=== PATIENT | male | born 1970 | race Caucasian/White ===

== ENCOUNTER 2021-11-13 05:05 | Inpatient (IN) | payer BC, MEDICARE ==
[~2021-11-13] VITALS: Ht 167.6 cm; Wt 49.0 kg
[2021-11-13] MEDS ORDERED: ACETAMINOPHEN 650 MG/SUPP.RECT RC ONE ×2 (05:30)
[2021-11-13] MEDS ORDERED: LORAZEPAM INJ 2 MG/ML VIAL ONE ×2 (05:37→08:14)
[2021-11-13 05:41] LABS: BASOPHILS % (AUTO) 0.3 % (0.0-2.0); EOSINOPHILS % (AUTO) 0.1 % (0.0-6.0); HEMATOCRIT 44 % (39-51); HEMOGLOBIN 14.7 g/dL (13.5-17.5); LYMPHOCYTES % (AUTO) 13.2 % (20.0-44.0); MEAN CORPUSCULAR HGB CONC 33 g/dl (31.0-36.0); MEAN CORPUSCULAR VOLUME 92 fL (80-96); MONOCYTES % (AUTO) 6.7 % (2.0-12.0); NEUTROPHILS # (AUTO) 11.9 K/uL (1.8-8.9); NEUTROPHILS % (AUTO) 79.7 % (43.0-81.0); PLATELET COUNT (AUTO) 209 K/uL (150-450); RED BLOOD CELL COUNT(AUTO) 4.79 MIL/uL (4.5-6.0)
[2021-11-13] MEDS ORDERED: LORAZEPAM INJ 2 MG/ML VIAL IV ONE ×2 (06:00→08:00)
[2021-11-13] MEDS ORDERED: LEVETIRACETAM (500MG) 1,000 MG in IV NS 0.9% 100 ML IV SCH ×2 (06:30→08:30)
[2021-11-13 06:50] LABS: VALPROIC ACID 80 ug/mL (50-100)
[2021-11-13 06:54] LABS: ABG BASE EXCESS 3.7 mmol/L; ABG PCO2 38.4 mmHg (35.0-45.0); ABG PH 7.471 (7.350-7.450); ABG PO2 75.7 mmHg (75.0-100.0); COHb 0.3 % (0.5-1.5); MetHb 0.4 % (0.0-1.5); O2Hb 94.2 % (94.0-97.0); SITE, ABG Left Brachial; VENT MODE, BG 9 L Trach Mask
[2021-11-13] MEDS ORDERED: VALP250C3 GT (07:27)
[2021-11-13] MEDS ORDERED: ATOR40TA GT (07:27)
[2021-11-13] MEDS ORDERED: [UNRECOGNIZED DRUG - CODE] GT (07:27)
[2021-11-13] MEDS ORDERED: NUT.237L63 GT (07:27)
[2021-11-13] MEDS ORDERED: CARV3.12 GT (07:27)
[2021-11-13] MEDS ORDERED: ACET325T53 GT (07:27)
[2021-11-13] MEDS ORDERED: IPRA4AER IH (07:27)
[2021-11-13] MEDS ORDERED: LOPE2TAB25 GT (07:27)
[2021-11-13] MEDS ORDERED: MAGN100T3 GT (07:27)
[2021-11-13] MEDS ORDERED: LACT1CAP25 PO (07:27)
[2021-11-13] MEDS ORDERED: LACO200T2 GT (07:27)
[2021-11-13] MEDS ORDERED: BACL20TA GT (07:27)
[2021-11-13] MEDS ORDERED: CHLO473M3 MM (07:27)
[2021-11-13] MEDS ORDERED: ASCO500C17 GT (07:27)
[2021-11-13] MEDS ORDERED: LISI20TA30 GT (07:27)
[2021-11-13] MEDS ORDERED: OMEG1CAP55 GT (07:27)
[2021-11-13] MEDS ORDERED: AMIN887L GT (07:27)
[2021-11-13] MEDS ORDERED: IV NS 0.9% 1,000 ML BAG IV ONE ×2 (07:30)
[2021-11-13] MEDS ORDERED: CEFTAZIDIME 1 G in IV D5W 50 ML IV ONE (07:30)
[2021-11-13] MEDS ORDERED: ZOSYN IVPB 3.375 G in IV D5W 50ml IV ONE (08:00)
[2021-11-13 08:10] LABS: CALCIUM, SERUM 10.5 mg/dL (8.5-10.1); CARBON DIOXIDE 25 mmol/L (21-32); CHLORIDE 112 mmol/L (98-107); GLUCOSE 100 mg/dL (74-106); POTASSIUM 4.7 mmol/L (3.5-5.1); SODIUM SERUM 151 mmol/L (136-145); UREA NITROGEN, BLOOD 48 mg/dL (7-18)
[2021-11-13 08:16] LABS: ALANINE AMINOTRANSFERASE 40 U/L (12-78); ALBUMIN 3.1 g/dL (3.4-5.0); ALCOHOL, BLOOD < 3 mg/dL (0-0); ALKALINE PHOSPHATASE 62 U/L (46-116); ASPARTATE AMINOTRANSFERASE 28 U/L (15-37); BILIRUBIN,DIRECT 0.1 mg/dL (0.0-0.2); BILIRUBIN,TOTAL 0.4 mg/dL (0.2-1.0); TOTAL PROTEIN, SERUM 8.3 g/dL (6.4-8.2)
[2021-11-13 08:22] LABS: BILIRUBIN,URINE NEGATIVE (NEGATIVE); COLOR,URINE YELLOW (YELLOW); LEUKOCYTE ESTERASE ,URINE SMALL (NEGATIVE); NITRITE, URINE NEGATIVE (NEGATIVE); PH,URINE 5.5 (5.0-8.0); PROTEIN,URINE 100 mg/dl (NEGATIVE); UGLUCOSE NEGATIVE (NEGATIVE); UROBILINOGEN,URINE 0.2 EU/dL (0.2)
[2021-11-13 09:03] LABS: BACTERIA,URINE Few /HPF (None Seen); RBC,URINE 51-80 /HPF (0-2); SQUAMOUS EPITHELIAL CELL,UR Few /HPF (None Seen)
[2021-11-13] MEDS ORDERED: LORAZEPAM INJ 2 MG/ML VIAL IV PRN (10:30)
[2021-11-13] MEDS ORDERED: Medication Not On Formulary EA (Ipratropium/Albuterol Sulfate (Combivent Respimat 20-100 IH SCH (12:00)
[2021-11-13] MEDS ORDERED: METHYLCELLULOSE GT SCH (13:00)
[2021-11-13] MEDS ORDERED: BACLOFEN (10 MG) 10 MG TABLET ONE ×2 (13:46→17:10)
[2021-11-13] MEDS: BACLOFEN (10 MG) 10 MG TABLET GT SCH ×2 (14:00→17:40)
[2021-11-13] MEDS ORDERED: VANCOMYCIN 1.25 GM in IV D5W 250 ML IV ONE ×2 (14:00→19:00)
[2021-11-13] MEDS: PIPERACILLIN /TAZOBACTAM 3.375 G in IV D5W 50 ML IV SCH ×2 (16:04→22:05)
[2021-11-13] MEDS: IV NS 0.9% 1,000 ML IV PRN (16:20)
[2021-11-13] MEDS ORDERED: VALPROIC ACID 250 MG/5 ML UDC ONE (17:09)
[2021-11-13] MEDS ORDERED: LACOSAMIDE ORAL SOLN 50 MG/5 ML UDC ONE (17:09)
[2021-11-13] MEDS ORDERED: CARVEDILOL 3.125 MG TABLET ONE (17:10)
[2021-11-13] MEDS: VALPROIC ACID 250 MG/5 ML UDC GT SCH (17:40)
[2021-11-13] MEDS: LACOSAMIDE ORAL SOLN 50 MG/5 ML UDC GT SCH (17:40)
[2021-11-13] MEDS: CARVEDILOL 3.125 MG TABLET GT SCH (17:46)
[2021-11-13] MEDS: CHLORHEXIDINE GLUCONATE 15 ML UDC MM SCH (17:47)
[2021-11-13] MEDS: PROSTAT (PYXIS) 30 ML UDC GT SCH (17:50)
[2021-11-13 20:00] VITALS: BP 133/69
[2021-11-13] MEDS: KEPPRA 1000 MG in IV NS 100 ML IV SCH (20:52)
[2021-11-13] MEDS: LISINOPRIL (20MG) 20 MG TABLET GT SCH (21:05)
[2021-11-13] MEDS: ATORVASTATIN 40 MG TABLET GT SCH (21:05)
[2021-11-13] MEDS: JEVITY 1.2 CAL 1,000 ML BOTTLE GT PRN (22:17)
[2021-11-14] VITALS: BP 95/52
[2021-11-14] MEDS: VANCOMYCIN 1 GM in IV D5W 250 ML IV SCH ×2 (01:19→14:20)
[2021-11-14] MEDS: IV NS 0.9% 1,000 ML IV PRN ×2 (03:35→21:12)
[2021-11-14 04:00] VITALS: BP 97/50
[2021-11-14] MEDS ORDERED: PIPERACILLIN /TAZOBACTAM 3.375 G in IV D5W 50 ML IV SCH (04:00)
[2021-11-14 06:17] LABS: BASOPHILS % (AUTO) 0.2 % (0.0-2.0); EOSINOPHILS % (AUTO) 0.5 % (0.0-6.0); HEMATOCRIT 33 % (39-51); HEMOGLOBIN 11.2 g/dL (13.5-17.5); LYMPHOCYTES # (AUTO) 0.6 K/uL (0.8-4.8); LYMPHOCYTES % (AUTO) 8.9 % (20.0-44.0); MEAN CORPUSCULAR HGB CONC 34 g/dl (31.0-36.0); MEAN CORPUSCULAR VOLUME 93 fL (80-96); MONOCYTES # (AUTO) 0.5 K/uL (0.1-1.30); MONOCYTES % (AUTO) 6.6 % (2.0-12.0); NEUTROPHILS # (AUTO) 6.1 K/uL (1.8-8.9); NEUTROPHILS % (AUTO) 83.8 % (43.0-81.0); PLATELET COUNT (AUTO) 108 K/uL (150-450); RED BLOOD CELL COUNT(AUTO) 3.58 MIL/uL (4.5-6.0); WHITE BLOOD COUNT (AUTO) 7.3 K/uL (4.3-11.0)
[2021-11-14] MEDS ORDERED: VANCOMYCIN 1 GM in IV D5W 250 ML IV SCH (07:00)
[2021-11-14 07:03] LABS: BILIRUBIN,TOTAL 0.5 mg/dL (0.2-1.0); CREATININE 0.5 mg/dL (0.6-1.3); MAGNESIUM 1.8 mg/dL (1.8-2.4); PHOSPHORUS 2.1 mg/dL (2.5-4.9); TOTAL PROTEIN, SERUM 5.7 g/dL (6.4-8.2)
[2021-11-14 07:25] LABS: POTASSIUM 2.7 mmol/L (3.5-5.1)
[2021-11-14] MEDS: ALBUTEROL FS 2.5 MG/0.5 ML VIAL.NEB NEB SCH ×3 (07:35→19:30)
[2021-11-14] MEDS: IPRATROPIUM NEB FS 0.5 MG/2.5 ML AMPUL.NEB NEB SCH ×3 (07:35→19:30)
[2021-11-14 08:00] VITALS: BP 91/44
[2021-11-14] MEDS: VALPROIC ACID 250 MG/5 ML UDC GT SCH ×2 (08:11→16:29)
[2021-11-14] MEDS: CHLORHEXIDINE GLUCONATE 15 ML UDC MM SCH ×2 (08:11→16:29)
[2021-11-14] MEDS: ACIDOPHILUS/BULGARICUS 1 EACH TAB.CHEW PO SCH (08:11)
[2021-11-14] MEDS: BACLOFEN (10 MG) 10 MG TABLET GT SCH ×3 (08:12→16:29)
[2021-11-14] MEDS: ASCORBIC ACID 500 MG TABLET GT SCH (08:12)
[2021-11-14] MEDS: PANTOPRAZOLE 40 MG VIAL IV SCH (08:12)
[2021-11-14] MEDS: PROSTAT (PYXIS) 30 ML UDC GT SCH (08:13)
[2021-11-14] MEDS: CARVEDILOL 3.125 MG TABLET GT SCH ×2 (08:29→16:30)
[2021-11-14] MEDS: LACOSAMIDE ORAL SOLN 50 MG/5 ML UDC GT SCH ×2 (09:00→17:42)
[2021-11-14] MEDS ORDERED: MAGNESIUM AMINO ACID CHELATE GT SCH (09:00)
[2021-11-14] MEDS ORDERED: Medication Not On Formulary EA (Omega-3 Acid Ethyl Esters (Lovaza) 1 GM) GT SCH (09:00)
[2021-11-14] MEDS: KEPPRA 1000 MG in IV NS 100 ML IV SCH ×2 (09:19→20:21)
[2021-11-14] MEDS ORDERED: POTASSIUM CHLORIDE 10 MEQ/50 ML PREMIXED IVPB FOR PERIPHERAL LINE IV ONE (09:30)
[2021-11-14] MEDS: POTASSIUM CL. PREMIX PERIPHER. 50 ML IV SCH ×6 (09:48→16:52)
[2021-11-14] MEDS: ACETAMINOPHEN 650 MG/20.3 ML UDC GT PRN ×2 (09:58→20:23)
[2021-11-14] MEDS ORDERED: NEUTRA PHOS 1 POWD.PACKET PO ONE (10:00)
[2021-11-14 12:23] VITALS: BP 94/52
[2021-11-14] MEDS: PIPERACILLIN /TAZOBACTAM 3.375 G in IV D5W 50 ML IV SCH ×3 (12:32→23:12)
[2021-11-14] MEDS: PROSOURCE / PROSTAT (PYXIS) 30 ML UDC GT SCH ×2 (12:57→16:29)
[2021-11-14 16:55] VITALS: BP 95/50
[2021-11-14 20:00] VITALS: BP 90/69
[2021-11-14] MEDS: ATORVASTATIN 40 MG TABLET GT SCH (21:22)
[2021-11-14] MEDS: LISINOPRIL (20MG) 20 MG TABLET GT SCH (21:45)
[2021-11-15] VITALS: BP 91/44
[2021-11-15] MEDS: ALBUTEROL FS 2.5 MG/0.5 ML VIAL.NEB NEB SCH ×4 (01:07→19:30)
[2021-11-15] MEDS: IPRATROPIUM NEB FS 0.5 MG/2.5 ML AMPUL.NEB NEB SCH ×4 (01:07→19:30)
[2021-11-15] MEDS: JEVITY 1.2 CAL 1,000 ML BOTTLE GT PRN ×2 (02:11→21:44)
[2021-11-15] MEDS: VANCOMYCIN 1 GM in IV D5W 250 ML IV SCH ×2 (02:11→13:01)
[2021-11-15] MEDS: ACETAMINOPHEN 650 MG/20.3 ML UDC GT PRN (03:54)
[2021-11-15 04:00] VITALS: BP 122/47
[2021-11-15] MEDS: PIPERACILLIN /TAZOBACTAM 3.375 G in IV D5W 50 ML IV SCH ×3 (05:26→17:21)
[2021-11-15 06:06] LABS: BASOPHILS % (AUTO) 0.2 % (0.0-2.0); EOSINOPHILS % (AUTO) 1.6 % (0.0-6.0); HEMATOCRIT 30 % (39-51); HEMOGLOBIN 10.1 g/dL (13.5-17.5); LYMPHOCYTES # (AUTO) 0.8 K/uL (0.8-4.8); LYMPHOCYTES % (AUTO) 14.3 % (20.0-44.0); MEAN CORPUSCULAR HGB CONC 33 g/dl (31.0-36.0); MEAN CORPUSCULAR VOLUME 94 fL (80-96); MONOCYTES # (AUTO) 0.3 K/uL (0.1-1.30); NEUTROPHILS # (AUTO) 4.1 K/uL (1.8-8.9); NEUTROPHILS % (AUTO) 77.9 % (43.0-81.0); PLATELET COUNT (AUTO) 93 K/uL (150-450); RED BLOOD CELL COUNT(AUTO) 3.23 MIL/uL (4.5-6.0); WHITE BLOOD COUNT (AUTO) 5.3 K/uL (4.3-11.0)
[2021-11-15 06:36] LABS: CALCIUM, SERUM 8.4 mg/dL (8.5-10.1); CREATININE 0.5 mg/dL (0.6-1.3); MAGNESIUM 1.8 mg/dL (1.8-2.4); PHOSPHORUS 2.6 mg/dL (2.5-4.9); POTASSIUM 3.6 mmol/L (3.5-5.1)
[2021-11-15] MEDS: IV NS 0.9% 1,000 ML IV PRN ×2 (06:46→18:10)
[2021-11-15 08:00] VITALS: BP 129/43
[2021-11-15] MEDS: CHLORHEXIDINE GLUCONATE 15 ML UDC MM SCH ×2 (08:36→16:28)
[2021-11-15] MEDS: VALPROIC ACID 250 MG/5 ML UDC GT SCH ×2 (08:36→16:28)
[2021-11-15] MEDS: BACLOFEN (10 MG) 10 MG TABLET GT SCH ×3 (08:37→16:28)
[2021-11-15] MEDS: ASCORBIC ACID 500 MG TABLET GT SCH (08:37)
[2021-11-15] MEDS: ACIDOPHILUS/BULGARICUS 1 EACH TAB.CHEW PO SCH (08:37)
[2021-11-15] MEDS: PANTOPRAZOLE 40 MG VIAL IV SCH (08:37)
[2021-11-15] MEDS: CARVEDILOL 3.125 MG TABLET GT SCH ×2 (08:38→16:38)
[2021-11-15] MEDS: KEPPRA 1000 MG in IV NS 100 ML IV SCH (08:38)
[2021-11-15] MEDS: PROSOURCE / PROSTAT (PYXIS) 30 ML UDC GT SCH ×3 (08:39→16:28)
[2021-11-15] MEDS: LACOSAMIDE ORAL SOLN 50 MG/5 ML UDC GT SCH ×2 (10:05→16:38)
[2021-11-15 12:00] VITALS: BP 131/62
[2021-11-15 16:00] VITALS: BP 129/42
[2021-11-15] MEDS ORDERED: LACOSAMIDE 50 MG TABLET GT ONE (17:00)
[2021-11-15 20:00] VITALS: BP 95/48
[2021-11-15] MEDS: LEVETIRACETAM SOL (5 ML) 100 MG/ML UDC GT SCH (21:42)
[2021-11-15] MEDS: ATORVASTATIN 40 MG TABLET GT SCH (21:43)
[2021-11-15] MEDS: LISINOPRIL (20MG) 20 MG TABLET GT SCH (21:43)
[2021-11-16] VITALS: BP 100/53
[2021-11-16] MEDS: IPRATROPIUM NEB FS 0.5 MG/2.5 ML AMPUL.NEB NEB SCH ×2 (00:36→07:35)
[2021-11-16] MEDS: ALBUTEROL FS 2.5 MG/0.5 ML VIAL.NEB NEB SCH ×2 (00:36→07:35)
[2021-11-16] MEDS: PIPERACILLIN /TAZOBACTAM 3.375 G in IV D5W 50 ML IV SCH ×4 (00:44→17:12)
[2021-11-16] MEDS: VANCOMYCIN 1 GM in IV D5W 250 ML IV SCH ×2 (01:19→14:17)
[2021-11-16 04:00] VITALS: BP 99/55
[2021-11-16] MEDS: IV NS 0.9% 1,000 ML IV PRN (05:16)
[2021-11-16 06:47] LABS: BASOPHILS % (AUTO) 0.2 % (0.0-2.0); EOSINOPHILS % (AUTO) 4.1 % (0.0-6.0); HEMATOCRIT 30 % (39-51); LYMPHOCYTES # (AUTO) 0.6 K/uL (0.8-4.8); LYMPHOCYTES % (AUTO) 16.4 % (20.0-44.0); MEAN CORPUSCULAR HGB CONC 33 g/dl (31.0-36.0); MEAN CORPUSCULAR VOLUME 93 fL (80-96); MONOCYTES # (AUTO) 0.2 K/uL (0.1-1.30); MONOCYTES % (AUTO) 6.2 % (2.0-12.0); NEUTROPHILS # (AUTO) 2.9 K/uL (1.8-8.9); NEUTROPHILS % (AUTO) 73.1 % (43.0-81.0); PLATELET COUNT (AUTO) 95 K/uL (150-450); RED BLOOD CELL COUNT(AUTO) 3.23 MIL/uL (4.5-6.0); WHITE BLOOD COUNT (AUTO) 3.9 K/uL (4.3-11.0)
[2021-11-16 07:17] LABS: CALCIUM, SERUM 8.1 mg/dL (8.5-10.1); CREATININE 0.4 mg/dL (0.6-1.3); POTASSIUM 3.5 mmol/L (3.5-5.1)
[2021-11-16 08:00] VITALS: BP 125/47
[2021-11-16] MEDS: VALPROIC ACID 250 MG/5 ML UDC GT SCH ×2 (08:42→16:46)
[2021-11-16] MEDS: CHLORHEXIDINE GLUCONATE 15 ML UDC MM SCH ×2 (08:42→16:47)
[2021-11-16] MEDS: LEVETIRACETAM SOL (5 ML) 100 MG/ML UDC GT SCH ×2 (08:42→21:45)
[2021-11-16] MEDS: LACOSAMIDE ORAL SOLN 50 MG/5 ML UDC GT SCH ×2 (08:44→16:45)
[2021-11-16] MEDS: ACIDOPHILUS/BULGARICUS 1 EACH TAB.CHEW PO SCH (08:45)
[2021-11-16] MEDS: PANTOPRAZOLE 40 MG VIAL IV SCH (08:45)
[2021-11-16] MEDS: BACLOFEN (10 MG) 10 MG TABLET GT SCH ×3 (08:45→16:45)
[2021-11-16] MEDS: ASCORBIC ACID 500 MG TABLET GT SCH (08:47)
[2021-11-16] MEDS: CARVEDILOL 3.125 MG TABLET GT SCH ×2 (08:48→16:45)
[2021-11-16] MEDS: PROSOURCE / PROSTAT (PYXIS) 30 ML UDC GT SCH ×3 (08:48→16:46)
[2021-11-16] MEDS ORDERED: PANTOPRAZOLE 40 MG/PACK PACK NG SCH (09:00)
[2021-11-16] MEDS: PANTOPRAZOLE 40 MG/PACK PACK GT SCH (10:17)
[2021-11-16] MEDS: Z GUARD REMEDY 4 OZ OINT TP SCH ×3 (11:07→21:45)
[2021-11-16 12:00] VITALS: BP 121/51
[2021-11-16 16:00] VITALS: BP 110/44
[2021-11-16 20:00] VITALS: BP 97/54
[2021-11-16] MEDS: JEVITY 1.2 CAL 1,000 ML BOTTLE GT PRN (20:51)
[2021-11-16] MEDS: ATORVASTATIN 40 MG TABLET GT SCH (21:45)
[2021-11-16] MEDS: LISINOPRIL (20MG) 20 MG TABLET GT SCH (21:47)
[2021-11-17] VITALS: BP 107/45
[2021-11-17] MEDS: IV NS 0.9% 1,000 ML IV PRN ×2 (01:53→17:22)
[2021-11-17 04:00] VITALS: BP 108/37
[2021-11-17 07:12] LABS: CALCIUM, SERUM 8.1 mg/dL (8.5-10.1); CREATININE 0.4 mg/dL (0.6-1.3); POTASSIUM 3.7 mmol/L (3.5-5.1)
[2021-11-17 07:30] LABS: BASOPHILS % (AUTO) 0.3 % (0.0-2.0); EOSINOPHILS % (AUTO) 5.8 % (0.0-6.0); HEMATOCRIT 30 % (39-51); HEMOGLOBIN 9.9 g/dL (13.5-17.5); LYMPHOCYTES # (AUTO) 0.7 K/uL (0.8-4.8); LYMPHOCYTES % (AUTO) 19.9 % (20.0-44.0); MEAN CORPUSCULAR HGB CONC 33 g/dl (31.0-36.0); MEAN CORPUSCULAR VOLUME 90 fL (80-96); MONOCYTES # (AUTO) 0.3 K/uL (0.1-1.30); MONOCYTES % (AUTO) 7.6 % (2.0-12.0); NEUTROPHILS # (AUTO) 2.3 K/uL (1.8-8.9); NEUTROPHILS % (AUTO) 66.4 % (43.0-81.0); PLATELET COUNT (AUTO) 104 K/uL (150-450); RED BLOOD CELL COUNT(AUTO) 3.27 MIL/uL (4.5-6.0); WHITE BLOOD COUNT (AUTO) 3.4 K/uL (4.3-11.0)
[2021-11-17 08:00] VITALS: BP 116/60
[2021-11-17] MEDS: ASCORBIC ACID 500 MG TABLET GT SCH (08:48)
[2021-11-17] MEDS: ACIDOPHILUS/BULGARICUS 1 EACH TAB.CHEW PO SCH (08:48)
[2021-11-17] MEDS: VALPROIC ACID 250 MG/5 ML UDC GT SCH ×2 (08:49→16:23)
[2021-11-17] MEDS: BACLOFEN (10 MG) 10 MG TABLET GT SCH ×3 (08:49→17:22)
[2021-11-17] MEDS: LEVETIRACETAM SOL (5 ML) 100 MG/ML UDC GT SCH ×2 (08:49→21:41)
[2021-11-17] MEDS: CHLORHEXIDINE GLUCONATE 15 ML UDC MM SCH ×2 (08:49→17:35)
[2021-11-17] MEDS: PANTOPRAZOLE 40 MG/PACK PACK GT SCH (08:49)
[2021-11-17] MEDS: Z GUARD REMEDY 4 OZ OINT TP SCH ×3 (08:50→21:41)
[2021-11-17] MEDS: CARVEDILOL 3.125 MG TABLET GT SCH ×2 (08:51→16:22)
[2021-11-17] MEDS: PROSOURCE / PROSTAT (PYXIS) 30 ML UDC GT SCH ×3 (08:52→17:35)
[2021-11-17] MEDS: JEVITY 1.2 CAL 1,000 ML BOTTLE GT PRN (09:18)
[2021-11-17] MEDS: LACOSAMIDE ORAL SOLN 50 MG/5 ML UDC GT SCH ×2 (11:04→16:23)
[2021-11-17 12:00] VITALS: BP 100/60
[2021-11-17 16:00] VITALS: BP 118/63
[2021-11-17] MEDS: ENOXAPARIN SODIUM 40 MG/0.4 ML DISP.SYRIN SQ SCH (17:23)
[2021-11-17] MEDS: PIPERACILLIN /TAZOBACTAM 3.375 G in IV D5W 50 ML IV SCH ×2 (17:35→21:42)
[2021-11-17 20:00] VITALS: BP 122/49
[2021-11-17] MEDS: ATORVASTATIN 40 MG TABLET GT SCH (21:44)
[2021-11-17] MEDS: LISINOPRIL (20MG) 20 MG TABLET GT SCH (21:45)
[2021-11-18] VITALS: BP 109/43
[2021-11-18 04:00] VITALS: BP 128/45
[2021-11-18] MEDS: PIPERACILLIN /TAZOBACTAM 3.375 G in IV D5W 50 ML IV SCH ×3 (04:57→21:00)
[2021-11-18 07:04] LABS: BASOPHILS % (AUTO) 0.4 % (0.0-2.0); EOSINOPHILS % (AUTO) 4.4 % (0.0-6.0); HEMATOCRIT 30 % (39-51); HEMOGLOBIN 10.4 g/dL (13.5-17.5); LYMPHOCYTES # (AUTO) 0.7 K/uL (0.8-4.8); LYMPHOCYTES % (AUTO) 18.9 % (20.0-44.0); MEAN CORPUSCULAR HGB CONC 34 g/dl (31.0-36.0); MEAN CORPUSCULAR VOLUME 90 fL (80-96); MONOCYTES # (AUTO) 0.3 K/uL (0.1-1.30); MONOCYTES % (AUTO) 9.1 % (2.0-12.0); NEUTROPHILS # (AUTO) 2.5 K/uL (1.8-8.9); NEUTROPHILS % (AUTO) 67.2 % (43.0-81.0); PLATELET COUNT (AUTO) 103 K/uL (150-450); RED BLOOD CELL COUNT(AUTO) 3.38 MIL/uL (4.5-6.0); WHITE BLOOD COUNT (AUTO) 3.8 K/uL (4.3-11.0)
[2021-11-18 07:26] LABS: CALCIUM, SERUM 8.1 mg/dL (8.5-10.1); CREATININE 0.4 mg/dL (0.6-1.3); MAGNESIUM 1.7 mg/dL (1.8-2.4); PHOSPHORUS 2.4 mg/dL (2.5-4.9); POTASSIUM 3.4 mmol/L (3.5-5.1)
[2021-11-18 08:00] VITALS: BP 122/55
[2021-11-18] MEDS: VALPROIC ACID 250 MG/5 ML UDC GT SCH ×2 (08:45→16:28)
[2021-11-18] MEDS: ASCORBIC ACID 500 MG TABLET GT SCH (08:46)
[2021-11-18] MEDS: CHLORHEXIDINE GLUCONATE 15 ML UDC MM SCH ×2 (08:46→16:28)
[2021-11-18] MEDS: CARVEDILOL 3.125 MG TABLET GT SCH ×2 (08:46→16:28)
[2021-11-18] MEDS: LEVETIRACETAM SOL (5 ML) 100 MG/ML UDC GT SCH ×2 (08:46→21:01)
[2021-11-18] MEDS: PANTOPRAZOLE 40 MG/PACK PACK GT SCH (08:46)
[2021-11-18] MEDS: BACLOFEN (10 MG) 10 MG TABLET GT SCH ×3 (08:46→16:28)
[2021-11-18] MEDS: ACIDOPHILUS/BULGARICUS 1 EACH TAB.CHEW PO SCH (08:46)
[2021-11-18] MEDS: PROSOURCE / PROSTAT (PYXIS) 30 ML UDC GT SCH ×3 (08:46→16:29)
[2021-11-18] MEDS: Z GUARD REMEDY 4 OZ OINT TP SCH ×3 (08:47→21:08)
[2021-11-18] MEDS: ENOXAPARIN SODIUM 40 MG/0.4 ML DISP.SYRIN SQ SCH (08:54)
[2021-11-18] MEDS: LACOSAMIDE ORAL SOLN 50 MG/5 ML UDC GT SCH ×2 (08:58→18:00)
[2021-11-18] MEDS: Magnesium 1GM/D5W 100ML PREMIX 100 ML IV SCH ×2 (09:41→10:46)
[2021-11-18] MEDS: JEVITY 1.2 CAL 1,000 ML BOTTLE GT PRN (09:48)
[2021-11-18] MEDS ORDERED: POTASSIUM CHLORIDE 20 MEQ POWDER PACKET GT SCH (10:00)
[2021-11-18] MEDS ORDERED: NEUTRA PHOS 1 POWD.PACKET GT ONE (10:00)
[2021-11-18] MEDS ORDERED: ENOXAPARIN SODIUM 40 MG/0.4 ML DISP.SYRIN SQ SCH (10:30)
[2021-11-18] MEDS: IV NS 0.9% 1,000 ML IV PRN (10:55)
[2021-11-18 12:00] VITALS: BP 122/55
[2021-11-18 16:00] VITALS: BP 109/42
[2021-11-18 20:00] VITALS: BP 112/40
[2021-11-18] MEDS: Z GUARD REMEDY 4 OZ OINT TP PRN ×2 (21:00→21:01)
[2021-11-18] MEDS: ATORVASTATIN 40 MG TABLET GT SCH (21:34)
[2021-11-18] MEDS: LISINOPRIL (20MG) 20 MG TABLET GT SCH (21:35)
[2021-11-19] VITALS: BP 145/68
[2021-11-19] MEDS: IV NS 0.9% 1,000 ML IV PRN ×2 (02:01→16:30)
[2021-11-19] MEDS: JEVITY 1.2 CAL 1,000 ML BOTTLE GT PRN (02:38)
[2021-11-19 04:00] VITALS: BP 128/69
[2021-11-19] MEDS: PIPERACILLIN /TAZOBACTAM 3.375 G in IV D5W 50 ML IV SCH ×3 (05:15→20:46)
[2021-11-19 07:26] LABS: BASOPHILS % (AUTO) 0.4 % (0.0-2.0); EOSINOPHILS % (AUTO) 4.2 % (0.0-6.0); HEMATOCRIT 33 % (39-51); HEMOGLOBIN 11.2 g/dL (13.5-17.5); LYMPHOCYTES # (AUTO) 0.8 K/uL (0.8-4.8); LYMPHOCYTES % (AUTO) 19.6 % (20.0-44.0); MEAN CORPUSCULAR HGB CONC 34 g/dl (31.0-36.0); MEAN CORPUSCULAR VOLUME 90 fL (80-96); MONOCYTES # (AUTO) 0.4 K/uL (0.1-1.30); MONOCYTES % (AUTO) 9.5 % (2.0-12.0); NEUTROPHILS # (AUTO) 2.7 K/uL (1.8-8.9); NEUTROPHILS % (AUTO) 66.3 % (43.0-81.0); PLATELET COUNT (AUTO) 125 K/uL (150-450); RED BLOOD CELL COUNT(AUTO) 3.65 MIL/uL (4.5-6.0)
[2021-11-19 08:00] VITALS: BP 111/62
[2021-11-19] MEDS: ASCORBIC ACID 500 MG TABLET GT SCH (08:00)
[2021-11-19] MEDS: BACLOFEN (10 MG) 10 MG TABLET GT SCH ×3 (08:01→16:48)
[2021-11-19] MEDS: VALPROIC ACID 250 MG/5 ML UDC GT SCH ×2 (08:01→16:48)
[2021-11-19] MEDS: PANTOPRAZOLE 40 MG/PACK PACK GT SCH (08:01)
[2021-11-19] MEDS: LEVETIRACETAM SOL (5 ML) 100 MG/ML UDC GT SCH ×2 (08:01→20:45)
[2021-11-19] MEDS: CHLORHEXIDINE GLUCONATE 15 ML UDC MM SCH ×2 (08:01→16:48)
[2021-11-19] MEDS: ACIDOPHILUS/BULGARICUS 1 EACH TAB.CHEW PO SCH (08:02)
[2021-11-19] MEDS: LACOSAMIDE ORAL SOLN 50 MG/5 ML UDC GT SCH ×2 (08:02→16:49)
[2021-11-19 08:03] LABS: CALCIUM, SERUM 8.6 mg/dL (8.5-10.1); CREATININE 0.4 mg/dL (0.6-1.3); PHOSPHORUS 2.6 mg/dL (2.5-4.9); POTASSIUM 3.5 mmol/L (3.5-5.1)
[2021-11-19] MEDS: Z GUARD REMEDY 4 OZ OINT TP SCH ×3 (08:03→20:46)
[2021-11-19] MEDS: ENOXAPARIN SODIUM 40 MG/0.4 ML DISP.SYRIN SQ SCH (08:05)
[2021-11-19] MEDS: PROSOURCE / PROSTAT (PYXIS) 30 ML UDC GT SCH ×3 (08:32→16:48)
[2021-11-19] MEDS: CARVEDILOL 3.125 MG TABLET GT SCH ×2 (09:00→16:48)
[2021-11-19 12:00] VITALS: BP 121/73
[2021-11-19 16:00] VITALS: BP 121/74
[2021-11-19 20:00] VITALS: BP 121/70
[2021-11-19] MEDS: LISINOPRIL (20MG) 20 MG TABLET GT SCH (20:47)
[2021-11-19] MEDS: ATORVASTATIN 40 MG TABLET GT SCH (20:47)
[2021-11-20] VITALS: BP 109/66
[2021-11-20 04:00] VITALS: BP 100/54
[2021-11-20] MEDS: JEVITY 1.2 CAL 1,000 ML BOTTLE GT PRN (05:42)
[2021-11-20] MEDS: PIPERACILLIN /TAZOBACTAM 3.375 G in IV D5W 50 ML IV SCH ×2 (05:42→13:04)
[2021-11-20] MEDS: IV NS 0.9% 1,000 ML IV PRN (07:06)
[2021-11-20 07:33] LABS: BASOPHILS % (AUTO) 0.2 % (0.0-2.0); HEMOGLOBIN 10.1 g/dL (13.5-17.5); MONOCYTES # (AUTO) 0.7 K/uL (0.1-1.30); RED BLOOD CELL COUNT(AUTO) 3.35 MIL/uL (4.5-6.0)
[2021-11-20 07:37] LABS: EOSINOPHILS % (AUTO) 6.3 % (0.0-6.0); HEMATOCRIT 30 % (39-51); LYMPHOCYTES # (AUTO) 0.8 K/uL (0.8-4.8); LYMPHOCYTES % (AUTO) 23.1 % (20.0-44.0); MEAN CORPUSCULAR HGB CONC 34 g/dl (31.0-36.0); MEAN CORPUSCULAR VOLUME 90 fL (80-96); MONOCYTES % (AUTO) 19.3 % (2.0-12.0); NEUTROPHILS # (AUTO) 1.8 K/uL (1.8-8.9); NEUTROPHILS % (AUTO) 51.1 % (43.0-81.0); PLATELET COUNT (AUTO) 139 K/uL (150-450); WHITE BLOOD COUNT (AUTO) 3.4 K/uL (4.3-11.0)
[2021-11-20 08:00] VITALS: BP 155/82
[2021-11-20] MEDS: CARVEDILOL 3.125 MG TABLET GT SCH (09:00)
[2021-11-20 09:07] LABS: CALCIUM, SERUM 8.6 mg/dL (8.5-10.1); CREATININE 0.4 mg/dL (0.6-1.3); MAGNESIUM 1.8 mg/dL (1.8-2.4); PHOSPHORUS 2.6 mg/dL (2.5-4.9)
[2021-11-20] MEDS: VALPROIC ACID 250 MG/5 ML UDC GT SCH (09:16)
[2021-11-20] MEDS: LEVETIRACETAM SOL (5 ML) 100 MG/ML UDC GT SCH (09:16)
[2021-11-20] MEDS: PANTOPRAZOLE 40 MG/PACK PACK GT SCH (09:16)
[2021-11-20] MEDS: ACIDOPHILUS/BULGARICUS 1 EACH TAB.CHEW PO SCH (09:17)
[2021-11-20] MEDS: ASCORBIC ACID 500 MG TABLET GT SCH (09:17)
[2021-11-20] MEDS: CHLORHEXIDINE GLUCONATE 15 ML UDC MM SCH (09:17)
[2021-11-20] MEDS: Z GUARD REMEDY 4 OZ OINT TP SCH ×2 (09:17→09:18)
[2021-11-20] MEDS: BACLOFEN (10 MG) 10 MG TABLET GT SCH ×2 (09:17→13:04)
[2021-11-20] MEDS: PROSOURCE / PROSTAT (PYXIS) 30 ML UDC GT SCH ×2 (09:17→13:04)
[2021-11-20] MEDS: ENOXAPARIN SODIUM 40 MG/0.4 ML DISP.SYRIN SQ SCH (09:29)
[2021-11-20] MEDS: LACOSAMIDE ORAL SOLN 50 MG/5 ML UDC GT SCH (09:30)
[2021-11-20] MEDS ORDERED: LEVE100S GT (11:43)
[2021-11-20 12:00] VITALS: BP 126/73
[2021-11-20 14:08] LABS: EOSINOPHILS % (MANUAL) 10 % (0-4); LYMPHOCYTES % (MANUAL) 18 % (16-48); MONOCYTES % (MANUAL) 17 % (0-11.0); NEUTROPHILS % (MANUAL) 54 (42-76)
[2021-11-20] MEDS ORDERED: POTASSIUM CL. PREMIX PERIPHER. 50 ML IV SCH (16:00)
== END 2021-11-20 16:14 | DRG 871 ==
LOC: ER 05:26 → TRANSITION 13:10 → TELE1 18:53 → TELE-TD 20:29 → TELE1 11-15 22:02
PROVIDERS: ADMIT Nurse Practitioner Acute Care; ATTEND Student in an Organized Health Care Education/Training Program
PROC: 05H633Z Insertion of Infusion Device into Left Subclavian Vein, Percutaneous Approach (ICD-10-PCS; principal; 2021-11-19)
PROC: B547ZZA Ultrasonography of Left Subclavian Vein, Guidance (ICD-10-PCS; 2021-11-19)
DX: A41.9 Sepsis, unspecified organism (principal); G92.8 Other toxic encephalopathy; J96.20 Acute and chronic respiratory failure, unspecified whether with hypoxia or hypercapnia; U07.1 COVID-19; G82.50 Quadriplegia, unspecified; J12.82 Pneumonia due to coronavirus disease 2019; E44.0 Moderate protein-calorie malnutrition; E87.0 Hyperosmolality and hypernatremia; D68.59 Other primary thrombophilia; G93.1 Anoxic brain damage, not elsewhere classified; Z99.11 Dependence on respirator [ventilator] status; J98.11 Atelectasis; G40.901 Epilepsy, unspecified, not intractable, with status epilepticus; E88.09 Other disorders of plasma-protein metabolism, not elsewhere classified; Z93.1 Gastrostomy status; I48.91 Unspecified atrial fibrillation; D69.6 Thrombocytopenia, unspecified; E78.5 Hyperlipidemia, unspecified; E83.42 Hypomagnesemia; E87.6 Hypokalemia; I10 Essential (primary) hypertension; Z93.0 Tracheostomy status; Z74.01 Bed confinement status; L89.526 Pressure-induced deep tissue damage of left ankle; L89.896 Pressure-induced deep tissue damage of other site; L30.8 Other specified dermatitis; L90.5 Scar conditions and fibrosis of skin; R13.10 Dysphagia, unspecified
CPT/HCPCS: 31720; 36410; 36415; 36600; 70450-TC; 71045-TC; 80048-TC; 80053-TC; 80076-TC; 80164-TC; 80202-TC; 81001; 82962-TC; 83605-TC; 83735-TC; 84100-TC; 85025-TC; 85378-TC; 85730-TC; 86140-TC; 87040-TC; 87045-TC; 87081-TC; 87086-TC; 94640-TC; 94760-TC; 94762-TC; 94799-TC; 95819-TC; A4217; A4623; A6253; A6403; A7526; C9113; C9803; G0378; G0480; J0713; J1650; J1953; J2060; J2543; J3370; J3475; J3480; J7030; J7050; J7060; U0003

== ENCOUNTER 2021-12-18 19:33 | Inpatient (IN) | payer BC ==
[~2021-12-18] VITALS: Ht 182.9 cm; Wt 51.3 kg
[~2021-12-18 19:33] MED LIST: ACET325T53 GT; AMIN887L GT; ASCO500C17 GT; ATOR40TA GT; BACL20TA GT; CARV3.12 GT; CHLO473M3 MM; IPRA4AER IH; LACO200T2 GT; LACT1CAP25 PO; LEVE100S GT; LISI20TA30 GT; LOPE2TAB25 GT; MAGN100T3 GT; NUT.237L63 GT; OMEG1CAP55 GT; VALP250C3 GT; [UNRECOGNIZED DRUG - CODE] GT
--- NOTE | 2021-12-18 19:51 | NUR ---
TO ER BED 6. [id number] PER FACILITY, [facility], [place], HYPOTENSION 85/35, FEVER 101.4. SKIN IS WARM TO THE TOUCH. NOT IN RESPIRATORY DISTRESS, TRACHE PT. RT CALLED TO ASSESS PT. CONNECTED TO MONITOR. AWAITING MD ROSADO
[2021-12-18] MEDS ORDERED: IV NS 0.9% 1,000 ML BAG IV ONE ×2 (20:00→22:00)
--- NOTE | 2021-12-18 20:00 | NUR ---
RT AT BEDSIDE
--- NOTE | 2021-12-18 20:02 | NUR ---
LAB AT BEDSIDE
--- NOTE | 2021-12-18 20:02 | NUR ---
COVID ANTIGEN SWAB COLLECTED AND SENT TO LAB
--- NOTE | 2021-12-18 20:08 | NUR ---
XRAY AT BEDSIDE
[2021-12-18] MEDS ORDERED: PIPERACILLIN /TAZOBACTAM 3.375 G VIAL IV ONE (20:30)
[2021-12-18] MEDS ORDERED: PIPERACILLIN /TAZOBACTAM 3.375 G in IV D5W 50 ML IV ONE (20:30)
[2021-12-18] MEDS ORDERED: VANCOMYCIN 1 GM in IV D5W 250 ML IV ONE (20:30)
--- NOTE | 2021-12-18 21:15 | NUR ---
BLOOD AND URINE COLLECTED AND SENT TO LAB
[2021-12-18 21:36] LABS: BASOPHILS % (AUTO) 0.1 % (0.0-2.0); EOSINOPHILS % (AUTO) 0.1 % (0.0-6.0); HEMATOCRIT 26 % (39-51); HEMOGLOBIN 8.3 g/dL (13.5-17.5); LYMPHOCYTES # (AUTO) 0.1 K/uL (0.8-4.8); LYMPHOCYTES % (AUTO) 1.5 % (20.0-44.0); MEAN CORPUSCULAR HGB CONC 32 g/dl (31.0-36.0); MEAN CORPUSCULAR VOLUME 94 fL (80-96); MONOCYTES # (AUTO) 0.3 K/uL (0.1-1.30); MONOCYTES % (AUTO) 3.4 % (2.0-12.0); NEUTROPHILS % (AUTO) 94.9 % (43.0-81.0); PLATELET COUNT (AUTO) 169 K/uL (150-450); RED BLOOD CELL COUNT(AUTO) 2.74 MIL/uL (4.5-6.0); WHITE BLOOD COUNT (AUTO) 8.4 K/uL (4.3-11.0)
[2021-12-18 21:43] LABS: BILIRUBIN,URINE NEGATIVE (NEGATIVE); COLOR,URINE YELLOW (YELLOW); LEUKOCYTE ESTERASE ,URINE LARGE (NEGATIVE); NITRITE, URINE NEGATIVE (NEGATIVE); PROTEIN,URINE 30 mg/dl (NEGATIVE); UGLUCOSE NEGATIVE (NEGATIVE); UROBILINOGEN,URINE 0.2 EU/dL (0.2)
[2021-12-18 21:53] LABS: BACTERIA,URINE 4+ /HPF (None Seen); RBC,URINE 21-50 /HPF (0-2); SQUAMOUS EPITHELIAL CELL,UR 0-2 /HPF (None Seen); WBC,URINE TOO NUMEROUS TO COUN /HPF (0-3)
[2021-12-18 21:57] LABS: BAND % (MANUAL) 19 % (0.0-5.0); LYMPHOCYTES % (MANUAL) 4 % (16-48); MONOCYTES % (MANUAL) 3 % (0-11.0); NEUTROPHILS % (MANUAL) 74 (42-76)
[2021-12-18 22:00] LABS: CALCIUM, SERUM 7.6 mg/dL (8.5-10.1); CARBON DIOXIDE 23 mmol/L (21-32); CHLORIDE 108 mmol/L (98-107); CREATININE 1.8 mg/dL (0.6-1.3); GLUCOSE 128 mg/dL (74-106); POTASSIUM 3.7 mmol/L (3.5-5.1); SODIUM SERUM 140 mmol/L (136-145)
[2021-12-18 22:02] LABS: UREA NITROGEN, BLOOD 98 mg/dL (7-18)
--- NOTE | 2021-12-18 22:02 | NUR ---
BUN 98
[2021-12-18 22:16] LABS: ALANINE AMINOTRANSFERASE 24 U/L (12-78); ALKALINE PHOSPHATASE 46 U/L (46-116); ASPARTATE AMINOTRANSFERASE 12 U/L (15-37); BILIRUBIN,DIRECT 0.1 mg/dL (0.0-0.2); BILIRUBIN,TOTAL 0.1 mg/dL (0.2-1.0); TOTAL PROTEIN, SERUM 5.5 g/dL (6.4-8.2)
[2021-12-18 22:38] LABS: ALBUMIN 1.2 g/dL (3.4-5.0)
[2021-12-18] MEDS ORDERED: MAG HYDROX/AL HYDROX/SIMETH 30 ML UDC PO PRN (23:00)
[2021-12-18] MEDS ORDERED: MAGNESIUM HYDROXIDE 30 ML UDC PO PRN (23:00)
[2021-12-18] MEDS ORDERED: ZOLPIDEM TARTRATE 5 MG TABLET PO PRN (23:00)
[2021-12-18] MEDS ORDERED: Z GUARD REMEDY 4 OZ OINT TP PRN (23:00)
[2021-12-18] MEDS ORDERED: HYDROCODONE/APAP 5/325MG TABLET PO PRN (23:00)
[2021-12-18] MEDS ORDERED: ACETAMINOPHEN 325 MG TABLET PO PRN (23:00)
[2021-12-18] MEDS ORDERED: ONDANSETRON HCL/PF 4 MG/2 ML VIAL IVP PRN (23:00)
[2021-12-19] VITALS (38 sets, daily range): BP systolic 77–148; BP diastolic 36–78
--- NOTE | 2021-12-19 00:10 | NUR ---
RN NOTES RECEIVED ER ADMISSION REPORT FROM SRINIVAS TAMAYO. ALL PERTINENT ADMISSION INFO REGARDING PT NOTED. WILL WAIT FOR PT TO BE TRANSFERRED TO UNIT AND ADDRESS NEEDS ACCORDINGLY. LYE PEEL OPERATOR MADE AWARE.
--- NOTE | 2021-12-19 00:14 | NUR ---
REPORT GIVEN TO BOO ESPINO FOR JELANI
--- NOTE | 2021-12-19 01:05 | NUR ---
PATIENT TRANSFERRED UNDER ACLS
--- NOTE | 2021-12-19 01:05 | NUR ---
RN NOTES RECEIVED PT FROM ER VIA ALVERTORNEY ACCOMPANIED BY 2 ER STAFF AND TRANSFERRED TO BED VIA 2-3 PERSON ASSIST. PT IS A/OX0; NON VERBAL; PT ON T-PIECE WITH RESPIRATIONS EVEN AND UNLABORED. COMPREHENSIVE PHYSICAL ASSESSMENT AND PATIENT CARE DONE. CALL LIGHT WITHIN REACH, SAFETY MEASURES AND ISOLATION PRECAUTION IN PLACE, WILL CONTINUE MONITOR AND ASSESS THROUGHOUT THE SHIFT. WILL CARRY OUT MD ORDERS ACCORDINGLY. FURNITURE ASSEMBLER MADE AWARE.
[2021-12-19] MEDS: IV NS 0.9% 1,000 ML IV PRN ×3 (01:30→23:17)
[2021-12-19] MEDS ORDERED: PIPERACILLIN /TAZOBACTAM 3.375 G in IV D5W 50 ML IV ONE (02:30)
[2021-12-19] MEDS ORDERED: PIPERACILLIN /TAZOBACTAM 3.375 G VIAL IV ONE (02:46)
--- NOTE | 2021-12-19 04:00 | NUR ---
RN NOTES NO NOTED CHANGES IN PATIENT CONDITION AT THIS TIME; PATIENT VITALS STABLE, NO SIGNS OF ACUTE RESPIRATORY DISTRESS. AM PATIENT CARE RENDERED, REGULAR SUCTIONING DONE, TURNING AND REPOSITIONING DONE Q2H.WILL CONTINUE TO MONITOR AND REASSESS FOR ANY CHANGES THROUGHOUT THE SHIFT.
[2021-12-19 06:23] LABS: BASOPHILS % (AUTO) 0.2 % (0.0-2.0); HEMATOCRIT 24 % (39-51); HEMOGLOBIN 7.8 g/dL (13.5-17.5); LYMPHOCYTES # (AUTO) 0.1 K/uL (0.8-4.8); LYMPHOCYTES % (AUTO) 1.6 % (20.0-44.0); MEAN CORPUSCULAR HGB CONC 33 g/dl (31.0-36.0); MEAN CORPUSCULAR VOLUME 93 fL (80-96); MONOCYTES # (AUTO) 0.3 K/uL (0.1-1.30); MONOCYTES % (AUTO) 4.4 % (2.0-12.0); NEUTROPHILS # (AUTO) 6.4 K/uL (1.8-8.9); NEUTROPHILS % (AUTO) 93.8 % (43.0-81.0); PLATELET COUNT (AUTO) 157 K/uL (150-450); RED BLOOD CELL COUNT(AUTO) 2.56 MIL/uL (4.5-6.0); WHITE BLOOD COUNT (AUTO) 6.8 K/uL (4.3-11.0)
--- NOTE | 2021-12-19 06:49 | NUR ---
RN CLOSING NOTE: PATIENT REMAINS IN ROOM IN NO SIGNS OF RESPIRATORY DISTRESS, PATIENT STILL ON 6L OF 02 VIA T-PIECE; TOLERATING WELL SATURATING @ >95% SP02. SAFETY MEASURES IMPLEMENTED, BED IN LOWEST POSITION, LOCKED, SIDE RAILS UP, CALL LIGHT WITHIN REACH. ALL NEEDS AND ORDERS ADDRESSED DURING THE SHIFT. IV ACCESS MAINTAINED INTACT, SECURED AND FLUSHING WELL. ALL DUE MEDS GIVEN ORDERED & SCHEDULED ; PATIENT TOLERATED WELL. PATIENT KEPT CLEAN AND COMFORTABLE WITHIN THE SHIFT. PATIENT ENDORSED TO INCOMING SHIFT RN WITH STABLE VITAL SIGN AND FOR CONTINUITY OF CARE.
[2021-12-19 07:14] LABS: CREATININE 1.2 mg/dL (0.6-1.3); MAGNESIUM 2.4 mg/dL (1.8-2.4); POTASSIUM 3.4 mmol/L (3.5-5.1)
[2021-12-19] MEDS ORDERED: PANTOPRAZOLE 40 MG TABLET.DR PO SCH (07:30)
--- NOTE | 2021-12-19 07:58 | NUR ---
RN OPENING NOTE Patient in bed, asleep. On O2 at 6L via T-piece, breathing evenly and unlabored. No SOB or s/s of distress noted. IV access on ALICE midline infusing NS at 100 ml/hr, and Right foot #22, SL intact and patent. On tele monitoring showing SR, HR on the 90's. Richey catheter in place draining to a yellow colored urine. Safety precautions in place: bed in low, locked position; siderails up x 2; call light within reach. Will continue to monitor.
[2021-12-19] MEDS: PIPERACILLIN /TAZOBACTAM 3.375 G in IV D5W 100 ML IV SCH ×2 (08:15→17:01)
[2021-12-19] MEDS: HEPARIN SODIUM, PORCINE 5000 UNITS/1 ML VIAL SQ SCH ×2 (08:23→22:51)
[2021-12-19] MEDS ORDERED: POTASSIUM CHLORIDE 20 MEQ TAB.PRT.SR PO ONE (10:00)
[2021-12-19] MEDS: VANCOMYCIN 500 MG in IV D5W 100 ML IV SCH ×2 (10:07→22:47)
--- NOTE | 2021-12-19 12:18 | NUR ---
RN NOTE Patient's BP low at 77/53 with both machine and manual BP. Zohreh Mott NP notified and ordered to give 500 cc, NS bolus. Order carried out.
[2021-12-19] MEDS ORDERED: IV NS 0.9% 500 ML IV ONE (12:30)
[2021-12-19] MEDS ORDERED: ACETAMINOPHEN 325 MG TABLET MC PRN (13:30)
[2021-12-19] MEDS ORDERED: NOREPINEPHRINE 32 MG in IV NS 0.9% 218 ML IV PRN (13:30)
--- NOTE | 2021-12-19 13:30 | NUR ---
RN NOTE Patient's BOP remains low after NS bolus given, BP is 79/39. Zohreh Mott NP notified and ordered to transfer patient to ICU.
--- NOTE | 2021-12-19 13:34 | NUR ---
awaits icu bed per md need to starton pressor,nursing sup notified.
--- NOTE | 2021-12-19 13:48 | NUR ---
ARRIVED IN ICU AT THIS TIME, ACCOMPANIED BY IAN RN. PT IS TRACHED ON T-PIECE, 5L O2. PT TRANSFERRED TO ICU FOR LOW BLOOD PRESSURE, LEVOPHED ORDERED. PT SETTLED AND PUT ON MONITOR AND PATIENT ASSESSED.
--- NOTE | 2021-12-19 13:49 | NUR ---
RN NOTE Patient transferred to ICU per Zohreh Mott NP order. Bedside report given to SRINIVAS Brink for JELANI. Addendum: 12/19/21 at 1516 by NATHALIE YUAN RN ADD: Patient transferred to room 258.
[2021-12-19] MEDS: NOREPINEPHRINE 8 MG in IV NS 0.9% 242 ML IV PRN ×2 (14:13→23:13)
[2021-12-19] MEDS ORDERED: MAG HYDROX/AL HYDROX/SIMETH 30 ML UDC GT PRN (14:44)
[2021-12-19] MEDS ORDERED: ZOLPIDEM TARTRATE 5 MG TABLET GT PRN (14:44)
[2021-12-19] MEDS ORDERED: HYDROCODONE/APAP 5/325MG TABLET GT PRN (14:44)
[2021-12-19] MEDS ORDERED: ZOLPIDEM TARTRATE 5 MG TABLET NG PRN (14:44)
[2021-12-19] MEDS ORDERED: MAGNESIUM HYDROXIDE 30 ML UDC GT PRN (14:45)
[2021-12-19] MEDS ORDERED: ACETAMINOPHEN 650 MG/20.3 ML UDC GT PRN (14:46)
[2021-12-19] MEDS: HYDROCORTISONE SOD SUCCINATE 100 MG/2 ML VIAL IV SCH ×2 (14:46→22:46)
[2021-12-19] MEDS ORDERED: PHARMACY TO CHANGE PO MEDS TO GT/NG XX PRN (15:00)
[2021-12-19] MEDS ORDERED: ACETAMINOPHEN 650 MG/20.3 ML UDC PO PRN (15:00)
[2021-12-19] MEDS: CARVEDILOL 3.125 MG TABLET GT SCH (17:00)
--- NOTE | 2021-12-19 17:40 | NUR ---
RN NOTES FOLLOW-UP MADE REGARDING PATIENT'S MED. VIMPAT FROM PHARMACY, AWAITING FOR THE MED.; FOLLOW-UP MADE TO THE DIETARY DEPT. WELL REGARDING PROSTAT, AWAITING FOR THE SUPPLY.
[2021-12-19] MEDS: JEVITY 1.2 CAL 1,000 ML BOTTLE GT PRN (17:42)
[2021-12-19] MEDS: BACLOFEN (10 MG) 10 MG TABLET GT SCH (17:43)
[2021-12-19] MEDS: CHLORHEXIDINE GLUCONATE 15 ML UDC MM SCH (17:43)
[2021-12-19] MEDS: VALPROIC ACID 250 MG/5 ML UDC GT SCH (17:43)
[2021-12-19] MEDS ORDERED: Medication Not On Formulary EA (Ipratropium/Albuterol Sulfate (Combivent Respimat 20-100 IH SCH (18:00)
--- NOTE | 2021-12-19 18:25 | NUR ---
RN NOTES FOLLOW-UP MADE AGAIN REGARDING PATIENT'S MEDS. VIMPAT FROM PHARMACY, AWAITING FOR THE MED.; FOLLOW-UP MADE TO THE DIETARY DEPT. AGAIN WELL REGARDING PROSTAT, AWAITING FOR THE SUPPLY.
[2021-12-19] MEDS: PROSOURCE / PROSTAT (PYXIS) 30 ML UDC GT SCH (18:47)
[2021-12-19] MEDS: LACOSAMIDE ORAL SOLN 50 MG/5 ML UDC GT SCH (18:48)
--- NOTE | 2021-12-19 19:08 | NUR ---
RN NOTES NO SIGNIFICANT CHANGES THROUGHOUT THE SHIFT. NO SOB OR ANY S/S OF DISTRESS. ALL DUE MEDS GIVEN. NEEDS ATTENDED. KEPT CLEAN AND COMFORTABLE. SAFETY MEASURES IN PLACE. ENDORSED TO NIGHT RN FOR JELANI.
[2021-12-19] MEDS: ALBUTEROL FS 2.5 MG/0.5 ML VIAL.NEB NEB SCH (20:03)
[2021-12-19] MEDS: IPRATROPIUM NEB FS 0.5 MG/2.5 ML AMPUL.NEB NEB SCH (20:03)
[2021-12-19] MEDS: LEVETIRACETAM SOL (5 ML) 100 MG/ML UDC GT SCH (22:45)
[2021-12-19] MEDS: ATORVASTATIN 40 MG TABLET GT SCH (22:47)
[2021-12-20] VITALS (87 sets, daily range): BP systolic 85–160; BP diastolic 41–89
[2021-12-20] MEDS: PIPERACILLIN /TAZOBACTAM 3.375 G in IV D5W 100 ML IV SCH ×4 (00:26→23:00)
[2021-12-20] MEDS: ALBUTEROL FS 2.5 MG/0.5 ML VIAL.NEB NEB SCH ×4 (01:29→20:20)
[2021-12-20] MEDS: IPRATROPIUM NEB FS 0.5 MG/2.5 ML AMPUL.NEB NEB SCH ×4 (01:29→20:20)
[2021-12-20] MEDS: HYDROCORTISONE SOD SUCCINATE 100 MG/2 ML VIAL IV SCH ×3 (05:36→21:22)
--- NOTE | 2021-12-20 06:50 | NUR ---
RN notes In bed resting comfortably with eyes open. No eye contact noted. No physical manifestation of pain or discomfort. Obtunded. On levo drip to maintain BP>90, no adverse effect noted. Vital signs remain wnl. Kept clean and dry. Will endorse to next shift for continuity of care.
--- NOTE | 2021-12-20 07:30 | NUR ---
OPENING NOTES: RECEIVED REPORT FROM CATHERINE ESPINO. NO SIGNIFICANT CHANGES NOTED OVERNIGHT PER REPORT. LEVOPHED INFUSING PER MD ORDERS. ALL OTHER BP MEDICATIONS HELD WHILE LEVOPHED IS INFUSING PER REPORT. HOURLY ROUNDING AND PATIENT CHECK DONE BY STAFF.
[2021-12-20] MEDS: PROSOURCE / PROSTAT (PYXIS) 30 ML UDC GT SCH ×3 (08:58→17:37)
[2021-12-20] MEDS: ACIDOPHILUS/BULGARICUS 1 EACH TAB.CHEW GT SCH (08:58)
[2021-12-20] MEDS: BACLOFEN (10 MG) 10 MG TABLET GT SCH ×3 (08:58→17:37)
[2021-12-20] MEDS: LACOSAMIDE ORAL SOLN 50 MG/5 ML UDC GT SCH ×2 (08:58→17:37)
[2021-12-20] MEDS: PSYLLIUM SEED 1 PKT PACKET GT SCH (08:58)
[2021-12-20] MEDS: CHLORHEXIDINE GLUCONATE 15 ML UDC MM SCH ×2 (08:59→17:37)
[2021-12-20] MEDS: PANTOPRAZOLE 40 MG/PACK PACK GT SCH (08:59)
[2021-12-20] MEDS: LEVETIRACETAM SOL (5 ML) 100 MG/ML UDC GT SCH ×2 (08:59→21:22)
[2021-12-20] MEDS: ASCORBIC ACID 500 MG TABLET GT SCH (08:59)
[2021-12-20] MEDS ORDERED: Medication Not On Formulary EA (Omega-3 Acid Ethyl Esters (Lovaza) 1 GM) GT SCH (09:00)
[2021-12-20] MEDS ORDERED: MAGNESIUM AMINO ACID CHELATE GT SCH (09:00)
[2021-12-20] MEDS: VALPROIC ACID 250 MG/5 ML UDC GT SCH ×2 (09:00→17:37)
[2021-12-20] MEDS: CARVEDILOL 3.125 MG TABLET GT SCH ×2 (09:00→17:00)
[2021-12-20 09:41] LABS: BASOPHILS % (AUTO) 0.1 % (0.0-2.0); HEMATOCRIT 32 % (39-51); HEMOGLOBIN 10.3 g/dL (13.5-17.5); LYMPHOCYTES # (AUTO) 0.2 K/uL (0.8-4.8); LYMPHOCYTES % (AUTO) 5.4 % (20.0-44.0); MEAN CORPUSCULAR HGB CONC 32 g/dl (31.0-36.0); MEAN CORPUSCULAR VOLUME 94 fL (80-96); MONOCYTES # (AUTO) 0.2 K/uL (0.1-1.30); MONOCYTES % (AUTO) 3.5 % (2.0-12.0); PLATELET COUNT (AUTO) 161 K/uL (150-450); RED BLOOD CELL COUNT(AUTO) 3.38 MIL/uL (4.5-6.0); WHITE BLOOD COUNT (AUTO) 4.4 K/uL (4.3-11.0)
[2021-12-20 09:46] LABS: CALCIUM, SERUM 8.7 mg/dL (8.5-10.1); CREATININE 0.7 mg/dL (0.6-1.3); POTASSIUM 3.5 mmol/L (3.5-5.1)
[2021-12-20] MEDS: VANCOMYCIN 500 MG in IV D5W 100 ML IV SCH (10:45)
[2021-12-20] MEDS: HEPARIN SODIUM, PORCINE 5000 UNITS/1 ML VIAL SQ SCH ×2 (10:45→21:23)
[2021-12-20] MEDS: IV NS 0.9% 1,000 ML IV PRN (10:53)
[2021-12-20] MEDS: JEVITY 1.2 CAL 1,000 ML BOTTLE GT PRN (13:48)
[2021-12-20] MEDS ORDERED: NOREPINEPHRINE 8 MG in IV NS 0.9% 242 ML IV PRN (16:00)
--- NOTE | 2021-12-20 19:22 | NUR ---
END OF SHIFT NOTES: PATIENT HAS NO NOTED SIGNIFICANT CHANGES DURING THE SHIFT; ALL DUE MEDS GIVEN; COREG WAS HELD DURING THE SHIFT DUE TO PATIENT ON LEVOPHED. HOURLY AND PRN ROUNDING DONE. NEEDS ATTENDED.
[2021-12-20] MEDS: VANCOMYCIN HCL 0.75 GM in IV D5W 250 ML IV SCH (20:00)
[2021-12-20] MEDS: ATORVASTATIN 40 MG TABLET GT SCH (21:22)
[2021-12-21] VITALS (37 sets, daily range): BP systolic 98–146; BP diastolic 40–96
[2021-12-21] MEDS: IV NS 0.9% 1,000 ML IV PRN ×2 (00:59→13:52)
[2021-12-21] MEDS: IPRATROPIUM NEB FS 0.5 MG/2.5 ML AMPUL.NEB NEB SCH ×4 (01:01→20:15)
[2021-12-21] MEDS: ALBUTEROL FS 2.5 MG/0.5 ML VIAL.NEB NEB SCH ×4 (01:01→20:15)
[2021-12-21 04:05] LABS: BASOPHILS % (AUTO) 0.1 % (0.0-2.0); HEMATOCRIT 26 % (39-51); HEMOGLOBIN 8.4 g/dL (13.5-17.5); LYMPHOCYTES # (AUTO) 0.3 K/uL (0.8-4.8); MEAN CORPUSCULAR HGB CONC 32 g/dl (31.0-36.0); MEAN CORPUSCULAR VOLUME 94 fL (80-96); MONOCYTES # (AUTO) 0.2 K/uL (0.1-1.30); MONOCYTES % (AUTO) 5.3 % (2.0-12.0); NEUTROPHILS # (AUTO) 2.5 K/uL (1.8-8.9); NEUTROPHILS % (AUTO) 85.6 % (43.0-81.0); PLATELET COUNT (AUTO) 170 K/uL (150-450); WHITE BLOOD COUNT (AUTO) 2.9 K/uL (4.3-11.0)
[2021-12-21 04:07] LABS: CREATININE 0.6 mg/dL (0.6-1.3)
[2021-12-21 04:32] LABS: POTASSIUM 2.7 mmol/L (3.5-5.1)
[2021-12-21] MEDS: HYDROCORTISONE SOD SUCCINATE 100 MG/2 ML VIAL IV SCH ×3 (04:33→21:26)
[2021-12-21] MEDS: POTASSIUM CHLORIDE 20 MEQ POWDER PACKET GT SCH ×3 (05:12→16:13)
--- NOTE | 2021-12-21 06:27 | NUR ---
SHIP STEWARD PT NOTED AFIB ON MONITOR INFORMED MD W/ORDERS TO START HEPARIN DRIP.
[2021-12-21] MEDS ORDERED: HEPARIN INFUSION/D5W 500 ML IV PRN (06:30)
[2021-12-21] MEDS ORDERED: HEPARIN SODIUM, PORCINE 5000 UNITS/1 ML VIAL IV ONE (07:00)
--- NOTE | 2021-12-21 07:05 | NUR ---
RN NOTES RECEIVED PT ON BED, EYES ARE OPEN, DOES NOT FOLLOW COMMAND, TRACH DEPENDENT , T- PIECE AT 6L , O2 SAT WNL, ON TELE A.FIB , HR IN 110'S , TF AT 55 CC/HR RUNNING, NO RESIDUAL NOTED , IV SITES CLEAN ,DRY AND INTACT, NS AT 100CC/HR RUNNING , SR UP x3, CALL LIGHT WITHIN EASY REACH, BED LOCKED AND IN LOWEST POSITION, CONTINUE TO MONITOR
--- NOTE | 2021-12-21 07:44 | NUR ---
WOUND CARE CONSULT: PT PRESENTS WITH SACRAL AND BILATERAL BUTTOCK DEEP TISSUE INJURIES WHICH ARE IN EVOLUTION WELL LOWER EXTREMITY DRY WOUNDS, ALL PRESENT ON ADMISSION. DR HINOJOSA AND DR ROSENBERG TO BE CALLED THIS AM FOR SURGICAL AND DPM CONSULTS. RECOMMENDATIONS MADE FOR SKIN PROTECTION. DISCUSSED WITH NURSING STAFF. PT IS ON BRIGID ISOFLEX LOW AIRLOSS BED. MD IN AGREEMENT WITH PLAN OF CARE.
[2021-12-21] MEDS: CHLORHEXIDINE GLUCONATE 15 ML UDC MM SCH ×2 (08:19→16:14)
[2021-12-21] MEDS: VALPROIC ACID 250 MG/5 ML UDC GT SCH ×2 (08:19→16:13)
[2021-12-21] MEDS: CARVEDILOL 3.125 MG TABLET GT SCH ×3 (08:25→16:08)
[2021-12-21] MEDS: LACOSAMIDE ORAL SOLN 50 MG/5 ML UDC GT SCH ×2 (08:25→16:13)
[2021-12-21] MEDS: ACIDOPHILUS/BULGARICUS 1 EACH TAB.CHEW GT SCH (08:26)
[2021-12-21] MEDS: BACLOFEN (10 MG) 10 MG TABLET GT SCH ×3 (08:26→16:13)
[2021-12-21] MEDS: ASCORBIC ACID 500 MG TABLET GT SCH (08:26)
[2021-12-21] MEDS: PIPERACILLIN /TAZOBACTAM 3.375 G in IV D5W 100 ML IV SCH ×3 (08:27→23:52)
[2021-12-21] MEDS: LEVETIRACETAM SOL (5 ML) 100 MG/ML UDC GT SCH ×2 (08:27→21:26)
[2021-12-21] MEDS: PANTOPRAZOLE 40 MG/PACK PACK GT SCH (08:27)
[2021-12-21] MEDS: PROSOURCE / PROSTAT (PYXIS) 30 ML UDC GT SCH ×3 (08:28→16:14)
[2021-12-21] MEDS: ENOXAPARIN SODIUM 60 MG/0.6 ML DISP.SYRIN SQ SCH ×2 (08:29→21:27)
[2021-12-21] MEDS: PSYLLIUM SEED 1 PKT PACKET GT SCH (08:40)
[2021-12-21] MEDS: VANCOMYCIN HCL 0.75 GM in IV D5W 250 ML IV SCH ×2 (08:51→20:12)
--- NOTE | 2021-12-21 09:32 | NUR ---
RN NOTES PT ON MONITOR NSR, DR LAGUNA NOTIFIED , ORDER FOR AMIO DRIP D/LENNOX PER MD ORDER .
[2021-12-21] MEDS ORDERED: AMIODARONE 150 MG in IV D5W 100 ML IV ONE (10:00)
[2021-12-21] MEDS ORDERED: AMIODARONE 450 MG in IV D5W 250 ML IV PRN (10:30)
[2021-12-21 10:52] LABS: THYROID STIMULATING HORMONE 0.152 uIU/mL (0.358-3.74)
--- NOTE | 2021-12-21 12:00 | NUR ---
RN NOTES ORAL AND TRACH CARE DONE, CONTINUE TO MONITOR .
[2021-12-21] MEDS: AMIODARONE HCL 200 MG TABLET PEG SCH ×2 (13:00→16:08)
[2021-12-21] MEDS: JEVITY 1.2 CAL 1,000 ML BOTTLE GT PRN (14:02)
--- NOTE | 2021-12-21 17:40 | NUR ---
RN NOTES PT TRANSFERRED TO ROOM 309-2 VIA ACLS PROTOCOL WITH ALL HIS BELONGINGS , REPORT GIVEN TO KATELYNN ESPINO FOR CONTINUITY OF CARE .
--- NOTE | 2021-12-21 19:47 | NUR ---
SKIN CARE SPECIALIST OPENING NOTE RECEIVED PATIENT, OBTUNDED, EYE-OPENING. PATIENT T-PIECE IN 6LPM OF O2, NOT EXHIBITING S/S OF APPARENT DISTRESS. NOT EXHIBITING PAIN VIA FLACC, TELE MONITOR READING SB @54 BPM. IV SOZYN IS STILL RUNNING AT THIS TIME @ 25 ML/HR, ALONG WITH NS @ 100 ML/HR. LINDSAY DRAINING CLEAR YELLOW URINE, FLEXISEAL HAS NO OUTPUT YET. G-TUBE RUNNING JEVITY 1.2 @55CC/HR. SAFETY IN PLACE. WILL CONTINUE WITH PATIENT'S PLAN OF CARE.
[2021-12-21] MEDS: THERAHONEY GEL 1.5 OZ TUBE TP SCH (22:30)
--- NOTE | 2021-12-21 22:44 | NUR ---
SONY NOT ON BEDSIDE NOR CASSETTE.
[2021-12-22] VITALS (7 sets, daily range): BP systolic 110–141; BP diastolic 55–72
[2021-12-22] MEDS: IPRATROPIUM NEB FS 0.5 MG/2.5 ML AMPUL.NEB NEB SCH ×4 (01:24→20:04)
[2021-12-22] MEDS: ALBUTEROL FS 2.5 MG/0.5 ML VIAL.NEB NEB SCH ×4 (01:24→20:04)
[2021-12-22] MEDS: HYDROCORTISONE SOD SUCCINATE 100 MG/2 ML VIAL IV SCH ×3 (05:52→21:14)
[2021-12-22] MEDS: IV NS 0.9% 1,000 ML IV PRN (06:07)
--- NOTE | 2021-12-22 07:45 | NUR ---
OPERATIONS SUPERINTENDENT CLOSING NOTE report given to alan for cont. of care.
[2021-12-22] MEDS: PANTOPRAZOLE 40 MG/PACK PACK GT SCH (08:00)
[2021-12-22] MEDS: PIPERACILLIN /TAZOBACTAM 3.375 G in IV D5W 100 ML IV SCH (08:00)
--- NOTE | 2021-12-22 08:07 | NUR ---
RN NOTES AWAITING FOR VANCO TROUGH PRIOR TO VANCOMYCIN IV DOSE.
[2021-12-22] MEDS: VANCOMYCIN HCL 0.75 GM in IV D5W 250 ML IV SCH ×2 (08:20→19:57)
--- NOTE | 2021-12-22 08:20 | NUR ---
RN NOTES VANCO TROUGH IS 16; OK TO GIVE 0800 DOSE OF VANCO PER PHARMACY
[2021-12-22] MEDS: LACOSAMIDE ORAL SOLN 50 MG/5 ML UDC GT SCH ×2 (09:00→16:02)
[2021-12-22] MEDS: CHLORHEXIDINE GLUCONATE 15 ML UDC MM SCH ×2 (09:38→16:03)
[2021-12-22] MEDS: VALPROIC ACID 250 MG/5 ML UDC GT SCH ×2 (09:38→16:03)
[2021-12-22] MEDS: LEVETIRACETAM SOL (5 ML) 100 MG/ML UDC GT SCH ×2 (09:38→21:16)
[2021-12-22] MEDS: BACLOFEN (10 MG) 10 MG TABLET GT SCH ×3 (09:39→16:01)
[2021-12-22] MEDS: PSYLLIUM SEED 1 PKT PACKET GT SCH (09:39)
[2021-12-22] MEDS: ACIDOPHILUS/BULGARICUS 1 EACH TAB.CHEW GT SCH (09:39)
[2021-12-22] MEDS: ASCORBIC ACID 500 MG TABLET GT SCH (09:39)
[2021-12-22] MEDS: CARVEDILOL 3.125 MG TABLET GT SCH ×2 (09:41→16:03)
[2021-12-22] MEDS: THERAHONEY GEL 1.5 OZ TUBE TP SCH (09:45)
[2021-12-22] MEDS: ENOXAPARIN SODIUM 40 MG/0.4 ML DISP.SYRIN SQ SCH (09:46)
--- NOTE | 2021-12-22 09:47 | NUR ---
RN NOTES LACOSAMIDE MEDICATION WILL BE BROUGHT BY PHARMACY.
[2021-12-22] MEDS: PROSOURCE / PROSTAT (PYXIS) 30 ML UDC GT SCH ×3 (09:49→16:01)
[2021-12-22] MEDS: POTASSIUM CHLORIDE 20 MEQ TAB.PRT.SR PO SCH (11:03)
--- NOTE | 2021-12-22 11:05 | NUR ---
RN NOTES LACOSAMIDE STILL NOT AVAILABLE FROM PHARMACY.
--- NOTE | 2021-12-22 12:30 | NUR ---
RN NOTES FAMILY AT BEDSIDE TO VISIT PATIENT; MADE AWARE OF PLAN OF CARE.
[2021-12-22] MEDS ORDERED: CEFEPIME 2 GM in IV D5W 100 ML IV SCH (13:00)
[2021-12-22] MEDS: CEFEPIME 2 GM in IV D5W 100 ML IV SCH ×2 (13:22→21:16)
--- NOTE | 2021-12-22 17:54 | NUR ---
RN NOTES PM DOSE OF LACOSAMIDE GIVEN; REFILLED OMNICELL BY [email or web address].
[2021-12-22] MEDS: JEVITY 1.2 CAL 1,000 ML BOTTLE GT PRN (18:00)
--- NOTE | 2021-12-22 18:47 | NUR ---
RN NOTES PHLEB TECH AT BEDSIDE FOR BLOOD DRAW BUT UNABLE TO DRAW BLOOD; PATIENT IS HARD STICK. UNABLE TO DRAW BLOOD FROM MIDLINE.
--- NOTE | 2021-12-22 19:17 | NUR ---
RN NOTES BEDSIDE ENDORSEMENT GIVEN TO DIGITAL MARKETING PROJECT MANAGER RN FOR JELANI.
[2021-12-22 22:54] LABS: BASOPHILS % (AUTO) 0.2 % (0.0-2.0); HEMATOCRIT 27 % (39-51); HEMOGLOBIN 8.4 g/dL (13.5-17.5); LYMPHOCYTES # (AUTO) 0.4 K/uL (0.8-4.8); LYMPHOCYTES % (AUTO) 13.5 % (20.0-44.0); MEAN CORPUSCULAR HGB CONC 32 g/dl (31.0-36.0); MEAN CORPUSCULAR VOLUME 94 fL (80-96); MONOCYTES # (AUTO) 0.2 K/uL (0.1-1.30); MONOCYTES % (AUTO) 6.7 % (2.0-12.0); NEUTROPHILS # (AUTO) 2.5 K/uL (1.8-8.9); NEUTROPHILS % (AUTO) 79.6 % (43.0-81.0); PLATELET COUNT (AUTO) 198 K/uL (150-450); RED BLOOD CELL COUNT(AUTO) 2.83 MIL/uL (4.5-6.0); WHITE BLOOD COUNT (AUTO) 3.1 K/uL (4.3-11.0)
[2021-12-22 23:47] LABS: CALCIUM, SERUM 8.4 mg/dL (8.5-10.1); CREATININE 0.7 mg/dL (0.6-1.3)
[2021-12-23] MEDS: IPRATROPIUM NEB FS 0.5 MG/2.5 ML AMPUL.NEB NEB SCH ×4 (02:03→19:46)
[2021-12-23] MEDS: ALBUTEROL FS 2.5 MG/0.5 ML VIAL.NEB NEB SCH ×4 (02:03→19:46)
[2021-12-23] MEDS: CEFEPIME 2 GM in IV D5W 100 ML IV SCH ×3 (05:10→22:08)
[2021-12-23] MEDS: HYDROCORTISONE SOD SUCCINATE 100 MG/2 ML VIAL IV SCH ×3 (05:10→22:09)
--- NOTE | 2021-12-23 06:44 | NUR ---
Concerned about HR 32 - 36 at times during the night texted Keara No new orders Made her aware that the NA level 159 ordered to stop the IV NS and start Peg flushes
[2021-12-23 06:48] LABS: BASOPHILS % (AUTO) 0.1 % (0.0-2.0); EOSINOPHILS % (AUTO) 0.8 % (0.0-6.0); HEMATOCRIT 31 % (39-51); HEMOGLOBIN 9.8 g/dL (13.5-17.5); LYMPHOCYTES # (AUTO) 0.5 K/uL (0.8-4.8); LYMPHOCYTES % (AUTO) 14.6 % (20.0-44.0); MEAN CORPUSCULAR HGB CONC 32 g/dl (31.0-36.0); MEAN CORPUSCULAR VOLUME 95 fL (80-96); MONOCYTES # (AUTO) 0.3 K/uL (0.1-1.30); MONOCYTES % (AUTO) 8.1 % (2.0-12.0); NEUTROPHILS # (AUTO) 2.5 K/uL (1.8-8.9); NEUTROPHILS % (AUTO) 76.4 % (43.0-81.0); PLATELET COUNT (AUTO) 180 K/uL (150-450); WHITE BLOOD COUNT (AUTO) 3.3 K/uL (4.3-11.0)
--- NOTE | 2021-12-23 07:30 | NUR ---
RN NOTES CURRENTLY ON TELE MONITORING; HR IN THE MID 40'S-LOW 50'S, NO CARDIAC DISTRESS NOTED. NON-VERBAL, OPENS EYES. LINDSAY CATH IN PLACE, GT PATENT, FLEXI-SEAL INTACT. H20 FLUSH DONE VIA GT. WILL CONTINUE TO MONITOR.
[2021-12-23] MEDS: VANCOMYCIN HCL 0.75 GM in IV D5W 250 ML IV SCH ×2 (07:54→20:18)
[2021-12-23] MEDS: PANTOPRAZOLE 40 MG/PACK PACK GT SCH (07:54)
[2021-12-23 08:00] VITALS: BP 114/65
[2021-12-23 08:20] LABS: CALCIUM, SERUM 8.9 mg/dL (8.5-10.1); CREATININE 0.6 mg/dL (0.6-1.3); MAGNESIUM 1.5 mg/dL (1.8-2.4); PHOSPHORUS 2.5 mg/dL (2.5-4.9); POTASSIUM 3.1 mmol/L (3.5-5.1)
[2021-12-23] MEDS: VALPROIC ACID 250 MG/5 ML UDC GT SCH ×2 (08:32→16:30)
[2021-12-23] MEDS: LACOSAMIDE ORAL SOLN 50 MG/5 ML UDC GT SCH ×2 (08:32→16:30)
[2021-12-23] MEDS: PSYLLIUM SEED 1 PKT PACKET GT SCH (08:32)
[2021-12-23] MEDS: BACLOFEN (10 MG) 10 MG TABLET GT SCH ×3 (08:32→16:29)
[2021-12-23] MEDS: POTASSIUM CHLORIDE 20 MEQ TAB.PRT.SR PO SCH (08:33)
[2021-12-23] MEDS: ASCORBIC ACID 500 MG TABLET GT SCH (08:33)
[2021-12-23] MEDS: LEVETIRACETAM SOL (5 ML) 100 MG/ML UDC GT SCH ×2 (08:33→22:08)
[2021-12-23] MEDS: ACIDOPHILUS/BULGARICUS 1 EACH TAB.CHEW GT SCH (08:33)
[2021-12-23] MEDS: CARVEDILOL 3.125 MG TABLET GT SCH ×2 (08:37→16:27)
[2021-12-23] MEDS: CHLORHEXIDINE GLUCONATE 15 ML UDC MM SCH ×2 (08:39→16:29)
[2021-12-23] MEDS: ENOXAPARIN SODIUM 40 MG/0.4 ML DISP.SYRIN SQ SCH (08:40)
[2021-12-23] MEDS: THERAHONEY GEL 1.5 OZ TUBE TP SCH (08:41)
[2021-12-23] MEDS: PROSOURCE / PROSTAT (PYXIS) 30 ML UDC GT SCH ×3 (08:41→16:30)
[2021-12-23] MEDS: Magnesium 1GM/D5W 100ML PREMIX 100 ML IV SCH ×2 (10:08→11:22)
--- NOTE | 2021-12-23 10:35 | NUR ---
RN NOTES DR. WATKINS'S ASSEMBLER EQUIPMENT STUDENT IN UNIT TO SEE PATIENT. MADE AWARE OF SODIUM LEVEL; PREVIOUS ORDERS ALREADY NOTED.
[2021-12-23 11:26] LABS: BAND % (MANUAL) 1 % (0.0-5.0); LYMPHOCYTES % (MANUAL) 21 % (16-48); MONOCYTES % (MANUAL) 5 % (0-11.0); NEUTROPHILS % (MANUAL) 70 (42-76); REACTIVE LYMPHOCYTES 3 % (0-0)
[2021-12-23 12:00] VITALS: BP 90/50
[2021-12-23] MEDS: VITAL AF 1.2 1,000 ML BOTTLE GT SCH (12:36)
[2021-12-23 16:00] VITALS: BP 106/56
[2021-12-23 20:00] VITALS: BP 105/54
[2021-12-23 23:16] LABS: HEMOGLOBIN 7.6 g/dL (13.5-17.5)
[2021-12-24] VITALS: BP 103/53
[2021-12-24] MEDS: IV D5W 1,000 ML IV SCH ×2 (00:04→13:20)
[2021-12-24] MEDS: IPRATROPIUM NEB FS 0.5 MG/2.5 ML AMPUL.NEB NEB SCH ×4 (02:12→20:47)
[2021-12-24] MEDS: ALBUTEROL FS 2.5 MG/0.5 ML VIAL.NEB NEB SCH ×4 (02:12→20:47)
[2021-12-24 04:00] VITALS: BP 97/49
[2021-12-24] MEDS: HYDROCORTISONE SOD SUCCINATE 100 MG/2 ML VIAL IV SCH ×3 (05:44→20:53)
[2021-12-24] MEDS: CEFEPIME 2 GM in IV D5W 100 ML IV SCH ×3 (05:44→21:39)
--- NOTE | 2021-12-24 07:37 | NUR ---
DEMOGRAPHIC ANALYST CLOSING NOTES PATIENT AWAKE IN BED, NON-VERBAL. PT STABLE WITH T-PIECE ON 5 LPM OF OXYGEN, NO S/S OF DISTRESS OR SOB NOTED, BREATHING EVEN AND UNLABORED, PT SUCTIONED THROUGHOUT SHIFT. ALICE MIDLINE INTACT AND INFUSING D5W @ 75 ML/HR. PT ON EXTERNAL DEMURRAGE WORKER READING SINUS SOPHIE, HR: 48. NO SIGNIFICANT CHANGES THROUGHOUT SHIFT, PT TURNED AND REPOSITIONED Q2H, PATIENT KEPT CLEAN AND DRY. MEDICATIONS GIVEN ORDERED. LINDSAY CATH AND FLEXISEAL IN PLACE AND DRAINING WELL. SAFETY MEASURES IN PLACE: CALL LIGHT WITHIN REACH, SIDE RAILS UP X 3, BED LOCKED IN LOW POSITION, HOB ELEVATED, BED ALARM ON. ENDORSED OT DAY SHIFT NURSE FOR CONTINUITY OF CARE
--- NOTE | 2021-12-24 07:56 | NUR ---
RN OPENING NOTE PATIENT RECEIVED IN BED, NON VERBAL, ABLE TO RESPONDS PHYSICAL STIMULI. IN NO ACUTE DISTRESS NOTED. RESPIRATORY EVEN AND UNLABORED ON TRACH AND T PIECE AT 5Ls. SKIN IS WARM TO TOUCH, KEEP CLEAN/DRY, INTACT IV SITE. LINDSAY CONNECTING TO URINE BAG. KEPT ELEVATED HOB FOR ENSURE AIRWAY AND ASPIRATION PRECAUTION, ALSO LOWEST POSITION OF THE BED, S/R UP X 3 FOR SAFETY. ALL SAFETY PRECAUTION APPLIED. CALL LIGHT WITHIN REACH, WILL CONTINUE TO MONITOR.
[2021-12-24 08:00] VITALS: BP 96/49
[2021-12-24] MEDS: VANCOMYCIN HCL 0.75 GM in IV D5W 250 ML IV SCH ×2 (08:33→20:33)
[2021-12-24] MEDS: CHLORHEXIDINE GLUCONATE 15 ML UDC MM SCH ×2 (08:34→16:44)
[2021-12-24] MEDS: ACIDOPHILUS/BULGARICUS 1 EACH TAB.CHEW GT SCH (08:34)
[2021-12-24] MEDS: ASCORBIC ACID 500 MG TABLET GT SCH (08:34)
[2021-12-24] MEDS: PSYLLIUM SEED 1 PKT PACKET GT SCH (08:34)
[2021-12-24] MEDS: PANTOPRAZOLE 40 MG/PACK PACK GT SCH (08:34)
[2021-12-24] MEDS: BACLOFEN (10 MG) 10 MG TABLET GT SCH ×3 (08:34→16:45)
[2021-12-24] MEDS: LACOSAMIDE ORAL SOLN 50 MG/5 ML UDC GT SCH ×2 (08:34→16:44)
[2021-12-24] MEDS: LEVETIRACETAM SOL (5 ML) 100 MG/ML UDC GT SCH ×2 (08:35→20:53)
[2021-12-24] MEDS: PROSOURCE / PROSTAT (PYXIS) 30 ML UDC GT SCH ×3 (08:35→16:44)
[2021-12-24] MEDS: CARVEDILOL 3.125 MG TABLET GT SCH ×2 (08:40→16:44)
[2021-12-24] MEDS: VALPROIC ACID 250 MG/5 ML UDC GT SCH ×2 (08:40→16:44)
[2021-12-24] MEDS: THERAHONEY GEL 1.5 OZ TUBE TP SCH (08:43)
[2021-12-24] MEDS: POTASSIUM CHLORIDE 20 MEQ TAB.PRT.SR PO SCH (08:44)
[2021-12-24] MEDS ORDERED: POTASSIUM CHLORIDE 20 MEQ POWDER PACKET NG SCH ×2 (09:00→10:30)
[2021-12-24] MEDS: ENOXAPARIN SODIUM 40 MG/0.4 ML DISP.SYRIN SQ SCH (10:30)
--- NOTE | 2021-12-24 10:30 | NUR ---
PATIENT HGB LEVEL 7.6 IN THIS MORNING, CLARIFIED WITH MD AND GIVEN LOVENOX.
[2021-12-24] MEDS: Magnesium 1GM/D5W 100ML PREMIX 100 ML IV SCH ×2 (10:36→13:17)
[2021-12-24 12:00] VITALS: BP 101/53
[2021-12-24 13:41] LABS: BASOPHILS % (AUTO) 0.2 % (0.0-2.0); HEMATOCRIT 25 % (39-51); HEMOGLOBIN 8.2 g/dL (13.5-17.5); LYMPHOCYTES # (AUTO) 0.5 K/uL (0.8-4.8); LYMPHOCYTES % (AUTO) 9.6 % (20.0-44.0); MEAN CORPUSCULAR HGB CONC 33 g/dl (31.0-36.0); MEAN CORPUSCULAR VOLUME 91 fL (80-96); MONOCYTES # (AUTO) 0.3 K/uL (0.1-1.30); MONOCYTES % (AUTO) 4.5 % (2.0-12.0); NEUTROPHILS # (AUTO) 4.7 K/uL (1.8-8.9); NEUTROPHILS % (AUTO) 85.7 % (43.0-81.0); PLATELET COUNT (AUTO) 214 K/uL (150-450); RED BLOOD CELL COUNT(AUTO) 2.77 MIL/uL (4.5-6.0); WHITE BLOOD COUNT (AUTO) 5.5 K/uL (4.3-11.0)
[2021-12-24 16:00] VITALS: BP 105/57
[2021-12-24 18:00] LABS: CALCIUM, SERUM 7.9 mg/dL (8.5-10.1); CREATININE 0.5 mg/dL (0.6-1.3); MAGNESIUM 2.5 mg/dL (1.8-2.4); PHOSPHORUS 1.9 mg/dL (2.5-4.9)
--- NOTE | 2021-12-24 18:59 | NUR ---
RN CLOSING NOTE PATENT IN BED, IN NO ACUTE DISTRESS OBSERVED. RESPIRATORY EVEN AND UNLABORED ON TRACH WITH T PIECE AT 5Ls. SKIN IS WARM TO TOUCH KEEP CLEAN/DRY, INTACT IV SITE. LINDSAY CATH CONNECTING TO THE URINE BAG, ALSO PATIENT HAS RECTAL TUBE, AND SKIN CARE PROVIDED. KEPT ELEVATE HOB FOR ASPIRATION PRECAUTION AND ENSURE AIRWAY, ALSO LOWEST POSITION OF THE BED FOR SAFETY. CALL LIGHT WITHIN REACH, WILL ENDORSE TO AWNING ASSEMBLER.
[2021-12-24 20:00] VITALS: BP 103/56
[2021-12-24 20:15] LABS: HEMOGLOBIN 8.9 g/dL (13.5-17.5)
[2021-12-24 20:20] LABS: BAND % (MANUAL) 1 % (0.0-5.0); LYMPHOCYTES % (MANUAL) 10 % (16-48); MONOCYTES % (MANUAL) 8 % (0-11.0); NEUTROPHILS % (MANUAL) 80 (42-76); REACTIVE LYMPHOCYTES 1 % (0-0)
[2021-12-25] VITALS (7 sets, daily range): BP systolic 97–123; BP diastolic 52–97
[2021-12-25] MEDS: ALBUTEROL FS 2.5 MG/0.5 ML VIAL.NEB NEB SCH ×4 (02:04→19:49)
[2021-12-25] MEDS: IPRATROPIUM NEB FS 0.5 MG/2.5 ML AMPUL.NEB NEB SCH ×4 (02:04→19:49)
[2021-12-25] MEDS: IV D5W 1,000 ML IV SCH ×2 (02:29→15:13)
[2021-12-25] MEDS: CEFEPIME 2 GM in IV D5W 100 ML IV SCH ×3 (04:19→21:02)
[2021-12-25] MEDS: HYDROCORTISONE SOD SUCCINATE 100 MG/2 ML VIAL IV SCH ×3 (04:19→21:07)
--- NOTE | 2021-12-25 06:11 | NUR ---
Patient has been alert to loud sound and touch by opening eyes but non-verbal. Suctioned as needed thick, small, white secretions. On t-piece at 5L O2, sats staying 97% and above. SB SR overnight usually 50s and 60s but in high 40s as well. Richey cath draining well clear yellow urine. Flexiseal in place with loose brown stool. Wound care provided. GT feeding Vital AF 1.2 running at 45mL/hr continuous -no residual tolerating well, GT flushed with 250mL q6h as per order. ALICE midline intact and patent running D5W at 75mL/hr. Currently in bed calm, in no signs of distress.
--- NOTE | 2021-12-25 07:21 | NUR ---
RN OPENING NOTE- PATIENT IN BED, NON VERBAL- IN NO ACUTE DISTRESS. RESPIRATIONS EVEN AND NON-LABORED / ON TRACH AND T PIECE AT 5Ls. SKIN IS WARM TO TOUCH, KEEP CLEAN/DRY, INTACT IV SITE. LINDSAY CONNECTING TO URINE BAG. KEPT ELEVATED HOB FOR ENSURE AIRWAY AND ASPIRATION PRECAUTIONS, BED LOCKED , LOW, S/R UP X 3 FOR SAFETY. ALL SAFETY PRECAUTION APPLIED. CALL LIGHT WITHIN REACH, WILL CONTINUE TO MONITOR.
[2021-12-25 07:28] LABS: BASOPHILS % (AUTO) 0.1 % (0.0-2.0); EOSINOPHILS % (AUTO) 0.1 % (0.0-6.0); HEMATOCRIT 29 % (39-51); HEMOGLOBIN 9.8 g/dL (13.5-17.5); LYMPHOCYTES # (AUTO) 0.6 K/uL (0.8-4.8); LYMPHOCYTES % (AUTO) 7.6 % (20.0-44.0); MEAN CORPUSCULAR HGB CONC 34 g/dl (31.0-36.0); MEAN CORPUSCULAR VOLUME 90 fL (80-96); MONOCYTES # (AUTO) 0.3 K/uL (0.1-1.30); MONOCYTES % (AUTO) 3.3 % (2.0-12.0); NEUTROPHILS % (AUTO) 88.9 % (43.0-81.0); PLATELET COUNT (AUTO) 264 K/uL (150-450); RED BLOOD CELL COUNT(AUTO) 3.18 MIL/uL (4.5-6.0); WHITE BLOOD COUNT (AUTO) 7.8 K/uL (4.3-11.0)
[2021-12-25] MEDS: PANTOPRAZOLE 40 MG/PACK PACK GT SCH (07:47)
[2021-12-25] MEDS: VANCOMYCIN HCL 0.75 GM in IV D5W 250 ML IV SCH ×2 (07:48→20:15)
[2021-12-25 08:47] LABS: CALCIUM, SERUM 8.3 mg/dL (8.5-10.1); CREATININE 0.5 mg/dL (0.6-1.3); MAGNESIUM 2.1 mg/dL (1.8-2.4); PHOSPHORUS 2.1 mg/dL (2.5-4.9); POTASSIUM 2.9 mmol/L (3.5-5.1)
[2021-12-25] MEDS: ASCORBIC ACID 500 MG TABLET GT SCH (08:48)
[2021-12-25] MEDS: CHLORHEXIDINE GLUCONATE 15 ML UDC MM SCH ×2 (08:48→16:50)
[2021-12-25] MEDS: VALPROIC ACID 250 MG/5 ML UDC GT SCH ×2 (08:48→16:50)
[2021-12-25] MEDS: PSYLLIUM SEED 1 PKT PACKET GT SCH (08:48)
[2021-12-25] MEDS: BACLOFEN (10 MG) 10 MG TABLET GT SCH ×3 (08:49→16:51)
[2021-12-25] MEDS: ACIDOPHILUS/BULGARICUS 1 EACH TAB.CHEW GT SCH (08:49)
[2021-12-25] MEDS: POTASSIUM CHLORIDE 20 MEQ TAB.PRT.SR PO SCH ×2 (08:51→16:50)
[2021-12-25] MEDS: ENOXAPARIN SODIUM 40 MG/0.4 ML DISP.SYRIN SQ SCH (08:57)
[2021-12-25] MEDS: CARVEDILOL 3.125 MG TABLET GT SCH ×2 (08:58→16:51)
[2021-12-25] MEDS: THERAHONEY GEL 1.5 OZ TUBE TP SCH (08:58)
[2021-12-25] MEDS: PROSOURCE / PROSTAT (PYXIS) 30 ML UDC GT SCH ×3 (09:27→16:51)
[2021-12-25] MEDS: LACOSAMIDE ORAL SOLN 50 MG/5 ML UDC GT SCH ×2 (09:36→17:58)
[2021-12-25] MEDS: LEVETIRACETAM SOL (5 ML) 100 MG/ML UDC GT SCH ×2 (10:01→21:07)
[2021-12-25 11:34] LABS: BAND % (MANUAL) 6 % (0.0-5.0); LYMPHOCYTES % (MANUAL) 8 % (16-48); METAMYELOCYTES % 1 % (0-0); MONOCYTES % (MANUAL) 2 % (0-11.0); MYELOCYTES % 1 % (0-0); NEUTROPHILS % (MANUAL) 81 (42-76); PROMYELOCYTES % 1 % (0-0)
--- NOTE | 2021-12-25 13:00 | NUR ---
RN NOTE- FULL WOUND CARE COMPLETED TO BLE / FEET AND SACRUM PLUS BACK AND SHOULDERS. TOLERATED WELL.
[2021-12-25] MEDS ORDERED: NEUTRA PHOS 1 POWD.PACKET NG ONE (15:30)
--- NOTE | 2021-12-25 18:35 | NUR ---
RN CLOSING NOTE- PATIENT IN BED, NON VERBAL- IN NO ACUTE DISTRESS. RESPIRATIONS EVEN AND NON-LABORED / ON TRACH AND T PIECE AT 5Ls. SUCTIONED THROUGHOUT DAY. COARSE BREATH SOUNDS. SKIN IS WARM TO TOUCH, KEEP CLEAN/DRY, DRESSING CHANGES COMPLETED TO SACRUM, LEGS AND FEET. BACK DRESSING CHANGED WELL. INTACT IV SITE. LINDSAY CONNECTING TO URINE BAG. KEPT ELEVATED HOB FOR ENSURE AIRWAY AND ASPIRATION PRECAUTIONS, BED LOCKED , LOW, S/R UP X 3 FOR SAFETY. ALL SAFETY PRECAUTION APPLIED. CALL LIGHT WITHIN REACH, WILL CONTINUE TO MONITOR.
--- NOTE | 2021-12-25 19:30 | NUR ---
SKIMMER SCOOP OPERATOR NOTES RECEIVED ON BED,OBTUNDED,NON VERBAL,OPEN EYES,BREATHING NON LABORED,ON T-PIECE AT 5L O2,28% COOL AEROSOL, CRACKLES ON AUSCULTATION,LOTS OF MUCUS, SUCTIONED.ON IVF D5W AT 75ML/HR RATE,INFUSING ON RIGHT UPPER ARM MID LINE VIA IV PUMP.WITH LINDSAY CATH IN DRAINS YELLOWISH OUTPUT.WITH FLEXI SEAL,WITH OUTPUT ON TUBES NOTED.ON SPECIALTY MATTRESS.GT FEEDING OF MADDISON-AF 1`.2% IN PROGRESS AT 45ML/HR RATE,INFUSING VIA IV FEEDING PUMP. NO RESIDUAL VOLUME AT THE MOMENT,HOB ELEVATED FOR ASPIRATION PRECAUTION,WILL REPOSITION PER PROTOCOL.WILL CONTINUE TO MONITOR STATUS.
--- NOTE | 2021-12-25 19:38 | NUR ---
AEROPHYSICS ENGINEER NOTES STARTED ON LOVENOX 40MG ORDERED ,GIVEN SQ ON RIGHT LOWER ABDOMEN
--- NOTE | 2021-12-25 19:39 | NUR ---
TRUCK MANAGER NOTES POTASSIUM LEVEL WAS 2.8,GIVEN K-DUR 40MEQ PO ORDERED,TAKEN WELL.
--- NOTE | 2021-12-25 19:45 | NUR ---
PROTOTYPE FABRICATOR NOTES RECEIVED LAYING COMFORTABLY ON BED WATCHING TV PROGRAM,BREATHING NON LABORED,SALINE LOCK LEFT AC INTACT AND PATENT.C/O MILD CHEST PAIN,SR ON TELE MONITOR.O2 STARTED AT 2L/NC,CALL LIGHT IN REACH,NEEDS ANTICIPATED.
--- NOTE | 2021-12-25 20:00 | NUR ---
LAUNDRY ROUTE DRIVER NOTES VANCOMYCIN DOSE HUNG SCHEDULED.
[2021-12-26] VITALS (8 sets, daily range): BP systolic 98–136; BP diastolic 52–66
[2021-12-26] MEDS: VITAL AF 1.2 1,000 ML BOTTLE GT SCH (00:10)
[2021-12-26] MEDS: IPRATROPIUM NEB FS 0.5 MG/2.5 ML AMPUL.NEB NEB SCH ×4 (02:00→20:29)
[2021-12-26] MEDS: ALBUTEROL FS 2.5 MG/0.5 ML VIAL.NEB NEB SCH ×4 (02:00→20:29)
[2021-12-26] MEDS: HYDROCORTISONE SOD SUCCINATE 100 MG/2 ML VIAL IV SCH ×3 (04:46→20:58)
[2021-12-26] MEDS: CEFEPIME 2 GM in IV D5W 100 ML IV SCH ×3 (04:46→20:58)
[2021-12-26] MEDS: IV D5W 1,000 ML IV SCH (05:05)
[2021-12-26 06:08] LABS: BASOPHILS # (AUTO) 0.2 K/uL (0.0-0.2); BASOPHILS % (AUTO) 1.8 % (0.0-2.0); EOSINOPHILS % (AUTO) 0.1 % (0.0-6.0); HEMATOCRIT 25 % (39-51); HEMOGLOBIN 8.4 g/dL (13.5-17.5); LYMPHOCYTES # (AUTO) 0.6 K/uL (0.8-4.8); MEAN CORPUSCULAR HGB CONC 34 g/dl (31.0-36.0); MEAN CORPUSCULAR VOLUME 91 fL (80-96); MONOCYTES # (AUTO) 0.3 K/uL (0.1-1.30); MONOCYTES % (AUTO) 3.7 % (2.0-12.0); NEUTROPHILS # (AUTO) 7.8 K/uL (1.8-8.9); NEUTROPHILS % (AUTO) 87.4 % (43.0-81.0); PLATELET COUNT (AUTO) 263 K/uL (150-450); RED BLOOD CELL COUNT(AUTO) 2.74 MIL/uL (4.5-6.0)
--- NOTE | 2021-12-26 06:19 | NUR ---
PICKING CREW SUPERVISOR NOTES NO SIGNIFICANT CHANGE IN STATUS,NO SOB,GT FEEDING TOLERATED WELL,IVF IN PROGRESS,SITE REMAINS PATENT.MORNING CARE RENDERED,DRESSING CHANGE TO SACRAL AREA DONE,REPOSITIONED PER PROTOCOL.LINDSAY CATH DRAINS WELL WITH CLEAR YELLOW URINE,EMPTIED [address] DRAINS BROWNISH WATERY STOOL..WILL ENDORSE TO DAY NURSE FOR JELANI.
--- NOTE | 2021-12-26 07:21 | NUR ---
RN OPENING NOTES Patient seen comfortably lying in bed, no SOB, no apparent distress noted, breathing even and unlabored, no grimacing. Call light left within reach, safety precautions in place, brakes locked, side rails up X 2, will monitor closely for any changes.
--- NOTE | 2021-12-26 07:49 | NUR ---
RT PT RECVD AWAKE ON 28% CA 5 LPM, TRACH IS PATENT AND SECURED. SUCTION DONE PRN, NEB TX GIVEN, PT KAREEM WELL. NO SOB OR RESPIRATORY DISTRESS NOTED AT THIS TIME. SPARE TRACH AND AMBU BAG AT BEDSIDE.
[2021-12-26] MEDS: BACLOFEN (10 MG) 10 MG TABLET GT SCH ×3 (08:53→16:21)
[2021-12-26] MEDS: LEVETIRACETAM SOL (5 ML) 100 MG/ML UDC GT SCH ×2 (08:53→20:58)
[2021-12-26] MEDS: ACIDOPHILUS/BULGARICUS 1 EACH TAB.CHEW GT SCH (08:53)
[2021-12-26] MEDS: ASCORBIC ACID 500 MG TABLET GT SCH (08:53)
[2021-12-26] MEDS: PSYLLIUM SEED 1 PKT PACKET GT SCH (08:53)
[2021-12-26] MEDS: VANCOMYCIN HCL 0.75 GM in IV D5W 250 ML IV SCH ×2 (08:53→19:50)
[2021-12-26] MEDS: VALPROIC ACID 250 MG/5 ML UDC GT SCH ×2 (08:53→16:21)
[2021-12-26] MEDS: PANTOPRAZOLE 40 MG/PACK PACK GT SCH (08:54)
[2021-12-26] MEDS: PROSOURCE / PROSTAT (PYXIS) 30 ML UDC GT SCH ×3 (08:54→16:28)
[2021-12-26] MEDS: POTASSIUM CHLORIDE 20 MEQ TAB.PRT.SR PO SCH (08:54)
[2021-12-26] MEDS: CHLORHEXIDINE GLUCONATE 15 ML UDC MM SCH ×2 (08:54→16:21)
[2021-12-26] MEDS: CARVEDILOL 3.125 MG TABLET GT SCH ×2 (08:55→16:21)
[2021-12-26] MEDS: ENOXAPARIN SODIUM 40 MG/0.4 ML DISP.SYRIN SQ SCH (08:55)
[2021-12-26] MEDS: LACOSAMIDE ORAL SOLN 50 MG/5 ML UDC GT SCH ×2 (08:59→16:21)
[2021-12-26] MEDS: THERAHONEY GEL 1.5 OZ TUBE TP SCH (09:33)
[2021-12-26 12:03] LABS: CALCIUM, SERUM 7.9 mg/dL (8.5-10.1); CREATININE 0.5 mg/dL (0.6-1.3); MAGNESIUM 1.6 mg/dL (1.8-2.4)
[2021-12-26 12:49] LABS: POTASSIUM 2.3 mmol/L (3.5-5.1)
--- NOTE | 2021-12-26 13:11 | NUR ---
Received a call from lab, spoke to Vita, regarding patient's Potassium level, hospitalist made aware with new orders to give Potassium 10meq X 6 doses IV, orders read back, noted and carried out. No apparent distress noted with patient at this time, appears comfortable, no loose stool noted, no palpitations, no grimacing, will monitor closely for any changes.
[2021-12-26] MEDS: POTASSIUM CL. PREMIX PERIPHER. 50 ML IV SCH ×6 (13:18→22:35)
[2021-12-26] MEDS ORDERED: MAGNESIUM OXIDE 400 MG TABLET GT ONE (15:30)
[2021-12-26] MEDS ORDERED: NEUTRA PHOS 1 POWD.PACKET NG ONE (16:00)
[2021-12-26] MEDS: POTASSIUM CHLORIDE 20 MEQ POWDER PACKET GT SCH (16:21)
--- NOTE | 2021-12-26 18:23 | NUR ---
RN CLOSING NOTES Patient lying in bed, no apparent distress noted, no shortness of breath, breathing even and unlabored, remained afebrile, no grimacing. Gtube remained in place, patent and intact, placement verified with introduction of air and aspiration of gastric residual. All due medications given via gtube per MD order, tolerating well. Patient currently has an order for gtube feeding Vital AF at 45 ml/hr, tolerating well, no nausea, no vomiting at this time. Patient has a midline IV line on right upper arm, with IV fluids (D5W@75ml/hr), infusing well, no s/s of infiltration, no redness, no swelling, no bleeding noted at this time. All needs anticipated, kept clean and dry, seizure precautions in place, patient turned and repositioned frequently, aspiration precautions rendered, safety precautions in place, frequent visual checks rendered, brakes locked, padded side rails up X 2, call light left within reach, will endorse to next shift for continuity of care.
[2021-12-26] MEDS ORDERED: IV D5W 1,000 ML IV PRN (18:40)
--- NOTE | 2021-12-26 19:15 | NUR ---
MIXER BLENDER NOTES RECEIVED ON BED,OBTUNDED,NON VERBAL,OPEN EYES,CONTRACTED ON BOTH UPPER AND LOWER EXTREMITIES.ON T-PIECE AT 5L,28% COOL AEROSOL TOLERATED WELL,NO SOB NOTED,FREQUENT SUCTIONING FOR MUCUS,GT FEEDING IN PROGRESS AT 45ML/HR RATE,NO RESIDUAL VOLUME NOTED.HOB ELEVATED FOR ASPIRATION PRECAUTION.IV POTASSIUM INFUSING IVPB VIA IV PUMP TO RIGHT UPPER ARM MIDLINE.LINDSAY CATH IN PLACE DRAINING CLEAR YELLOW OUTPUT.ON FLEXI SEAL,PLACEMENT INTACT.ON ISOFLEX BED FOR SKIN MANAGEMENT.WILL REPOSITION PER PROTOCOL.FULL CODE.
[2021-12-26] MEDS ORDERED: POTASSIUM CL. PREMIX PERIPHER. 50 ML ONE (22:33)
[2021-12-27] VITALS: BP 116/66
[2021-12-27] MEDS: ALBUTEROL FS 2.5 MG/0.5 ML VIAL.NEB NEB SCH ×4 (01:01→19:15)
[2021-12-27] MEDS: IPRATROPIUM NEB FS 0.5 MG/2.5 ML AMPUL.NEB NEB SCH ×4 (01:01→19:15)
[2021-12-27 04:00] VITALS: BP 113/62
[2021-12-27] MEDS: HYDROCORTISONE SOD SUCCINATE 100 MG/2 ML VIAL IV SCH ×3 (04:39→21:56)
[2021-12-27] MEDS: CEFEPIME 2 GM in IV D5W 100 ML IV SCH ×3 (04:46→21:55)
[2021-12-27] MEDS: VITAL AF 1.2 1,000 ML BOTTLE GT SCH (04:46)
--- NOTE | 2021-12-27 06:35 | NUR ---
BANKRUPTCY PROCESSOR NOTES LYING COMFORTABLY ON BED,NO SOB,T-PIECE SETTINGS TOLERATED WELL,AFEBRILE,DRESSING CHANGE TO SACRAL AREA DONE.LINDSAY EMPTIED 1500ML CLEAR URINE OUTPUT, 500ML OF WATERY STOOL VIA FLEXI SEAL.IN NO ACUTE DISTRESS.
[2021-12-27] MEDS: PANTOPRAZOLE 40 MG/PACK PACK GT SCH (07:40)
[2021-12-27] MEDS: VANCOMYCIN HCL 0.75 GM in IV D5W 250 ML IV SCH ×2 (07:43→20:28)
[2021-12-27 08:00] VITALS: BP 127/66
[2021-12-27 08:01] LABS: BASOPHILS % (AUTO) 0.1 % (0.0-2.0); EOSINOPHILS % (AUTO) 0.1 % (0.0-6.0); HEMATOCRIT 26 % (39-51); HEMOGLOBIN 8.5 g/dL (13.5-17.5); LYMPHOCYTES # (AUTO) 0.5 K/uL (0.8-4.8); LYMPHOCYTES % (AUTO) 7.1 % (20.0-44.0); MEAN CORPUSCULAR HGB CONC 33 g/dl (31.0-36.0); MEAN CORPUSCULAR VOLUME 92 fL (80-96); MONOCYTES # (AUTO) 0.4 K/uL (0.1-1.30); MONOCYTES % (AUTO) 5.4 % (2.0-12.0); NEUTROPHILS # (AUTO) 6.8 K/uL (1.8-8.9); NEUTROPHILS % (AUTO) 87.3 % (43.0-81.0); PLATELET COUNT (AUTO) 262 K/uL (150-450); RED BLOOD CELL COUNT(AUTO) 2.79 MIL/uL (4.5-6.0); WHITE BLOOD COUNT (AUTO) 7.7 K/uL (4.3-11.0)
[2021-12-27 08:03] LABS: CALCIUM, SERUM 7.8 mg/dL (8.5-10.1); CREATININE 0.5 mg/dL (0.6-1.3); MAGNESIUM 1.5 mg/dL (1.8-2.4); PHOSPHORUS 2.1 mg/dL (2.5-4.9)
[2021-12-27 08:27] LABS: POTASSIUM 2.6 mmol/L (3.5-5.1)
[2021-12-27] MEDS: THERAHONEY GEL 1.5 OZ TUBE TP SCH (08:49)
[2021-12-27] MEDS: CARVEDILOL 3.125 MG TABLET GT SCH ×2 (08:50→16:53)
[2021-12-27] MEDS: LACOSAMIDE ORAL SOLN 50 MG/5 ML UDC GT SCH ×2 (08:51→16:52)
[2021-12-27] MEDS: ENOXAPARIN SODIUM 40 MG/0.4 ML DISP.SYRIN SQ SCH (08:51)
[2021-12-27] MEDS: LEVETIRACETAM SOL (5 ML) 100 MG/ML UDC GT SCH ×2 (08:51→21:56)
[2021-12-27] MEDS: VALPROIC ACID 250 MG/5 ML UDC GT SCH ×2 (08:52→16:52)
[2021-12-27] MEDS: ASCORBIC ACID 500 MG TABLET GT SCH (08:52)
[2021-12-27] MEDS: BACLOFEN (10 MG) 10 MG TABLET GT SCH ×3 (08:52→16:52)
[2021-12-27] MEDS: PSYLLIUM SEED 1 PKT PACKET GT SCH (08:52)
[2021-12-27] MEDS: CHLORHEXIDINE GLUCONATE 15 ML UDC MM SCH ×2 (08:52→16:52)
[2021-12-27] MEDS: POTASSIUM CHLORIDE 20 MEQ POWDER PACKET GT SCH ×2 (08:52→16:53)
[2021-12-27] MEDS: ACIDOPHILUS/BULGARICUS 1 EACH TAB.CHEW GT SCH (08:52)
[2021-12-27] MEDS: PROSOURCE / PROSTAT (PYXIS) 30 ML UDC GT SCH ×3 (08:53→16:52)
--- NOTE | 2021-12-27 09:00 | NUR ---
RN NOTES DR. ODOM AWARE OF POTASSIUM LEVEL; ORDERS NOTED FROM DR. LAGUNA FOR POTASSIUM REPLACEMENT.
[2021-12-27] MEDS: POTASSIUM CHLORIDE 20 MEQ POWDER PACKET NG SCH ×6 (09:40→14:23)
--- NOTE | 2021-12-27 10:22 | NUR ---
RN NOTES FLEXI-SEAL CHANGED TODAY, TOLERATED PROCEDURE BY PATIENT.
[2021-12-27] MEDS ORDERED: MAGNESIUM OXIDE 400 MG TABLET GT ONE (11:30)
[2021-12-27 12:00] VITALS: BP 122/61
--- NOTE | 2021-12-27 13:02 | NUR ---
RN NOTES GT FLUSHED ORDERED; PATIENT REPOSITIONED IN BED FOR COMFORT AND OFF-LOADING. TRACH SUCTIONED FOR SECRETIONS, ABLE TO ASPIRATION SMALL AMOUNT OF MUCUS, THICK IN CONSISTENCY.
[2021-12-27 16:00] VITALS: BP 119/67
[2021-12-27] MEDS ORDERED: NEUTRA PHOS 1 POWD.PACKET NG ONE (17:00)
[2021-12-27 20:00] VITALS: BP 109/63
[2021-12-28] VITALS: BP 127/62
[2021-12-28] MEDS: IPRATROPIUM NEB FS 0.5 MG/2.5 ML AMPUL.NEB NEB SCH ×3 (00:43→14:16)
[2021-12-28] MEDS: ALBUTEROL FS 2.5 MG/0.5 ML VIAL.NEB NEB SCH ×3 (00:43→14:16)
[2021-12-28 04:00] VITALS: BP 121/67
[2021-12-28] MEDS: VITAL AF 1.2 1,000 ML BOTTLE GT SCH (05:16)
[2021-12-28] MEDS: HYDROCORTISONE SOD SUCCINATE 100 MG/2 ML VIAL IV SCH (05:35)
[2021-12-28] MEDS: CEFEPIME 2 GM in IV D5W 100 ML IV SCH ×2 (05:35→12:58)
--- NOTE | 2021-12-28 07:07 | NUR ---
CODER CLOSING NOTE PATIENT IN BED WITH EYES OPEN, PT NON-VERBAL. PT HAS T-PIECE ON 5 LPM OF OXYGEN COOL AEROSOL, NO S/S OF DISTRESS OR SOB NOTED, BREATHING EVEN AND UNLABORED. PATIENT ON EXTERNAL BARREL MAKER READING SINUS SOPHIE, HR: 56. FLEXISEAL IN PLACE, LINDSAY CATH IN PLACE AND DRAINING YELLOW URINE. PATIENT ON GT TUBE FEEDING, VITAL AF @ 45 ML/HR, FREE FLUSHES OF 250 ML OF WATER Q6H PERFORMED. IV ACCESS ON ALICE MIDLINE INTACT AND INFUSING D5W @ 75 ML/HR. MEDICATIONS GIVEN ORDERED, PT NEEDS MET THROUGHOUT SHIFT, NO SIGNIFICANT CHANGES THROUGHOUT SHIFT. SAFETY MEASURES IN PLACE: CALL LIGHT WITHIN REACH, SIDE RAILS UP X 3, BED LOCKED IN LOWEST POSITION, HOB ELEVATED, BED ALARM ON. WILL ENDORSE TO DAY SHIFT NURSE FOR CONTINUITY OF CARE
--- NOTE | 2021-12-28 07:27 | NUR ---
SPECIAL DUTY NURSE OPENING NOTE Patient in bed; obtunded, opens eyes. On O2 at 5LPM via T-piece with 28% aerosol. IV access on ALICE midline infusing D5W at 75 ml/hr. G-tube in place running Vital at 45 ml/hr. Flexiseal in place, intact. Richey catheter in place, draining to a yellow colored urine. Safety precautions in place: bed in low, locked position; siderails up x 2; call light within reach. Will continue to monitor.
[2021-12-28 07:57] LABS: CALCIUM, SERUM 8.5 mg/dL (8.5-10.1); CREATININE 0.5 mg/dL (0.6-1.3); MAGNESIUM 1.7 mg/dL (1.8-2.4); POTASSIUM 2.9 mmol/L (3.5-5.1)
[2021-12-28 08:00] VITALS: BP 110/69
[2021-12-28] MEDS ORDERED: NEUTRA PHOS 1 POWD.PACKET GT SCH (09:00)
[2021-12-28 09:40] LABS: BASOPHILS % (AUTO) 0.1 % (0.0-2.0); HEMATOCRIT 28 % (39-51); HEMOGLOBIN 9.4 g/dL (13.5-17.5); LYMPHOCYTES # (AUTO) 0.6 K/uL (0.8-4.8); LYMPHOCYTES % (AUTO) 5.5 % (20.0-44.0); MEAN CORPUSCULAR HGB CONC 34 g/dl (31.0-36.0); MEAN CORPUSCULAR VOLUME 92 fL (80-96); MONOCYTES # (AUTO) 0.4 K/uL (0.1-1.30); MONOCYTES % (AUTO) 4.2 % (2.0-12.0); NEUTROPHILS # (AUTO) 9.7 K/uL (1.8-8.9); NEUTROPHILS % (AUTO) 90.2 % (43.0-81.0); PLATELET COUNT (AUTO) 260 K/uL (150-450); RED BLOOD CELL COUNT(AUTO) 3.06 MIL/uL (4.5-6.0); WHITE BLOOD COUNT (AUTO) 10.7 K/uL (4.3-11.0)
[2021-12-28] MEDS: VANCOMYCIN HCL 0.75 GM in IV D5W 250 ML IV SCH (09:40)
[2021-12-28] MEDS: VALPROIC ACID 250 MG/5 ML UDC GT SCH (09:56)
[2021-12-28] MEDS: BACLOFEN (10 MG) 10 MG TABLET GT SCH ×2 (09:56→12:57)
[2021-12-28] MEDS: LEVETIRACETAM SOL (5 ML) 100 MG/ML UDC GT SCH (09:56)
[2021-12-28] MEDS: CHLORHEXIDINE GLUCONATE 15 ML UDC MM SCH (09:56)
[2021-12-28] MEDS: PSYLLIUM SEED 1 PKT PACKET GT SCH (09:56)
[2021-12-28] MEDS: ASCORBIC ACID 500 MG TABLET GT SCH (09:56)
[2021-12-28] MEDS: PANTOPRAZOLE 40 MG/PACK PACK GT SCH (09:56)
[2021-12-28] MEDS: ACIDOPHILUS/BULGARICUS 1 EACH TAB.CHEW GT SCH (09:56)
[2021-12-28] MEDS: POTASSIUM CHLORIDE 20 MEQ POWDER PACKET GT SCH ×7 (09:58→13:55)
[2021-12-28] MEDS: CARVEDILOL 3.125 MG TABLET GT SCH (09:59)
[2021-12-28] MEDS: PROSOURCE / PROSTAT (PYXIS) 30 ML UDC GT SCH ×2 (10:00→12:57)
[2021-12-28] MEDS: Magnesium 1GM/D5W 100ML PREMIX 100 ML IV SCH ×2 (10:04→11:39)
[2021-12-28] MEDS: ENOXAPARIN SODIUM 40 MG/0.4 ML DISP.SYRIN SQ SCH (10:12)
[2021-12-28] MEDS ORDERED: CEFE2FRO IV (10:14)
[2021-12-28] MEDS ORDERED: VANC750F2 IV (10:14)
[2021-12-28] MEDS ORDERED: METH4TAB3 PO (10:19)
[2021-12-28] MEDS: THERAHONEY GEL 1.5 OZ TUBE TP SCH (10:23)
[2021-12-28] MEDS: LACOSAMIDE ORAL SOLN 50 MG/5 ML UDC GT SCH (10:35)
[2021-12-28] MEDS ORDERED: POTASSIUM PHOSPHATE MM 15 MMOL in IV NS 0.9% 250 ML IV SCH (11:00)
[2021-12-28] MEDS ORDERED: Magnesium 1GM/D5W 100ML PREMIX 100 ML IV SCH (11:00)
[2021-12-28 12:00] VITALS: BP 118/57
[2021-12-28 16:00] VITALS: BP 122/62
--- NOTE | 2021-12-28 18:30 | NUR ---
DISCHARGE NOTE Received order for discharge. Patient is A/O x 0, obtunded. On O2 at 5 LPM via T-piece with cool aerosol. No SOB or s/s of distress noted. Patient has no belongings. IV access on ALICE midline not removed, patient to continue IV antibiotics at the SNF. Flexiseal and barajas catheter in place. Tele box removed. Report given to Miranda from [facility] at 1600. Exitcare folder given to EMT. G-tube intact, detached from feeding. Patient left in stable condition with 2 pipe smoking machine offbearer and 1 RT present.
== END 2021-12-28 18:40 | DRG 871 ==
LOC: ER 19:39 → TELE1 12-19 00:51 → ICU 12-19 13:43 → TELE 12-21 18:03
PROVIDERS: ADMIT Student in an Organized Health Care Education/Training Program; ATTEND Internal Medicine
PROC: 05H933Z Insertion of Infusion Device into Right Brachial Vein, Percutaneous Approach (ICD-10-PCS; principal; 2021-12-18)
PROC: 05HA33Z Insertion of Infusion Device into Left Brachial Vein, Percutaneous Approach (ICD-10-PCS; 2021-12-20)
DX: A41.50 Gram-negative sepsis, unspecified (principal); E43 Unspecified severe protein-calorie malnutrition; N17.0 Acute kidney failure with tubular necrosis; R65.21 Severe sepsis with septic shock; J18.9 Pneumonia, unspecified organism; R53.2 Functional quadriplegia; G93.1 Anoxic brain damage, not elsewhere classified; N39.0 Urinary tract infection, site not specified; D68.59 Other primary thrombophilia; J96.10 Chronic respiratory failure, unspecified whether with hypoxia or hypercapnia; E87.0 Hyperosmolality and hypernatremia; K91.2 Postsurgical malabsorption, not elsewhere classified; I47.1 Supraventricular tachycardia; R64 Cachexia; Z20.822 Contact with and (suspected) exposure to COVID-19; E78.5 Hyperlipidemia, unspecified; G40.909 Epilepsy, unspecified, not intractable, without status epilepticus; Z79.51 Long term (current) use of inhaled steroids; Z79.899 Other long term (current) drug therapy; E87.6 Hypokalemia; I10 Essential (primary) hypertension; I48.91 Unspecified atrial fibrillation; R62.7 Adult failure to thrive; Y84.9 Medical procedure, unspecified as the cause of abnormal reaction of the patient, or of later complication, without mention of misadventure at the time of the procedure; Y92.9 Unspecified place or not applicable; R13.10 Dysphagia, unspecified; Z93.1 Gastrostomy status; Z74.01 Bed confinement status; Y95 Nosocomial condition; B95.2 Enterococcus as the cause of diseases classified elsewhere; B96.4 Proteus (mirabilis) (morganii) as the cause of diseases classified elsewhere; D64.9 Anemia, unspecified; E83.42 Hypomagnesemia; E86.0 Dehydration; E88.09 Other disorders of plasma-protein metabolism, not elsewhere classified; L89.626 Pressure-induced deep tissue damage of left heel; Z86.16 Personal history of COVID-19; Z87.01 Personal history of pneumonia (recurrent); L89.612 Pressure ulcer of right heel, stage 2; L89.890 Pressure ulcer of other site, unstageable; M62.562 Muscle wasting and atrophy, not elsewhere classified, left lower leg; M62.561 Muscle wasting and atrophy, not elsewhere classified, right lower leg; L89.150 Pressure ulcer of sacral region, unstageable; L89.310 Pressure ulcer of right buttock, unstageable; L98.9 Disorder of the skin and subcutaneous tissue, unspecified; M62.462 Contracture of muscle, left lower leg; M62.461 Contracture of muscle, right lower leg
CPT/HCPCS: 31720; 36415; 71045-TC; 80048-TC; 80076-TC; 80202-TC; 81001; 83605-TC; 83735-TC; 84100-TC; 84439-TC; 84443-TC; 84484-TC; 85025-TC; 85027-TC; 85730-TC; 87040-TC; 87081-TC; 87086-TC; 87186-TC; 93307-TC; 94640-TC; 94760-TC; 94799-TC; 99082-TC; A4623; A6253; A6403; A7526; C9803; G0378; J0282; J0692; J1644; J1650; J1720; J1953; J2543; J3370; J3475; J3480; J7030; J7040; J7050; J7060; J7070

== ENCOUNTER 2022-01-22 20:39 | Inpatient (IN) | payer BC ==
[~2022-01-22] VITALS: Ht 170.2 cm; Wt 42.6 kg
[~2022-01-22 20:39] MED LIST changes: +CEFE2FRO IV; +METH4TAB3 PO; +VANC750F2 IV
--- NOTE | 2022-01-22 21:27 | NUR ---
covid swab collected sent to lab
--- NOTE | 2022-01-22 21:27 | NUR ---
blood work collected
[2022-01-22] MEDS ORDERED: IV NS 0.9% 1,000 ML BAG IV ONE (22:30)
[2022-01-22] MEDS ORDERED: VANCOMYCIN 1 GM in IV D5W 250 ML IV ONE (23:00)
[2022-01-22] MEDS ORDERED: PIPERACILLIN /TAZOBACTAM 3.375 G in IV D5W 50 ML IV ONE (23:00)
[2022-01-22 23:03] LABS: BASOPHILS % (AUTO) 0.3 % (0.0-2.0); EOSINOPHILS % (AUTO) 0.2 % (0.0-6.0); HEMATOCRIT 27 % (39-51); HEMOGLOBIN 8.2 g/dL (13.5-17.5); LYMPHOCYTES # (AUTO) 1.3 K/uL (0.8-4.8); LYMPHOCYTES % (AUTO) 8.8 % (20.0-44.0); MEAN CORPUSCULAR HGB CONC 31 g/dl (31.0-36.0); MEAN CORPUSCULAR VOLUME 94 fL (80-96); MONOCYTES % (AUTO) 6.6 % (2.0-12.0); NEUTROPHILS # (AUTO) 12.7 K/uL (1.8-8.9); NEUTROPHILS % (AUTO) 84.1 % (43.0-81.0); PLATELET COUNT (AUTO) 567 K/uL (150-450); RED BLOOD CELL COUNT(AUTO) 2.82 MIL/uL (4.5-6.0); WHITE BLOOD COUNT (AUTO) 15.1 K/uL (4.3-11.0)
[2022-01-22 23:04] LABS: BILIRUBIN,URINE NEGATIVE (NEGATIVE); COLOR,URINE YELLOW (YELLOW); LEUKOCYTE ESTERASE ,URINE LARGE (NEGATIVE); NITRITE, URINE NEGATIVE (NEGATIVE); PROTEIN,URINE 30 mg/dl (NEGATIVE); UGLUCOSE NEGATIVE (NEGATIVE); UROBILINOGEN,URINE 0.2 EU/dL (0.2)
[2022-01-22 23:15] LABS: ALANINE AMINOTRANSFERASE 149 U/L (12-78); ALKALINE PHOSPHATASE 132 U/L (46-116); ASPARTATE AMINOTRANSFERASE 55 U/L (15-37); BILIRUBIN,DIRECT 0.1 mg/dL (0.0-0.2); BILIRUBIN,TOTAL 0.2 mg/dL (0.2-1.0); CALCIUM, SERUM 9.1 mg/dL (8.5-10.1); CARBON DIOXIDE 31 mmol/L (21-32); CREATININE 0.6 mg/dL (0.6-1.3); GLUCOSE 56 mg/dL (74-106); TOTAL PROTEIN, SERUM 7.2 g/dL (6.4-8.2); UREA NITROGEN, BLOOD 36 mg/dL (7-18)
[2022-01-22 23:19] LABS: ALBUMIN 1.4 g/dL (3.4-5.0)
[2022-01-22] MEDS ORDERED: DEXTROSE 50%-WATER 50 ML DISP.SYRIN ONE (23:26)
[2022-01-22] MEDS ORDERED: PIPERACILLIN /TAZOBACTAM 3.375 G VIAL IV ONE (23:26)
[2022-01-22 23:28] LABS: CHLORIDE 103 mmol/L (98-107); POTASSIUM 5.2 mmol/L (3.5-5.1); SODIUM SERUM 136 mmol/L (136-145)
[2022-01-22] MEDS ORDERED: DEXTROSE 50%-WATER 50 ML DISP.SYRIN IVP ONE (23:30)
[2022-01-22 23:51] LABS: PH,URINE >9.0 (5.0-8.0)
[2022-01-22] MEDS ORDERED: VANCOMYCIN 1 GM VIAL ONE (23:55)
--- NOTE | 2022-01-22 23:55 | NUR ---
ACCU K BS 174
[2022-01-23] VITALS (11 sets, daily range): BP systolic 96–144; BP diastolic 41–68
[2022-01-23] MEDS ORDERED: IPRATROPIUM/ALBUTEROL INHALER IH SCH
[2022-01-23] MEDS ORDERED: ONDANSETRON HCL/PF 4 MG/2 ML VIAL IVP PRN
[2022-01-23] MEDS ORDERED: VITAL AF 1.2 1,000 ML BOTTLE GT PRN
[2022-01-23] MEDS ORDERED: ALBUTEROL FS 2.5 MG/0.5 ML VIAL.NEB NEB PRN
[2022-01-23] MEDS ORDERED: hydrALAZINE HCL IV 20 MG VIAL IV PRN
[2022-01-23] MEDS ORDERED: Z GUARD REMEDY 4 OZ OINT TP PRN
[2022-01-23] MEDS ORDERED: MORPHINE SULFATE INJ 2 MG/ML DISP.SYRIN IV PRN
[2022-01-23] MEDS ORDERED: MIDODRINE HCL (5MG) 5 MG TABLET PO PRN (00:30)
--- NOTE | 2022-01-23 00:33 | NUR ---
REPORT GIVEN TO SRINIVAS MUNIZ
--- NOTE | 2022-01-23 01:29 | NUR ---
FOLLOWED UP WITH STAT RED REGARDING IMAGING RESULTS.
--- NOTE | 2022-01-23 01:30 | NUR ---
FOLLOWED UP WITH STAT RED REGARDING IMAGING RESULTS.
--- NOTE | 2022-01-23 01:32 | NUR ---
PATIENT TRANFERRED UNDER ACLS
[2022-01-23] MEDS ORDERED: LOPERAMIDE HCL UDC 2 MG/15 ML LIQUID GT PRN (02:00)
[2022-01-23] MEDS ORDERED: CEFEPIME 1 GM VIAL ONE (02:43)
[2022-01-23] MEDS ORDERED: ALBUMIN 25% 100 ML IV ONE (02:44)
[2022-01-23] MEDS: ALBUMIN 25% 25 GM in PREMIX 1 EA IV SCH ×2 (02:52→13:26)
[2022-01-23] MEDS: IV D5/0.45 NACL 1,000 ML IV PRN (04:37)
[2022-01-23] MEDS ORDERED: CEFEPIME 2 GM in IV D5W 100 ML IV SCH (05:00)
--- NOTE | 2022-01-23 05:29 | NUR ---
ADMITTED PATIENT FROM [facility] [place] DUE TO FEVER AND TACHYCARDIA. TELE READING FROM ST TO AFIB, OBTUNDED, TRACH, T-PIECE, 5LPM VIA IN, STEVEN #4, SPO2 100%, THICK SPUTUM, SUCTIONED PRN, PEG TUBE, ON VITAL 1.5 X20 HRS. FEEDING NOT AVAILABLE, ON D5 1/2 NS AT 70 ML/HR, EMACIATED, WEIGHS 102 LBS, MULTIPLE PRESSURE ULCER, SACRAL WOUND, SCROTUM MASD, BUTTOCKS MASD, LEFT HIP, BILATERAL HEELS UNSTAGEABLE, LEFT LOWER LEG, LEFT FOOT HEALED WOUND. WOUND CONSULT, DIETARY CONSULT TO FIND EQUIVALENT OF VITAL 1.5. PEG TUBE, LUER LOCK, CLAMPED AT THIS TIME. CEFEPIME, VANCOMYCIN, ZOSYN.
[2022-01-23 06:54] LABS: BACTERIA,URINE Many /HPF (None Seen); CALCIUM OXALATE CRYSTALS,UR Many /HPF (None Seen); WBC,URINE TOO NUMEROUS TO COUN /HPF (0-3)
--- NOTE | 2022-01-23 07:25 | NUR ---
RN OPENING NOTES RECEIVED PATIENT ON BED, OBTUNDED. NO SIGNS OF ACUTE DISTRESS NOTED. WITH T-PIECE @5LPM O2 VIA NC, SPO2 100%. NOTED PEG TUBE, CLAMPED, POSITIVE PLACEMENT. NO RESIDUAL. NOTED WITH IV ACCESS ON LEFT FORE ARM #24G, INTACT AND PATENT, INFUSING D5 1/2 NS @70 ML/HR. SAFETY MEASURE IN PLACE. BED IN LOWEST AND LOCKED POSITION, SR UP, CALL LIGHT PLACED WITHIN EASY REACH. WILL CONTINUE TO MONITOR PATIENT.
[2022-01-23 07:36] LABS: BASOPHILS % (AUTO) 0.2 % (0.0-2.0); EOSINOPHILS % (AUTO) 0.8 % (0.0-6.0); LYMPHOCYTES # (AUTO) 0.6 K/uL (0.8-4.8); LYMPHOCYTES % (AUTO) 7.1 % (20.0-44.0); MEAN CORPUSCULAR HGB CONC 32 g/dl (31.0-36.0); MEAN CORPUSCULAR VOLUME 95 fL (80-96); MONOCYTES # (AUTO) 0.8 K/uL (0.1-1.30); MONOCYTES % (AUTO) 9.4 % (2.0-12.0); NEUTROPHILS # (AUTO) 7.2 K/uL (1.8-8.9); NEUTROPHILS % (AUTO) 82.5 % (43.0-81.0); PLATELET COUNT (AUTO) 351 K/uL (150-450); RED BLOOD CELL COUNT(AUTO) 2.03 MIL/uL (4.5-6.0); WHITE BLOOD COUNT (AUTO) 8.7 K/uL (4.3-11.0)
[2022-01-23 07:48] LABS: HEMOGLOBIN 6.2 g/dL (13.5-17.5)
[2022-01-23 07:49] LABS: HEMATOCRIT 19 % (39-51)
[2022-01-23 07:53] LABS: BILIRUBIN,TOTAL 0.3 mg/dL (0.2-1.0); CALCIUM, SERUM 8.7 mg/dL (8.5-10.1); CREATININE 0.5 mg/dL (0.6-1.3); MAGNESIUM 2.1 mg/dL (1.8-2.4); PHOSPHORUS 2.9 mg/dL (2.5-4.9); POTASSIUM 3.8 mmol/L (3.5-5.1)
[2022-01-23 07:57] LABS: ALBUMIN 1.4 g/dL (3.4-5.0)
[2022-01-23] MEDS: ALBUTEROL FS 2.5 MG/0.5 ML VIAL.NEB NEB SCH ×4 (08:10→19:30)
[2022-01-23] MEDS: IPRATROPIUM NEB FS 0.5 MG/2.5 ML AMPUL.NEB IH SCH ×4 (08:10→19:30)
[2022-01-23] MEDS: VANCOMYCIN HCL 0.75 GM in IV D5W 250 ML IV SCH ×2 (08:12→20:56)
[2022-01-23] MEDS ORDERED: Medication Not On Formulary EA (Omega-3 Acid Ethyl Esters (Lovaza) 1 GM) GT SCH (09:00)
[2022-01-23] MEDS ORDERED: [UNRECOGNIZED DRUG - OTHER] GT SCH (09:00)
[2022-01-23] MEDS ORDERED: METHYLCELLULOSE GT SCH (09:00)
[2022-01-23] MEDS ORDERED: AMINO ACIDS GT SCH (09:00)
[2022-01-23] MEDS ORDERED: VANCOMYCIN HCL 1.25 GM in IV D5W 260 ML IV SCH (09:00)
[2022-01-23] MEDS: POLYETHYLENE GLYCOL 3350 17 GM POWD.PACK PO SCH (09:00)
[2022-01-23] MEDS: DOCUSATE SODIUM LIQ 100 MG/10 ML UDC PO SCH ×2 (09:00→17:19)
[2022-01-23] MEDS ORDERED: HEPARIN SODIUM, PORCINE 5000 UNITS/1 ML VIAL SQ SCH (09:00)
[2022-01-23] MEDS ORDERED: PROTEIN HYDROLYS GT SCH (09:00)
[2022-01-23] MEDS ORDERED: MAGNESIUM AMINO ACID CHELATE GT SCH (09:00)
[2022-01-23] MEDS: LACOSAMIDE ORAL SOLN 50 MG/5 ML UDC GT SCH ×2 (09:20→21:58)
[2022-01-23] MEDS: VALPROIC ACID 250 MG/5 ML UDC GT SCH ×2 (09:21→21:53)
[2022-01-23] MEDS: CARVEDILOL 3.125 MG TABLET GT SCH ×2 (09:21→17:00)
[2022-01-23] MEDS: CHLORHEXIDINE GLUCONATE 15 ML UDC MM SCH ×2 (09:21→17:19)
[2022-01-23] MEDS: LEVETIRACETAM SOL (5 ML) 100 MG/ML UDC GT SCH ×2 (09:21→21:53)
[2022-01-23] MEDS: BACLOFEN (10 MG) 10 MG TABLET GT SCH ×3 (09:21→17:19)
[2022-01-23] MEDS: LACTOBACILLUS RHAMNOSUS GG 1 EACH CAP.SPRINK GT SCH (09:21)
[2022-01-23] MEDS: MAGNESIUM OXIDE 400 MG TABLET GT SCH (09:21)
[2022-01-23] MEDS: PROSTAT (PYXIS) 30 ML UDC GT SCH ×3 (09:22→17:19)
[2022-01-23] MEDS: ASCORBIC ACID 500 MG TABLET GT SCH (09:22)
[2022-01-23] MEDS: CEFEPIME 2 GM in IV D5W 100 ML IV SCH ×2 (12:13→22:13)
--- NOTE | 2022-01-23 16:55 | NUR ---
RN NOTES BLOOD TRANSFUSION OF 1 UNIT PRBC STARTED @8227. WILL MONITOR FOR A/R.
[2022-01-23 17:34] LABS: OCCULT BLOOD STOOL NEGATIVE (NEGATIVE)
--- NOTE | 2022-01-23 18:48 | NUR ---
RN CLOSING NOTES PATIENT RESTING ON BED, OBTUNDED.OPENS EYES. NO SIGNS OF ACUTE DISTRESS NOTED. WITH T-PIECE @5LPM COOL MIST AEROSOL, SPO2 198%. PEG TUBE, CLAMPED, POSITIVE PLACEMENT. NO RESIDUAL. IV ACCESS ON RIGHT UPPER ARM #20G, INTACT AND PATENT, PRBC CURRENTLY INFUSING. NO ADVERSE REACTION NOTED. WOUND CARE RENDERED. SAFETY MEASURE IN PLACE. BED IN LOWEST AND LOCKED POSITION, SR UP, CALL LIGHT PLACED WITHIN EASY REACH. WILL ENDORSE TO NEXT SHIFT.
--- NOTE | 2022-01-23 19:04 | NUR ---
RN NOTES BLOOD TRANSFUSION DONE @1900, NO A/R NOTED.
--- NOTE | 2022-01-23 20:00 | NUR ---
RN OPENING NOTES RECEIVED PATIENT ON BED, OBTUNDED. NO SIGNS OF ACUTE DISTRESS NOTED. WITH T-PIECE @5LPM O2 VIA NC, SPO2 98%. NOTED PEG TUBE, CLAMPED, POSITIVE PLACEMENT. NO RESIDUAL. NOTED WITH IV ACCESS ON ALICE ML INTACT AND PATENT, INFUSING D5 1/2 NS @70 ML/HR. SAFETY MEASURE IN PLACE. BED IN LOWEST AND LOCKED POSITION, SR UP, CALL LIGHT PLACED WITHIN EASY REACH. WILL CONTINUE TO MONITOR PATIENT.
--- NOTE | 2022-01-23 20:29 | NUR ---
RT NOTE TX NOT GIVEN DUE TO PENDING COVID PCR RESULTS. NO SOB NOTED. RN NOTIFIED.
[2022-01-23] MEDS: ATORVASTATIN 40 MG TABLET GT SCH (21:53)
[2022-01-23] MEDS: LISINOPRIL (20MG) 20 MG TABLET GT SCH (21:54)
[2022-01-24] VITALS: BP 110/41
[2022-01-24] MEDS: ALBUTEROL FS 2.5 MG/0.5 ML VIAL.NEB NEB SCH ×4 (00:31→20:07)
[2022-01-24] MEDS: IPRATROPIUM NEB FS 0.5 MG/2.5 ML AMPUL.NEB IH SCH ×4 (00:31→20:07)
[2022-01-24 04:00] VITALS: BP 127/54
[2022-01-24] MEDS: CEFEPIME 2 GM in IV D5W 100 ML IV SCH ×3 (05:15→21:23)
[2022-01-24] MEDS: IV D5/0.45 NACL 1,000 ML IV PRN ×2 (05:21→17:41)
--- NOTE | 2022-01-24 06:15 | NUR ---
RT NOTE PT SWITCHED TO COOL AEROSOL @ 35% 8 LPM POST PCR NEGATIVE RESULTS. SUCTION DONE, MODERATE THICK WHITE YELLOW SECRETIONS NOTED. NO SOB NOTED. RN CONCEPCIÓN NOTIFIED.
[2022-01-24 07:15] LABS: BASOPHILS % (AUTO) 0.2 % (0.0-2.0); EOSINOPHILS % (AUTO) 1.5 % (0.0-6.0); HEMATOCRIT 23 % (39-51); HEMOGLOBIN 7.2 g/dL (13.5-17.5); LYMPHOCYTES # (AUTO) 0.8 K/uL (0.8-4.8); LYMPHOCYTES % (AUTO) 8.1 % (20.0-44.0); MEAN CORPUSCULAR HGB CONC 31 g/dl (31.0-36.0); MEAN CORPUSCULAR VOLUME 94 fL (80-96); MONOCYTES # (AUTO) 0.9 K/uL (0.1-1.30); MONOCYTES % (AUTO) 8.8 % (2.0-12.0); NEUTROPHILS # (AUTO) 8.5 K/uL (1.8-8.9); NEUTROPHILS % (AUTO) 81.4 % (43.0-81.0); PLATELET COUNT (AUTO) 331 K/uL (150-450); RED BLOOD CELL COUNT(AUTO) 2.43 MIL/uL (4.5-6.0); WHITE BLOOD COUNT (AUTO) 10.4 K/uL (4.3-11.0)
[2022-01-24 07:38] LABS: CALCIUM, SERUM 8.8 mg/dL (8.5-10.1); CREATININE 0.4 mg/dL (0.6-1.3); MAGNESIUM 1.9 mg/dL (1.8-2.4); PHOSPHORUS 2.9 mg/dL (2.5-4.9); POTASSIUM 3.1 mmol/L (3.5-5.1)
[2022-01-24 08:00] VITALS: BP 100/49
[2022-01-24] MEDS: DOCUSATE SODIUM LIQ 100 MG/10 ML UDC PO SCH ×2 (09:51→17:24)
[2022-01-24] MEDS: VANCOMYCIN HCL 0.75 GM in IV D5W 250 ML IV SCH (09:51)
[2022-01-24] MEDS: POLYETHYLENE GLYCOL 3350 17 GM POWD.PACK PO SCH (09:51)
[2022-01-24] MEDS: LACTOBACILLUS RHAMNOSUS GG 1 EACH CAP.SPRINK GT SCH (09:52)
[2022-01-24] MEDS: MAGNESIUM OXIDE 400 MG TABLET GT SCH (09:52)
[2022-01-24] MEDS: CHLORHEXIDINE GLUCONATE 15 ML UDC MM SCH ×2 (09:52→17:24)
[2022-01-24] MEDS: LEVETIRACETAM SOL (5 ML) 100 MG/ML UDC GT SCH ×2 (09:52→21:21)
[2022-01-24] MEDS: BACLOFEN (10 MG) 10 MG TABLET GT SCH ×3 (09:52→17:24)
[2022-01-24] MEDS: ASCORBIC ACID 500 MG TABLET GT SCH (09:52)
[2022-01-24] MEDS: VALPROIC ACID 250 MG/5 ML UDC GT SCH ×2 (09:52→21:22)
[2022-01-24] MEDS: LACOSAMIDE ORAL SOLN 50 MG/5 ML UDC GT SCH ×2 (09:53→21:43)
[2022-01-24] MEDS: CARVEDILOL 3.125 MG TABLET GT SCH ×2 (09:53→17:00)
[2022-01-24] MEDS: PROSTAT (PYXIS) 30 ML UDC GT SCH ×3 (09:54→17:24)
[2022-01-24 12:00] VITALS: BP 97/42
[2022-01-24] MEDS: POTASSIUM CHLORIDE 20 MEQ POWDER PACKET GT SCH ×2 (12:00→14:25)
[2022-01-24] MEDS ORDERED: POTASSIUM CHLORIDE 20 MEQ POWDER PACKET GT ONE (14:00)
[2022-01-24] MEDS: VITAL AF 1.2 1,000 ML BOTTLE GT PRN (15:05)
[2022-01-24 16:00] VITALS: BP 108/47
[2022-01-24 16:32] LABS: BASOPHILS % (AUTO) 0.2 % (0.0-2.0); EOSINOPHILS % (AUTO) 1.4 % (0.0-6.0); HEMATOCRIT 21 % (39-51); LYMPHOCYTES # (AUTO) 0.8 K/uL (0.8-4.8); LYMPHOCYTES % (AUTO) 8.9 % (20.0-44.0); MEAN CORPUSCULAR HGB CONC 32 g/dl (31.0-36.0); MEAN CORPUSCULAR VOLUME 93 fL (80-96); MONOCYTES # (AUTO) 0.6 K/uL (0.1-1.30); MONOCYTES % (AUTO) 6.6 % (2.0-12.0); NEUTROPHILS # (AUTO) 7.7 K/uL (1.8-8.9); NEUTROPHILS % (AUTO) 82.9 % (43.0-81.0); PLATELET COUNT (AUTO) 284 K/uL (150-450); RED BLOOD CELL COUNT(AUTO) 2.31 MIL/uL (4.5-6.0); WHITE BLOOD COUNT (AUTO) 9.3 K/uL (4.3-11.0)
[2022-01-24] MEDS: VANCOMYCIN 1 GM in IV D5W 250ml IV SCH (18:30)
[2022-01-24 20:00] VITALS: BP 113/46
[2022-01-24] MEDS: LISINOPRIL (20MG) 20 MG TABLET GT SCH (21:30)
[2022-01-24] MEDS: ATORVASTATIN 40 MG TABLET GT SCH (21:31)
[2022-01-24] MEDS ORDERED: LACOSAMIDE ORAL SOLN 50 MG/5 ML UDC ONE (21:40)
[2022-01-25] VITALS (9 sets, daily range): BP systolic 101–146; BP diastolic 44–65
[2022-01-25] MEDS: IPRATROPIUM NEB FS 0.5 MG/2.5 ML AMPUL.NEB IH SCH ×4 (01:35→19:57)
[2022-01-25] MEDS: ALBUTEROL FS 2.5 MG/0.5 ML VIAL.NEB NEB SCH ×4 (01:35→19:57)
[2022-01-25] MEDS: VANCOMYCIN 1 GM in IV D5W 250ml IV SCH (05:20)
--- NOTE | 2022-01-25 07:37 | NUR ---
COUNTER CUTTER OPENING NOTES: RECEIVED PATIENT IN BED AWAKE NON VERBAL BUT OPENING HIS EYE AND TRACKING, NO SIGNS OF ACUTE DISTRESS NOTED. WITH T-PIECE @8LPM O2 VIA NC FIO2 IS 35%, SPO2 100%. NOTED PEG TUBE IN PLACE. NO RESIDUAL. NOTED WITH IV ACCESS ALICE MIDLINE, INTACT AND PATENT, INFUSING D5 1/2 NS @70 ML/HR. SAFETY MEASURE IN PLACE. BED IN LOWEST AND LOCKED POSITION, SR UP, CALL LIGHT PLACED WITHIN EASY REACH. WILL CONTINUE TO MONITOR PATIENT.
[2022-01-25 07:55] LABS: CALCIUM, SERUM 8.9 mg/dL (8.5-10.1); CREATININE 0.5 mg/dL (0.6-1.3); MAGNESIUM 1.8 mg/dL (1.8-2.4); PHOSPHORUS 2.4 mg/dL (2.5-4.9); POTASSIUM 3.7 mmol/L (3.5-5.1)
[2022-01-25] MEDS: POLYETHYLENE GLYCOL 3350 17 GM POWD.PACK PO SCH ×2 (09:00→09:12)
[2022-01-25] MEDS: CARVEDILOL 3.125 MG TABLET GT SCH ×2 (09:00→16:40)
[2022-01-25] MEDS: DOCUSATE SODIUM LIQ 100 MG/10 ML UDC PO SCH ×3 (09:00→16:41)
[2022-01-25] MEDS: CEFEPIME 2 GM in IV D5W 100 ML IV SCH ×2 (09:11→21:36)
[2022-01-25] MEDS: CHLORHEXIDINE GLUCONATE 15 ML UDC MM SCH ×2 (09:11→16:40)
[2022-01-25] MEDS: MAGNESIUM OXIDE 400 MG TABLET GT SCH (09:12)
[2022-01-25] MEDS: LEVETIRACETAM SOL (5 ML) 100 MG/ML UDC GT SCH ×2 (09:12→21:35)
[2022-01-25] MEDS: ASCORBIC ACID 500 MG TABLET GT SCH (09:13)
[2022-01-25] MEDS: BACLOFEN (10 MG) 10 MG TABLET GT SCH ×3 (09:13→16:40)
[2022-01-25] MEDS: LACTOBACILLUS RHAMNOSUS GG 1 EACH CAP.SPRINK GT SCH (09:13)
[2022-01-25] MEDS: PROSTAT (PYXIS) 30 ML UDC GT SCH ×3 (09:31→16:40)
[2022-01-25] MEDS: VALPROIC ACID 250 MG/5 ML UDC GT SCH ×2 (09:43→21:35)
[2022-01-25] MEDS: LACOSAMIDE ORAL SOLN 50 MG/5 ML UDC GT SCH ×2 (09:49→22:15)
[2022-01-25] MEDS ORDERED: NEUTRA PHOS 1 POWD.PACKET GT ONE (10:00)
--- NOTE | 2022-01-25 11:26 | NUR ---
WOUND CARE CONSULT: PT PRESENTS VERY THIN AND BONY WITH MULTIPLE WOUNDS AND SKIN ISSUES INCLUDING LEFT HIP INTACT DEEP TISSUE INJURY/SCAR, SACRAL STAGE 4 PRESSURE ULCER, BILATERAL LOWER BACK SKIN TEARS AND LOWER EXTREMITY WOUNDS, ALL PRESENT ON ADMISSION. THERE IS SOME SEROUS DRAINAGE ON PILLOW BUT HAIR MATTING NOTED TO POSTERIOR SCALP. RECOMMENDATIONS MADE FOR SKIN PROTECTION. DISCUSSED WITH NURSING STAFF. SURGICAL AND DPM CONSULTS CALLED TO DR HINOJOSA AND DR ROSENBERG. PT IS ON BRIGID ISOFLEX LOW AIRLOSS BED. IN AGREEMENT WITH PLAN OF CARE. Addendum: 01/25/22 at 1128 by RADHA BRANDON WNDNU Amended: Links added.
[2022-01-25] MEDS: IV D5/0.45 NACL 1,000 ML IV PRN (14:09)
[2022-01-25 14:45] LABS: BASOPHILS % (AUTO) 0.2 % (0.0-2.0); EOSINOPHILS % (AUTO) 1.1 % (0.0-6.0); HEMATOCRIT 21 % (39-51); LYMPHOCYTES # (AUTO) 0.7 K/uL (0.8-4.8); MEAN CORPUSCULAR HGB CONC 32 g/dl (31.0-36.0); MEAN CORPUSCULAR VOLUME 92 fL (80-96); MONOCYTES # (AUTO) 0.6 K/uL (0.1-1.30); NEUTROPHILS # (AUTO) 5.2 K/uL (1.8-8.9); NEUTROPHILS % (AUTO) 78.7 % (43.0-81.0); PLATELET COUNT (AUTO) 362 K/uL (150-450); RED BLOOD CELL COUNT(AUTO) 2.28 MIL/uL (4.5-6.0); WHITE BLOOD COUNT (AUTO) 6.7 K/uL (4.3-11.0)
[2022-01-25 14:50] LABS: HEMOGLOBIN 6.7 g/dL (13.5-17.5)
[2022-01-25 16:27] LABS: BAND % (MANUAL) 3 % (0.0-5.0); LYMPHOCYTES % (MANUAL) 12 % (16-48); MONOCYTES % (MANUAL) 6 % (0-11.0); NEUTROPHILS % (MANUAL) 79 (42-76)
[2022-01-25] MEDS: ACETAMINOPHEN 325 MG TABLET PO PRN (18:01)
[2022-01-25] MEDS: VITAL AF 1.2 1,000 ML BOTTLE GT PRN (19:17)
--- NOTE | 2022-01-25 19:21 | NUR ---
EXECUTIVE COMMUNITY PLANNING CLOSING NOTES: PATIENT RESTING ON BED, OBTUNDED.OPENS EYES. NO SIGNS OF ACUTE DISTRESS NOTED. WITH T-PIECE @8LPM COOL MIST AEROSOL, SPO2 98%. PEG TUBE, IN PLACEMENT. NO RESIDUAL. IV ACCESS ON RIGHT UPPER ARM #20G, INTACT AND PATENT. WOUND CARE RENDERED. STARTED BLOOD TRANSFUSION OF 1 UNIT RBCS AT 1800 WELL TOLERATED NO REACTION NOTED NO FEVER .SAFETY MEASURE IN PLACE. BED IN LOWEST AND LOCKED POSITION, SR UP, CALL LIGHT PLACED WITHIN EASY REACH. WILL ENDORSE TO NEXT SHIFT.
--- NOTE | 2022-01-25 20:00 | NUR ---
RT NOTE FIO2 INCREASED TO 40% DUE TO LOW SPO2. PT TOLERATING WELL. WILL CONTINUE TO MONITOR. RN NOTIFIED.
--- NOTE | 2022-01-25 20:30 | NUR ---
WIRELESS SALES MANAGER NOTE PT IN BED WITH OPEN EYES, NON VERBAL. T PIECE IN PLACE PT IS GETTING 10 L 02 FIO2 40% PER RT. SUCTIONED HIM NEEDED THICK WHITISH SECRETIONS NOTED. KEPT HOB ELEVATED. GTF INTACT AND PATENT INFUSING @ 45 ML/HR VITAL AF, 0 ML RESIDUAL NOTED. ALSO INFUSING 1 UNIT OF PRBC AT 120 ML/HR NO S/S OF INFILTRATION OR A/R NOTED. VSS. SIDE RAILS UP X 3 AND CALL LIGHT WITHIN REACH. REPOSITION HIM Q2H FOR SKIN AND COMFORT. KEPT LOWER EXTREMITIES ELEVATED. BILATERAL HEEL DRESSING CHANGED TOO. DRESSING ON THE SACRUM CHANGED, INCONTINENCE CARE GIVEN. ALL NEEDS ATTENDED. CONTINUE TO MONITOR HIM.
[2022-01-25] MEDS: ATORVASTATIN 40 MG TABLET GT SCH (21:35)
[2022-01-25] MEDS: LISINOPRIL (20MG) 20 MG TABLET GT SCH (21:35)
[2022-01-25] MEDS ORDERED: LACOSAMIDE ORAL SOLN 50 MG/5 ML UDC ONE (21:48)
[2022-01-25] MEDS ORDERED: LACOSAMIDE 50 MG TABLET ONE (22:14)
[2022-01-25] MEDS ORDERED: SILVER NITRATE APPLICATOR 1 EA BOX TP SCH (22:30)
[2022-01-25] MEDS ORDERED: LIDOCAINE 1%-EPI 1:100,000 20 ML VIAL TP ONE (22:30)
[2022-01-26] VITALS: BP 116/51
[2022-01-26] MEDS: IPRATROPIUM NEB FS 0.5 MG/2.5 ML AMPUL.NEB IH SCH ×4 (01:56→20:03)
[2022-01-26] MEDS: ALBUTEROL FS 2.5 MG/0.5 ML VIAL.NEB NEB SCH ×4 (01:56→20:03)
[2022-01-26] MEDS ORDERED: DAKINS QUARTER STRENGTH (0.125%) 480 ML BOTTLE ONE (03:20)
[2022-01-26] MEDS: DAKINS QUARTER STRENGTH (0.125%) 480 ML BOTTLE TOP SCH ×2 (03:24→09:41)
[2022-01-26 04:00] VITALS: BP 108/49
--- NOTE | 2022-01-26 07:09 | NUR ---
LADLE LINER NOTE NO CHANGE IN CONDITION. PT IN BED WITH EYES CLOSED. NO DISTRESS OR DISCOMFORT NOTED. NO S/S OF PAIN NOTED. KEPT HIM DRY AND CLEAN. ALL NEEDS ATTENDED. REPOSITION HIM Q2H. ENDORSE TO DAY SHIFT NURSE FOR CONTINUE TO CARE.
[2022-01-26 07:37] LABS: BASOPHILS % (AUTO) 0.2 % (0.0-2.0); CALCIUM, SERUM 8.8 mg/dL (8.5-10.1); CREATININE 0.4 mg/dL (0.6-1.3); EOSINOPHILS % (AUTO) 1.6 % (0.0-6.0); HEMATOCRIT 26 % (39-51); HEMOGLOBIN 8.3 g/dL (13.5-17.5); LYMPHOCYTES # (AUTO) 0.7 K/uL (0.8-4.8); LYMPHOCYTES % (AUTO) 11.1 % (20.0-44.0); MAGNESIUM 1.9 mg/dL (1.8-2.4); MEAN CORPUSCULAR HGB CONC 33 g/dl (31.0-36.0); MEAN CORPUSCULAR VOLUME 91 fL (80-96); MONOCYTES # (AUTO) 0.5 K/uL (0.1-1.30); MONOCYTES % (AUTO) 7.7 % (2.0-12.0); NEUTROPHILS % (AUTO) 79.4 % (43.0-81.0); PHOSPHORUS 2.2 mg/dL (2.5-4.9); PLATELET COUNT (AUTO) 371 K/uL (150-450); RED BLOOD CELL COUNT(AUTO) 2.84 MIL/uL (4.5-6.0); WHITE BLOOD COUNT (AUTO) 6.2 K/uL (4.3-11.0)
--- NOTE | 2022-01-26 07:44 | NUR ---
RN OPENING NOTES Patient seen comfortably lying in bed, no shortness of breath, no apparent distress noted, breathing even and unlabored, no grimacing. Call light left within reach, safety precautions in place, brakes locked, side rails up X 2, will monitor closely for any changes.
[2022-01-26 08:00] VITALS: BP 113/50
--- NOTE | 2022-01-26 08:15 | NUR ---
WOUND CARE CONSULT: RECEIVED SECOND CONSULT FOR SACRAL PRESSURE ULCER. PT FOLLOWED BY SURGICAL TEAM FOR STAGE 4 SACRAL ULCER, WELL OTHER WOUNDS, PRESENT ON ADMISSION. SKIN PROTECTION DISCUSSED WITH NURSING STAFF. MD IN AGREEMENT WITH PLAN OF CARE.
[2022-01-26] MEDS: CHLORHEXIDINE GLUCONATE 15 ML UDC MM SCH ×2 (09:40→16:11)
[2022-01-26] MEDS: DOCUSATE SODIUM LIQ 100 MG/10 ML UDC PO SCH ×2 (09:40→16:11)
[2022-01-26] MEDS: LACOSAMIDE ORAL SOLN 50 MG/5 ML UDC GT SCH ×2 (09:40→22:12)
[2022-01-26] MEDS: LEVETIRACETAM SOL (5 ML) 100 MG/ML UDC GT SCH ×2 (09:40→22:08)
[2022-01-26] MEDS: BACLOFEN (10 MG) 10 MG TABLET GT SCH ×3 (09:41→16:11)
[2022-01-26] MEDS: VALPROIC ACID 250 MG/5 ML UDC GT SCH ×2 (09:41→22:12)
[2022-01-26] MEDS: ASCORBIC ACID 500 MG TABLET GT SCH (09:41)
[2022-01-26] MEDS: POLYETHYLENE GLYCOL 3350 17 GM POWD.PACK PO SCH (09:41)
[2022-01-26] MEDS: CEFEPIME 2 GM in IV D5W 100 ML IV SCH ×2 (09:41→22:07)
[2022-01-26] MEDS: LACTOBACILLUS RHAMNOSUS GG 1 EACH CAP.SPRINK GT SCH (09:41)
[2022-01-26] MEDS: CARVEDILOL 3.125 MG TABLET GT SCH ×2 (09:42→17:00)
[2022-01-26] MEDS: MAGNESIUM OXIDE 400 MG TABLET GT SCH (09:42)
[2022-01-26] MEDS: PROSTAT (PYXIS) 30 ML UDC GT SCH ×3 (10:50→17:51)
[2022-01-26] MEDS ORDERED: NEUTRA PHOS 1 POWD.PACKET GT ONE (11:30)
[2022-01-26] MEDS: POTASSIUM CHLORIDE 20 MEQ POWDER PACKET GT SCH ×2 (11:45→12:40)
[2022-01-26] MEDS: IV D5/0.45 NACL 1,000 ML IV PRN (11:46)
[2022-01-26 12:00] VITALS: BP 111/55
--- NOTE | 2022-01-26 13:45 | NUR ---
RT SPUTUM SAMPLE OBTAINED. PLACED IN FRIDGE FOR LAB JANITOR. RN AWARE
[2022-01-26 16:00] VITALS: BP 103/59
[2022-01-26] MEDS: VITAL AF 1.2 1,000 ML BOTTLE GT PRN (18:10)
--- NOTE | 2022-01-26 18:28 | NUR ---
RN CLOSING NOTES Patient lying in bed, respirations even and unlabored, no shortness of breath, remained afebrile during shift, no apparent distress noted, no grimacing noted at this time. All due medications via gtube per MD order, tolerated well. Gtube remained in place, patent and intact, placement verified via auscultation and aspiration of gastric contents. No nausea, no vomiting during shift, no diarrhea, abdominal bowel sounds present in all quadrants, no grimacing when abdomen palpated. Richey catheter draining clear yellowish urine free from any sediments, no hematuria, and no unusual odor noted in urine, no grimacing when bladder palpated, bladder non distended during shift. Wound care rendered as per MD order. Patient has an ongoing IV fluid for hydration (D5 NS at 70ml/hr) infusing well on his right upper arm midline, midline patent, intact and flushing well, no s/s of infiltration at this time, no redness, no swelling noted. All needs attended, kept clean and dry, seizure precaution rendered at all times, safety precautions in place, brakes locked, padded side rails up X 2, call light left within reach, will endorse to next shift for continuity of care.
[2022-01-26 20:00] VITALS: BP 123/57
--- NOTE | 2022-01-26 20:00 | NUR ---
computational chemist Opening Note Pt received laying in bed, obtunded, eyes open, non-verbal. Trach patent, clean, dry; tolerating settings well, 8L, FiO2 35% at this time. No s/s resp distress, no SOB. Attached to monitor, SR, HR 82. GT vital AF 45 ml/hr, 0 ml residual, kept HOB elevated 30 degrees; dressing intact, clean, dry. Richey intact and patent; urine yellow and clear. Repositioned for skin management and comfort. Pt kept dry and clean. Bed in lowest position, side rails x3, call light within reach. ALICE midline intact, patent, and flushed. Will continue to monitor
--- NOTE | 2022-01-26 20:00 | NUR ---
SRINIVAS lupis= Addendum: 01/26/22 at 2014 by PRINCESS FRANSISCA ESPINO error
[2022-01-26] MEDS: LISINOPRIL (20MG) 20 MG TABLET GT SCH (22:08)
[2022-01-26] MEDS: ATORVASTATIN 40 MG TABLET GT SCH (22:08)
[2022-01-27] VITALS: BP 128/68
[2022-01-27] MEDS: IPRATROPIUM NEB FS 0.5 MG/2.5 ML AMPUL.NEB IH SCH ×4 (01:18→20:01)
[2022-01-27] MEDS: ALBUTEROL FS 2.5 MG/0.5 ML VIAL.NEB NEB SCH ×4 (01:18→20:01)
[2022-01-27 04:00] VITALS: BP 107/49
[2022-01-27] MEDS: ACETAMINOPHEN 325 MG TABLET PO PRN ×2 (04:12→13:13)
--- NOTE | 2022-01-27 04:13 | NUR ---
senior microstrategy developer Note Pt noted with low-grade fever, temp 100.3. Cooling measures applied. Tylenol 650 mg given at 0414. Will re-check temperature within an hour.
--- NOTE | 2022-01-27 06:31 | NUR ---
retail interior designer Closing Note. Pt in bed, obtunded, eyes open, non-verbal. Attached to monitor, SR. T-piece, 35% FiO2, 8L; pt tolerating settings well; no s/s of resp distress or discomfort, non-labored breathing with minimal secretions. GT dressing C/D/I; pt tolerating feeding well; no residual noted. Wounds cleansed and new dressing applied; dressings are C/D/I. Richey intact and patent; urine is yellow and clear. Febrile with temp 100.3; administered Tylenol 650 mg at 0400. Bed in lowest position, side rails up x3, call light within reach. Will endorse to dayshift nurse to continue care.
[2022-01-27 07:06] LABS: BILIRUBIN,TOTAL 0.3 mg/dL (0.2-1.0); CALCIUM, SERUM 8.5 mg/dL (8.5-10.1); CREATININE 0.5 mg/dL (0.6-1.3); MAGNESIUM 1.8 mg/dL (1.8-2.4); PHOSPHORUS 2.2 mg/dL (2.5-4.9); POTASSIUM 3.2 mmol/L (3.5-5.1); TOTAL PROTEIN, SERUM 6.1 g/dL (6.4-8.2)
--- NOTE | 2022-01-27 07:24 | NUR ---
RN OPENING NOTE PATIENT RECEIVED IN BED, OBTUNDED, EYES OPEN. PATIENT WITH TPIECE ON 8L O2 WITH NO SIGNS OF ACUTE LABORED BREATHING AT THIS TIME. LINDSAY CATHETER IN PLACE. GTUBE IN PLACE RUNNING VITAL AT 45CC/HR. RIGHT UA MIDLINE IN PLACE RUNNING NS AT 70CC/HR. BED LOCKED AND IN LOWEST POSITION, CALL LIGHT WITHIN REACH, 3 SIDE RAILS UP. WILL CONTINUE TO MONITOR.
[2022-01-27 07:29] LABS: BASOPHILS % (AUTO) 0.2 % (0.0-2.0); EOSINOPHILS % (AUTO) 0.6 % (0.0-6.0); HEMATOCRIT 25 % (39-51); HEMOGLOBIN 8.3 g/dL (13.5-17.5); LYMPHOCYTES # (AUTO) 0.4 K/uL (0.8-4.8); LYMPHOCYTES % (AUTO) 7.3 % (20.0-44.0); MEAN CORPUSCULAR HGB CONC 33 g/dl (31.0-36.0); MEAN CORPUSCULAR VOLUME 90 fL (80-96); MONOCYTES # (AUTO) 0.5 K/uL (0.1-1.30); MONOCYTES % (AUTO) 9.9 % (2.0-12.0); NEUTROPHILS # (AUTO) 4.5 K/uL (1.8-8.9); PLATELET COUNT (AUTO) 338 K/uL (150-450); RED BLOOD CELL COUNT(AUTO) 2.82 MIL/uL (4.5-6.0); WHITE BLOOD COUNT (AUTO) 5.5 K/uL (4.3-11.0)
[2022-01-27 07:42] LABS: ALBUMIN 1.3 g/dL (3.4-5.0)
--- NOTE | 2022-01-27 07:46 | NUR ---
RN NOTE CRITICAL LAB VALUE OF ALBUMIN 1.[address] BECERRIL. NO NEW ORDER
[2022-01-27 08:00] VITALS: BP 105/40
[2022-01-27] MEDS: CARVEDILOL 3.125 MG TABLET GT SCH ×2 (09:00→16:39)
[2022-01-27] MEDS: DAKINS QUARTER STRENGTH (0.125%) 480 ML BOTTLE TOP SCH (09:26)
[2022-01-27] MEDS: LACTOBACILLUS RHAMNOSUS GG 1 EACH CAP.SPRINK GT SCH (09:26)
[2022-01-27] MEDS: BACLOFEN (10 MG) 10 MG TABLET GT SCH ×3 (09:26→16:38)
[2022-01-27] MEDS: ASCORBIC ACID 500 MG TABLET GT SCH (09:27)
[2022-01-27] MEDS: VALPROIC ACID 250 MG/5 ML UDC GT SCH ×2 (09:27→20:46)
[2022-01-27] MEDS: MAGNESIUM OXIDE 400 MG TABLET GT SCH (09:27)
[2022-01-27] MEDS: CHLORHEXIDINE GLUCONATE 15 ML UDC MM SCH ×2 (09:28→16:38)
[2022-01-27] MEDS: POLYETHYLENE GLYCOL 3350 17 GM POWD.PACK PO SCH (09:28)
[2022-01-27] MEDS: LEVETIRACETAM SOL (5 ML) 100 MG/ML UDC GT SCH ×2 (09:28→20:46)
[2022-01-27] MEDS: DOCUSATE SODIUM LIQ 100 MG/10 ML UDC PO SCH ×2 (09:28→16:38)
[2022-01-27] MEDS: CEFEPIME 2 GM in IV D5W 100 ML IV SCH ×2 (09:29→20:47)
[2022-01-27] MEDS: LACOSAMIDE ORAL SOLN 50 MG/5 ML UDC GT SCH ×2 (09:30→20:46)
[2022-01-27] MEDS: PROSTAT (PYXIS) 30 ML UDC GT SCH ×3 (09:31→16:39)
[2022-01-27] MEDS: IV D5/0.45 NACL 1,000 ML IV PRN (09:40)
[2022-01-27] MEDS: POTASSIUM CHLORIDE 20 MEQ POWDER PACKET NG SCH ×2 (11:08→12:14)
[2022-01-27 12:00] VITALS: BP 115/48
[2022-01-27] MEDS ORDERED: NEUTRA PHOS 1 POWD.PACKET NG ONE (12:00)
--- NOTE | 2022-01-27 13:20 | NUR ---
RN NOTE TEMPERATURE OF 100.3 REPORTED. TYLENOL GIVEN THROUGH GTUBE. BED BATH GIVEN TO COOL DOWN PATIENT.
[2022-01-27] MEDS: VITAL AF 1.2 1,000 ML BOTTLE GT PRN (15:27)
[2022-01-27 16:00] VITALS: BP 121/59
--- NOTE | 2022-01-27 18:52 | NUR ---
RN CLOSING NOTE PATIENT REMAINS IN BED, OBTUNDED, EYES OPEN. PATIENT WITH TPIECE ON 6L O2 35% FIO2 WITH NO SIGNS OF ACUTE LABORED BREATHING AT THIS TIME. LINDSAY CATHETER IN PLACE. GTUBE IN PLACE RUNNING VITAL AT 45CC/HR. RIGHT UA MIDLINE IN PLACE RUNNING D51/2NS AT 70CC/HR. ALL NEEDS ATTENDED DURING SHIFT. BED LOCKED AND IN LOWEST POSITION, CALL LIGHT WITHIN REACH, 3 SIDE RAILS UP. WILL ENDORSE TO RESIDENT CARE MANAGER NURSE.
--- NOTE | 2022-01-27 19:10 | NUR ---
RN NOTE RECEIVED PATIENT IN BED RESTING OBTUNDED,CONTRACTED, NON VERBAL,ON T-PIECE 8L 35% O2:97%,IV SITE IS ON RIGHT UPPER ARM MIDLINE ON D51/2NS 70CC/HR.ON G-TUBE FEEDING VITAL AF 45CC/HR CHECKED PLACEMENT IN PLACE NO RESIDUAL NOTED,LINDSAY CATHETER IN PLACE URINE DRAINING YELLOW AND CLEAR BY GRAVITY,SAFETY MEASURE IMPLEMENT BED IN LOW POSITON AND LOCKED,HEAD OF THE BED ELEVATED CONTINUE TO MONITOR.
--- NOTE | 2022-01-27 19:10 | NUR ---
RN NOTE RECEIVED PATIENT IN BED RESTING ALERT ORIENTED X4 VERBALLY RESPONSIVE ON 2L OXYGEN VIA NASAL CANNULA,O2:98%,IV SITE IS ON LEFT HAND INTACT PATENT,SAFETY MEASURE IMPLEMENT BED IN LOW POSITION AND LOCKED,CALL LIGHT WITHIN REACH CONTINUE TO MONITOR. Addendum: 01/28/22 at 0349 by FLACA ZENDEJAS RN PLS DISREGARD THIS DOCUMENTATION. WRONG CHARTING WRONG PATIENT THANK YOU
[2022-01-27 20:00] VITALS: BP 104/58
[2022-01-27] MEDS: ATORVASTATIN 40 MG TABLET GT SCH (21:18)
[2022-01-27] MEDS: LISINOPRIL (20MG) 20 MG TABLET GT SCH (21:59)
[2022-01-28] VITALS: BP 119/41
[2022-01-28] MEDS: ALBUTEROL FS 2.5 MG/0.5 ML VIAL.NEB NEB SCH ×4 (01:13→19:35)
[2022-01-28] MEDS: IPRATROPIUM NEB FS 0.5 MG/2.5 ML AMPUL.NEB IH SCH ×4 (01:13→19:35)
[2022-01-28] MEDS: IV D5/0.45 NACL 1,000 ML IV PRN ×2 (01:59→22:51)
[2022-01-28 04:00] VITALS: BP 102/43
[2022-01-28 05:57] LABS: BILIRUBIN,TOTAL 0.2 mg/dL (0.2-1.0); CALCIUM, SERUM 8.6 mg/dL (8.5-10.1); CREATININE 0.4 mg/dL (0.6-1.3); MAGNESIUM 1.8 mg/dL (1.8-2.4); PHOSPHORUS 2.4 mg/dL (2.5-4.9); POTASSIUM 3.9 mmol/L (3.5-5.1); TOTAL PROTEIN, SERUM 5.9 g/dL (6.4-8.2)
[2022-01-28 06:10] LABS: ALBUMIN 1.3 g/dL (3.4-5.0)
--- NOTE | 2022-01-28 06:29 | NUR ---
RN NOTE RECEIVED CRITICAL LABS RESULTS ALBUMIN 1.3 AND PROCALCITONIN 6.01 NOTIFIED ACCOUNT SERVICES MANAGER DIONE JARAMILLO CONTINUE TO MONITOR.
[2022-01-28 06:41] LABS: BASOPHILS % (AUTO) 0.3 % (0.0-2.0); EOSINOPHILS % (AUTO) 0.5 % (0.0-6.0); HEMATOCRIT 25 % (39-51); LYMPHOCYTES # (AUTO) 0.6 K/uL (0.8-4.8); LYMPHOCYTES % (AUTO) 9.9 % (20.0-44.0); MEAN CORPUSCULAR HGB CONC 32 g/dl (31.0-36.0); MEAN CORPUSCULAR VOLUME 91 fL (80-96); MONOCYTES # (AUTO) 0.8 K/uL (0.1-1.30); MONOCYTES % (AUTO) 13.8 % (2.0-12.0); NEUTROPHILS # (AUTO) 4.5 K/uL (1.8-8.9); NEUTROPHILS % (AUTO) 75.5 % (43.0-81.0); PLATELET COUNT (AUTO) 301 K/uL (150-450); RED BLOOD CELL COUNT(AUTO) 2.73 MIL/uL (4.5-6.0)
--- NOTE | 2022-01-28 07:21 | NUR ---
RN NOTE PATIENT REMAINS ON OBTUNDED CONTRACTED NON VERBAL ON T-PIECE 8L 35%,NO SOB NOTED ALL DUE MEDS GIVEN MD ORDERED REPOSITIONED EVERY 2 HOURS TREATMENT FOR SACRAL WOUND DONE ENDORSE NEXT COMING SHIFT FOR CONTINUATION OF CARE
--- NOTE | 2022-01-28 07:30 | NUR ---
RN OPENING NOTE PATIENT RESTING IN BED, OBTUNDED, EYES OPEN. PATIENT WITH TPIECE ON 8L O2 28% FIO2 WITH NO SIGNS OF ACUTE LABORED BREATHING AT THIS TIME. LINDSAY CATHETER IN PLACE. GTUBE IN PLACE RUNNING VITAL AT 45CC/HR. RIGHT UA MIDLINE IN PLACE RUNNING D51/2NS AT 70CC/HR. ALL SAFETY MEASURES NOTED AND ACCOUNTED FOR. BED LOCKED AND IN LOWEST POSITION, CALL LIGHT WITHIN REACH, 3 SIDE RAILS UP. WILL CONTINUE TO MONITOR.
[2022-01-28 08:00] VITALS: BP 102/38
--- NOTE | 2022-01-28 08:31 | NUR ---
FIO2 DECREASED FROM 35% TO 28% ORDER FOR OXY GEN TITRATION. SPO2 94 - 95% Addendum: 01/28/22 at 0833 by JALIL ESPINOZA RT Amended: Links added.
[2022-01-28] MEDS: LACTOBACILLUS RHAMNOSUS GG 1 EACH CAP.SPRINK GT SCH (08:50)
[2022-01-28] MEDS: POLYETHYLENE GLYCOL 3350 17 GM POWD.PACK PO SCH (08:50)
[2022-01-28] MEDS: ASCORBIC ACID 500 MG TABLET GT SCH (08:50)
[2022-01-28] MEDS: BACLOFEN (10 MG) 10 MG TABLET GT SCH ×3 (08:51→16:36)
[2022-01-28] MEDS: CHLORHEXIDINE GLUCONATE 15 ML UDC MM SCH ×2 (08:51→16:36)
[2022-01-28] MEDS: LEVETIRACETAM SOL (5 ML) 100 MG/ML UDC GT SCH ×2 (08:51→20:42)
[2022-01-28] MEDS: DOCUSATE SODIUM LIQ 100 MG/10 ML UDC PO SCH ×2 (08:51→16:36)
[2022-01-28] MEDS: MAGNESIUM OXIDE 400 MG TABLET GT SCH (08:51)
[2022-01-28] MEDS: VALPROIC ACID 250 MG/5 ML UDC GT SCH ×2 (08:52→20:42)
[2022-01-28] MEDS: LACOSAMIDE ORAL SOLN 50 MG/5 ML UDC GT SCH ×2 (08:52→20:41)
[2022-01-28] MEDS: DAKINS QUARTER STRENGTH (0.125%) 480 ML BOTTLE TOP SCH (08:56)
[2022-01-28] MEDS: PROSTAT (PYXIS) 30 ML UDC GT SCH ×3 (08:56→16:36)
[2022-01-28] MEDS: CARVEDILOL 3.125 MG TABLET GT SCH ×2 (08:56→16:37)
[2022-01-28] MEDS: CEFEPIME 2 GM in IV D5W 100 ML IV SCH ×2 (08:57→20:42)
[2022-01-28] MEDS ORDERED: NEUTRA PHOS 1 POWD.PACKET GT ONE (10:00)
[2022-01-28 12:00] VITALS: BP 116/48
[2022-01-28 16:00] VITALS: BP 118/55
--- NOTE | 2022-01-28 18:28 | NUR ---
RN CLOSING NOTE PT REMAINED STABLE THRU SHIFT. PATIENT RESTING IN BED, OBTUNDED, EYES OPEN. PATIENT WITH TPIECE ON 8L O2 28% FIO2 WITH NO SIGNS OF ACUTE LABORED BREATHING AT THIS TIME. LINDSAY CATHETER IN PLACE. GTUBE IN PLACE RUNNING VITAL AT 45CC/HR. RIGHT UA MIDLINE IN PLACE RUNNING D51/2NS AT 70CC/HR. ALL NEEDS MET AND MEDS ADM ORDERED BY MD. ALL SAFETY MEASURES NOTED AND ACCOUNTED FOR. BED LOCKED AND IN LOWEST POSITION, CALL LIGHT WITHIN REACH, 3 SIDE RAILS UP. WILL ENDORSE TO DIE KEEPER RN.
--- NOTE | 2022-01-28 19:10 | NUR ---
RN NOTES PATIENT RESTING IN BED, OBTUNDED, EYES OPEN. PATIENT WITH TPIECE ON 8L O2 28% FIO2 WITH NO SIGNS OF ACUTE LABORED BREATHING AT THIS TIME. LINDSAY CATHETER IN PLACE. GTUBE IN PLACE RUNNING VITAL AT 45CC/HR. RIGHT UA MIDLINE IN PLACE PATENT FLUSHES WELL RUNNING D51/2NS AT 70CC/HR. ALL SAFETY MEASURES NOTED AND ACCOUNTED FOR. BED LOCKED AND IN LOWEST POSITION, CALL LIGHT WITHIN REACH, 3 SIDE RAILS UP. WILL CONTINUE TO MONITOR. SEIZURE PRECAUTION IN PLACE
[2022-01-28 20:00] VITALS: BP 107/47
[2022-01-28] MEDS: ATORVASTATIN 40 MG TABLET GT SCH (21:12)
[2022-01-28] MEDS: LISINOPRIL (20MG) 20 MG TABLET GT SCH (22:00)
[2022-01-29] VITALS: BP 108/52
[2022-01-29] MEDS: ALBUTEROL FS 2.5 MG/0.5 ML VIAL.NEB NEB SCH ×4 (01:17→19:41)
[2022-01-29] MEDS: IPRATROPIUM NEB FS 0.5 MG/2.5 ML AMPUL.NEB IH SCH ×4 (01:17→19:41)
[2022-01-29] MEDS: VITAL AF 1.2 1,000 ML BOTTLE GT PRN (01:53)
[2022-01-29 04:00] VITALS: BP 120/55
--- NOTE | 2022-01-29 06:43 | NUR ---
RN NOTES PT REMAINED STABLE THRU SHIFT. PATIENT RESTING IN BED, OBTUNDED, EYES OPEN. PATIENT WITH TPIECE ON 8L O2 28% FIO2 WITH NO SIGNS OF ACUTE LABORED BREATHING AT THIS TIME. LINDSAY CATHETER IN PLACE. GTUBE IN PLACE RUNNING VITAL AT 45CC/HR. RIGHT UA MIDLINE IN PLACE RUNNING D51/2NS AT 70CC/HR. ALL NEEDS MET AND MEDS ADM ORDERED BY MD. ALL SAFETY MEASURES NOTED AND ACCOUNTED FOR. BED LOCKED AND IN LOWEST POSITION, CALL LIGHT WITHIN REACH, 3 SIDE RAILS UP. WILL ENDORSE TO MORNING SHIFT RN FOR JELANI
[2022-01-29 07:30] LABS: BASOPHILS % (AUTO) 0.3 % (0.0-2.0); EOSINOPHILS % (AUTO) 0.8 % (0.0-6.0); HEMATOCRIT 26 % (39-51); HEMOGLOBIN 8.3 g/dL (13.5-17.5); LYMPHOCYTES # (AUTO) 0.7 K/uL (0.8-4.8); LYMPHOCYTES % (AUTO) 10.9 % (20.0-44.0); MEAN CORPUSCULAR HGB CONC 32 g/dl (31.0-36.0); MEAN CORPUSCULAR VOLUME 91 fL (80-96); MONOCYTES # (AUTO) 0.9 K/uL (0.1-1.30); MONOCYTES % (AUTO) 13.3 % (2.0-12.0); NEUTROPHILS % (AUTO) 74.7 % (43.0-81.0); PLATELET COUNT (AUTO) 304 K/uL (150-450); RED BLOOD CELL COUNT(AUTO) 2.88 MIL/uL (4.5-6.0); WHITE BLOOD COUNT (AUTO) 6.6 K/uL (4.3-11.0)
--- NOTE | 2022-01-29 07:30 | NUR ---
OPENING NOTE: REPORT RECEIVED FROM OLIMPIA ESPINO. PT IS NON VERBAL, TRACH T-TUBE. PEG TUBE FEEDINGS INFUSING PER MD ORDERS. PER REPORT WOUND CARE DONE EARLY THIS AM WITH BATH. LINDSAY CATHETER DRAINING WITHOUT DIFFICULTY. PT CHECKED ON HOURLY AND PRN BY NURSING STAFF.
[2022-01-29 07:41] LABS: BILIRUBIN,TOTAL 0.2 mg/dL (0.2-1.0); CALCIUM, SERUM 8.5 mg/dL (8.5-10.1); CREATININE 0.4 mg/dL (0.6-1.3); MAGNESIUM 1.8 mg/dL (1.8-2.4); PHOSPHORUS 2.6 mg/dL (2.5-4.9); POTASSIUM 3.8 mmol/L (3.5-5.1); TOTAL PROTEIN, SERUM 6.2 g/dL (6.4-8.2)
[2022-01-29 07:50] LABS: ALBUMIN 1.3 g/dL (3.4-5.0)
[2022-01-29 08:00] VITALS: BP 123/67
[2022-01-29] MEDS: CHLORHEXIDINE GLUCONATE 15 ML UDC MM SCH ×2 (10:25→17:52)
[2022-01-29] MEDS: LEVETIRACETAM SOL (5 ML) 100 MG/ML UDC GT SCH ×2 (10:25→21:21)
[2022-01-29] MEDS: CEFEPIME 2 GM in IV D5W 100 ML IV SCH ×3 (10:26→21:20)
[2022-01-29] MEDS: LACTOBACILLUS RHAMNOSUS GG 1 EACH CAP.SPRINK GT SCH (10:26)
[2022-01-29] MEDS: POLYETHYLENE GLYCOL 3350 17 GM POWD.PACK PO SCH (10:26)
[2022-01-29] MEDS: DOCUSATE SODIUM LIQ 100 MG/10 ML UDC PO SCH ×2 (10:26→17:52)
[2022-01-29] MEDS: VALPROIC ACID 250 MG/5 ML UDC GT SCH ×2 (10:26→21:21)
[2022-01-29] MEDS: ASCORBIC ACID 500 MG TABLET GT SCH (10:27)
[2022-01-29] MEDS: BACLOFEN (10 MG) 10 MG TABLET GT SCH ×3 (10:27→17:52)
[2022-01-29] MEDS: CARVEDILOL 3.125 MG TABLET GT SCH ×2 (10:27→17:52)
[2022-01-29] MEDS: MAGNESIUM OXIDE 400 MG TABLET GT SCH (10:27)
[2022-01-29] MEDS: PROSTAT (PYXIS) 30 ML UDC GT SCH ×3 (10:28→17:53)
[2022-01-29] MEDS: DAKINS QUARTER STRENGTH (0.125%) 480 ML BOTTLE TOP SCH (10:29)
[2022-01-29] MEDS: LACOSAMIDE ORAL SOLN 50 MG/5 ML UDC GT SCH ×3 (10:34→21:20)
[2022-01-29 12:00] VITALS: BP_SYST 131; BP_SYST 146; BP_DIAS 48; BP_DIAS 57
[2022-01-29 16:00] VITALS: BP 146/57
[2022-01-29] MEDS: IV D5/0.45 NACL 1,000 ML IV PRN (17:51)
--- NOTE | 2022-01-29 18:43 | NUR ---
END OF SHIFT NOTE: PT HAD A FAIRLY UNEVENTFUL SHIFT. TUBE FEEDING INFUSED PER MD ORDERS. ALL MEDICATIONS GIVEN PER MD ORDERS. PT CHECKED ON HOURLY AND PRN BY NURSING STAFF.
--- NOTE | 2022-01-29 19:30 | NUR ---
RN OPENING NOTE RECEIVED IN BED, OBTUNDED, EYES OPEN. PATIENT WITH TPIECE ON 8L O2 WITH NO SIGNS OF ACUTE LABORED BREATHING NOTED AT THIS TIME. RIGHT UA MIDLINE IN PLACE RUNNING NS AT 70CC/HR, PATENT AND INTACT, FLUSHES WELL. GTUBE IN PLACE RUNNING VITAL AT 45CC/HR, TOLERATING WELL. ON LINDSAY CATHETER DRAINING WELL WITH YELLOW COLORED URINE NOTED. BED LOCKED AND IN LOWEST POSITION, CALL LIGHT WITHIN REACH, 3 SIDE RAILS UP. WILL CONTINUE TO MONITOR.
[2022-01-29 20:00] VITALS: BP 134/56
[2022-01-29] MEDS: LISINOPRIL (20MG) 20 MG TABLET GT SCH (21:35)
[2022-01-29] MEDS: ATORVASTATIN 40 MG TABLET GT SCH (21:35)
[2022-01-30] VITALS: BP 97/54
[2022-01-30] MEDS: IPRATROPIUM NEB FS 0.5 MG/2.5 ML AMPUL.NEB IH SCH ×4 (01:20→19:22)
[2022-01-30] MEDS: ALBUTEROL FS 2.5 MG/0.5 ML VIAL.NEB NEB SCH ×4 (01:20→19:22)
[2022-01-30 04:00] VITALS: BP 147/65
[2022-01-30 07:19] LABS: BASOPHILS % (AUTO) 0.4 % (0.0-2.0); EOSINOPHILS % (AUTO) 0.8 % (0.0-6.0); HEMATOCRIT 24 % (39-51); HEMOGLOBIN 7.8 g/dL (13.5-17.5); LYMPHOCYTES # (AUTO) 0.8 K/uL (0.8-4.8); MEAN CORPUSCULAR HGB CONC 32 g/dl (31.0-36.0); MEAN CORPUSCULAR VOLUME 90 fL (80-96); MONOCYTES # (AUTO) 0.7 K/uL (0.1-1.30); MONOCYTES % (AUTO) 13.4 % (2.0-12.0); NEUTROPHILS # (AUTO) 3.9 K/uL (1.8-8.9); NEUTROPHILS % (AUTO) 70.4 % (43.0-81.0); PLATELET COUNT (AUTO) 290 K/uL (150-450); RED BLOOD CELL COUNT(AUTO) 2.66 MIL/uL (4.5-6.0); WHITE BLOOD COUNT (AUTO) 5.6 K/uL (4.3-11.0)
--- NOTE | 2022-01-30 07:30 | NUR ---
RN OPENING NOTE PATIENT RESTING IN BED, OBTUNDED, EYES OPEN. PATIENT WITH TPIECE ON WITH NO SIGNS OF ACUTE LABORED BREATHING AT THIS TIME. LINDSAY CATHETER IN PLACE. GTUBE IN PLACE RUNNING VITAL AT 45CC/HR. RIGHT UA MIDLINE IN PLACE RUNNING D51/2NS AT 70CC/HR. ALL SAFETY MEASURES NOTED AND ACCOUNTED FOR. BED LOCKED AND IN LOWEST POSITION, CALL LIGHT WITHIN REACH, 3 SIDE RAILS UP. WILL CONTINUE TO MONITOR.
[2022-01-30 07:36] LABS: BILIRUBIN,TOTAL 0.2 mg/dL (0.2-1.0); CALCIUM, SERUM 8.4 mg/dL (8.5-10.1); CREATININE 0.4 mg/dL (0.6-1.3); MAGNESIUM 1.8 mg/dL (1.8-2.4); PHOSPHORUS 2.5 mg/dL (2.5-4.9); POTASSIUM 3.2 mmol/L (3.5-5.1); TOTAL PROTEIN, SERUM 6.2 g/dL (6.4-8.2)
--- NOTE | 2022-01-30 07:37 | NUR ---
RN CLOSING NOTE PT IN BED, OBTUNDED, EYES OPEN. PATIENT WITH TPIECE ON 8L O2 WITH NO SIGNS OF ACUTE LABORED BREATHING. PT SATING AT 94%. RIGHT UA MIDLINE IN PLACE RUNNING NS AT 70CC/HR, PATENT AND INTACT, FLUSHES WELL. GTUBE IN PLACE RUNNING VITAL AF AT 45CC/HR, TOLERATING WELL. ON LINDSAY CATHETER DRAINING WELL WITH YELLOW COLORED URINE NOTED. ALL DUE MEDS GIVEN. ALL NEEDS ATTENDED TO. KEPT CLEAN AND DRY. SAFETY MEASURES IMPLEMENTED. BED LOCKED AND IN LOWEST POSITION, CALL LIGHT WITHIN REACH, 3 SIDE RAILS UP. WILL ENDORSE TO AM SHIFT FOR JELANI.
[2022-01-30 07:59] LABS: ALBUMIN 1.2 g/dL (3.4-5.0)
[2022-01-30 08:00] VITALS: BP_SYST 107; BP_SYST 143; BP_DIAS 55; BP_DIAS 77
[2022-01-30] MEDS: CHLORHEXIDINE GLUCONATE 15 ML UDC MM SCH ×2 (08:34→17:09)
[2022-01-30] MEDS: LEVETIRACETAM SOL (5 ML) 100 MG/ML UDC GT SCH ×2 (08:34→20:57)
[2022-01-30] MEDS: VALPROIC ACID 250 MG/5 ML UDC GT SCH ×2 (08:34→20:57)
[2022-01-30] MEDS: MAGNESIUM OXIDE 400 MG TABLET GT SCH (08:35)
[2022-01-30] MEDS: CARVEDILOL 3.125 MG TABLET GT SCH ×2 (08:35→17:10)
[2022-01-30] MEDS: BACLOFEN (10 MG) 10 MG TABLET GT SCH ×3 (08:35→17:09)
[2022-01-30] MEDS: DOCUSATE SODIUM LIQ 100 MG/10 ML UDC GT SCH ×2 (08:35→17:09)
[2022-01-30] MEDS: ASCORBIC ACID 500 MG TABLET GT SCH (08:35)
[2022-01-30] MEDS: LACTOBACILLUS RHAMNOSUS GG 1 EACH CAP.SPRINK GT SCH (08:36)
[2022-01-30] MEDS: POLYETHYLENE GLYCOL 3350 17 GM POWD.PACK GT SCH (08:38)
[2022-01-30] MEDS: PROSTAT (PYXIS) 30 ML UDC GT SCH ×3 (08:40→17:12)
[2022-01-30] MEDS: DAKINS QUARTER STRENGTH (0.125%) 480 ML BOTTLE TOP SCH (08:51)
[2022-01-30] MEDS ORDERED: POTASSIUM CHLORIDE 20 MEQ POWDER PACKET GT ONE (09:00)
[2022-01-30] MEDS ORDERED: CEFEPIME 2 GM in IV D5W 100 ML IV SCH (09:06)
[2022-01-30] MEDS: VITAL AF 1.2 1,000 ML BOTTLE GT PRN (09:12)
[2022-01-30 12:00] VITALS: BP 107/78
[2022-01-30] MEDS: IV D5/0.45 NACL 1,000 ML IV PRN (13:14)
[2022-01-30 16:00] VITALS: BP 113/78
[2022-01-30 20:00] VITALS: BP 130/72
[2022-01-30] MEDS: LACOSAMIDE ORAL SOLN 50 MG/5 ML UDC GT SCH (20:57)
[2022-01-30] MEDS: ATORVASTATIN 40 MG TABLET GT SCH (21:08)
[2022-01-30] MEDS: LISINOPRIL (20MG) 20 MG TABLET GT SCH (21:09)
[2022-01-31] VITALS (7 sets, daily range): BP systolic 95–148; BP diastolic 42–72
[2022-01-31] MEDS: ALBUTEROL FS 2.5 MG/0.5 ML VIAL.NEB NEB SCH ×4 (02:01→19:57)
[2022-01-31] MEDS: IPRATROPIUM NEB FS 0.5 MG/2.5 ML AMPUL.NEB IH SCH ×4 (02:01→19:57)
[2022-01-31] MEDS: IV D5/0.45 NACL 1,000 ML IV PRN ×2 (05:08→18:49)
--- NOTE | 2022-01-31 06:49 | NUR ---
RN NOTES PT REMAINED STABLE THRU SHIFT. PATIENT RESTING IN BED, OBTUNDED, EYES OPEN. PATIENT WITH TPIECE ON 5L O2 28% FIO2 WITH NO SIGNS OF ACUTE LABORED BREATHING AT THIS TIME. LINDSAY CATHETER IN PLACE. GTUBE IN PLACE RUNNING VITAL AT 45CC/HR. RIGHT UA MIDLINE IN PLACE RUNNING D51/2NS AT 70CC/HR. ALL NEEDS MET AND MEDS ADM ORDERED BY MD. ALL SAFETY MEASURES NOTED AND ACCOUNTED FOR. BED LOCKED AND IN LOWEST POSITION, CALL LIGHT WITHIN REACH, 3 SIDE RAILS UP. WILL ENDORSE TO MORNING SHIFT RN FOR JELANI
[2022-01-31 06:50] LABS: BASOPHILS % (AUTO) 0.2 % (0.0-2.0); EOSINOPHILS % (AUTO) 0.7 % (0.0-6.0); HEMATOCRIT 24 % (39-51); LYMPHOCYTES # (AUTO) 0.8 K/uL (0.8-4.8); MEAN CORPUSCULAR HGB CONC 33 g/dl (31.0-36.0); MEAN CORPUSCULAR VOLUME 90 fL (80-96); MONOCYTES # (AUTO) 0.6 K/uL (0.1-1.30); MONOCYTES % (AUTO) 9.7 % (2.0-12.0); NEUTROPHILS # (AUTO) 4.6 K/uL (1.8-8.9); NEUTROPHILS % (AUTO) 76.4 % (43.0-81.0); PLATELET COUNT (AUTO) 331 K/uL (150-450); RED BLOOD CELL COUNT(AUTO) 2.65 MIL/uL (4.5-6.0)
[2022-01-31 07:04] LABS: BILIRUBIN,TOTAL 0.2 mg/dL (0.2-1.0); CALCIUM, SERUM 8.5 mg/dL (8.5-10.1); CREATININE 0.4 mg/dL (0.6-1.3); MAGNESIUM 1.8 mg/dL (1.8-2.4); PHOSPHORUS 2.2 mg/dL (2.5-4.9); POTASSIUM 3.6 mmol/L (3.5-5.1); TOTAL PROTEIN, SERUM 6.3 g/dL (6.4-8.2)
[2022-01-31 07:12] LABS: ALBUMIN 1.2 g/dL (3.4-5.0)
--- NOTE | 2022-01-31 07:40 | NUR ---
RN OPENING NOTE PATIENT IS IN BED, OBTUNDED AND NON VERBAL, ON SEMI TREVINO'S POSITION. WITH T-PIECE ON 5L O2, WITH NO SIGNS OF RESPIRATORY DISTRESS AND WITH O2 SATURATION OF 96%. SINUS RHYTHM ON SHADOW GRAPH WEIGHT OPERATOR. WITH RIGHT UPPER ARM MIDLINE, INTACT AND INFUSING WITH D5 1/2 NS AT 70 CC/HR, NO SIGNS OF INFILTRATION. WITH G-TUBE INFUSING WITH VITAL AF AT 45 CC/HR. BED IS LOCKED IN THE LOWEST POSITION, 3 GUARD RAILS RAISED, CALL GUTIERREZ WITHIN REACH, AND ALL HOSPITAL SAFETY PRECAUTIONS IN PLACE. WILL CONTINUE TO MONITOR THROUGHOUT SHIFT.
[2022-01-31] MEDS ORDERED: NEUTRA PHOS 1 POWD.PACKET PO ONE (09:30)
[2022-01-31] MEDS ORDERED: NEUTRA PHOS 1 POWD.PACKET GT ONE (09:30)
[2022-01-31] MEDS: POLYETHYLENE GLYCOL 3350 17 GM POWD.PACK GT SCH (09:32)
[2022-01-31] MEDS: MAGNESIUM OXIDE 400 MG TABLET GT SCH (09:32)
[2022-01-31] MEDS: CHLORHEXIDINE GLUCONATE 15 ML UDC MM SCH ×2 (09:33→17:08)
[2022-01-31] MEDS: LEVETIRACETAM SOL (5 ML) 100 MG/ML UDC GT SCH ×2 (09:33→21:18)
[2022-01-31] MEDS: ASCORBIC ACID 500 MG TABLET GT SCH (09:34)
[2022-01-31] MEDS: CARVEDILOL 3.125 MG TABLET GT SCH ×2 (09:34→17:00)
[2022-01-31] MEDS: DOCUSATE SODIUM LIQ 100 MG/10 ML UDC GT SCH ×2 (09:34→17:09)
[2022-01-31] MEDS: LACTOBACILLUS RHAMNOSUS GG 1 EACH CAP.SPRINK GT SCH (09:34)
[2022-01-31] MEDS: BACLOFEN (10 MG) 10 MG TABLET GT SCH ×3 (09:34→17:09)
[2022-01-31] MEDS: VALPROIC ACID 250 MG/5 ML UDC GT SCH ×2 (09:39→21:17)
[2022-01-31] MEDS: PROSTAT (PYXIS) 30 ML UDC GT SCH ×3 (09:43→17:11)
[2022-01-31] MEDS: LACOSAMIDE ORAL SOLN 50 MG/5 ML UDC GT SCH ×2 (10:02→21:18)
[2022-01-31] MEDS: DAKINS QUARTER STRENGTH (0.125%) 480 ML BOTTLE TOP SCH (10:02)
[2022-01-31] MEDS: VITAL AF 1.2 1,000 ML BOTTLE GT PRN (14:57)
--- NOTE | 2022-01-31 18:26 | NUR ---
RN CLOSING NOTE PATIENT IS RESTING COMFORTABLY AND IS NOT IN ACUTE DISTRESS. T-PIECE IS IN PLACE. G-TUBE IS IN PLACE WITH POSITIVE PLACEMENT. LINDSAY CATHETER IS IN PLACE DRAINING URINE BY GRAVITY. PATIENT WAS MONITORED THROUGHOUT SHIFT. INTERVENTIONS WERE COMPLETED NEEDED. ALL OF THE PATIENT'S NEEDS HAVE BEEN MET. ASSISTANCE WAS PROVIDED NEEDED. ALL DUE MEDICATIONS WERE GIVEN. WILL ENDORSE TO AIRCRAFT STRUCTURAL REPAIR MECHANIC RN.
[2022-01-31] MEDS: ATORVASTATIN 40 MG TABLET GT SCH (21:18)
[2022-01-31] MEDS: LISINOPRIL (20MG) 20 MG TABLET GT SCH (21:18)
[2022-02-01] VITALS: BP 117/82
[2022-02-01] MEDS: ALBUTEROL FS 2.5 MG/0.5 ML VIAL.NEB NEB SCH ×3 (01:38→13:24)
[2022-02-01] MEDS: IPRATROPIUM NEB FS 0.5 MG/2.5 ML AMPUL.NEB IH SCH ×3 (01:38→13:24)
[2022-02-01 04:00] VITALS: BP 122/87
--- NOTE | 2022-02-01 07:25 | NUR ---
RN OPENING NOTE PATIENT IS IN BED, OBTUNDED AND NON VERBAL, ON SEMI TREVINO'S POSITION. WITH T-PIECE ON 5L O2, WITH NO SIGNS OF RESPIRATORY DISTRESS AND WITH O2 SATURATION OF 96%. SINUS RHYTHM ON TELECOMMUNICATIONS LINE MECHANIC. WITH RIGHT UPPER ARM MIDLINE, INTACT AND INFUSING WITH D5 1/2 NS AT 70 CC/HR, NO SIGNS OF INFILTRATION. WITH G-TUBE INFUSING WITH VITAL AF AT 45 CC/HR. LINDSAY CATHETER IS IN PLACE DRAINING YELLOW URINE BY GRAVITY. BED IS LOCKED IN THE LOWEST POSITION, 3 GUARD RAILS RAISED, CALL GUTIERREZ WITHIN REACH, AND ALL HOSPITAL SAFETY PRECAUTIONS IN PLACE. WILL CONTINUE TO MONITOR THROUGHOUT SHIFT.
[2022-02-01 07:43] LABS: CALCIUM, SERUM 8.5 mg/dL (8.5-10.1); CREATININE 0.4 mg/dL (0.6-1.3); PHOSPHORUS 2.9 mg/dL (2.5-4.9); POTASSIUM 3.5 mmol/L (3.5-5.1)
[2022-02-01 08:02] VITALS: BP 112/45
[2022-02-01] MEDS: CHLORHEXIDINE GLUCONATE 15 ML UDC MM SCH (08:25)
[2022-02-01] MEDS: PROSTAT (PYXIS) 30 ML UDC GT SCH ×2 (08:26→13:07)
[2022-02-01] MEDS: POLYETHYLENE GLYCOL 3350 17 GM POWD.PACK GT SCH (08:26)
[2022-02-01] MEDS: LEVETIRACETAM SOL (5 ML) 100 MG/ML UDC GT SCH (08:27)
[2022-02-01] MEDS: MAGNESIUM OXIDE 400 MG TABLET GT SCH (08:28)
[2022-02-01] MEDS: ASCORBIC ACID 500 MG TABLET GT SCH (08:28)
[2022-02-01] MEDS: LACTOBACILLUS RHAMNOSUS GG 1 EACH CAP.SPRINK GT SCH (08:28)
[2022-02-01] MEDS: BACLOFEN (10 MG) 10 MG TABLET GT SCH ×2 (08:28→13:07)
[2022-02-01] MEDS: DOCUSATE SODIUM LIQ 100 MG/10 ML UDC GT SCH (08:28)
[2022-02-01] MEDS: VALPROIC ACID 250 MG/5 ML UDC GT SCH (08:30)
[2022-02-01] MEDS: LACOSAMIDE ORAL SOLN 50 MG/5 ML UDC GT SCH (08:34)
[2022-02-01] MEDS: CARVEDILOL 3.125 MG TABLET GT SCH (08:36)
[2022-02-01] MEDS: DAKINS QUARTER STRENGTH (0.125%) 480 ML BOTTLE TOP SCH (09:13)
[2022-02-01 12:00] VITALS: BP 128/63
--- NOTE | 2022-02-01 15:14 | NUR ---
body checked, pt with BM change diaper, barajas patent with yellow clear urine, picture done of wound, wound care done, called remsen mirta and gave report to Shannan ESPINO, awaiting for ambulance
[2022-02-01] MEDS: ACETAMINOPHEN 325 MG TABLET PO PRN (15:21)
[2022-02-01 15:52] VITALS: BP 95/55
--- NOTE | 2022-02-01 16:00 | NUR ---
professor of journalism notes: patient v/s 122/60,hr 76, temp98.6. O2 sat 96% , not in any pain or discomfort, mid line removed, [facility] with 2 EMT and RT to [facility] in stable condition
== END 2022-02-01 16:11 | DRG 853 ==
LOC: ER 20:44 → TELE1 01-23 01:13
PROVIDERS: ADMIT Internal Medicine
PROC: 05H933Z Insertion of Infusion Device into Right Brachial Vein, Percutaneous Approach (ICD-10-PCS; principal; 2022-01-23)
PROC: 30233N1 Transfusion of Nonautologous Red Blood Cells into Peripheral Vein, Percutaneous Approach (ICD-10-PCS; 2022-01-23)
PROC: 0QB10ZZ Excision of Sacrum, Open Approach (ICD-10-PCS; 2022-01-27)
DX: A41.9 Sepsis, unspecified organism (principal); L89.154 Pressure ulcer of sacral region, stage 4; E43 Unspecified severe protein-calorie malnutrition; R53.2 Functional quadriplegia; J95.851 Ventilator associated pneumonia; D68.59 Other primary thrombophilia; E87.1 Hypo-osmolality and hyponatremia; G93.1 Anoxic brain damage, not elsewhere classified; N39.0 Urinary tract infection, site not specified; J96.10 Chronic respiratory failure, unspecified whether with hypoxia or hypercapnia; K91.2 Postsurgical malabsorption, not elsewhere classified; Z16.24 Resistance to multiple antibiotics; R65.20 Severe sepsis without septic shock; Z93.0 Tracheostomy status; Z93.1 Gastrostomy status; Z20.822 Contact with and (suspected) exposure to COVID-19; R13.10 Dysphagia, unspecified; G40.909 Epilepsy, unspecified, not intractable, without status epilepticus; Y83.9 Surgical procedure, unspecified as the cause of abnormal reaction of the patient, or of later complication, without mention of misadventure at the time of the procedure; Y92.9 Unspecified place or not applicable; Z79.51 Long term (current) use of inhaled steroids; E16.2 Hypoglycemia, unspecified; Y95 Nosocomial condition; E78.5 Hyperlipidemia, unspecified; I10 Essential (primary) hypertension; I48.91 Unspecified atrial fibrillation; Z87.440 Personal history of urinary (tract) infections; Z74.01 Bed confinement status; R74.01 Elevation of levels of liver transaminase levels; E88.09 Other disorders of plasma-protein metabolism, not elsewhere classified; D64.9 Anemia, unspecified; B96.4 Proteus (mirabilis) (morganii) as the cause of diseases classified elsewhere; Z79.899 Other long term (current) drug therapy; L89.626 Pressure-induced deep tissue damage of left heel; L89.616 Pressure-induced deep tissue damage of right heel; Z86.69 Personal history of other diseases of the nervous system and sense organs; L98.9 Disorder of the skin and subcutaneous tissue, unspecified; M62.422 Contracture of muscle, left upper arm; M62.421 Contracture of muscle, right upper arm; M62.562 Muscle wasting and atrophy, not elsewhere classified, left lower leg; M62.561 Muscle wasting and atrophy, not elsewhere classified, right lower leg; Y84.8 Other medical procedures as the cause of abnormal reaction of the patient, or of later complication, without mention of misadventure at the time of the procedure; Y92.129 Unspecified place in nursing home as the place of occurrence of the external cause
CPT/HCPCS: 31720; 36410; 36415; 71045-TC; 80048-TC; 80053-TC; 80076-TC; 80202-TC; 81001; 82272-TC; 82962-TC; 83605-TC; 83735-TC; 84100-TC; 84484-TC; 85025-TC; 85730-TC; 86850-TC; 87040-TC; 87070-TC; 87081-TC; 87086-TC; 87186-TC; 94640-TC; 94761-TC; 94762-TC; 94799-TC; A4216; A4623; A6253; A6403; A7526; C9803; G0378; J0692; J1644; J1953; J2543; J3370; J3490; J7030; J7042; J7050; J7060; P9016; P9047; U0003

== ENCOUNTER 2022-03-12 13:10 | Inpatient (IN) | payer BC ==
[~2022-03-12] VITALS: Ht 167.6 cm; Wt 45.4 kg
--- NOTE | 2022-03-12 13:25 | NUR ---
BIBRA78 FROM SNF FOR LOW BP, BP 111/65 UPO ARRIVAL. PLACED ON BED, AWAKE RESPOND TO PAINFUL STIMULI, ATTACHED TO VENTILATOR FIO2-40%, VT-500, RATE-20 SATURATING AT 100%. WITH HISTORY OF ADULT FAILURE TO THRIVE, CONTACTED MUSCLES, CHRONIC RESP. FAILURE, UTI, FUNCTIONAL QUADREPHLEGIA
[2022-03-12] MEDS ORDERED: IV NS 0.9% 1,000 ML BAG IV ONE (13:30)
--- NOTE | 2022-03-12 13:35 | NUR ---
BLOOD DRAWN, SWAB FOR COVID19, URINE SAMPLE SENT TO LAB
[2022-03-12 13:43] LABS: BASOPHILS % (AUTO) 0.1 % (0.0-2.0); EOSINOPHILS % (AUTO) 3.7 % (0.0-6.0); HEMATOCRIT 24 % (39-51); HEMOGLOBIN 7.2 g/dL (13.5-17.5); LYMPHOCYTES # (AUTO) 0.9 K/uL (0.8-4.8); LYMPHOCYTES % (AUTO) 9.8 % (20.0-44.0); MEAN CORPUSCULAR HGB CONC 30 g/dl (31.0-36.0); MEAN CORPUSCULAR VOLUME 91 fL (80-96); MONOCYTES # (AUTO) 0.2 K/uL (0.1-1.30); MONOCYTES % (AUTO) 1.9 % (2.0-12.0); NEUTROPHILS # (AUTO) 7.5 K/uL (1.8-8.9); NEUTROPHILS % (AUTO) 84.5 % (43.0-81.0); PLATELET COUNT (AUTO) 217 K/uL (150-450); RED BLOOD CELL COUNT(AUTO) 2.62 MIL/uL (4.5-6.0); WHITE BLOOD COUNT (AUTO) 8.9 K/uL (4.3-11.0)
--- NOTE | 2022-03-12 13:45 | NUR ---
X-RAY TECH AT BED SIDE
--- NOTE | 2022-03-12 13:51 | NUR ---
CALLED FOR MIDLINE.
--- NOTE | 2022-03-12 13:51 | NUR ---
MOVE SHEET SUBMITTED.
[2022-03-12 14:02] LABS: ALANINE AMINOTRANSFERASE 24 U/L (12-78); ALKALINE PHOSPHATASE 57 U/L (46-116); ASPARTATE AMINOTRANSFERASE 22 U/L (15-37); BILIRUBIN,DIRECT 0.1 mg/dL (0.0-0.2); BILIRUBIN,TOTAL 0.1 mg/dL (0.2-1.0); CALCIUM, SERUM 8.4 mg/dL (8.5-10.1); CARBON DIOXIDE 32 mmol/L (21-32); CHLORIDE 115 mmol/L (98-107); CREATININE 0.7 mg/dL (0.6-1.3); GLUCOSE 97 mg/dL (74-106); SODIUM SERUM 152 mmol/L (136-145); TOTAL PROTEIN, SERUM 7.2 g/dL (6.4-8.2); UREA NITROGEN, BLOOD 47 mg/dL (7-18)
[2022-03-12 14:09] LABS: ALBUMIN 1.2 g/dL (3.4-5.0)
[2022-03-12 14:39] LABS: COLOR,URINE YELLOW (YELLOW)
[2022-03-12 14:40] LABS: BILIRUBIN,URINE NEGATIVE (NEGATIVE); PROTEIN,URINE 2+ mg/dl (NEGATIVE); UGLUCOSE NEGATIVE (NEGATIVE)
[2022-03-12 14:41] LABS: LEUKOCYTE ESTERASE ,URINE LARGE (NEGATIVE); NITRITE, URINE NEGATIVE (NEGATIVE); UROBILINOGEN,URINE 0.2 EU/dL (0.2)
[2022-03-12] MEDS ORDERED: ACETAMINOPHEN 650 MG/SUPP.RECT RC PRN (15:00)
[2022-03-12] MEDS ORDERED: MAG HYDROX/AL HYDROX/SIMETH 30 ML UDC PO PRN (15:00)
[2022-03-12] MEDS ORDERED: FLAGYL/NS RTU 500 MG/100 ML PIGGYBACK IV ONE (15:00)
[2022-03-12] MEDS ORDERED: IV NS 0.9% 1,000 ML IV PRN (15:00)
[2022-03-12] MEDS ORDERED: JEVITY 1.2 CAL 1,000 ML BOTTLE GT PRN (15:00)
[2022-03-12] MEDS ORDERED: LOPERAMIDE HCL (2 MG CAP) 2 MG CAPSULE GT PRN (15:00)
[2022-03-12] MEDS: IV 1/2NS 1000 ML 1,000 ML IV PRN (15:00)
[2022-03-12] MEDS ORDERED: CEFTRIAXONE 1 G in IV D5W 50 ML IV ONE (15:00)
[2022-03-12] MEDS ORDERED: ONDANSETRON HCL/PF 4 MG/2 ML VIAL IVP PRN (15:00)
[2022-03-12] MEDS ORDERED: POTASSIUM CHLORIDE 20 MEQ POWDER PACKET GT ONE (15:30)
[2022-03-12 15:39] LABS: BACTERIA,URINE 3+ /HPF (None Seen); RBC,URINE 51-80 /HPF (0-2); WBC,URINE 81-100 /HPF (0-3)
[2022-03-12 15:40] LABS: MUCUS,URINE Moderate /LPF (None Seen); SQUAMOUS EPITHELIAL CELL,UR 0-2 /HPF (None Seen); TRIPLE PHOSPHATE CRYSTAL,UR Few /HPF (None Seen); URINE AMORPHOUS PHOSPHATES Few /HPF (None Seen)
--- NOTE | 2022-03-12 15:49 | NUR ---
RECEIVED A CALL FROM ISABEL ESTEBAN PHONE # [phone] EXT [phone] FAX#[phone] REF#[id number]
[2022-03-12] MEDS ORDERED: METRONIDAZOLE 500MG/ NS 100ML 500 MG in PREMIX 1 EA IV ONE (16:00)
[2022-03-12] MEDS ORDERED: VANCOMYCIN HCL 0.75 GM in IV D5W 250 ML IV ONE (16:00)
--- NOTE | 2022-03-12 16:05 | NUR ---
RT Patient placed on settings provided by transport team. Pt tolerating current settings. Back up trach + ambu bag at bedside. Will continue to monitor
--- NOTE | 2022-03-12 16:09 | NUR ---
FOLLOWED UP MIDLINE NURSE WITH NURSE SIMMS
--- NOTE | 2022-03-12 16:13 | NUR ---
GOT BED 329
[2022-03-12] MEDS: VANCOMYCIN HCL 0.75 GM in IV D5W 250 ML IV SCH (16:15)
--- NOTE | 2022-03-12 16:24 | NUR ---
REPORT GIVEN TO GURPREET ESPINO FOR JELANI
[2022-03-12] MEDS: CARVEDILOL 3.125 MG TABLET GT SCH (17:00)
[2022-03-12] MEDS: PROSTAT (PYXIS) 30 ML UDC GT SCH (17:00)
[2022-03-12] MEDS ORDERED: Z GUARD REMEDY 4 OZ OINT TP PRN (17:00)
[2022-03-12] MEDS ORDERED: METHYLCELLULOSE GT SCH (17:00)
[2022-03-12] MEDS: LACOSAMIDE ORAL SOLN 50 MG/5 ML UDC GT SCH (17:00)
--- NOTE | 2022-03-12 17:30 | NUR ---
ms vicky [id number] a new admision from [facility],came in w/ cc of low b/p, 51 year old male, vent dependent, g tube intact, barajas cath to gravity bag, w/ yellowish urine output, will monitor patient.
[2022-03-12] MEDS ORDERED: Medication Not On Formulary EA (Ipratropium/Albuterol Sulfate (Combivent Respimat 20-100 IH SCH (18:00)
[2022-03-12] MEDS: CHLORHEXIDINE GLUCONATE 15 ML UDC MM SCH (18:20)
[2022-03-12] MEDS: HYDROCORTISONE SOD SUCCINATE 100 MG/2 ML VIAL IV SCH ×2 (18:20→21:03)
[2022-03-12] MEDS: VALPROIC ACID 250 MG/5 ML UDC GT SCH (18:21)
[2022-03-12] MEDS: BACLOFEN (10 MG) 10 MG TABLET GT SCH (18:23)
--- NOTE | 2022-03-12 18:30 | NUR ---
ms rn due meds given,picture taking of wound done,all needs attended,no distress noted.
--- NOTE | 2022-03-12 19:20 | NUR ---
RN NOTE RECEIVED PT AWAKE, EYES OPEN, NONVERBAL. ON MECH VENT AND KAREEM SETTINGS WELL. NO RESPIRATORY DISTRESS NOTED. IV SITE: ALICE #20G INTACT/PATENT, RUNNING 1/2NS @90ML/HR. GT IN PLACE/PATENT, NO RESIDUAL. PT WILL BE STARTED ON GTF JEVITY 1.2CAL. NOT YET ON FLOOR. WILL GET FROM [facility]ICE. PT WITH F/C DRAINING YELLOW, CLOUDY URINE. TELE MONITOR READING SR, HR 68. PT IN NO ACUTE DISTRESS. KEPT HOB ELEVATED. SAFETY MEASURES IN PLACE. WILL CONT TO MONITOR.
[2022-03-12] MEDS: IPRATROPIUM HALF ST 0.25 MG/1.25 ML VIAL.NEB NEB SCH (19:30)
[2022-03-12 20:00] VITALS: BP 112/43
[2022-03-12] MEDS: ALBUTEROL FS 2.5 MG/0.5 ML VIAL.NEB NEB SCH (20:15)
[2022-03-12] MEDS ORDERED: CEFEPIME 1 GM in IV D5W 50 ML IV SCH (21:00)
[2022-03-12] MEDS: LEVETIRACETAM SOL (5 ML) 100 MG/ML UDC GT SCH (21:03)
[2022-03-12] MEDS: ATORVASTATIN 40 MG TABLET GT SCH (21:03)
[2022-03-12] MEDS: CEFEPIME 2 GM in IV D5W 100 ML IV SCH (21:05)
[2022-03-12 21:34] VITALS: BP 112/43
[2022-03-12] MEDS ORDERED: ZOLPIDEM TARTRATE 5 MG TABLET PO PRN (22:00)
[2022-03-12] MEDS ORDERED: MAGNESIUM HYDROXIDE 30 ML UDC PO PRN (22:00)
--- NOTE | 2022-03-12 23:00 | NUR ---
RN NOTE CHANGED/INSERTED NEW F/C FR#16 AND KAREEM WELL
[2022-03-13] VITALS (13 sets, daily range): BP systolic 99–137; BP diastolic 50–72
[2022-03-13] MEDS: VANCOMYCIN HCL 0.75 GM in IV D5W 250 ML IV SCH ×3 (00:28→17:05)
[2022-03-13] MEDS: IPRATROPIUM HALF ST 0.25 MG/1.25 ML VIAL.NEB NEB SCH ×2 (01:14→07:35)
[2022-03-13] MEDS: ALBUTEROL FS 2.5 MG/0.5 ML VIAL.NEB NEB SCH ×4 (01:15→20:11)
[2022-03-13] MEDS: HYDROCORTISONE SOD SUCCINATE 100 MG/2 ML VIAL IV SCH ×3 (04:29→21:13)
[2022-03-13] MEDS: CEFEPIME 2 GM in IV D5W 100 ML IV SCH ×3 (04:30→21:16)
[2022-03-13] MEDS: IV 1/2NS 1000 ML 1,000 ML IV PRN (05:59)
[2022-03-13 06:39] LABS: EOSINOPHILS % (AUTO) 0.1 % (0.0-6.0); LYMPHOCYTES # (AUTO) 0.5 K/uL (0.8-4.8); LYMPHOCYTES % (AUTO) 5.1 % (20.0-44.0); MEAN CORPUSCULAR HGB CONC 31 g/dl (31.0-36.0); MEAN CORPUSCULAR VOLUME 88 fL (80-96); MONOCYTES # (AUTO) 0.2 K/uL (0.1-1.30); MONOCYTES % (AUTO) 2.3 % (2.0-12.0); NEUTROPHILS # (AUTO) 9.4 K/uL (1.8-8.9); NEUTROPHILS % (AUTO) 92.5 % (43.0-81.0); PLATELET COUNT (AUTO) 199 K/uL (150-450); RED BLOOD CELL COUNT(AUTO) 2.15 MIL/uL (4.5-6.0); WHITE BLOOD COUNT (AUTO) 10.2 K/uL (4.3-11.0)
--- NOTE | 2022-03-13 06:45 | NUR ---
RN NOTE PT IN BED, EYES CLOSED, AROUSABLE TO TACTILE STIMULI. OBTUNDED. NONVERBAL. KAREEM VENT SETTINGS WELL. GT INTACT/PATENT/NO RESIDUALS. GTF JEVITY 1.2 @50ML/HR AND KAREEM WELL. F/C DRAINING CLOUDY YELLOW URINE. TELE MONITOR READING SB, HR 58. KEPT PT CLEAN/DRY/REPOSITIONED Q2HR. NO ACUTE DISTRESS NOTED. SAFETY MEASURES MAINTAINED.
[2022-03-13 06:52] LABS: HEMATOCRIT 19 % (39-51); HEMOGLOBIN 5.9 g/dL (13.5-17.5)
[2022-03-13 06:59] LABS: CALCIUM, SERUM 8.1 mg/dL (8.5-10.1); CREATININE 0.7 mg/dL (0.6-1.3); MAGNESIUM 1.9 mg/dL (1.8-2.4); PHOSPHORUS 2.2 mg/dL (2.5-4.9)
[2022-03-13 07:07] LABS: POTASSIUM 2.6 mmol/L (3.5-5.1)
--- NOTE | 2022-03-13 07:08 | NUR ---
RN NOTE RECEIVED A CALL FROM FROM LAB POTASSIUM 2.6. MD LIST NOT AVAILABLE YET, WILL INFORM MD ONCE MD LIST IS AVAILABLE.
--- NOTE | 2022-03-13 07:12 | NUR ---
RN NOTE @0652 RECEIVED CALL FROM LAB FOR CRIT LAB RESULT: HGB 5.9. ENDORSED TO AM SHIFT NURSE.
--- NOTE | 2022-03-13 07:19 | NUR ---
RN NOTE RECEIVED CRIT LAB RESULT: HGB 5.9. AND REPORTED TO NOC SHIFT ON-CALL MD DR. LEMUS
[2022-03-13 07:25] LABS: LYMPHOCYTES % (MANUAL) 4 % (16-48); MONOCYTES % (MANUAL) 1 % (0-11.0); NEUTROPHILS % (MANUAL) 95 (42-76)
--- NOTE | 2022-03-13 07:30 | NUR ---
RN OPENING NOTES RECEIVED PT ASLEEP IN BED, AROUSABLE TO TACTILE STIMULI. NONVERBAL. WITH TRACH PORTEX #6 TO MECH VENT WITH THE FOLLOWING SETTINGS: AC 20, TV 500, FIO2 40%, PEEP 0, TOLERATING SETTINGS WELL. NO RESPIRATORY DISTRESS NOTED. IV SITE: LEFT UPPER ARM MIDLINE AND ALICE #20G, SALINE LOCKED, ALSO WITH RIGHT INDEX FINGER #20G WITH 1/2NS @90ML/HR RUNNING. WITH GT IN PLACE/PATENT, NO RESIDUAL. WITH GTF JEVITY 1.2 @ 50ML/HR RUNNING. WITH F/C DRAINING YELLOW, CLOUDY URINE. TELE MONITOR READING SR, HR 66. PT IN NO ACUTE DISTRESS. KEPT HOB ELEVATED. SAFETY MEASURES IN PLACE. WILL CONT TO MONITOR.
[2022-03-13] MEDS: LEVETIRACETAM SOL (5 ML) 100 MG/ML UDC GT SCH ×2 (08:45→21:12)
[2022-03-13] MEDS: MAGNESIUM OXIDE 400 MG TABLET GT SCH (08:45)
[2022-03-13] MEDS: CHLORHEXIDINE GLUCONATE 15 ML UDC MM SCH ×2 (08:45→17:05)
[2022-03-13] MEDS: CARVEDILOL 3.125 MG TABLET GT SCH ×2 (08:45→17:05)
[2022-03-13] MEDS: VALPROIC ACID 250 MG/5 ML UDC GT SCH ×2 (08:45→17:05)
[2022-03-13] MEDS: ASCORBIC ACID 500 MG TABLET GT SCH (08:46)
[2022-03-13] MEDS: BACLOFEN (10 MG) 10 MG TABLET GT SCH ×3 (08:46→17:05)
[2022-03-13] MEDS: LACTOBACILLUS RHAMNOSUS GG 1 EACH CAP.SPRINK GT SCH (08:46)
[2022-03-13] MEDS: PROSTAT (PYXIS) 30 ML UDC GT SCH ×3 (08:49→17:06)
--- NOTE | 2022-03-13 08:59 | NUR ---
ATROVENT IS NOT AVAILABLE AT THIS MOMENT INSIDE [facility].
[2022-03-13] MEDS ORDERED: Medication Not On Formulary EA (Omega-3 Acid Ethyl Esters (Lovaza) 1 GM) GT SCH (09:00)
--- NOTE | 2022-03-13 09:35 | NUR ---
RN NOTES RECEIVED ORDERS FROM RENETTA PARHAM TO GIVE 2 UNITS PRBC AND IV KCL 60 MEQ, ORDER CARRIED OUT.
--- NOTE | 2022-03-13 09:47 | NUR ---
RN NOTES CALLED PATIENT'S BROTHER CONNIE, CONSENT OBTAINED FOR BLOOD TRANSFUSION. CONSET VERIFIED WITH ANOTHER RN NASREEN.
[2022-03-13] MEDS ORDERED: POTASSIUM CHLORIDE 10 MEQ/50 ML PREMIXED IVPB FOR PERIPHERAL LINE IV SCH (10:00)
[2022-03-13] MEDS: POTASSIUM CL. PREMIX PERIPHER. 50 ML IV SCH ×6 (10:17→16:11)
[2022-03-13] MEDS: LACOSAMIDE ORAL SOLN 50 MG/5 ML UDC GT SCH ×2 (10:17→18:18)
[2022-03-13] MEDS ORDERED: NEUTRA PHOS 1 POWD.PACKET GT ONE (12:00)
[2022-03-13] MEDS: IPRATROPIUM NEB FS 0.5 MG/2.5 ML AMPUL.NEB NEB SCH ×2 (13:20→20:11)
[2022-03-13 14:32] LABS: ABG BASE EXCESS 1.4 mmol/L; ABG PCO2 33.7 mmHg (35.0-45.0); ABG PH 7.486 (7.350-7.450); ABG PO2 127.2 mmHg (75.0-100.0); COHb 0.3 % (0.5-1.5); MetHb 0.2 % (0.0-1.5); O2Hb 98.4 % (94.0-97.0); SITE, ABG Right Radial
[2022-03-13 15:33] LABS: OCCULT BLOOD STOOL NEGATIVE (NEGATIVE)
--- NOTE | 2022-03-13 16:38 | NUR ---
RN NOTE BLOOD TRANSFUSION STARTED AT 1635. WILL MONITOR FOR ADVERSE REACTION.
--- NOTE | 2022-03-13 19:00 | NUR ---
RN NOTE 1 UNIT OF PRBC TRANSFUSED. NO ADVERSE REACTION NOTED. I1 MORE UNIT OF PRBC WILL BE TRANSFUSED. WILL ENDORSE TO NEXT SHIFT FOR CONTINUITY OF CARE. REMAINS ON TRACH TO VENT, SETTINGS TOLERATING WELL. GTF OF VITAL AF @45 ML/HR RUNNING, TOLERATING WELL. ASPIRATION AND SAFETY PRECAUTIONS OBSERVED. HOB ELEVATED, BED IN LOWEST AND LOCKED POSITION, SIDE RAILS UP, CALL LIGHT PLACED WITHIN EASY REACH.
--- NOTE | 2022-03-13 19:15 | NUR ---
LAP MACHINE OPERATOR NOTES RECEIVED ON BED,OBTUNDED,ON TRACH TO VENT,SETTINGS TOLERATED WELL,WITH GT FEEDING OF VITAL AF AT 45 ML/HR RATE,NO RESIDUAL NOTED.LINDSAY CATH IN PLACE DRAINING YELLOWISH OUTPUT.WITH RIGHT UPPER ARM MIDLINE FOR MEDS,LEFT UPPER ARM MIDLINE,NO FLUSHABLE.RIGHT INDEX FINGER SALINE LOCK INTACT AND PATENT.CALL LIGHT IN REACH,NEEDS ANTICIPATED.
--- NOTE | 2022-03-13 20:22 | NUR ---
PRODUCT SUPPORT SALES REPRESENTATIVE NOTES STARTED ON SECOND UNIT PRBC 350ML,INFUSING AT 100ML/HR RATE ON RIGHT UPPER ARM MIDLINE VIA IV PUMP.VITAL SIGNS STABLE.
[2022-03-13] MEDS: ATORVASTATIN 40 MG TABLET GT SCH (21:13)
[2022-03-13] MEDS: PANTOPRAZOLE 40 MG VIAL IV SCH (21:13)
[2022-03-14] MEDS: VANCOMYCIN HCL 0.75 GM in IV D5W 250 ML IV SCH ×3 (00:10→16:24)
[2022-03-14] MEDS: ALBUTEROL FS 2.5 MG/0.5 ML VIAL.NEB NEB SCH ×4 (02:11→20:22)
[2022-03-14] MEDS: IPRATROPIUM NEB FS 0.5 MG/2.5 ML AMPUL.NEB NEB SCH ×4 (02:11→20:22)
[2022-03-14] MEDS: CEFEPIME 2 GM in IV D5W 100 ML IV SCH ×3 (04:45→21:04)
[2022-03-14] MEDS: HYDROCORTISONE SOD SUCCINATE 100 MG/2 ML VIAL IV SCH ×3 (04:47→21:05)
--- NOTE | 2022-03-14 04:51 | NUR ---
RT NOTE PT RECEIVED ON VENT ON ORDERED SETTINGS. PT TRACH'D ON PORTEX 6 CUFFED TRACH. PT IS BRADYCARDIC. NO RESP DISTRESS NOTED T/O SHIFT. Addendum: 03/14/22 at 0620 by NADINE QUIROGA RT Amended: Links added.
[2022-03-14] MEDS: IV 1/2NS 1000 ML 1,000 ML IV PRN (06:01)
--- NOTE | 2022-03-14 06:46 | NUR ---
DIETARY TECH NOTES NO SIGNIFICANT CHANGE IN STATUS.GT FEEDING TOLERATED WELL,NO N/V/D/ NOTED.DRESSING CHANGE DONE ON SACRAL AREA.,REPOSITION TO COMFORT.IN NO ACUTE DISTRESS.
[2022-03-14 07:21] LABS: HEMATOCRIT 25 % (39-51); HEMOGLOBIN 8.1 g/dL (13.5-17.5); LYMPHOCYTES # (AUTO) 0.4 K/uL (0.8-4.8); LYMPHOCYTES % (AUTO) 4.7 % (20.0-44.0); MEAN CORPUSCULAR HGB CONC 32 g/dl (31.0-36.0); MEAN CORPUSCULAR VOLUME 84 fL (80-96); MONOCYTES # (AUTO) 0.2 K/uL (0.1-1.30); MONOCYTES % (AUTO) 2.5 % (2.0-12.0); NEUTROPHILS # (AUTO) 8.8 K/uL (1.8-8.9); NEUTROPHILS % (AUTO) 92.8 % (43.0-81.0); PLATELET COUNT (AUTO) 269 K/uL (150-450); RED BLOOD CELL COUNT(AUTO) 2.99 MIL/uL (4.5-6.0); WHITE BLOOD COUNT (AUTO) 9.5 K/uL (4.3-11.0)
--- NOTE | 2022-03-14 07:30 | NUR ---
ACTION INSTALLER OPENING NOTES RECEIVED PATIENT AWAKE IN BED WITH OPEN EYES. NONVERBAL. [facility] WITH THE FOLLOWING SETTINGS: AC 20, TV 500, FIO2 40%, PEEP 0, TOLERATING SETTINGS WELL. NO RESPIRATORY DISTRESS NOTED. IV SITE: LEFT UPPER ARM MIDLINE AND ALICE #20G, SALINE LOCKED, ALSO WITH RIGHT INDEX FINGER #20G WITH 1/2NS @90ML/HR RUNNING. WITH GT IN PLACE/PATENT, NO RESIDUAL. WITH GTF @ 50ML/HR RUNNING. WITH F/C DRAINING YELLOW, URINE. TELE MONITOR READING SR. PT IN NO ACUTE DISTRESS. KEPT HOB ELEVATED. SAFETY MEASURES IN PLACE. WILL CONTINUE TO MONITOR.
[2022-03-14 07:38] LABS: CALCIUM, SERUM 8.5 mg/dL (8.5-10.1); CREATININE 0.6 mg/dL (0.6-1.3); PHOSPHORUS 2.2 mg/dL (2.5-4.9)
[2022-03-14 07:52] LABS: POTASSIUM 2.8 mmol/L (3.5-5.1)
--- NOTE | 2022-03-14 07:55 | NUR ---
RN NOTES LAB CALLED AND REPORTED LAB CRITICAL RESULT OF POTASSIUM 2.8 . THE RESULT REPORTED TO KRISTAN PARHAM.
[2022-03-14 08:00] VITALS: BP 105/67
--- NOTE | 2022-03-14 09:15 | NUR ---
RN NOTES PAULINA FROM [facility] CALLED AND REPORTED PATIENT HAS POSITIVE MRSA IN BLOOD. REPORTED TO DIONE MEDEL
[2022-03-14] MEDS: CHLORHEXIDINE GLUCONATE 15 ML UDC MM SCH ×2 (09:32→17:21)
[2022-03-14] MEDS: LEVETIRACETAM SOL (5 ML) 100 MG/ML UDC GT SCH ×2 (09:32→21:05)
[2022-03-14] MEDS: PANTOPRAZOLE 40 MG VIAL IV SCH ×2 (09:32→21:05)
[2022-03-14] MEDS: ASCORBIC ACID 500 MG TABLET GT SCH (09:33)
[2022-03-14] MEDS: MAGNESIUM OXIDE 400 MG TABLET GT SCH (09:33)
[2022-03-14] MEDS: LACTOBACILLUS RHAMNOSUS GG 1 EACH CAP.SPRINK GT SCH (09:33)
[2022-03-14] MEDS: BACLOFEN (10 MG) 10 MG TABLET GT SCH ×3 (09:33→17:20)
[2022-03-14] MEDS: VALPROIC ACID 250 MG/5 ML UDC GT SCH ×2 (09:33→17:21)
[2022-03-14] MEDS: CARVEDILOL 3.125 MG TABLET GT SCH ×2 (09:34→17:22)
[2022-03-14] MEDS: LACOSAMIDE ORAL SOLN 50 MG/5 ML UDC GT SCH ×2 (09:40→17:20)
[2022-03-14] MEDS: PROSTAT (PYXIS) 30 ML UDC GT SCH ×3 (09:40→17:36)
[2022-03-14] MEDS: POTASSIUM CHLORIDE 10 MEQ/50 ML PREMIXED IVPB FOR PERIPHERAL LINE IV SCH ×4 (10:16→15:06)
[2022-03-14] MEDS: POTASSIUM PHOSPHATE MM 7.5 MMOL in IV NS 0.9% 100 ML IV SCH ×2 (13:27→18:21)
[2022-03-14 16:00] VITALS: BP 117/50
--- NOTE | 2022-03-14 19:00 | NUR ---
SYSTEMS DESIGNER CLOSING NOTES PATIENT AWAKE IN BED WITH OPEN EYES. NONVERBAL. WITH [facility]EX [facility] WITH THE FOLLOWING SETTINGS: AC 20, TV 400, FIO2 40%, PEEP 5, TOLERATING SETTINGS WELL. NO RESPIRATORY DISTRESS NOTED. IV SITE: LEFT UPPER ARM MIDLINE AND ALICE #20G, SALINE LOCKED, ALSO WITH RIGHT INDEX FINGER #20G WITH KCL 10 MEQ@90ML/HR RUNNING. WITH GT IN PLACE/PATENT, NO RESIDUAL. WITH GTF OF VITAL AF @ 45ML/HR RUNNING. WITH F/C DRAINING YELLOW, URINE. TELE MONITOR READING SR. PT IN NO ACUTE DISTRESS. KEPT HOB ELEVATED. ALL DUE MEDS GIVEN ORDERED. ALL SAFETY MEASURES IN PLACE. WILL ENDORSE FOR JELANI..
--- NOTE | 2022-03-14 19:51 | NUR ---
GYM TEACHER OPENING NOTES RECEIVED PATIENT AWAKE IN BED WITH OPEN EYES. NONVERBAL. [facility]EX [facility] WITH THE FOLLOWING SETTINGS: AC 20, TV 400, FIO2 40%, PEEP 5, TOLERATING SETTINGS WELL. NO RESPIRATORY DISTRESS NOTED. ON EXTERNAL NEURODIAGNOSTIC TECHNOLOGIST READING SR. IV ACCESS FELICIA MIDLINE AND ALICE #20G, SALINE LOCKED, ALSO WITH RIGHT INDEX FINGER #20G WITH KCL 10 MEQ@90ML/HR RUNNING. GTUBE IN PLACE RUNNING VITAL AF @ 45ML/HR, TOLERATING WELL. LINDSAY CATH DRAINING YELLOW URINE. SAFETY PRECAUTIONS IN PLACE. BED IN LOWEST LOCKED POSITION, HOB ELEVATED, SIDE RAILS UP X3, AND CALL LIGHT AND TABLE WITHIN REACH. ALL NEEDS MET AT THIS TIME.
[2022-03-14] MEDS ORDERED: VITAL AF 1.2 1,000 ML BOTTLE GT SCH (20:00)
[2022-03-14 20:10] VITALS: BP 117/62
[2022-03-14] MEDS: ATORVASTATIN 40 MG TABLET GT SCH (21:05)
[2022-03-14 23:49] VITALS: BP 122/69
[2022-03-15] MEDS: VANCOMYCIN HCL 0.75 GM in IV D5W 250 ML IV SCH ×3 (00:04→16:00)
[2022-03-15] MEDS: IPRATROPIUM NEB FS 0.5 MG/2.5 ML AMPUL.NEB NEB SCH ×4 (02:03→19:53)
[2022-03-15] MEDS: ALBUTEROL FS 2.5 MG/0.5 ML VIAL.NEB NEB SCH ×4 (02:03→19:53)
[2022-03-15] MEDS: HYDROCORTISONE SOD SUCCINATE 100 MG/2 ML VIAL IV SCH ×3 (04:44→20:26)
[2022-03-15] MEDS: CEFEPIME 2 GM in IV D5W 100 ML IV SCH ×3 (04:44→20:18)
[2022-03-15 05:13] VITALS: BP 124/44
--- NOTE | 2022-03-15 06:38 | NUR ---
OIL REFINER CLOSING NOTES PATIENT AWAKE IN BED WITH OPEN EYES. NONVERBAL. WITH TRACH PORTEX #6 TO [facility] VENT WITH THE FOLLOWING SETTINGS: AC 20, TV 400, FIO2 40%, PEEP 5, TOLERATING SETTINGS WELL. NO RESPIRATORY DISTRESS NOTED. ON EXTERNAL QA AUTOMATION ENGINEER READING SB 48 BPM. IV ACCESS FELICIA MIDLINE AND ALICE #20G, SALINE LOCKED, ALSO WITH RIGHT INDEX FINGER #20G WITH KCL 20 MEQ @ 90ML/HR RUNNING. GTUBE IN PLACE RUNNING VITAL AF @ 45ML/HR, TOLERATING WELL. LINDSAY CATH DRAINING YELLOW URINE, DRAINED 1000 ML THIS SHIFT. ALL DUE MEDS GIVEN ORDERED. KEPT WOUND DRESSINGS C/D/I, PENDING WOUND CARE CONSULT. SAFETY PRECAUTIONS IN PLACE AT ALL TIMES. BED IN LOWEST LOCKED POSITION, HOB ELEVATED, SIDE RAILS UP X3, AND CALL LIGHT AND TABLE WITHIN REACH. ALL NEEDS MET AT THIS TIME AND WILL ENDORSE TO ONCOMING NURSE FOR JELANI.
--- NOTE | 2022-03-15 07:30 | NUR ---
RN OPENING NOTES RECEIVED PT ASLEEP IN BED, AROUSABLE TO TACTILE STIMULI. NONVERBAL. WITH TRACH PORTEX #[facility] TO [facility] VENT WITH THE FOLLOWING SETTINGS: AC 20, TV 400, FIO2 40%, PEEP 5, TOLERATING SETTINGS WELL. NO RESPIRATORY DISTRESS NOTED. IV SITE: RIGHT UPPER ARM MIDLINE #18G, INTACT AND PATENT WITH 1/2 NS + 20MEQ KCL RUNNING @ 90ML/HR. ALSO NOTED WITH LEFT UPPER ARM MIDLINE #18G, RIGHT INDEX FINGER #20G, INTACT, SALINE LOCKED. WITH GTUBE IN PLACE/PATENT, NO RESIDUAL. WITH GTF VITAL AF @ 45ML/HR RUNNING. WITH F/C INTACT DRAINING YELLOW COLORED URINE. TELE MONITOR READING SB, HR @55. ASPIRATION AND SAFETY MEASURES IN PLACE. HOB ELEVATED AT ALL TIMES, BED IN LOWEST AND LOCKED POSITION, SIDE RAILS UP, CALL LIGHT PLACED WITHIN EASY REACH. WILL CONTINUE TO MONITOR PATIENT.
[2022-03-15] MEDS: CHLORHEXIDINE GLUCONATE 15 ML UDC MM SCH ×2 (08:41→16:10)
[2022-03-15] MEDS: LACTOBACILLUS RHAMNOSUS GG 1 EACH CAP.SPRINK GT SCH (08:41)
[2022-03-15] MEDS: BACLOFEN (10 MG) 10 MG TABLET GT SCH ×3 (08:41→16:10)
[2022-03-15] MEDS: MAGNESIUM OXIDE 400 MG TABLET GT SCH (08:41)
[2022-03-15] MEDS: LACOSAMIDE ORAL SOLN 50 MG/5 ML UDC GT SCH ×2 (08:41→16:10)
[2022-03-15] MEDS: VALPROIC ACID 250 MG/5 ML UDC GT SCH ×2 (08:41→16:10)
[2022-03-15] MEDS: LEVETIRACETAM SOL (5 ML) 100 MG/ML UDC GT SCH ×2 (08:41→20:26)
[2022-03-15] MEDS: CARVEDILOL 3.125 MG TABLET GT SCH ×2 (08:42→16:10)
[2022-03-15] MEDS: PANTOPRAZOLE 40 MG VIAL IV SCH ×2 (08:42→20:26)
[2022-03-15] MEDS: ASCORBIC ACID 500 MG TABLET GT SCH (08:42)
[2022-03-15] MEDS: PROSTAT (PYXIS) 30 ML UDC GT SCH ×3 (08:43→16:10)
[2022-03-15 09:07] LABS: BASOPHILS % (AUTO) 0.1 % (0.0-2.0); HEMATOCRIT 27 % (39-51); HEMOGLOBIN 8.3 g/dL (13.5-17.5); LYMPHOCYTES # (AUTO) 0.3 K/uL (0.8-4.8); LYMPHOCYTES % (AUTO) 4.4 % (20.0-44.0); MEAN CORPUSCULAR HGB CONC 31 g/dl (31.0-36.0); MEAN CORPUSCULAR VOLUME 88 fL (80-96); MONOCYTES # (AUTO) 0.2 K/uL (0.1-1.30); MONOCYTES % (AUTO) 2.3 % (2.0-12.0); NEUTROPHILS # (AUTO) 6.9 K/uL (1.8-8.9); NEUTROPHILS % (AUTO) 93.2 % (43.0-81.0); PLATELET COUNT (AUTO) 174 K/uL (150-450); RED BLOOD CELL COUNT(AUTO) 3.08 MIL/uL (4.5-6.0); WHITE BLOOD COUNT (AUTO) 7.5 K/uL (4.3-11.0)
[2022-03-15 09:20] LABS: CALCIUM, SERUM 8.3 mg/dL (8.5-10.1); CREATININE 0.5 mg/dL (0.6-1.3)
[2022-03-15 09:55] LABS: POTASSIUM 2.7 mmol/L (3.5-5.1)
--- NOTE | 2022-03-15 10:13 | NUR ---
RN NOTES RECEIVED A CRITICAL RESULTS FROM LAB, POTASSIUM 2.7, DIONE JARAMILLO DNP, MADE AWARE WITH NEW ORDER, CARRIED OUT.
[2022-03-15] MEDS: POTASSIUM CHLORIDE 10 MEQ/50 ML PREMIXED IVPB FOR PERIPHERAL LINE IV SCH ×6 (10:22→15:54)
--- NOTE | 2022-03-15 11:43 | NUR ---
WOUND CARE CONSULT: PT PRESENTS WITH MULTIPLE PRESSURE ULCERS, PRESENT ON ADMISSION INCLUDING LATERAL AND MEDIAL KNEE INTACT DEEP TISSUE INJURIES, UPPER BACK DEEP TISSUE INJURIES, SACRAL STAGE 4 ULCER, FOOT WOUNDS, LEFT HIP/BUTTOCK UNSTAGEABLE PRESSURE ULCER WITH NECROTIC TISSUE, RT BUTTOCK STAGE 3 ULCER, RT SHOULDER DRY NECROTIC WOUND, ALL PRESENT ON ADMISSION. DR HINOJOSA AND DR ROSENBERG NOTIFIED OF SURGICAL AND DPM CONSULTS. PT IS ON BRIGID ISOFLEX LOW AIRLOSS BED. ALL SKIN PROTECTION RECOMMENDATIONS DISCUSSED WITH NURSING STAFF. PT IS INCONTINENT OF LOOSE STOOL. IN AGREEMENT WITH PLAN OF CARE. Addendum: 03/15/22 at 1146 by RADHA BRANDON WNDNU Amended: Links added.
--- NOTE | 2022-03-15 14:30 | NUR ---
RN NOTES SPOKE WITH PATIENT'S BROTHER CONNIE, OBTAINED CONSENT FOR SERIAL DEBRIDEMENT OF SACRUM, LEFT HIP, RIGHT SCAPULA, AND RIGHT BUTTOCKS. TELEPHONE CONSENT GIVEN BY BROTHER CONNIE.
[2022-03-15] MEDS: HYDROGEL DRESSING 90 GM TUBE TP SCH (15:30)
[2022-03-15] MEDS: DAKINS QUARTER STRENGTH (0.125%) 480 ML BOTTLE TOP SCH (15:30)
--- NOTE | 2022-03-15 16:00 | NUR ---
RN NOTES VANCO THROUGH RESULT 26. CALLED TO PHARMACY. VANCO DOSE NOT GIVEN, PHARMACIST WILL ADJUST DOSE.
[2022-03-15] MEDS: IV 1/2NS 1000 ML 1,000 ML IV PRN (18:15)
--- NOTE | 2022-03-15 19:00 | NUR ---
RN CLOSING NOTES PATIENT ASLEEP IN BED, AROUSABLE TO TACTILE STIMULI. NONVERBAL. REMAINS WITH TRACH PORTEX #6 TO [facility] VENT WITH THE FOLLOWING SETTINGS: AC 20, TV 400, FIO2 40%, PEEP 5, TOLERATING SETTINGS WELL. NO RESPIRATORY DISTRESS NOTED. IV SITE: RIGHT UPPER ARM MIDLINE #18G, INTACT AND PATENT WITH 1/2 NS RUNNING @ 50ML/HR. ALSO NOTED WITH LEFT UPPER ARM MIDLINE #18G, RIGHT INDEX FINGER #20G, INTACT, SALINE LOCKED. WITH G-TUBE IN PLACE/PATENT, NO RESIDUAL. WITH GTF VITAL AF @ 45ML/HR RUNNING. ALL DUE MEDS GIVEN. WITH F/C INTACT DRAINING YELLOW COLORED URINE. ON TELE MONITOR READING SB, HR @72. ASPIRATION AND SAFETY MEASURES IN PLACE. HOB ELEVATED AT ALL TIMES, BED IN LOWEST AND LOCKED POSITION, SIDE RAILS UP, CALL LIGHT PLACED WITHIN EASY REACH. WILL ENDORSE TO NEXT SHIFT FOR CONTINUITY OF CARE.
--- NOTE | 2022-03-15 19:10 | NUR ---
RN opening notes Received Pt from morning nurse. Pt is resting in bed comfortably. Pt is non verbal and obtunded. On mec. vent with O2 sat is 100%. No SOB. No S/S of distress noted. ALICE midline is clean, intact and infusing well 1/2 NS@ 50 ml/hr. IV site at R index finger is intact, SL. FELICIA midline is intact. Gtube feeding is running vital AF @ 45ml/hr. barajas cath is intact and draining yellow urine. Tele monitor showed SR hr at 74. Safety precautions is maintained. Bed at low position, brakes locked, side rails upX3, hob elevated, bed alarm is on and call light is within reach. Will continue to monitor.
[2022-03-15 20:00] VITALS: BP 103/69
[2022-03-15] MEDS: VITAL AF 1.2 1,000 ML BOTTLE GT SCH (20:02)
--- NOTE | 2022-03-15 20:46 | NUR ---
RN notes Spoke with Pharmacy Nelson regarding Pt vanco trough today 26 and vanco abx scheduled tonight. Pharmacist informed to give at 2300. Order carry out.
[2022-03-15] MEDS ORDERED: VANCOMYCIN HCL 0.75 GM in IV D5W 250 ML IV SCH (21:00)
[2022-03-15] MEDS: ATORVASTATIN 40 MG TABLET GT SCH (21:49)
[2022-03-15] MEDS: VANCOMYCIN 0.75 GM in IV D5W 250 ML IV SCH (22:34)
--- NOTE | 2022-03-15 22:34 | NUR ---
RN notes Unable to scan vanco abx. Manually entered.
[2022-03-16] VITALS: BP 115/56
[2022-03-16] MEDS: IPRATROPIUM NEB FS 0.5 MG/2.5 ML AMPUL.NEB NEB SCH ×4 (01:44→20:22)
[2022-03-16] MEDS: ALBUTEROL FS 2.5 MG/0.5 ML VIAL.NEB NEB SCH ×4 (01:44→20:22)
--- NOTE | 2022-03-16 01:53 | NUR ---
LINE HAUL OWNER OPERATOR NOTES RECEIVED REPORT FROM SRINIVAS MAY; WILL CONT PLAN OF CARE
[2022-03-16 04:00] VITALS: BP 135/59
[2022-03-16] MEDS: CEFEPIME 2 GM in IV D5W 100 ML IV SCH ×3 (04:04→21:22)
[2022-03-16] MEDS: HYDROCORTISONE SOD SUCCINATE 100 MG/2 ML VIAL IV SCH ×3 (04:10→21:22)
--- NOTE | 2022-03-16 06:06 | NUR ---
PT RECEIVED ON VENT ON ORDERED AC MODE SETTINGS. PT TRACHED W/ PORTEX #6 CUFFED. NO RESP DISTRESS NOTED T/O SHIFT.
[2022-03-16 06:46] LABS: BASOPHILS % (AUTO) 0.1 % (0.0-2.0); HEMATOCRIT 30 % (39-51); HEMOGLOBIN 9.1 g/dL (13.5-17.5); LYMPHOCYTES # (AUTO) 0.5 K/uL (0.8-4.8); LYMPHOCYTES % (AUTO) 5.7 % (20.0-44.0); MEAN CORPUSCULAR HGB CONC 31 g/dl (31.0-36.0); MEAN CORPUSCULAR VOLUME 88 fL (80-96); MONOCYTES # (AUTO) 0.4 K/uL (0.1-1.30); MONOCYTES % (AUTO) 4.3 % (2.0-12.0); NEUTROPHILS # (AUTO) 7.4 K/uL (1.8-8.9); NEUTROPHILS % (AUTO) 89.9 % (43.0-81.0); PLATELET COUNT (AUTO) 282 K/uL (150-450); RED BLOOD CELL COUNT(AUTO) 3.35 MIL/uL (4.5-6.0); WHITE BLOOD COUNT (AUTO) 8.2 K/uL (4.3-11.0)
--- NOTE | 2022-03-16 07:01 | NUR ---
LIGHT INDUSTRIAL SUPERVISOR CLOSING NOTES PATIENT RESTING IN BED COMFORTABLY; OBTUNDED; MECHANICAL VENT PATIENT, NO CHANGES IN VENT SETTINGS AT THIS TIME; TELE MONITOR READS SINUS SOPHIE - SINUS RHYTHM , G TUBE NOTED; STOPPED D/T POSSIBLE PROCEDURE; ALICE MIDLINE, FELICIA MIDLINE INTACT AND PATENT; LINDSAY PRESENT WITH YELLOW OUTPUT NOTED; WOUND TREATMENT DONE; ALL NEEDS RENDERED; SAFETY PRECAUTIONS IMPLEMENTED; WILL ENDORSE JELANI TO ONCOMING SHIFT
[2022-03-16 07:17] LABS: CALCIUM, SERUM 8.7 mg/dL (8.5-10.1); CREATININE 0.6 mg/dL (0.6-1.3); POTASSIUM 3.3 mmol/L (3.5-5.1)
--- NOTE | 2022-03-16 07:55 | NUR ---
RN OPENING NOTE PATIENT AWAKE IN BED RESTING, OBTUNDED. NO S/S OF PAIN NOTED AT THIS TIME. ON VENT, AT PRESCRIBED SETTINGS, TOLERATING SETTING WELL, NO DISTRESS NOTED. IV ACCESS ALICE MIDLINE, INTACT, PATENT AND FLUSHING WELL. PATIENT WITH EXTERNAL MOP HANDLE ASSEMBLER WITH CURRENT READING OF SB AND HR OF 45, NO CARDIAC DISTRESS NOTED. PATIENT HAVE A LINDSAY CATHETER, IN PLACE AND DRAINING WELL. FALL AND SAFETY MEASURES IN PLACE, BED ALARM ON BED IN LOW AND LOCK POSITION, CALL LIGHT AND TABLE WITHIN EASY REACH, SIDE RAILS UP X2. WILL CONTINUE TO MONITOR.
[2022-03-16] MEDS ORDERED: POTASSIUM CHLORIDE 20 MEQ TAB.PRT.SR PO SCH (09:00)
[2022-03-16] MEDS ORDERED: POTASSIUM CHLORIDE 20 MEQ POWDER PACKET GT SCH (10:00)
[2022-03-16] MEDS: LEVETIRACETAM SOL (5 ML) 100 MG/ML UDC GT SCH ×2 (10:05→21:00)
[2022-03-16] MEDS: PROSTAT (PYXIS) 30 ML UDC GT SCH ×3 (10:05→17:39)
[2022-03-16] MEDS: CHLORHEXIDINE GLUCONATE 15 ML UDC MM SCH ×2 (10:06→17:35)
[2022-03-16] MEDS: VALPROIC ACID 250 MG/5 ML UDC GT SCH ×2 (10:06→17:35)
[2022-03-16] MEDS: LACOSAMIDE ORAL SOLN 50 MG/5 ML UDC GT SCH ×2 (10:08→17:35)
[2022-03-16] MEDS: DAKINS QUARTER STRENGTH (0.125%) 480 ML BOTTLE TOP SCH (10:10)
[2022-03-16] MEDS: HYDROGEL DRESSING 90 GM TUBE TP SCH (10:10)
[2022-03-16] MEDS: CARVEDILOL 3.125 MG TABLET GT SCH ×2 (10:15→17:00)
[2022-03-16] MEDS: LACTOBACILLUS RHAMNOSUS GG 1 EACH CAP.SPRINK GT SCH (10:16)
[2022-03-16] MEDS: BACLOFEN (10 MG) 10 MG TABLET GT SCH ×3 (10:17→17:36)
[2022-03-16] MEDS: MAGNESIUM OXIDE 400 MG TABLET GT SCH (10:18)
[2022-03-16] MEDS: ASCORBIC ACID 500 MG TABLET GT SCH (10:19)
[2022-03-16] MEDS: PANTOPRAZOLE 40 MG VIAL IV SCH ×2 (10:20→21:22)
[2022-03-16] MEDS: VANCOMYCIN 0.75 GM in IV D5W 250 ML IV SCH (11:48)
[2022-03-16] MEDS: IV 1/2NS 1000 ML 1,000 ML IV PRN (17:46)
--- NOTE | 2022-03-16 19:55 | NUR ---
RN CLOSING NOTE PATIENT AWAKE IN BED RESTING, OBTUNDED. NO S/S OF PAIN NOTED AT THIS TIME. ON VENT, AT PRESCRIBED SETTINGS, TOLERATING SETTING WELL, NO DISTRESS NOTED. IV ACCESS ALICE MIDLINE, INTACT, PATENT AND FLUSHING WELL. PATIENT WITH EXTERNAL TROPHY ASSEMBLER WITH CURRENT READING OF SB AND HR OF 50, NO CARDIAC DISTRESS NOTED. PATIENT HAVE A LINDSAY CATHETER, IN PLACE AND DRAINING WELL. FALL AND SAFETY MEASURES IN PLACE, BED ALARM ON BED IN LOW AND LOCK POSITION, CALL LIGHT AND TABLE WITHIN EASY REACH, SIDE RAILS UP X2. WILL ENDORSE TO BANDER AND CELLOPHANER HELPER MACHINE.
[2022-03-16] MEDS: ATORVASTATIN 40 MG TABLET GT SCH (22:40)
[2022-03-16 22:43] VITALS: BP 115/49
[2022-03-17] MEDS: VANCOMYCIN 0.75 GM in IV D5W 250 ML IV SCH ×3 (01:03→22:35)
[2022-03-17] MEDS: ALBUTEROL FS 2.5 MG/0.5 ML VIAL.NEB NEB SCH ×4 (02:23→21:04)
[2022-03-17] MEDS: IPRATROPIUM NEB FS 0.5 MG/2.5 ML AMPUL.NEB NEB SCH ×4 (02:23→21:04)
[2022-03-17] MEDS: CEFEPIME 2 GM in IV D5W 100 ML IV SCH ×3 (05:43→22:29)
[2022-03-17] MEDS: HYDROCORTISONE SOD SUCCINATE 100 MG/2 ML VIAL IV SCH ×3 (05:43→22:28)
[2022-03-17] MEDS ORDERED: LIDOCAINE 1%-EPI 1:100,000 50 ML VIAL IJ ONE (06:00)
[2022-03-17] MEDS: SILVER NITRATE APPLICATOR 1 EA BOX TP SCH ×2 (06:40→10:13)
[2022-03-17 07:02] LABS: EOSINOPHILS % (AUTO) 0.4 % (0.0-6.0); HEMATOCRIT 29 % (39-51); HEMOGLOBIN 9.6 g/dL (13.5-17.5); LYMPHOCYTES # (AUTO) 0.9 K/uL (0.8-4.8); LYMPHOCYTES % (AUTO) 9.3 % (20.0-44.0); MEAN CORPUSCULAR HGB CONC 33 g/dl (31.0-36.0); MEAN CORPUSCULAR VOLUME 85 fL (80-96); MONOCYTES # (AUTO) 0.5 K/uL (0.1-1.30); MONOCYTES % (AUTO) 5.5 % (2.0-12.0); NEUTROPHILS # (AUTO) 7.8 K/uL (1.8-8.9); NEUTROPHILS % (AUTO) 84.8 % (43.0-81.0); PLATELET COUNT (AUTO) 326 K/uL (150-450); RED BLOOD CELL COUNT(AUTO) 3.44 MIL/uL (4.5-6.0); WHITE BLOOD COUNT (AUTO) 9.2 K/uL (4.3-11.0)
--- NOTE | 2022-03-17 07:05 | NUR ---
GROCERY CLERK MARKING CLOSING NOTE PT REMAINS IN BED, OBTUNDED, NON-VERBAL, OPENS EYES. ATTACHED TO VENT; TV 400, FIO2 40%, PEEP 5; TOLERATING VENT SETTINGS WELL; NO S/S OF RESP DISTRESS, NO SOB, NON-LABORED AND EQUAL BREATHING. PER REPORT FROM REGISTRY NURSE, PT'S HR DROPS DOWN TO LOW 30S. DURING MY START OF SHIFT, HR MAINTAINED IN MID TO HIGH 50S. LINDSAY INTACT AND PATENT DRAINING CLEAR AND YELLOW URINE. ALICE MIDLINE INTACT AND PATENT WITH 1/2 NS RUNNING AT 50 ML/HR. INFUSED ALL SCHEDULED ANTIBIOTICS DURING SHIFT. BED IN LOWEST POSITION, CALL LIGHT WITHIN REACH, SIDE RAILS UP X3. WILL ENDORSE TO DAYSHIFT NURSE TO CONTINUE CARE.
[2022-03-17 07:06] LABS: CALCIUM, SERUM 8.7 mg/dL (8.5-10.1); CREATININE 0.4 mg/dL (0.6-1.3)
--- NOTE | 2022-03-17 07:16 | NUR ---
RN OPENING NOTE PATIENT IN BED RESTING, WITH SPONTANEOUS EYE OPENING, OBTUNDED. PATIENT IS SEVERELY CONTRACTED. NO S/S OF PAIN NOTED AT THIS TIME. ON VENT, AT PRESCRIBED SETTINGS, TOLERATING SETTING WELL, NO DISTRESS NOTED. IV ACCESS LAICE AND LEFT UPPER ARM IV ACCESS MIDLINE, INTACT, PATENT AND FLUSHING WELL. PATIENT WITH EXTERNAL MULTIPLE DRUM SANDER HELPER WITH CURRENT READING OF SB AND HR OF 52, NO CARDIAC DISTRESS NOTED. PATIENT HAVE A LINDSAY CATHETER, IN PLACE AND DRAINING WELL. WITH G-TUBE WITH FEEDING ONGOING, TOLERATED WELL. FALL AND SAFETY MEASURES IN PLACE, BED ALARM ON BED IN LOW AND LOCK POSITION, CALL LIGHT AND TABLE WITHIN EASY REACH, SIDE RAILS UP X2. WILL CONTINUE TO MONITOR.
--- NOTE | 2022-03-17 07:24 | NUR ---
RN Note Received critical from lab; K+ 2.0. Endorsed critical lab to dayshift nurse.
[2022-03-17] MEDS: VALPROIC ACID 250 MG/5 ML UDC GT SCH ×2 (08:46→17:07)
[2022-03-17] MEDS: ASCORBIC ACID 500 MG TABLET GT SCH (08:46)
[2022-03-17] MEDS: LEVETIRACETAM SOL (5 ML) 100 MG/ML UDC GT SCH ×2 (08:46→22:28)
[2022-03-17] MEDS: CHLORHEXIDINE GLUCONATE 15 ML UDC MM SCH ×2 (08:46→17:07)
[2022-03-17] MEDS: MAGNESIUM OXIDE 400 MG TABLET GT SCH (08:46)
[2022-03-17] MEDS: CARVEDILOL 3.125 MG TABLET GT SCH ×2 (08:47→17:08)
[2022-03-17] MEDS: BACLOFEN (10 MG) 10 MG TABLET GT SCH ×3 (08:47→17:08)
[2022-03-17] MEDS: PANTOPRAZOLE 40 MG VIAL IV SCH (08:48)
[2022-03-17] MEDS: LACTOBACILLUS RHAMNOSUS GG 1 EACH CAP.SPRINK GT SCH (08:56)
[2022-03-17] MEDS: POTASSIUM CL. PREMIX PERIPHER. 50 ML IV SCH ×9 (08:56→23:54)
[2022-03-17] MEDS: PROSTAT (PYXIS) 30 ML UDC GT SCH ×3 (09:10→17:09)
[2022-03-17] MEDS: LACOSAMIDE ORAL SOLN 50 MG/5 ML UDC GT SCH ×2 (09:59→17:06)
[2022-03-17] MEDS: THERAHONEY GEL 1.5 OZ TUBE TP SCH (10:13)
[2022-03-17] MEDS: DAKINS QUARTER STRENGTH (0.125%) 480 ML BOTTLE TOP SCH (10:14)
[2022-03-17] MEDS: HYDROGEL DRESSING 90 GM TUBE TP SCH (10:14)
[2022-03-17] MEDS: PANTOPRAZOLE 40 MG/PACK PACK PEG SCH (17:07)
[2022-03-17] MEDS: VITAL AF 1.2 1,000 ML BOTTLE GT SCH (19:01)
--- NOTE | 2022-03-17 22:00 | NUR ---
RN NOTES [id number]-NOTIFIED DOC.CANDIDA.Renny FOR POTASSIUM LEVEL 3.0.WITH A NEW ORDERED LAB.STAT POTASSIUM LEVEL.
[2022-03-17] MEDS: ATORVASTATIN 40 MG TABLET GT SCH (22:32)
--- NOTE | 2022-03-17 23:20 | NUR ---
RN NOTES [id number].NOTIFIED DOC.CANDIDA.Renny.RESULT POTASSIUM LEVEL 2.8 WITH A NEW ORDERED IV 80MEQ.
[2022-03-18] MEDS: POTASSIUM CL. PREMIX PERIPHER. 50 ML IV SCH ×7 (02:00→07:10)
[2022-03-18] MEDS: CEFEPIME 2 GM in IV D5W 100 ML IV SCH ×3 (05:46→22:00)
[2022-03-18] MEDS: HYDROCORTISONE SOD SUCCINATE 100 MG/2 ML VIAL IV SCH ×3 (05:49→21:45)
[2022-03-18] MEDS: IPRATROPIUM NEB FS 0.5 MG/2.5 ML AMPUL.NEB NEB SCH ×4 (05:50→20:25)
[2022-03-18] MEDS: ALBUTEROL FS 2.5 MG/0.5 ML VIAL.NEB NEB SCH ×4 (05:51→20:25)
[2022-03-18] MEDS: IV 1/2NS 1000 ML 1,000 ML IV PRN (06:02)
--- NOTE | 2022-03-18 06:51 | NUR ---
RN CLOSING NOTE PATIENT IN BED SLEEPING BUT EASY TO AROUSED.NO SIGN OF SOB/DISTRESS NOTED ON VENT, AT PRESCRIBED SETTINGS KAREEM WELL.GTUBE FEEDING RUNNING @ 45CC/HR KAREEM WELL NO RESIDUAL NOTED.HOB ELEVATED AT ALL TIMES. IV ACCESS ALICE MIDLINE, INTACT, PATENT AND FLUSHING WELL.PT ON KCL RUNNING @50CC/HR FINISH 6BAGS,2 LEFT.V/S WITHIN NORMAL LIMITS. PATIENT HAVE A LINDSAY CATHETER, IN PLACE AND DRAINING WELL. FALL AND SAFETY MEASURE IN PLACE LOW BED AND LOCK POSITION, SIDE RAILS UP X2. WILL ENDORSE TO DERRICK BOAT OPERATOR.
--- NOTE | 2022-03-18 07:30 | NUR ---
RN OPENING NOTE RECEIVED PATIENT ON BED SLEEPING BUT EASY TO AROUSE. ON MECHANICAL VENT VENT TOLERATING CURRENT SETTINGS WELL. ON G-TUBE FEEDING VITAL AF 1.2 @ 45CC/HR TOLERATING WELL AND NO RESIDUAL NOTED. WITH IV ACCESS AT ALICE MIDLINE, INTACT, PATENT AND FLUSHING WELL. PT ON KCL RUNNING @50CC/HR. WITH LINDSAY CATHETER IN PLACE AND DRAINING CLEAR YELLOW URINE. FALL AND SAFETY MEASURE IN PLACED. BED ON LOWEST LOCKED POSITION, SIDE RAILS UP X2. WILL CONTINUE TO MONITOR.
[2022-03-18 08:00] VITALS: BP 120/57
[2022-03-18] MEDS: LACOSAMIDE ORAL SOLN 50 MG/5 ML UDC GT SCH ×2 (09:00→16:36)
[2022-03-18] MEDS: BACLOFEN (10 MG) 10 MG TABLET GT SCH ×3 (09:36→16:37)
[2022-03-18] MEDS: VALPROIC ACID 250 MG/5 ML UDC GT SCH ×2 (09:36→16:37)
[2022-03-18] MEDS: ASCORBIC ACID 500 MG TABLET GT SCH (09:36)
[2022-03-18] MEDS: MAGNESIUM OXIDE 400 MG TABLET GT SCH (09:36)
[2022-03-18] MEDS: PANTOPRAZOLE 40 MG/PACK PACK PEG SCH ×2 (09:36→16:37)
[2022-03-18] MEDS: LEVETIRACETAM SOL (5 ML) 100 MG/ML UDC GT SCH ×2 (09:36→21:45)
[2022-03-18] MEDS: CHLORHEXIDINE GLUCONATE 15 ML UDC MM SCH ×2 (09:36→16:37)
[2022-03-18] MEDS: LACTOBACILLUS RHAMNOSUS GG 1 EACH CAP.SPRINK GT SCH (09:36)
[2022-03-18] MEDS: CARVEDILOL 3.125 MG TABLET GT SCH ×2 (09:37→16:37)
[2022-03-18] MEDS: DAKINS QUARTER STRENGTH (0.125%) 480 ML BOTTLE TOP SCH (09:38)
[2022-03-18] MEDS: SILVER NITRATE APPLICATOR 1 EA BOX TP SCH (09:39)
[2022-03-18] MEDS: HYDROGEL DRESSING 90 GM TUBE TP SCH (09:40)
[2022-03-18] MEDS: THERAHONEY GEL 1.5 OZ TUBE TP SCH (09:40)
[2022-03-18] MEDS: PROSTAT (PYXIS) 30 ML UDC GT SCH ×3 (09:42→16:42)
[2022-03-18] MEDS: VANCOMYCIN 0.75 GM in IV D5W 250 ML IV SCH ×2 (10:49→23:55)
[2022-03-18] MEDS ORDERED: DOSING PER PHARMACY-TOBRA INHALATION 1 EA XX PRN (13:00)
[2022-03-18] MEDS: ACETAMINOPHEN 325 MG TABLET PO PRN ×2 (14:27→21:45)
[2022-03-18 15:56] LABS: CALCIUM, SERUM 8.6 mg/dL (8.5-10.1); CREATININE 0.5 mg/dL (0.6-1.3); POTASSIUM 3.4 mmol/L (3.5-5.1)
--- NOTE | 2022-03-18 19:30 | NUR ---
RN CLOSING NOTE PATIENT ON BED RESTING AND EASY TO AROUSE. ON MECHANICAL VENT VENT TOLERATING CURRENT SETTINGS WELL. ON G-TUBE FEEDING VITAL AF 1.2 @ 45CC/HR TOLERATING WELL AND NO RESIDUAL NOTED. WITH IV ACCESS AT ALICE MIDLINE, INTACT, PATENT AND FLUSHING WELL. WITH LINDSAY CATHETER IN PLACE AND DRAINING CLEAR YELLOW URINE. DUE MEDS GIVEN. WOUND CARE TREATMENT DONE. FALL AND SAFETY MEASURE IN PLACED. BED ON LOWEST LOCKED POSITION, SIDE RAILS UP X2. WILL ENDORSE TO NEXT SHIFT FOR JELANI. Addendum: 03/18/22 at [id number] by ANGÉLICA FLORENCE RN vt 400
--- NOTE | 2022-03-18 19:30 | NUR ---
RN OPENING NOTE PATIENT IN BED, EYES OPEN. PATIENT ON TRACH, MECHANICAL VENT PATIENT. TOLERATING VENT SETTINGS : RATE 20, TV 450, FIO2 40, AND PEEP 5. PATIENT'S TELE MONITOR READS SR 76 BPM. LINDSAY CATHETER IN PLACE DRAINING VIA GRAVITY. PATIENT HAS A GT WITH ONGOING VITAL AF 1.2 45 ML/HR, NO RESIDUAL, TOLERATING WELL. ALICE MIDLINE AND FELICIA MIDLINE PATENT AND INTACT. SAFETY MEASURES IN PLACE: BED LOCKED AND IN LOWEST POSITION, CALL LIGHT WITHIN REACH, SIDE RAILS UP. HOB ELEVATED. WILL MONITOR PATIENT CLOSELY.
[2022-03-18 20:00] VITALS: BP 109/55
[2022-03-18] MEDS: TOBRAMYCIN 80 MG/2 ML VIAL INH SCH (20:25)
[2022-03-18] MEDS: ATORVASTATIN 40 MG TABLET GT SCH (21:45)
[2022-03-19] VITALS: BP 107/56
[2022-03-19] MEDS: IPRATROPIUM NEB FS 0.5 MG/2.5 ML AMPUL.NEB NEB SCH ×4 (02:18→20:41)
[2022-03-19] MEDS: ALBUTEROL FS 2.5 MG/0.5 ML VIAL.NEB NEB SCH ×4 (02:18→20:41)
[2022-03-19 04:00] VITALS: BP 104/44
[2022-03-19] MEDS: VITAL AF 1.2 1,000 ML BOTTLE GT SCH (04:02)
[2022-03-19] MEDS: HYDROCORTISONE SOD SUCCINATE 100 MG/2 ML VIAL IV SCH ×3 (04:02→21:03)
[2022-03-19] MEDS: CEFEPIME 2 GM in IV D5W 100 ML IV SCH ×3 (04:02→20:28)
[2022-03-19] MEDS: IV 1/2NS 1000 ML 1,000 ML IV PRN (04:02)
--- NOTE | 2022-03-19 06:43 | NUR ---
RN CLOSING NOTE PATIENT IN BED, EYES OPEN. PATIENT ON TRACH, MECHANICAL VENT PATIENT. TOLERATING VENT SETTINGS : RATE 20, TV 400, FIO2 40, AND PEEP 5. PATIENT NOTED TO HAVE AIR LEAKING FROM STOMA, REINFORCED WITH GAUZE, RT AWARE. PATIENT'S TELE MONITOR READS SR 64 BPM. LINDSAY CATHETER IN PLACE DRAINING VIA GRAVITY. PATIENT HAS A GT WITH ONGOING VITAL AF 1.2 45 ML/HR, NO RESIDUAL, TOLERATING WELL. ALICE MIDLINE AND FELICIA MIDLINE PATENT AND INTACT. WOUND CARE RENDERED. SAFETY MEASURES IN PLACE: BED LOCKED AND IN LOWEST POSITION, CALL LIGHT WITHIN REACH, SIDE RAILS UP. HOB ELEVATED. ALL NEEDS MET AND ATTENDED. ALL ORDERS CARRIED OUT.
[2022-03-19 07:17] LABS: CALCIUM, SERUM 8.4 mg/dL (8.5-10.1); CREATININE 0.5 mg/dL (0.6-1.3); POTASSIUM 3.3 mmol/L (3.5-5.1)
--- NOTE | 2022-03-19 07:30 | NUR ---
RN OPENING NOTE RECEIVED PATIENT ON BED SLEEPING BUT EASY TO AROUSE. ON MECHANICAL VENT TOLERATING CURRENT SETTINGS WELL. ON G-TUBE FEEDING VITAL AF 1.2 @ 45CC/HR TOLERATING WELL AND NO RESIDUAL NOTED. ON TELE MONITOR CURRENTLY READING SINUS RHYTHM AT 70BPM. WITH IV ACCESS AT ALICE MIDLINE, INTACT, PATENT AND FLUSHING WELL AND AT LEFT UPPER ARM MIDLINE WITH IVF 1/2NS AT 50ML/HR INFUSING WELL. WITH LINDSAY CATHETER IN PLACE AND DRAINING CLEAR YELLOW URINE. FALL AND SAFETY MEASURE IN PLACED. BED ON LOWEST LOCKED POSITION, SIDE RAILS UP X2. WILL CONTINUE TO MONITOR.
[2022-03-19] MEDS: TOBRAMYCIN 80 MG/2 ML VIAL INH SCH ×2 (07:46→20:53)
[2022-03-19 08:37] VITALS: BP 107/52
[2022-03-19] MEDS: CARVEDILOL 3.125 MG TABLET GT SCH ×2 (09:00→16:55)
[2022-03-19] MEDS: VALPROIC ACID 250 MG/5 ML UDC GT SCH ×2 (09:16→16:55)
[2022-03-19] MEDS: LACTOBACILLUS RHAMNOSUS GG 1 EACH CAP.SPRINK GT SCH (09:16)
[2022-03-19] MEDS: CHLORHEXIDINE GLUCONATE 15 ML UDC MM SCH ×2 (09:16→16:55)
[2022-03-19] MEDS: LEVETIRACETAM SOL (5 ML) 100 MG/ML UDC GT SCH ×2 (09:16→20:28)
[2022-03-19] MEDS: LACOSAMIDE ORAL SOLN 50 MG/5 ML UDC GT SCH ×2 (09:16→16:55)
[2022-03-19] MEDS: PROSTAT (PYXIS) 30 ML UDC GT SCH ×3 (09:16→16:56)
[2022-03-19] MEDS: ASCORBIC ACID 500 MG TABLET GT SCH (09:17)
[2022-03-19] MEDS: PANTOPRAZOLE 40 MG/PACK PACK PEG SCH ×2 (09:17→16:55)
[2022-03-19] MEDS: BACLOFEN (10 MG) 10 MG TABLET GT SCH ×3 (09:17→16:55)
[2022-03-19] MEDS: MAGNESIUM OXIDE 400 MG TABLET GT SCH (09:17)
[2022-03-19] MEDS: HYDROGEL DRESSING 90 GM TUBE TP SCH (09:18)
[2022-03-19] MEDS: DAKINS QUARTER STRENGTH (0.125%) 480 ML BOTTLE TOP SCH (09:18)
[2022-03-19] MEDS: SILVER NITRATE APPLICATOR 1 EA BOX TP SCH (09:18)
[2022-03-19] MEDS: THERAHONEY GEL 1.5 OZ TUBE TP SCH (09:18)
[2022-03-19] MEDS: VANCOMYCIN 0.75 GM in IV D5W 250 ML IV SCH ×2 (10:57→22:32)
[2022-03-19] MEDS ORDERED: POTASSIUM CHLORIDE 20 MEQ POWDER PACKET GT SCH (11:00)
[2022-03-19 11:28] VITALS: BP 108/58
--- NOTE | 2022-03-19 19:10 | NUR ---
RN NOTES: RECEIVED LYING ON BED ON SEMI FOWLERS POSITION, ON MECHANICAL VENTILATOR,TRACH INTACT REINFORCED WITH DRESSING BY RT, EYES CLOSED EVEN WHEN RN CALL HIS NAME, PER ENDORSEMENT HE OPEN HIS EYES WHEN AWAKE, NON VERBAL, ON TELE MONITOR SR-78, LINDSAY CATH INSITE DRAINING INTO YELLOWISH COLORED URINE AT 60 CC LEVEL, ON TUBE FEEDING OF VITAL AF 1.2 AT 45 ML/HR, ALICE ML-PATENT, FELICIA-ML WITH IVF OF 1/2 NS AT 50 ML/HR VIA INFUSION PUMP, MULTIPLE PRESSURE SORES, FOR TURNING AND REPOSITIONING Q 2 HOURLY, FOR LAB AND CXR IN THE MORNING, CONTINUE ON ATB/IV.
--- NOTE | 2022-03-19 19:30 | NUR ---
RN CLOSING NOTES PATIENT ON BED, EASY TO AROUSE. ON MECHANICAL VENT TOLERATING CURRENT SETTINGS WELL. ON G-TUBE FEEDING VITAL AF 1.2 @ 45CC/HR TOLERATING WELL AND NO RESIDUAL NOTED. ON TELE MONITOR CURRENTLY READING SINUS RHYTHM AT 76BPM. WITH IV ACCESS AT ALICE MIDLINE, INTACT, PATENT AND FLUSHING WELL AND AT LEFT UPPER ARM MIDLINE WITH IVF 1/2NS AT 50ML/HR INFUSING WELL. WITH LINDSAY CATHETER IN PLACE AND DRAINING CLEAR YELLOW URINE. DUE MEDS GIVEN. FALL AND SAFETY MEASURE IN PLACED. BED ON LOWEST LOCKED POSITION, SIDE RAILS UP X2. WILL ENDORSE TO NEXT SHIFT FOR JELANI.
[2022-03-19 20:00] VITALS: BP 120/57
--- NOTE | 2022-03-19 20:02 | NUR ---
RN NOTES: PER RN OUTGOING, SHE IS NO LONGER IN IV FLUIDS, ONLY IN SALINE LOCK,IVF WAS D/C BY OUTGOING RN/MORNING SHIFT. Addendum: 03/19/22 at 2004 by JONY PORTER RN CORRECTION: WRONG ENTRY OF CHARTING THIS IS NOT FOR THIS PATIENT, PLEASE DISREGARD CHARTING ABOVE.
[2022-03-19] MEDS: ATORVASTATIN 40 MG TABLET GT SCH (21:04)
[2022-03-19 23:27] VITALS: BP 120/57
--- NOTE | 2022-03-19 23:47 | NUR ---
RN NOTES: -AWAKE, EYES OPEN, SEEN BY RT, REPOSITIONED, OFF LOADING OF BLE.
[2022-03-20] VITALS: BP 114/53
[2022-03-20] MEDS: ALBUTEROL FS 2.5 MG/0.5 ML VIAL.NEB NEB SCH ×4 (01:48→20:48)
[2022-03-20] MEDS: IPRATROPIUM NEB FS 0.5 MG/2.5 ML AMPUL.NEB NEB SCH ×4 (01:48→20:48)
[2022-03-20] MEDS: ACETAMINOPHEN 325 MG TABLET PO PRN ×2 (02:33→17:10)
--- NOTE | 2022-03-20 02:33 | NUR ---
RN NOTES: REPOSITIONED, NOTICED WITHDRAWING EXTREMITIES WHEN TOUCH, GIVEN PRN PAIN MEDICATION 1 HOUR PRIOR TO WOUND DRESSING.NON PHARMACOLOGIC INTERVENTION RENDERED.
[2022-03-20 04:00] VITALS: BP 117/65
[2022-03-20 04:01] VITALS: BP 117/65
[2022-03-20] MEDS: IV 1/2NS 1000 ML 1,000 ML IV PRN (04:27)
--- NOTE | 2022-03-20 04:28 | NUR ---
RN NOTES: -PASS LARGE AMOUNT OF WATERY STOOL, NO FOUL SMELL, CLEAN AND CHANGE, DRESSING DONE ON THE SACRAL AREA, RIGHT SCAPULA,DTI ON BILATERAL KNEES, PRESSURE ON THE BUTTOCKS AND CREAM APPLIED ON THE MASD IN THE PERINEUM AREA. -REPOSITIONED, OFF LOADING DONE. -IVF CONSUMED, CHANGE TO NEW BOTTLE OF 1/2 NS AT 50 ML/HR.
[2022-03-20] MEDS: CEFEPIME 2 GM in IV D5W 100 ML IV SCH ×2 (04:35→13:31)
[2022-03-20] MEDS: HYDROCORTISONE SOD SUCCINATE 100 MG/2 ML VIAL IV SCH ×3 (04:35→21:31)
--- NOTE | 2022-03-20 05:13 | NUR ---
RT NOTE Pt rec'd trached on [facility] vent on AC mode on noted settings as charted. No resp distress or sob noted. Trach is patent and secured. Pt sx'd for thick mod amt of pale yellow secretions. Alarms are set and audible. Ambu bag at bedside. Will continue to monitor closely. Addendum: 03/20/22 at 0513 by LORETO CURRY RT Amended: Links added.
--- NOTE | 2022-03-20 06:08 | NUR ---
RN NOTES: DURING REPOSITIONING, HE HAD ANOTHER BOWEL MOVEMENT, MODERATE AMOUNT MIX WITH SOME SEMI SOLID PARTICLES, NO FOUL SMELL,CLEAN AND CHANGE.
--- NOTE | 2022-03-20 06:56 | NUR ---
RN NOTES: TURNING DONE, REMAINS AFEBRILE, IVF CONTINUE, DUE ANTIBIOTIC GIVEN, FOR LABS AND CXR THIS MORNING, F/U WITH RD ON 03/23/22, FEEDING CONTINUE AT 45 ML/HR, NEEDS ATTENDED, NO SIGN OF RESPIRATORY DISTRESS, NON LABORED BREATHING, NEBULIZATION GIVEN BY RT, URINE OUTPUT-1,000 ML, NO SEIZURE. ENDORSED FOR CONTINUITY OF CARE.
[2022-03-20 07:08] LABS: CALCIUM, SERUM 8.6 mg/dL (8.5-10.1); CREATININE 0.5 mg/dL (0.6-1.3)
[2022-03-20 07:13] LABS: POTASSIUM 2.6 mmol/L (3.5-5.1)
--- NOTE | 2022-03-20 07:30 | NUR ---
MANAGER RESPIRATORY CARE OPENING NOTES RECEIVED PATIENT LYING COMFORTABLY IN ON BED. PATIENT IS EASY TO AROUSE, AND CURRENTLY, ON MECHANICAL VENT TOLERATING SETTINGS WELL. PATIENT VENT HAS A LEAK, AND CALLED RT FOR FURTHER EVALUATION. PATIENT ON G-TUBE FEEDING VITAL AF 1.2 @ 45CC/HR, TOLERATING WELL AND NO RESIDUAL NOTED. IV ACCESS IN ALICE MIDLINE AND LEFT UPPER ARM MIDLINE WITH IVF 1/2NS AT 50ML/HR INFUSING WELL, AND BOTH INTACT, PATENT AND FLUSHING WELL. ON TELE MONITOR CURRENTLY READING SINUS RHYTHM AT 76BPM. WITH LINDSAY CATHETER IN PLACE AND DRAINING CLEAR YELLOW URINE. FALL AND SAFETY MEASURE IN PLACED: BED ON LOWEST LOCKED POSITION, SIDE RAILS UP X2. WILL CONTINUE TO MONITOR FOR JELANI.
--- NOTE | 2022-03-20 07:41 | NUR ---
RN NOTES: -WHILE GIVING ENDORSEMENT TO MORNING SHIFT, RECEIVED A PHONE CALL FROM LAB, SPOKE WITH RAMONA NOTIFYING PATIENT HAVE A CRITICAL LAB POTASSIUM-2.6, JAMAL/RN/JACQUIE NOTIFIED TO CALL THE DOCTOR. -ENDORSED FOR CONTINUITY OF CARE.
[2022-03-20] MEDS: TOBRAMYCIN 80 MG/2 ML VIAL INH SCH ×2 (07:46→20:48)
--- NOTE | 2022-03-20 07:56 | NUR ---
PATIENT WITH TRACH PORTEX 6 ON THE VENT SAT 100%. LOT OF VOLUME LOSS NOTED DUE ENLARGED STOMA. RN AWARED. PATIENT REMAIN STABLE WITHOUT DISTRESS. Addendum: 03/20/22 at 0758 by NEEL LEVINE RT Amended: Links added.
[2022-03-20 08:00] VITALS: BP 125/68
[2022-03-20] MEDS: POTASSIUM CL. PREMIX PERIPHER. 50 ML IV SCH ×9 (09:15→16:21)
[2022-03-20] MEDS: LEVETIRACETAM SOL (5 ML) 100 MG/ML UDC GT SCH ×2 (09:39→21:31)
[2022-03-20] MEDS: PANTOPRAZOLE 40 MG/PACK PACK PEG SCH ×2 (09:39→16:32)
[2022-03-20] MEDS: BACLOFEN (10 MG) 10 MG TABLET GT SCH ×3 (09:39→16:32)
[2022-03-20] MEDS: CHLORHEXIDINE GLUCONATE 15 ML UDC MM SCH ×2 (09:39→16:31)
[2022-03-20] MEDS: ASCORBIC ACID 500 MG TABLET GT SCH (09:40)
[2022-03-20] MEDS: MAGNESIUM OXIDE 400 MG TABLET GT SCH (09:40)
[2022-03-20] MEDS: CARVEDILOL 3.125 MG TABLET GT SCH ×2 (09:40→16:35)
[2022-03-20] MEDS: LACTOBACILLUS RHAMNOSUS GG 1 EACH CAP.SPRINK GT SCH (09:40)
[2022-03-20] MEDS: VALPROIC ACID 250 MG/5 ML UDC GT SCH ×2 (09:40→16:32)
[2022-03-20] MEDS: PROSTAT (PYXIS) 30 ML UDC GT SCH ×3 (09:43→17:10)
[2022-03-20] MEDS: DAKINS QUARTER STRENGTH (0.125%) 480 ML BOTTLE TOP SCH (10:03)
[2022-03-20] MEDS: SILVER NITRATE APPLICATOR 1 EA BOX TP SCH (10:04)
[2022-03-20] MEDS: HYDROGEL DRESSING 90 GM TUBE TP SCH (10:04)
[2022-03-20] MEDS: THERAHONEY GEL 1.5 OZ TUBE TP SCH (10:04)
--- NOTE | 2022-03-20 10:37 | NUR ---
PER RAHEEM VARGAS TRACH SIZE CHANGE TO 6XLT STEVEN AND TIDAL VOLUME TO 500. PATIENT TRACH CHANGED TO [address] MACIEL BUT LATER REQUESTED 6XLT STEVEN DUE TO LEAKS. TIDAL VOLUME 500 Addendum: 03/20/22 at 1040 by NEEL LEVINE RT Amended: Links added.
[2022-03-20] MEDS: LACOSAMIDE ORAL SOLN 50 MG/5 ML UDC GT SCH ×2 (10:38→17:13)
[2022-03-20] MEDS: VITAL AF 1.2 1,000 ML BOTTLE GT SCH (10:57)
[2022-03-20] MEDS: VANCOMYCIN 0.75 GM in IV D5W 250 ML IV SCH ×2 (11:05→22:30)
[2022-03-20 11:33] LABS: ABG BASE EXCESS 3.1 mmol/L; ABG OXYGEN SATURATION 98.9 % (92.0-98.5); ABG PCO2 36.9 mmHg (35.0-45.0); ABG PH 7.478 (7.350-7.450); ABG PO2 156.3 mmHg (75.0-100.0); AaDO2 86.5 mmHg; COHb 0.5 % (0.5-1.5); MetHb 0.2 % (0.0-1.5); O2Hb 98.2 % (94.0-97.0); SITE, ABG Right Radial
--- NOTE | 2022-03-20 12:35 | NUR ---
TO TITRATE 02 FOR 93% OR GREATER PER DR. MACIEL ONLINE ORDER. PATIENT IS CURRENTLY PLACED ON 30% WITH SAT 99%. Addendum: 03/20/22 at 1238 by NEEL LEVINE RT Amended: Links added.
--- NOTE | 2022-03-20 18:28 | NUR ---
PET RESORT CONCIERGE CLOSING NOTES PATIENT LYING COMFORTABLY IN ON BED. PATIENT IS EASY TO AROUSE, AND CURRENTLY, ON MECHANICAL VENT TOLERATING SETTINGS WELL. PATIENT VENT LEAK WAS RESOLVED, TV: 500 & PORTEX #7. PATIENT ON G-TUBE FEEDING VITAL AF 1.2 @ 45CC/HR, TOLERATING WELL AND NO RESIDUAL NOTED. IV ACCESS IN ALICE MIDLINE AND LEFT UPPER ARM MIDLINE WITH IVF 1/2NS AT 50ML/HR INFUSING WELL, AND BOTH INTACT, PATENT AND FLUSHING WELL. ON TELE MONITOR CURRENTLY READING SINUS RHYTHM AT 69 BPM. WITH LINDSAY CATHETER IN PLACE AND DRAINING CLEAR YELLOW URINE. WOUND CARE DONE PRESCRIBED. FALL AND SAFETY MEASURE IN PLACED: BED ON LOWEST LOCKED POSITION, SIDE RAILS UP X2. WILL ENDORSE TO INCOMING SHIFT FOR JELANI.
--- NOTE | 2022-03-20 20:00 | NUR ---
RECEIVED PATIENT IN BED, AWAKE, NON-VERBAL, CALM, TRACH DEPENDENT, NO RESPIRATORY DISTRESS, SPO2 98%, BUE, BLE CONTRACTED, PEG TUBE FEEDING INFUSING WELL, LINDSAY CATHETER. KEPT HOB ELEVATED, HEELS OFFLOADED, WILL CONTINUE TO MONITOR.
[2022-03-20 20:38] VITALS: BP 112/50
[2022-03-20] MEDS: ATORVASTATIN 40 MG TABLET GT SCH (21:31)
[2022-03-21 01:00] VITALS: BP 106/52
[2022-03-21] MEDS: IPRATROPIUM NEB FS 0.5 MG/2.5 ML AMPUL.NEB NEB SCH ×3 (01:02→13:30)
[2022-03-21] MEDS: ALBUTEROL FS 2.5 MG/0.5 ML VIAL.NEB NEB SCH ×3 (01:02→13:30)
[2022-03-21 04:00] VITALS: BP 127/71
[2022-03-21] MEDS: HYDROCORTISONE SOD SUCCINATE 100 MG/2 ML VIAL IV SCH (05:16)
--- NOTE | 2022-03-21 06:54 | NUR ---
STABLE ON VENTILATOR, NO SOB, NOT IN APPARENT PAIN, PEG TUBE TOLERATING WELL, NO VOMITING, WOUND CARE PERFORMED, LIQUID STOOL X1, REPOSITIONED FOR COMFORT, HEELS OFFLOADED, POTASSIUM REPLACED 03/20/22, MONITOR ELECTROLYTES, HOLD BP MEDS IF SBP < 110, SEIZURE PRECAUTION.
--- NOTE | 2022-03-21 07:20 | NUR ---
INDUSTRIAL GAS FITTER OPENING NOTES RECEIVED PATIENT LYING COMFORTABLY IN ON BED. PATIENT IS EASY TO AROUSE, AND CURRENTLY, ON MECHANICAL VENT TOLERATING SETTINGS WELL. PATIENT ON G-TUBE FEEDING VITAL AF 1.2 @ 45CC/HR, TOLERATING WELL AND NO RESIDUAL NOTED. IV ACCESS IN ALICE MIDLINE, LEFT UPPER ARM MIDLINE WITH IVF 1/2 NS AT 50ML/HR INFUSING WELL, R INDEX #20 ALL INTACT, PATENT AND FLUSHING WELL. ON TELE MONITOR CURRENTLY READING SINUS RHYTHM AT 58BPM. WITH LINDSAY CATHETER IN PLACE AND DRAINING CLEAR YELLOW URINE. FALL AND SAFETY MEASURE IN PLACED: BED ON LOWEST LOCKED POSITION, SIDE RAILS UP X2. WILL CONTINUE TO MONITOR FOR JELANI.
[2022-03-21 07:28] LABS: CALCIUM, SERUM 8.8 mg/dL (8.5-10.1); CREATININE 0.3 mg/dL (0.6-1.3); POTASSIUM 3.6 mmol/L (3.5-5.1)
[2022-03-21] MEDS: TOBRAMYCIN 80 MG/2 ML VIAL INH SCH (07:45)
--- NOTE | 2022-03-21 08:35 | NUR ---
RT Patient received on current vent settings: AC 20 500 30% +5. Trach tube Shiley 6XLT. Breathing tx and suction tolerated well. Trach patent and secured. Vent plugged into red outlet with alarms on and audible. Ambu bag and back up trach at bedside. No SOB or respiratory distress noted.
[2022-03-21 08:43] VITALS: BP 112/49
[2022-03-21 09:00] VITALS: BP 112/49
[2022-03-21] MEDS: CARVEDILOL 3.125 MG TABLET GT SCH (09:00)
[2022-03-21] MEDS: LEVETIRACETAM SOL (5 ML) 100 MG/ML UDC GT SCH (09:18)
[2022-03-21] MEDS: CHLORHEXIDINE GLUCONATE 15 ML UDC MM SCH (09:18)
[2022-03-21] MEDS: PANTOPRAZOLE 40 MG/PACK PACK PEG SCH (09:19)
[2022-03-21] MEDS: ASCORBIC ACID 500 MG TABLET GT SCH (09:19)
[2022-03-21] MEDS: BACLOFEN (10 MG) 10 MG TABLET GT SCH (09:19)
[2022-03-21] MEDS: LACTOBACILLUS RHAMNOSUS GG 1 EACH CAP.SPRINK GT SCH (09:19)
[2022-03-21] MEDS: VALPROIC ACID 250 MG/5 ML UDC GT SCH (09:19)
[2022-03-21] MEDS: MAGNESIUM OXIDE 400 MG TABLET GT SCH (09:19)
[2022-03-21] MEDS: DAKINS QUARTER STRENGTH (0.125%) 480 ML BOTTLE TOP SCH (09:21)
[2022-03-21] MEDS: HYDROGEL DRESSING 90 GM TUBE TP SCH (09:22)
[2022-03-21] MEDS: THERAHONEY GEL 1.5 OZ TUBE TP SCH (09:23)
[2022-03-21] MEDS: SILVER NITRATE APPLICATOR 1 EA BOX TP SCH (09:23)
[2022-03-21] MEDS: PROSTAT (PYXIS) 30 ML UDC GT SCH (09:33)
--- NOTE | 2022-03-21 09:34 | NUR ---
RN NOTES COREG HOLD DUE TO LOW BLOOD PRESSURE 112/49. NO S/S OF HYPOTENSION, WILL CONTINUE TO MONITOR.
[2022-03-21] MEDS: LACOSAMIDE ORAL SOLN 50 MG/5 ML UDC GT SCH (09:36)
[2022-03-21] MEDS: VANCOMYCIN 0.75 GM in IV D5W 250 ML IV SCH (12:11)
--- NOTE | 2022-03-21 13:35 | NUR ---
RN DISCHARGED NOTES PT DIS[facility] TO [facility] IN STABLE CONDITION. PT IS NON-VERBAL AND OPEN EYES TO TACTILE/PAIN STIMULI. PT WITH TRACH SHILEY XLT #6 CONNECTED TO MECHANICAL VENT AT PRESCRIBED SETTINGS, TOLERATING SETTINGS WELL, SP02 100%. V/S TAKEN, RECORDED AND STABLE. PHOTOS OF SKIN ISSUES TAKEN AND FILED ON HIS CHART. PT HAS NO BELONGINGS. IV ACCESS ON RIGHT INDEX FINGER REMOVED WITH NO ACTIVE BLEEDING NOTED. PT HAS TWO MIDLINE LOCATED ON ALICE AND BEAULIEU AND KEPT THEM IN PLACE BECAUSE PT WILL CONTINUE TO RECEIVED IV ABX AT THE [facility] PER MD DISCHARGE ORDER. LINDSAY CATH AND G-TUBE IN PLACE AND BOTH PATENT. CALLED AND REPORT/DISCHARGE INSTRUCTIONS GIVEN TO BRANDEN TONEY [facility]. PT'S BROTHER CONNIE OLVERA SAME INFORMED THAT PT WILL BE DISCHARGED TODAY. PT LEFT UNIT VIA GURNEY AT 1320 ACCOMPANIED BY 2 EMT'S AND RT FROM [facility]. MD AND CHARGE NURSE AWRE OF DISCHARGE.
== END 2022-03-21 13:30 | DRG 853 ==
LOC: ER 13:21 → TRANSITION 15:06 → TELE 16:33
PROVIDERS: ADMIT Nurse Practitioner Acute Care; ATTEND Internal Medicine
PROC: 5A1955Z Respiratory Ventilation, Greater than 96 Consecutive Hours (ICD-10-PCS; principal; 2022-03-12)
PROC: 0QB10ZZ Excision of Sacrum, Open Approach (ICD-10-PCS; 2022-03-12)
PROC: 0KBP0ZZ Excision of Left Hip Muscle, Open Approach (ICD-10-PCS; 2022-03-12)
PROC: 0KB50ZZ Excision of Right Shoulder Muscle, Open Approach (ICD-10-PCS; 2022-03-12)
PROC: 05HA33Z Insertion of Infusion Device into Left Brachial Vein, Percutaneous Approach (ICD-10-PCS; 2022-03-12)
PROC: 30233N1 Transfusion of Nonautologous Red Blood Cells into Peripheral Vein, Percutaneous Approach (ICD-10-PCS; 2022-03-13)
PROC: 02HV33Z Insertion of Infusion Device into Superior Vena Cava, Percutaneous Approach (ICD-10-PCS; 2022-03-13)
PROC: B548ZZA Ultrasonography of Superior Vena Cava, Guidance (ICD-10-PCS; 2022-03-13)
DX: A41.02 Sepsis due to Methicillin resistant Staphylococcus aureus (principal); L89.154 Pressure ulcer of sacral region, stage 4; L89.524 Pressure ulcer of left ankle, stage 4; E43 Unspecified severe protein-calorie malnutrition; N17.0 Acute kidney failure with tubular necrosis; J15.9 Unspecified bacterial pneumonia; R65.21 Severe sepsis with septic shock; R53.2 Functional quadriplegia; D68.59 Other primary thrombophilia; E87.0 Hyperosmolality and hypernatremia; G93.1 Anoxic brain damage, not elsewhere classified; I48.20 Chronic atrial fibrillation, unspecified; N39.0 Urinary tract infection, site not specified; J96.11 Chronic respiratory failure with hypoxia; Z99.11 Dependence on respirator [ventilator] status; N17.9 Acute kidney failure, unspecified; R64 Cachexia; G93.49 Other encephalopathy; Z93.1 Gastrostomy status; E86.0 Dehydration; Z93.0 Tracheostomy status; R13.10 Dysphagia, unspecified; Z20.822 Contact with and (suspected) exposure to COVID-19; L89.220 Pressure ulcer of left hip, unstageable; L89.110 Pressure ulcer of right upper back, unstageable; Z74.01 Bed confinement status; Z79.51 Long term (current) use of inhaled steroids; Z79.899 Other long term (current) drug therapy; B96.89 Other specified bacterial agents as the cause of diseases classified elsewhere; Y95 Nosocomial condition; L89.626 Pressure-induced deep tissue damage of left heel; L89.616 Pressure-induced deep tissue damage of right heel; L89.896 Pressure-induced deep tissue damage of other site; M24.562 Contracture, left knee; M24.561 Contracture, right knee; M62.562 Muscle wasting and atrophy, not elsewhere classified, left lower leg; M62.561 Muscle wasting and atrophy, not elsewhere classified, right lower leg; E78.5 Hyperlipidemia, unspecified; E86.1 Hypovolemia; E87.6 Hypokalemia; E83.51 Hypocalcemia; I10 Essential (primary) hypertension; E88.09 Other disorders of plasma-protein metabolism, not elsewhere classified; G40.909 Epilepsy, unspecified, not intractable, without status epilepticus; Z87.440 Personal history of urinary (tract) infections; D64.9 Anemia, unspecified; E86.9 Volume depletion, unspecified
CPT/HCPCS: 31720; 36410; 36415; 36600; 71045-TC; 76770-TC; 80048-TC; 80076-TC; 80202-TC; 81001; 82272-TC; 82803-TC; 82962-TC; 83605-TC; 83735-TC; 83880; 84100-TC; 84132-TC; 84484-TC; 85025-TC; 86850-TC; 87040-TC; 87070-TC; 87081-TC; 87086-TC; 87186-TC; 93307-TC; 94002-TC; 94003-TC; 94640-TC; 94760-TC; 94762-TC; 94799-TC; A4216; A4623; A6248; A6253; A6403; C9113; C9803; G0378; J0692; J0696; J1720; J1953; J3260; J3370; J3480; J3490; J7030; J7050; J7060; P9016

== ENCOUNTER 2022-05-12 16:45 | Inpatient (IN) | payer BC ==
[~2022-05-12] VITALS: Ht 172.7 cm; Wt 46.7 kg
--- NOTE | 2022-05-12 17:00 | NUR ---
RECIVED PT 52 YRS MALE TRANSFER FROM [facility] WITH TRACHOSTOMY FOR EVALIUATION OF LOW HGB 6.5 TRACH LICO # 6 VENT SITTING AC 20 FIO2 40% TV 500 PEEP 5
--- NOTE | 2022-05-12 17:15 | NUR ---
SEEN BY DR. MILLER
--- NOTE | 2022-05-12 17:20 | NUR ---
PT HAD MULTIPLE DECUBTTES ON SECRALE AREA AND BOTH BUTTOCH
[2022-05-12] MEDS ORDERED: IV NS 0.9% 1,000 ML BAG IV ONE (17:30)
--- NOTE | 2022-05-12 17:30 | NUR ---
BLOOD DROW AND SENT TO LAB BLOOD CULTURE X2 SENT AND LACTEC SENT
--- NOTE | 2022-05-12 18:00 | NUR ---
ROVERTO LUCAS SENT TO LAB
[2022-05-12 18:26] LABS: BASOPHILS % (AUTO) 0.4 % (0.0-2.0); EOSINOPHILS % (AUTO) 12.9 % (0.0-6.0); HEMATOCRIT 22 % (39-51); LYMPHOCYTES # (AUTO) 1.4 K/uL (0.8-4.8); LYMPHOCYTES % (AUTO) 17.5 % (20.0-44.0); MEAN CORPUSCULAR HGB CONC 29 g/dl (31.0-36.0); MEAN CORPUSCULAR VOLUME 92 fL (80-96); MONOCYTES # (AUTO) 0.4 K/uL (0.1-1.30); MONOCYTES % (AUTO) 5.5 % (2.0-12.0); NEUTROPHILS # (AUTO) 5.2 K/uL (1.8-8.9); NEUTROPHILS % (AUTO) 63.7 % (43.0-81.0); PLATELET COUNT (AUTO) 277 K/uL (150-450); RED BLOOD CELL COUNT(AUTO) 2.38 MIL/uL (4.5-6.0); WHITE BLOOD COUNT (AUTO) 8.2 K/uL (4.3-11.0)
--- NOTE | 2022-05-12 18:27 | NUR ---
PATIENT WERE BROUGHT IN ON VENT WITH AC 20, 500, 40%, +5. SHILEY 6XLT TRACH IN PLACE, PATIENT WERE PLACED ON THE VENT WITH SAME SETTINGS W/O DISTRESS. PATIENT IS TOLERATING SETTINGS WELL. Addendum: 05/12/22 at 1829 by NEEL LEVINE RT Amended: Links added.
[2022-05-12 18:34] LABS: CALCIUM, SERUM 8.9 mg/dL (8.5-10.1); CARBON DIOXIDE 35 mmol/L (21-32); CHLORIDE 113 mmol/L (98-107); CREATININE 0.6 mg/dL (0.6-1.3); GLUCOSE 79 mg/dL (74-106); POTASSIUM 4.6 mmol/L (3.5-5.1); SODIUM SERUM 146 mmol/L (136-145); UREA NITROGEN, BLOOD 29 mg/dL (7-18)
[2022-05-12 18:51] LABS: ALANINE AMINOTRANSFERASE 61 U/L (12-78); ALKALINE PHOSPHATASE 44 U/L (46-116); ASPARTATE AMINOTRANSFERASE 45 U/L (15-37); BILIRUBIN,TOTAL 0.1 mg/dL (0.2-1.0); TOTAL PROTEIN, SERUM 7.9 g/dL (6.4-8.2)
[2022-05-12 18:56] LABS: ALBUMIN 1.2 g/dL (3.4-5.0)
[2022-05-12 18:59] LABS: HEMOGLOBIN 6.3 g/dL (13.5-17.5)
--- NOTE | 2022-05-12 19:00 | NUR ---
UA AND UC SENT TO LAB
[2022-05-12 19:19] LABS: BILIRUBIN,URINE NEGATIVE (NEGATIVE); COLOR,URINE YELLOW (YELLOW); LEUKOCYTE ESTERASE ,URINE LARGE (NEGATIVE); NITRITE, URINE POSITIVE (NEGATIVE); PH,URINE 7.5 (5.0-8.0); PROTEIN,URINE TRACE mg/dl (NEGATIVE); UGLUCOSE NEGATIVE (NEGATIVE); UROBILINOGEN,URINE 0.2 EU/dL (0.2)
--- NOTE | 2022-05-12 19:25 | NUR ---
HAND OFF TO JELANI ESPINO
--- NOTE | 2022-05-12 19:34 | NUR ---
PT'S BROTHER CONNIE [phone] GAVE VERBAL CONSENT FOR BLOOD TRANSFUSION; VERBALIZED UNDERSTANDING.
--- NOTE | 2022-05-12 19:35 | NUR ---
RAPID FLUI SENT TO LAB
--- NOTE | 2022-05-12 19:35 | NUR ---
PT TOLERATING VENT SETTINGS WELL AT 95% FIO2 49 VT 500 RATE 20 PEEP 5 PMAX 60 F/C DRAINGING URINE; PATENT AND INTACT. GTUBE INTACT. Addendum: 05/12/22 at 2220 by JITENDRA PT TOLERATING VENT SETTINGS WELL AT 95% FIO2 40 VT 500 RATE 20 PEEP 5 PMAX 60 F/C DRAINGING URINE; PATENT AND INTACT. GTUBE INTACT.
--- NOTE | 2022-05-12 20:59 | NUR ---
[employer]NAGER PACKAGE PAGED
--- NOTE | 2022-05-12 21:01 | NUR ---
DR. ANGELA VARGAS ON TELEPHONE CALL WITH DR. GONZALEZ REGARDING ADMISSION
--- NOTE | 2022-05-12 21:23 | NUR ---
115-BED 2
[2022-05-12 21:29] LABS: BACTERIA,URINE 3+ /HPF (None Seen); RBC,URINE 51-80 /HPF (0-2); WBC,URINE 81-100 /HPF (0-3)
[2022-05-12 21:30] LABS: CALCIUM OXALATE CRYSTALS,UR Few /HPF (None Seen); SQUAMOUS EPITHELIAL CELL,UR 0-2 /HPF (None Seen)
--- NOTE | 2022-05-12 21:30 | NUR ---
RBC TRANSFUSION INITIATED RBC BLOOD TRANSFUSION X1 UNIT; COSIGNED WITH 2 RNS. VSS. WILL MONITOR FOR ADVERSE REACTIONS. BP 111/49 HR 82 TEMP 98.3 F RESP EVEN AND NONLABORED ON VENT SETTINGS FIO2 40%. SATTING 98%.
[2022-05-12 21:51] LABS: EOSINOPHILS % (MANUAL) 11 % (0-4); LYMPHOCYTES % (MANUAL) 15 % (16-48); MONOCYTES % (MANUAL) 2 % (0-11.0); NEUTROPHILS % (MANUAL) 72 (42-76)
--- NOTE | 2022-05-12 22:20 | NUR ---
REPORT GIVEN TO CHANCE SOSA RN FOR JELANI
[2022-05-12 22:45] VITALS: BP 105/52
--- NOTE | 2022-05-12 22:48 | NUR ---
PT TRANSFERRED TO [facility] 115-2 VIA ACLS PROTOCOL WITH RT. BEATRIZ. ENDORSED TO [facility] RN TO FINISHED BLOOD TRANSFUSION RBC
[2022-05-12] MEDS ORDERED: Z GUARD REMEDY 4 OZ OINT TP PRN (23:00)
[2022-05-12] MEDS ORDERED: ACETAMINOPHEN 325 MG TABLET PO PRN (23:00)
[2022-05-12] MEDS ORDERED: ONDANSETRON HCL/PF 4 MG/2 ML VIAL IVP PRN (23:00)
[2022-05-12] MEDS ORDERED: ZOLPIDEM TARTRATE 5 MG TABLET PO PRN (23:00)
[2022-05-12] MEDS ORDERED: MAGNESIUM HYDROXIDE 30 ML UDC PO PRN (23:00)
[2022-05-12] MEDS ORDERED: MAG HYDROX/AL HYDROX/SIMETH 30 ML UDC PO PRN (23:00)
[2022-05-12 23:30] VITALS: BP 96/55
--- NOTE | 2022-05-12 23:30 | NUR ---
RN NOTE 2240 ADMITTED PT FROM ER WITH DIAGNOSIS OF ANEMIA. PT RECEIVING 1 UNIT PRBC, STARTED AT ER. NO SIGNS OF REACTIONS NOTED. PT WITH TRACH CONNECTED TO VENT, SETTINGS AC20 TV500 FI02 40% PEEP5, SATING 100%. OBTUNDED, CONTRACTURES ON EXTREMITIES. HOOKED TO TELE MONITOR SHOWS SR. PT WITH MULTIPLE PRESSURE INJURIES, INITIAL TREATMENT DONE. OFFLOADED BONY PROMINENCES. NOTED PT WITH T 100.9. COOLING MEASURES RENDERED. LINDSAY CATH IN PLACE, DRAINING YELLOW URINE WITH SOME SEDIMENTS. ALL SAFETY MEASURES IN PLACE WILL CONTINUE TO MONITOR. 2330 TEMP 99.6
[2022-05-13 00:15] VITALS: BP 126/72
--- NOTE | 2022-05-13 00:15 | NUR ---
RN NOTE BLOOD TRANSFUSION DONE. TOLERATED. NO SIGNS OF REACTIONS NOTED. BP 126/72 RR 20 T 99.7 HR 79 O2SAT 100%.
[2022-05-13] MEDS: IV 1/2NS 1000 ML 1,000 ML IV PRN ×2 (01:03→14:48)
[2022-05-13] MEDS ORDERED: CEFTRIAXONE 1 G VIAL ONE (02:38)
[2022-05-13] MEDS: CEFTRIAXONE 1 G in IV D5W 50 ML IV SCH (02:43)
[2022-05-13 04:00] VITALS: BP 104/86
--- NOTE | 2022-05-13 04:03 | NUR ---
RT NOTE PT RECEIVED TRACHED ON MECHANICAL VENTILATION. CUFF INFLATED. SHILEY 6 X[address]FF[address] IN PL[address]. PT TRANSFERRED TO [facility] VIA AMBU BAG. VENT CURRENT SETTINGS ARE AC 20, 500, 40%, +5. TRACH SECURED AND PATENT AT ALL TIMES. CONT. PULSE OX CONNECTED. PT MONITORED T/O SHIFT.
[2022-05-13 06:18] LABS: CALCIUM, SERUM 8.7 mg/dL (8.5-10.1); CREATININE 0.6 mg/dL (0.6-1.3); MAGNESIUM 2.3 mg/dL (1.8-2.4); PHOSPHORUS 2.9 mg/dL (2.5-4.9); POTASSIUM 3.8 mmol/L (3.5-5.1)
[2022-05-13 06:45] LABS: BASOPHILS # (AUTO) 0.1 K/uL (0.0-0.2); BASOPHILS % (AUTO) 0.6 % (0.0-2.0); EOSINOPHILS % (AUTO) 11.3 % (0.0-6.0); HEMATOCRIT 24 % (39-51); HEMOGLOBIN 7.3 g/dL (13.5-17.5); LYMPHOCYTES # (AUTO) 1.2 K/uL (0.8-4.8); LYMPHOCYTES % (AUTO) 13.7 % (20.0-44.0); MEAN CORPUSCULAR HGB CONC 31 g/dl (31.0-36.0); MEAN CORPUSCULAR VOLUME 88 fL (80-96); MONOCYTES # (AUTO) 0.5 K/uL (0.1-1.30); MONOCYTES % (AUTO) 6.5 % (2.0-12.0); NEUTROPHILS # (AUTO) 5.7 K/uL (1.8-8.9); NEUTROPHILS % (AUTO) 67.9 % (43.0-81.0); PLATELET COUNT (AUTO) 282 K/uL (150-450); RED BLOOD CELL COUNT(AUTO) 2.67 MIL/uL (4.5-6.0); WHITE BLOOD COUNT (AUTO) 8.4 K/uL (4.3-11.0)
--- NOTE | 2022-05-13 06:52 | NUR ---
RN NOTE PT TOLERATES VENT SETTINGS, NO DISTRESS NOTED, O2 SAT AT 100%. SUCTIONED NEEDED. PT REMAIN NPO. SR ON TELE MONITOR. GT PATENT AND INTACT. ON IV FLUIDS 1/2NS AT 75ML/HR, INFUSING WELL. NO SIGNS OF INFILTRATION NOTED. STOOL COLLECTED SENT TO LABS. REDRESSED WOUND DRESSINGS, TURNED AND REPOSITIONED. WILL ENDORSE TO NEXT SHIFT NURSE FOR JELANI.
--- NOTE | 2022-05-13 07:30 | NUR ---
SPINNING FRAME FIXER OPENING NOTE: RECEIVED PT. IN BED, OBTUNDED, OPENS EYES, NON-VERBAL. PT. ON TRACH, MECHANICALLY VENTILATED, TRACH SIZE IS SHILEY#9; AC - 20; TV - 500; FIO2 - 40%; PEEP - 5; 02 SAT - 100%. BREATHING EVEN AND UNLABORED. NO S/S OF ACUTE DISTRESS. PT. ON TELE MONITOR THAT READS NSR WITH HR OF 86 BPM. PT. ON LINDSAY AND DRAINING CLEAR YELLOW URINE. PT. HAS RFA #20G WITH 1/2 NS RUNNING AT 75 ML/HR. HE ALSO HAS A R FOOT #24G, PATENT AND FLUSHING WELL, SALINE LOCKED. BOTH IV SITE DRESSINGS C/D/I AND NO S/S OF INFILTRATION. PT. IS CONTRACTED IN BOTH ARMS, HANDS AND LEGS. HE HAS MULTIPLE WOUNDS AND WOUND CONSULT ORDER IS REQUESTED. SAFETY MEASURES IN PLACE: BED IN LOCKED AND LOWEST POSITION, HOB ELEVATED, SIDE RAILS UP X3, BED ALARM ON. WILL CONTINUE TO MONITOR PT. FOR ANY CHANGES.
[2022-05-13 08:00] VITALS: BP 110/70
[2022-05-13] MEDS ORDERED: NUTR1PAC14 GT (08:32)
[2022-05-13] MEDS ORDERED: CRAN3875 GT (08:33)
[2022-05-13] MEDS: PANTOPRAZOLE 40 MG VIAL IV SCH (10:02)
--- NOTE | 2022-05-13 10:16 | NUR ---
WOUND CARE CONSULT: PT HAS MULTIPLE PRESSURE ULCERS PRESENT ON ADMISSION INCLUDING RT AND LEFT BUTTOCK, SACRUM, LEFT HIP, LEFT LATERAL KNEE, RT KNEE,LEFT ANKLE AND DISCOLORATION TO HEELS AND SCARRING TO BACK, ALL PRESENT ON ADMISSION. DR HINOJOSA AND DR ROSENBERG NOTIFIED OF SURGICAL AND DPM CONSULT REQUESTS. RECOMMENDATIONS MADE FOR SKIN PROTECTION. DISCUSSED WITH NURSING STAFF. FIRST STEP LOW AIRLOSS MATTRESS IS ON ORDER. MD IN AGREEMENT WITH PLAN OF CARE.
[2022-05-13 12:00] VITALS: BP 106/62
[2022-05-13 16:00] VITALS: BP 115/70
[2022-05-13] MEDS: DAKINS QUARTER STRENGTH (0.125%) 480 ML BOTTLE TOP SCH ×2 (18:20→18:21)
[2022-05-13] MEDS: HYDROGEL DRESSING 90 GM TUBE TP SCH (18:22)
--- NOTE | 2022-05-13 19:03 | NUR ---
DIAMOND DIE POLISHER CLOSING NOTE: PT. REMAINS IN BED, OBTUNDED, OPENS EYES, NON-VERBAL. PT. ON TRACH, MECHANICALLY VENTILATED, TRACH SIZE IS SHILEY#9; AC - 20; TV - 500; FIO2 - 40%; PEEP - 5; 02 SAT - 100%. NO S/S OF RESPIRATORY DISTRESS. PT. ON TELE MONITOR THAT READS NSR WITH HR OF 90 BPM. PT. ON LINDSAY AND DRAINING CLEAR YELLOW URINE WITH OUTPUT OF 550 ML THIS SHIFT. PT. HAS RFA #20G WITH 1/2 NS RUNNING AT 75 ML/HR. HE ALSO HAS A R FOOT #24G, PATENT AND FLUSHING WELL, SALINE LOCKED. BOTH IV SITE DRESSINGS C/D/I AND NO S/S OF INFILTRATION. WOUND TREATMENT DONE ORDERED. TURNED AND REPOSITIONED Q2H. MED RECON NOT DONE YET, DR. ODOM IS AWARE. SAFETY MEASURES REMAINS IN PLACE: BED IN LOCKED AND LOWEST POSITION, HOB ELEVATED, SIDE RAILS UP X3, BED ALARM ON. WILL ENDORSE CONTINUITY OF CARE TO CABLE MECHANIC RN.
--- NOTE | 2022-05-13 19:44 | NUR ---
CHEMICAL OPERATIONS AND TRAINING OPENING NOTE RECEIVED PT AWAKE IN BED, OBTUNDED, OPENS EYES, NON-VERBAL. PT WITH TRACH SARTHAKLEY#9, WITH [facility] VENT CURRENT SETTINGS: AC 20, TV 500, FIO2 40%, PEEP 5. NO S/S OF RESPIRATORY DISTRESS. ON EXTERNAL TUBE FILLER READING SR 90 BPM. WITH LINDSAY DRAINING CLEAR YELLOW URINE. IV ACCESS RFA #20G RUNNING 1/2 NS @ 75 ML/HR. SAFETY PRECAUTIONS IN PLACE. BED IN LOWEST LOCKED POSITION, HOB ELEVATED, SIDE RAILS UP X3, AND CALL LIGHT AND TABLE WITHIN REACH. ALL NEEDS MET AT THIS TIME.
[2022-05-13 20:00] VITALS: BP 105/68
[2022-05-13] MEDS ORDERED: LEVETIRACETAM (500MG) 500 MG/5 ML VIAL IV ONE (21:17)
[2022-05-13] MEDS: LEVETIRACETAM (500MG) 1,000 MG in IV NS 0.9% 100 ML IV SCH (21:24)
[2022-05-14] VITALS: BP 100/56
[2022-05-14 01:10] LABS: OCCULT BLOOD STOOL NEGATIVE (NEGATIVE)
[2022-05-14] MEDS: CEFTRIAXONE 1 G in IV D5W 50 ML IV SCH (01:11)
[2022-05-14 04:00] VITALS: BP 107/68
--- NOTE | 2022-05-14 05:30 | NUR ---
0530 Mable from [facility] called and requested update on patient. She said she will call case management team in AM regarding patient's transfer to different facility due to insurance.
[2022-05-14 06:30] LABS: BASOPHILS # (AUTO) 0.1 K/uL (0.0-0.2); BASOPHILS % (AUTO) 0.8 % (0.0-2.0); EOSINOPHILS % (AUTO) 10.2 % (0.0-6.0); HEMATOCRIT 23 % (39-51); HEMOGLOBIN 7.5 g/dL (13.5-17.5); LYMPHOCYTES # (AUTO) 1.4 K/uL (0.8-4.8); LYMPHOCYTES % (AUTO) 19.9 % (20.0-44.0); MEAN CORPUSCULAR HGB CONC 32 g/dl (31.0-36.0); MEAN CORPUSCULAR VOLUME 89 fL (80-96); MONOCYTES # (AUTO) 0.3 K/uL (0.1-1.30); NEUTROPHILS # (AUTO) 4.5 K/uL (1.8-8.9); NEUTROPHILS % (AUTO) 64.1 % (43.0-81.0); PLATELET COUNT (AUTO) 278 K/uL (150-450); RED BLOOD CELL COUNT(AUTO) 2.63 MIL/uL (4.5-6.0); WHITE BLOOD COUNT (AUTO) 6.9 K/uL (4.3-11.0)
[2022-05-14 06:41] LABS: CALCIUM, SERUM 9.3 mg/dL (8.5-10.1); CREATININE 0.7 mg/dL (0.6-1.3); POTASSIUM 3.8 mmol/L (3.5-5.1)
--- NOTE | 2022-05-14 06:56 | NUR ---
CONFERENCE ORGANIZER CLOSING NOTE PT AWAKE IN BED, OBTUNDED, OPENS EYES, NON-VERBAL. PT WITH TRACH SHILEY#9, WITH MECH VENT CURRENT SETTINGS: AC 20, TV 500, FIO2 40%, PEEP 5. NO S/S OF RESPIRATORY DISTRESS. ON EXTERNAL PROSTHETIC MAKEUP DESIGNER READING SR 90 BPM. WITH LINDSAY DRAINING CLEAR YELLOW URINE, DRAINED 750 CC THIS SHIFT. IV ACCESS RFA #20G RUNNING 1/2 NS @ 75 ML/HR. WOUND CARE DONE. TURNED AND REPOSITIONED Q2H. ALL DUE MEDS GIVEN ORDERED. SAFETY PRECAUTIONS IN PLACE AT ALL TIMES. BED IN LOWEST LOCKED POSITION, HOB ELEVATED, SIDE RAILS UP X3, AND CALL LIGHT AND TABLE WITHIN REACH. ALL NEEDS MET AT THIS TIME AND WILL ENDORSE TO ONCOMING NURSE FOR JELANI.
--- NOTE | 2022-05-14 07:00 | NUR ---
RN NOTE RECEIVED PATIENT IN BED OBTUNDED NON VERBAL ON MECHANICAL VENT SETTING PRESCRIBED, CONTRACTED,IV SITE IS ON RIGHT FOREARM AND RIGHT FOOT INTACT PATENT ON 10/04 NS IV HYDRATION 75CC/HR,MULTIPLIES WOUND ON BUTTOCKS/SACRUM/RIGHT AND LEFT HEELS/LINDSAY CATH IN PLACE URINE DRAINING BY GRAVITY,SAFETY MEASURE IMPLEMENT BED IN LOW POSITION AND LOCKED,HEAD OF THE BED ELEVATED,CONTINUE TO MONITOR.
[2022-05-14 08:00] VITALS: BP 98/52
[2022-05-14] MEDS: LEVETIRACETAM (500MG) 1,000 MG in IV NS 0.9% 100 ML IV SCH (08:17)
[2022-05-14] MEDS: HYDROGEL DRESSING 90 GM TUBE TP SCH (08:49)
[2022-05-14] MEDS: DAKINS QUARTER STRENGTH (0.125%) 480 ML BOTTLE TOP SCH ×2 (08:49)
[2022-05-14] MEDS: PANTOPRAZOLE 40 MG VIAL IV SCH (08:52)
[2022-05-14] MEDS ORDERED: FERR325T30 PO (09:12)
[2022-05-14] MEDS ORDERED: CEFT1VIA15 IV (09:12)
[2022-05-14] MEDS ORDERED: EPOE40007 IJ (09:12)
[2022-05-14] MEDS: IV 1/2NS 1000 ML 1,000 ML IV PRN (11:00)
[2022-05-14 12:00] VITALS: BP 106/54
--- NOTE | 2022-05-14 14:15 | NUR ---
FRENCH PROFESSOR NOTE PATIENT DISCHARGE TO [facility],OBTUNDED CONTRACTED,MULTIPLES WOUNDS ON SACRUM LEFT AND RIGHT HEELS,ON MECHANICAL VENT,O2:100% BP 132/54 HR 81 RR:22 PATIENT LEFT HOSPITAL WITH 3 BINDER CASER WITH ACLS PROTOCOL.NOTIFIED PATIENT BROTHER CONNIE OLVERA.NO BELONGINGS.
== END 2022-05-14 14:15 | DRG 871 ==
LOC: ER 16:48 → TELE1 21:23
PROVIDERS: ADMIT Student in an Organized Health Care Education/Training Program; ATTEND Internal Medicine
PROC: 5A1945Z Respiratory Ventilation, 24-96 Consecutive Hours (ICD-10-PCS; principal; 2022-05-12)
DX: A41.9 Sepsis, unspecified organism (principal); E43 Unspecified severe protein-calorie malnutrition; L89.524 Pressure ulcer of left ankle, stage 4; L89.154 Pressure ulcer of sacral region, stage 4; L89.224 Pressure ulcer of left hip, stage 4; L89.104 Pressure ulcer of unspecified part of back, stage 4; L89.313 Pressure ulcer of right buttock, stage 3; L89.143 Pressure ulcer of left lower back, stage 3; N17.0 Acute kidney failure with tubular necrosis; R53.2 Functional quadriplegia; G93.1 Anoxic brain damage, not elsewhere classified; J96.10 Chronic respiratory failure, unspecified whether with hypoxia or hypercapnia; R64 Cachexia; N39.0 Urinary tract infection, site not specified; D68.59 Other primary thrombophilia; Z99.11 Dependence on respirator [ventilator] status; I96 Gangrene, not elsewhere classified; E87.0 Hyperosmolality and hypernatremia; I48.20 Chronic atrial fibrillation, unspecified; Z20.822 Contact with and (suspected) exposure to COVID-19; G40.909 Epilepsy, unspecified, not intractable, without status epilepticus; R13.10 Dysphagia, unspecified; Z79.51 Long term (current) use of inhaled steroids; Z79.899 Other long term (current) drug therapy; E86.0 Dehydration; R79.89 Other specified abnormal findings of blood chemistry; I10 Essential (primary) hypertension; M24.561 Contracture, right knee; E88.09 Other disorders of plasma-protein metabolism, not elsewhere classified; E78.5 Hyperlipidemia, unspecified; Z74.09 Other reduced mobility; L89.892 Pressure ulcer of other site, stage 2; Z93.1 Gastrostomy status; Z93.0 Tracheostomy status; D63.8 Anemia in other chronic diseases classified elsewhere; M62.422 Contracture of muscle, left upper arm; M62.421 Contracture of muscle, right upper arm; M24.562 Contracture, left knee; Z74.01 Bed confinement status; Z87.440 Personal history of urinary (tract) infections; Z87.891 Personal history of nicotine dependence; L89.626 Pressure-induced deep tissue damage of left heel
CPT/HCPCS: 31720; 36415; 71045-TC; 80048-TC; 80076-TC; 81001; 82272-TC; 83605-TC; 83735-TC; 84100-TC; 84484-TC; 85025-TC; 85730-TC; 86850-TC; 87040-TC; 87081-TC; 87086-TC; 87186-TC; 94003-TC; 94760-TC; 94762-TC; 94799-TC; 99082-TC; A4623; A6248; A6253; A6403; C9113; C9803; G0378; J0696; J1953; J3490; J7030; J7050; J7060; P9016

== ENCOUNTER 2022-07-30 12:03 | Inpatient (IN) | payer BC, OTHER ==
[~2022-07-30] VITALS: Ht 152.4 cm; Wt 35.4 kg
[2022-07-30] VITALS (12 sets, daily range): BP systolic 75–121; BP diastolic 46–72
[~2022-07-30 12:03] MED LIST changes: -CEFE2FRO IV; +CEFT1VIA15 IV; +CRAN3875 GT; +EPOE40007 IJ; +FERR325T30 PO; -METH4TAB3 PO; +NUTR1PAC14 GT; -VANC750F2 IV; -[UNRECOGNIZED DRUG - CODE] GT
--- NOTE | 2022-07-30 12:05 | NUR ---
[id number] FOR NOTED SOB,TACHYCARDIA AND FEVER. PLACED ON BED, NON VERBAL, ATTACHED TO MONITOR LA-137, WARM TO TOUCH. KNOWN HX. ANOXIC BRAIN DAMAGE, CONTRACTURE, CHRONIC RESPIRATORY FAILURE ON VENTILATOR.
--- NOTE | 2022-07-30 12:15 | NUR ---
MINUTE CLERK FOR BASIC TRAFFIC. AT BEDSIDE ATTACHED TO VENTILATOR ON AC/VC FIO2-100, VT-100, RATE-20, PEEP- 5, SATURATING AT 100%.
[2022-07-30] MEDS ORDERED: IV NS 0.9% 1,000 ML BAG IV ONE ×2 (12:30→14:00)
--- NOTE | 2022-07-30 12:30 | NUR ---
SWAB FOR COVID19 SENT TO LAB
[2022-07-30] MEDS ORDERED: NA P133E RC (12:34)
[2022-07-30] MEDS ORDERED: BISA10SU11 RC (12:34)
[2022-07-30] MEDS ORDERED: DIAZ5TAB4 GT (12:34)
[2022-07-30] MEDS ORDERED: HYDR-4303 GT (12:34)
[2022-07-30] MEDS ORDERED: ZINC220T4 GT (12:34)
[2022-07-30] MEDS ORDERED: ONDA4TAB5 GT (12:34)
[2022-07-30] MEDS ORDERED: DOCU-141 GT (12:34)
[2022-07-30] MEDS ORDERED: MULT-447 GT (12:34)
[2022-07-30 12:37] LABS: ABG BASE EXCESS 0.4 mmol/L; ABG PCO2 44.1 mmHg (35.0-45.0); ABG PH 7.382 (7.350-7.450); ABG PO2 69.1 mmHg (75.0-100.0); COHb 0.1 % (0.5-1.5); MetHb 0.2 % (0.0-1.5); O2Hb 91.1 % (94.0-97.0); SITE, ABG Left Radial; VENT MODE, BG AC 20 500 100% +5
--- NOTE | 2022-07-30 12:45 | NUR ---
rt note pt received via ems on mechanical vent. settings as charted per previous facility. patient has increased wob. abg drawn and read to MD. field tube patent and secured. bvm beside. vent alarms on and audible. plugged in red outlet. will continue to monitor. Addendum: 07/30/22 at 1248 by WALT WHITESIDE RT Amended: Links added.
--- NOTE | 2022-07-30 12:45 | NUR ---
CENTRAL LINE INSERTED BY DR HANNON AT LEFT FEMORAL
--- NOTE | 2022-07-30 12:50 | NUR ---
URINE SAMPLE SENT TOLAB
[2022-07-30] MEDS ORDERED: ACETAMINOPHEN 650 MG/SUPP.RECT RC ONE ×2 (12:57→13:00)
--- NOTE | 2022-07-30 13:00 | NUR ---
X-RAY TECH AT BEDSIDE FOR POST CENTRAL INSERTION
--- NOTE | 2022-07-30 13:06 | NUR ---
Guanaco anderson in ED - 07/30/[address] ALCALA AT BEDSIDE
--- NOTE | 2022-07-30 13:14 | NUR ---
BLOOD DRAWN AND SENT TO LAB
--- NOTE | 2022-07-30 13:19 | NUR ---
MOVE SHEET SUBMITTED.
[2022-07-30] MEDS ORDERED: VANCOMYCIN 1 GM in IV D5W 250 ML IV ONE (13:30)
[2022-07-30] MEDS ORDERED: PIPERACILLIN /TAZOBACTAM 3.375 G in IV D5W 50 ML IV ONE (13:30)
[2022-07-30 13:36] LABS: BILIRUBIN,URINE NEGATIVE (NEGATIVE); COLOR,URINE YELLOW (YELLOW); LEUKOCYTE ESTERASE ,URINE LARGE (NEGATIVE); NITRITE, URINE NEGATIVE (NEGATIVE); PROTEIN,URINE 100 mg/dl (NEGATIVE); UGLUCOSE NEGATIVE (NEGATIVE)
[2022-07-30 13:37] LABS: BASOPHILS % (AUTO) 0.1 % (0.0-2.0); EOSINOPHILS % (AUTO) 0.1 % (0.0-6.0); HEMATOCRIT 28 % (39-51); HEMOGLOBIN 7.9 g/dL (13.5-17.5); LYMPHOCYTES # (AUTO) 1.8 K/uL (0.8-4.8); LYMPHOCYTES % (AUTO) 4.2 % (20.0-44.0); MEAN CORPUSCULAR HGB CONC 29 g/dl (31.0-36.0); MEAN CORPUSCULAR VOLUME 87 fL (80-96); MONOCYTES # (AUTO) 2.5 K/uL (0.1-1.30); NEUTROPHILS # (AUTO) 38.1 K/uL (1.8-8.9); NEUTROPHILS % (AUTO) 89.6 % (43.0-81.0); RED BLOOD CELL COUNT(AUTO) 3.18 MIL/uL (4.5-6.0)
[2022-07-30 13:52] LABS: ALANINE AMINOTRANSFERASE 9 U/L (12-78); ALKALINE PHOSPHATASE 92 U/L (46-116); ASPARTATE AMINOTRANSFERASE 13 U/L (15-37); BILIRUBIN,DIRECT 0.2 mg/dL (0.0-0.2); BILIRUBIN,TOTAL 0.4 mg/dL (0.2-1.0); CALCIUM, SERUM 9.5 mg/dL (8.5-10.1); CARBON DIOXIDE 30 mmol/L (21-32); CHLORIDE 104 mmol/L (98-107); CREATININE 1.1 mg/dL (0.6-1.3); GLUCOSE 99 mg/dL (74-106); POTASSIUM 3.9 mmol/L (3.5-5.1); SODIUM SERUM 144 mmol/L (136-145); TOTAL PROTEIN, SERUM 8.8 g/dL (6.4-8.2); UREA NITROGEN, BLOOD 38 mg/dL (7-18)
[2022-07-30] MEDS ORDERED: ONDANSETRON HCL/PF 4 MG/2 ML VIAL IVP PRN (14:00)
[2022-07-30 14:05] LABS: PLATELET COUNT (AUTO) 959 K/uL (150-450); WHITE BLOOD COUNT (AUTO) 42.5 K/uL (4.3-11.0)
[2022-07-30 14:06] LABS: BACTERIA,URINE Many /HPF (None Seen); SQUAMOUS EPITHELIAL CELL,UR Moderate /HPF (None Seen); WBC,URINE 21-50 /HPF (0-3)
--- NOTE | 2022-07-30 14:31 | NUR ---
GOT BED 254
--- NOTE | 2022-07-30 14:54 | NUR ---
REPORT GIVEN TO ISH ESPINO ICU ROOM 254 FOR JELANI
--- NOTE | 2022-07-30 15:40 | NUR ---
RN NOTES PATIENT ADMITTED FROM ER 52Y/OLD MALE TRACHEA/VEND DEPENDENT. PATIENT OBN DX OF SEPSIS/PNA, T-97.5, BP 121/72, P-97, O2100%. PATIENT TOLERATING VENT SETTING WELL, TV-500, FIO2-1OO%, PEEP-5. INSERTED NEW LINDSAY CATHETER,SKIN ASSESSMENT DONE, PATIENT HAS MULTIPLE OPEN WOUNDS, PICTURE TAKEN. IV ACCESS ON LEFT FEMORAL TLC WAS INSERTED VIA ER. STARTED NS@75 ML/HR , GT INTACT. NEEDS ATTENDED AND ANTICIPATED. CALL LIGHT WITHIN TO REACH. APPLIED AIR MATTRESS, WILL FOLLOW UP.
[2022-07-30 16:58] LABS: BAND % (MANUAL) 8 % (0.0-5.0); LYMPHOCYTES % (MANUAL) 5 % (16-48); METAMYELOCYTES % 3 % (0-0); MONOCYTES % (MANUAL) 6 % (0-11.0); NEUTROPHILS % (MANUAL) 78 (42-76)
[2022-07-30] MEDS: IV NS 0.9% 1,000 ML IV PRN (17:26)
[2022-07-30] MEDS: ENOXAPARIN SODIUM 40 MG/0.4 ML DISP.SYRIN SQ SCH (17:31)
--- NOTE | 2022-07-30 18:29 | NUR ---
RN NOTES PATIENT BP 84/54 , P-92, R-28, CALLED HOSPITALIST AND GET ORDER OF LEVOPHED. ORDER TAKEN AND CARRIED OUT.
[2022-07-30] MEDS: NOREPINEPHRINE 8 MG in IV NS 0.9% 242 ML IV PRN (18:33)
--- NOTE | 2022-07-30 18:40 | NUR ---
RN NOTES PM CARE DONE, GT CLAMPED, PATIENT NPO, INFUSING NS@75 ML/HR, AND LEVOPHED 0.2 MCG/KG/MIN, POOR LINDSAY OUTPUT 60ML, ASSIST TURN AND REPOSTION Q 2 HR. SEEN PATIENT VIA ID EXCAVATOR BACKHOE OPERATOR ISMAILZADE. DUE MEDICATION ADMINISTERED. ENDORSED ONCOMING NURSE JELANI.
--- NOTE | 2022-07-30 19:30 | NUR ---
RN OPENING NOTE RECEIVED PT IN BED, OBTUNDED. [facility], TOLERATING SETTINGS WELL. O2 SAT @ 100%. TELE MONITOR SHOWS SR. NO S/SX OF ACUTE RESPI DISTRESS NOTED AT THIS TIME. IV ACCESS NOTED ON LEFT FEMORAL WITH TLC. CURRENTLY INFUSING NS @ 75 CC/HR AND LEVOPHED @ 0.2/MCG/KG/MIN. BOTH ARMS ARE CONRACTED UPON ASSESSMENT. FC IN PLACE, DRAINING YELLOW URINE BY GRAVITY. ALL SAFETY MEASURES BEING IMPLEMENTED: BED LOCKED IN LOW POSITION, BED ALARM ON, SR UP X 2, CALL LIGHT WITHIN REACH. WILL CONTINUE TO MONITOR T/O THE NIGHT..
--- NOTE | 2022-07-30 19:43 | NUR ---
PT RCVD TRACHED W SIZE SHILEY 6XLT ON MECH VENT WITH THE SETTINGS OF AC 20,VT 500,FIO2 100%,PEEP 5. PT IS OBTUNDED. SUCTIONED SMALL AMOUNT OF IBANEZ THICK SECRETIONS. SENIOR TECH MANUFACTURING ENGINEERING DONE,TRACH IS PATENT AND SECURED. VENT PLUGGED INTO RED OUTLET AND VENT ALARMS ON AND AUDIBLE. NO RESPIRATORY DISTRESS NOTED AT THIS TIME. WILL CONTINUE TO MONITOR T/O SHIFT.
[2022-07-30] MEDS ORDERED: PIPERACILLIN /TAZOBACTAM 4.5 G in IV D5W 50 ML IV SCH (20:00)
[2022-07-30] MEDS: Z GUARD REMEDY 4 OZ OINT TP SCH (21:18)
[2022-07-30] MEDS: MEROPENEM 1 G in IV NS 0.9% 100 ML IV SCH (21:18)
--- NOTE | 2022-07-30 21:30 | NUR ---
TITRATE FIO2 TO 80%, RN JOSELINE AWARE. SPO2 100%, NO RESPIRATORY DISTRESS NOTED AT THIS TIME..
--- NOTE | 2022-07-30 21:30 | NUR ---
RN NOTE FIO2 TITRATED TO 80% BY RT KEERTHI. WILL CONTINUE TO MONITOR.
[2022-07-31] VITALS (57 sets, daily range): BP systolic 89–141; BP diastolic 49–78
--- NOTE | 2022-07-31 01:38 | NUR ---
titrate o2 to 60%, vicky harrington notified. no respiratory distress noted .
[2022-07-31] MEDS: VANCOMYCIN 0.75 GM in IV D5W 250 ML IV SCH ×2 (02:07→13:17)
--- NOTE | 2022-07-31 02:10 | NUR ---
RN NOTE PT HAS ELEVATED TEMP AT 100.6 OTHER VS STABLE. NO RESPI DISTRESS NOTED UPON ASSESSMENT. GAVE TYLENOL PRN ORDERED. WILL CONTINUE TO MONITOR.
[2022-07-31] MEDS: ACETAMINOPHEN 325 MG TABLET PO PRN ×2 (02:22→19:47)
--- NOTE | 2022-07-31 03:53 | NUR ---
RN NOTE ALL OPEN WOUNDS SWABBED FOR WOUND CULTURE PURPOSES. (SACRUM, L HIP, R BUTTOCK AND L ANKLE).
[2022-07-31 05:18] LABS: BASOPHILS % (AUTO) 0.3 % (0.0-2.0); EOSINOPHILS % (AUTO) 0.5 % (0.0-6.0); LYMPHOCYTES # (AUTO) 0.9 K/uL (0.8-4.8); LYMPHOCYTES % (AUTO) 5.9 % (20.0-44.0); MEAN CORPUSCULAR HGB CONC 30 g/dl (31.0-36.0); MEAN CORPUSCULAR VOLUME 86 fL (80-96); MONOCYTES % (AUTO) 6.3 % (2.0-12.0); NEUTROPHILS # (AUTO) 13.3 K/uL (1.8-8.9); PLATELET COUNT (AUTO) 485 K/uL (150-450); RED BLOOD CELL COUNT(AUTO) 2.12 MIL/uL (4.5-6.0); WHITE BLOOD COUNT (AUTO) 15.2 K/uL (4.3-11.0)
[2022-07-31 05:23] LABS: HEMATOCRIT 18 % (39-51); HEMOGLOBIN 5.4 g/dL (13.5-17.5)
--- NOTE | 2022-07-31 05:30 | NUR ---
FIO2 TITRATION TO 40%, SRINIVAS TREVIZO NOTIFIED. NO RESPIRATORY DISTRESS NOTED. SPO2 99%
[2022-07-31 05:31] LABS: CALCIUM, SERUM 8.5 mg/dL (8.5-10.1); CREATININE 0.7 mg/dL (0.6-1.3); MAGNESIUM 1.8 mg/dL (1.8-2.4); PHOSPHORUS 3.1 mg/dL (2.5-4.9); POTASSIUM 3.3 mmol/L (3.5-5.1)
--- NOTE | 2022-07-31 05:39 | NUR ---
RN NOTE RECEIVED CRITICAL LAB: HGB 5.4 ; HCT 18. INFORMED DNP CLAU. ORDERED TRANSFUSION OF 1 UNIT PRBC X 1. PUT ORDER IN. WILL FOLLOW THROUGH.
[2022-07-31] MEDS: IV NS 0.9% 1,000 ML IV PRN ×2 (06:47→19:17)
--- NOTE | 2022-07-31 07:05 | NUR ---
CRATE ICER OPENING NOTE: RECEIVED PT. IN BED, OBTUNDED, OPENS EYES TO TACTILE AND PAINFUL STIMULI. NO S/S OF DISTRESS. ON TRACH/VENT WITH SHILEY #6 XLT; AC - 20; VT- 500; FIO2 - 40%; PEEP - 5. NO S/S OF RESPIRATORY DISTRESS. COMPUTER SYSTEMS ARCHITECT READS NSR. ON LINDSAY CATH WITH CLOUDY YELLOW URINE DRAINING VIA GRAVITY. MULTIPLE SKIN ISSUES NOTED. WOUND CONSULT ORDERED. IV ACCESS ON LEFT FEMORAL PICC LINE WITH TRIPLE LUMEN, PATENT WITH NS RUNNING AT 75 ML/HR AND LEVOPHED AT 0.2 MCG/KG/MIN. IV DRESSING C/D/I WITH NO S/S OF INFILTRATION. PT. HAS H/H OF 5.01/18 THIS AM. WAITING FOR TYPE AND SCREEN RESULT. SAFETY MEASURES IN PLACE: BED IN LOWEST AND LOCKED POSITION, HOB ELEVATED AT 30 DEGREES, BED ALARM ON, CALL LIGHT WITHIN EASY REACH. WILL TURN AND REPOSITION AT LEAST Q2H. WILL CONTINUE TO MONITOR PT. FOR ANY CHANGES.
[2022-07-31] MEDS: NOREPINEPHRINE 8 MG in IV NS 0.9% 242 ML IV PRN (07:10)
--- NOTE | 2022-07-31 07:30 | NUR ---
LINEMAN NOTE: LAB CALLED AT 07 TO REPORT THAT TYPE AND SCREEN RESULT SHOWED PT. IS POSITIVE FOR ANTIBODY. WAS TOLD THAT BLOOD WILL BE DELAYED FOR 2-6 HRS DUE TO FURTHER INVESTIGATION. PT. BP AND HR STABLE AT THIS TIME. WILL CONTINUE TO MONITOR PT. FOR ANY CHANGES AND WILL FOLLOW UP ORDERED BLOOD.
[2022-07-31] MEDS: Z GUARD REMEDY 4 OZ OINT TP SCH ×2 (08:18→20:29)
[2022-07-31] MEDS: MEROPENEM 1 G in IV NS 0.9% 100 ML IV SCH ×2 (08:19→20:28)
[2022-07-31] MEDS: PANTOPRAZOLE 40 MG TABLET.DR PO SCH (08:22)
[2022-07-31] MEDS: POTASSIUM CL. PREMIX PERIPHER. 50 ML IV SCH ×2 (09:32→10:46)
--- NOTE | 2022-07-31 11:00 | NUR ---
FERMENTER WINE NOTE: CALLED LAB TO FOLLOW UP ON ORDERED PRBC AND WAS TOLD THAT BLOOD IS STILL NOT AVAILABLE BECAUSE FURTHER TESTS NEEDS TO BE DONE. PT.'S BP AND HR STABLE AT THIS TIME. WILL CONTINUE TO FOLLOW UP AND MONITOR PT.'S HEMODYNAMIC STATUS.
--- NOTE | 2022-07-31 11:30 | NUR ---
TRUCK LOADER NOTE: DR. ALCALA ORDERED TUBE FEEDING WITH VITAL AF 1.2 TO RUN AT 56 ML/HR X 24 HRS VIA G-TUBE. NO GASTRIC RESIDUAL NOTED. WILL FOLLOW ORDERS.
[2022-07-31 11:31] LABS: EOSINOPHILS % (MANUAL) 1 % (0-4); LYMPHOCYTES % (MANUAL) 4 % (16-48); MONOCYTES % (MANUAL) 5 % (0-11.0); NEUTROPHILS % (MANUAL) 90 (42-76)
[2022-07-31] MEDS: ENOXAPARIN SODIUM 40 MG/0.4 ML DISP.SYRIN SQ SCH (13:05)
--- NOTE | 2022-07-31 13:06 | NUR ---
PRODUCT SUPPORT TECHNICIAN NOTE: LOVENOX SCHEDULED AT 1400 WILL BE HELD DUE TO H/H OF 5.4/18. WILL CONTINUE TO MONITOR FOR S/S OF BLEEDING.
[2022-07-31] MEDS: PROSOURCE / PROSTAT (PYXIS) 30 ML UDC GT SCH ×2 (13:18→18:44)
[2022-07-31] MEDS: VITAL AF 1.2 1,000 ML BOTTLE GT PRN (13:19)
--- NOTE | 2022-07-31 15:00 | NUR ---
STREET SPRINKLER NOTE: CALLED LAB AND SPOKE WITH VAZQUEZ TO FOLLOW UP ON ORDERED 1 UNIT OF PRBC. WAS TOLD THAT MORE TIME IS NEEDED AND MAY TAKE UNTIL THE FOLLOWING DAY FOR THE BLOOD TO BE AVAILABLE. CHARGE NURSE AND DR. ALCALA MADE AWARE. PT.'S BP AND HR STABLE AT THIS TIME. NO S/S OF BLEEDING NOTED. WILL CONTINUE TO MONITOR FOR ANY CHANGES.
--- NOTE | 2022-07-31 17:00 | NUR ---
HEEL COMPRESSOR NOTE: UNDERWEAR TRIMMER DOMINIQUE CALLED LAB TO FOLLOW UP ON PT.'S BLOOD AND WAS TOLD THAT IT MIGHT NOT BE AVAILABLE UNTIL TOMORROW. PT.'S VS STABLE AT THIS TIME. AWARE. WILL CONTINUE TO MONITOR PT.'S HEMODYNAMIC STATUS.
--- NOTE | 2022-07-31 19:15 | NUR ---
SENIOR FIELD SERVICE ENGINEER CLOSING NOTE: PT.REMAINS IN BED, OBTUNDED, OPENS EYES TO TACTILE AND PAINFUL STIMULI ONLY. NO S/S OF DISTRESS. ON TRACH/VENT WITH SHILEY #6 XLT; AC - 20; VT- 500; FIO2 - 40%; PEEP - 5. SATURATING 98-100%. NO S/S OF RESPIRATORY DISTRESS. RN DOCUMENTATION READS NSR AT 82 BPM AT THIS TIME WITH A FEW MINS OF BIGEMINY AT AROUND 1905. ON LINDSAY CATH WITH CLOUDY YELLOW URINE WITH TOTAL OUTPUT OF 1000ML THIS SHIFT. WAITING FOR WOUND CONSULT. WOUND CLEANED AND DRESSED. IV ACCESS ON LEFT FEMORAL PICC LINE WITH TRIPLE LUMEN, PATENT WITH NS RUNNING AT 75 ML/HR AND LEVOPHED AT 0.1 MCG/KG/MIN. IV DRESSING C/D/I WITH NO S/S OF INFILTRATION. PT. HAS H/H OF 5.4/18 THIS AM. STILL WAITING FOR BLOOD BANK. MD AWARE. BP AND HR STABLE ALL THROUGHOUT SHIFT. SAFETY MEASURES MAINTAINED: BED IN LOWEST AND LOCKED POSITION, HOB ELEVATED AT 30 DEGREES, BED ALARM ON, CALL LIGHT WITHIN EASY REACH. TURNED AND REPOSITIONED AT LEAST Q2H. ENDORSED CONTINUITY OF CARE TO TELETYPE OPERATOR RN.
--- NOTE | 2022-07-31 19:30 | NUR ---
RN OPENING NOTE: RECEIVED PT IN BED, OBTUNDED, OPENS EYES TO TACTILE AND PAINFUL STIMULI. NO S/SX OF ACUTE DISTRESS NOTED AT THIS TIME. ON TRACH/VENT WITH SHILEY #6 XLT; AC - 20; VT- 500; FIO2 - 40%; PEEP - 5. TOLERATING WELL SATING, AT >95%. FIELD CROPS HARVEST MACHINE OPERATOR READS BIGEMINY WITH HR IN THE 90s. IV ACCESS ON LEFT FEMORAL PICC LINE WITH TRIPLE LUMEN, PATENT WITH NS RUNNING AT 75 ML/HR AND LEVOPHED AT 0.1 MCG/KG/MIN. IV DRESSING C/D/I WITH NO S/S OF INFILTRATION. GTF RUNNING VITAL AF 1.2 @ 56 ML/HR X 24 HRS. RESIDUAL OF 60 CC NOTED. ON LINDSAY CATH WITH CLOUDY YELLOW URINE DRAINING VIA GRAVITY. MULTIPLE SKIN ISSUES NOTED. PT HAS H/H OF 5.4/18 THIS AM. WAITING FOR TYPE AND SCREEN RESULT. ALL SAFETY MEASURES IN PLACE: BED IN LOWEST AND LOCKED POSITION, HOB ELEVATED AT 30 DEGREES, BED ALARM ON, CALL LIGHT WITHIN EASY REACH. WILL CONTINUE TO MONITOR PT FOR ANY CHANGES.
--- NOTE | 2022-07-31 19:55 | NUR ---
RN NOTE PT HAS SLIGHTLY ELEVATED TEMP. PT SHOWS NO RESPI DISTRESS UPON ASSESSMENT. TYLENOL GIVEN ORDERED. WILL CONTINUE TO MONITOR
[2022-08-01] VITALS (56 sets, daily range): BP systolic 83–173; BP diastolic 40–104
[2022-08-01] MEDS: HYDROCODONE/APAP 5/325MG TABLET PO PRN ×2 (00:59→22:01)
--- NOTE | 2022-08-01 01:15 | NUR ---
RN NOTE PT SHOWING SIGNS OF BEING IN PAIN. FACIAL GRIMACING, ELEVATED BP AND HR/RR. NO ACUTE RESPI DISTRESS NOTED. NORCO GIVEN ORDERED. WILL CONTINUE TO MONITOR.
[2022-08-01] MEDS: VANCOMYCIN 0.75 GM in IV D5W 250 ML IV SCH ×2 (01:47→14:20)
[2022-08-01] MEDS: NOREPINEPHRINE 8 MG in IV NS 0.9% 242 ML IV PRN (04:53)
[2022-08-01 05:36] LABS: CALCIUM, SERUM 8.5 mg/dL (8.5-10.1); CREATININE 0.6 mg/dL (0.6-1.3)
--- NOTE | 2022-08-01 06:10 | NUR ---
RN CLOSING NOTE STILL AWAITING BLOOD FOR TRANSFUSION. PT ON LEVOPHED @ 01. MCG/KG/MIN. GTF RUNNING @ 56 CC/HR X 24 HRS. RESIDUAL OF 70 CC NOTED. CLEANED AND CHANGED WOUND DRESSINGS. TURNED AND REPOSITIONED. ALL DUE MEDS GIVEN. WILL ENDORSE TO AM SHIFT NURSE FOR JELANI.
[2022-08-01] MEDS: IV NS 0.9% 1,000 ML IV PRN (07:16)
[2022-08-01] MEDS: MEROPENEM 1 G in IV NS 0.9% 100 ML IV SCH ×2 (08:13→22:00)
[2022-08-01] MEDS: PROSOURCE / PROSTAT (PYXIS) 30 ML UDC GT SCH ×3 (08:13→16:19)
[2022-08-01] MEDS: PANTOPRAZOLE 40 MG TABLET.DR PO SCH (08:13)
[2022-08-01] MEDS: Z GUARD REMEDY 4 OZ OINT TP SCH ×2 (08:15→22:07)
[2022-08-01] MEDS: POTASSIUM CHLORIDE 20 MEQ POWDER PACKET GT SCH ×3 (08:41→10:58)
[2022-08-01] MEDS: VITAL AF 1.2 1,000 ML BOTTLE GT PRN (12:30)
--- NOTE | 2022-08-01 13:23 | NUR ---
DR BECERRIL SEEN PT. , MADE AWARE OF PRBC STILL UNAVAILABLE AND AWARE OF INCREASED HR 120-130 RANGE. NEW ORDER OF CBC.
[2022-08-01] MEDS: ENOXAPARIN SODIUM 40 MG/0.4 ML DISP.SYRIN SQ SCH (14:00)
[2022-08-01 14:41] LABS: BASOPHILS % (AUTO) 0.3 % (0.0-2.0); EOSINOPHILS % (AUTO) 2.9 % (0.0-6.0); LYMPHOCYTES % (AUTO) 10.8 % (20.0-44.0); MEAN CORPUSCULAR HGB CONC 29 g/dl (31.0-36.0); MEAN CORPUSCULAR VOLUME 88 fL (80-96); MONOCYTES # (AUTO) 0.5 K/uL (0.1-1.30); NEUTROPHILS # (AUTO) 7.8 K/uL (1.8-8.9); PLATELET COUNT (AUTO) 490 K/uL (150-450); RED BLOOD CELL COUNT(AUTO) 2.09 MIL/uL (4.5-6.0); WHITE BLOOD COUNT (AUTO) 9.6 K/uL (4.3-11.0)
[2022-08-01 15:05] LABS: HEMATOCRIT 18 % (39-51); HEMOGLOBIN 5.4 g/dL (13.5-17.5)
--- NOTE | 2022-08-01 15:05 | NUR ---
PER [facility] DEPT. SHE WILL F/U WITH BLOOD PRBC; HGB=5.4 HCT=18 SAME FROM PREVIOUS RESULT YESTERDAY, CHARGE NURSE -MEJIA CRUZ.
[2022-08-01 17:58] LABS: EOSINOPHILS % (MANUAL) 1 % (0-4); LYMPHOCYTES % (MANUAL) 4 % (16-48); MONOCYTES % (MANUAL) 6 % (0-11.0); NEUTROPHILS % (MANUAL) 89 (42-76)
--- NOTE | 2022-08-01 19:15 | NUR ---
AUTOMOTIVE PORTER NOTES RECEIVED PATIENT ON BED, OBTUNDED, ON TRACH WITH VENT SETTING AC-20, TV- 500, FIO2- 30%, PEEP-5, SATING AT 96%. RESPIRATORY EVEN AND UNLABORED, NO SOB NOTED. WITH LEFT FEMORAL TLC, PATENT INTACT, FLUSHED WITH NS, NO S/S OF INFILTRATION NOTED. WITH IVF OF NS @ 75 ML/HR. GTUBE PATENT INTACT, VERIFIED PLACEMENT VIA AUSCULTATION, WITH 40ML OF RESIDUAL UPON ASPIRATION. RUNNING VITAL AF @ 56 ML/HR. LINDSAY CATHETER, PATENT AND INTACT DRAINING WITH CLEAR YELLOW URINE VIA GRAVITY. ALL SAFE PRECAUTION PROVIDED. BED IN LOWEST POSITION, LOCKED. CALL LIGHT WITH REACH. CONTINUE TO MONITOR
[2022-08-01] MEDS: ACETAMINOPHEN 325 MG TABLET PO PRN (19:44)
--- NOTE | 2022-08-01 20:00 | NUR ---
RN NOTES PATIENT NOTED WITH TEMP- 103F, PATIENT IS FOR BLOOD TRANFUSION, NOTIFIED RENETTA FLORIAN, WITH NEW ORDER GIVE TYLENOL 650MG, THEN RECHECKED IN TWO HRS IF PATIENT GETS BETTER CONTINUE TO TRANSFUSE, NOTED AND CARRIED OUT. APPLIED COOLING BLANKET. NOTIFIED LABS SPOKE TO VAZQUEZ, PER VAZQUEZ SHE WILL LEAVE AT 10 PM, BUT SOMEONE WILL BE THERE.
--- NOTE | 2022-08-01 20:00 | NUR ---
RN NOTES TEMP RECHECKED AND OBTAINED 101.F CONTINUE WITH COOLING MEASURE.
--- NOTE | 2022-08-01 22:00 | NUR ---
RN NOTES PATIENT STILL NOTED WITH FEVER, PER DNP CLAU FLORIAN, HOLD BLOOD TRANSFUSION UNTIL PATIENT'S TEMPERATURE NORMALIZED.
[2022-08-02] VITALS (38 sets, daily range): BP systolic 103–163; BP diastolic 56–103
[2022-08-02] MEDS: IV NS 0.9% 1,000 ML IV PRN ×2 (00:21→16:56)
[2022-08-02] MEDS: VANCOMYCIN 0.75 GM in IV D5W 250 ML IV SCH ×2 (02:55→13:00)
[2022-08-02] MEDS: ACETAMINOPHEN 325 MG TABLET PO PRN ×3 (04:34→18:01)
--- NOTE | 2022-08-02 04:35 | NUR ---
RN NOTES PATIENT NOTED WITH TEMP- 100.7 FAHRENHEIT, COOLING MEASURE PROVIDED, ACETAMINOPHEN 650 MG VIA GT GIVEN. CONTINUE TO MONITOR
[2022-08-02 04:38] LABS: BASOPHILS % (AUTO) 0.2 % (0.0-2.0); EOSINOPHILS % (AUTO) 0.5 % (0.0-6.0); LYMPHOCYTES # (AUTO) 1.7 K/uL (0.8-4.8); LYMPHOCYTES % (AUTO) 10.2 % (20.0-44.0); MEAN CORPUSCULAR HGB CONC 29 g/dl (31.0-36.0); MEAN CORPUSCULAR VOLUME 88 fL (80-96); MONOCYTES # (AUTO) 0.9 K/uL (0.1-1.30); MONOCYTES % (AUTO) 5.6 % (2.0-12.0); NEUTROPHILS # (AUTO) 13.9 K/uL (1.8-8.9); NEUTROPHILS % (AUTO) 83.5 % (43.0-81.0); PLATELET COUNT (AUTO) 499 K/uL (150-450); RED BLOOD CELL COUNT(AUTO) 2.03 MIL/uL (4.5-6.0); WHITE BLOOD COUNT (AUTO) 16.7 K/uL (4.3-11.0)
[2022-08-02 04:53] LABS: HEMATOCRIT 18 % (39-51); HEMOGLOBIN 5.2 g/dL (13.5-17.5)
--- NOTE | 2022-08-02 04:55 | NUR ---
RN NOTES RECEIVED LAB RESULT, HGB- 5.2, HCT- 18, PATIENT HAS STANDING ORDER TO TRANSFUSE 1 UNIT PRBC, UNFORTUNATELY PATIENT EXPERIENCING FEVER THROUGHOUT THE SHIFT, LATEST TEMP- 100.7 FAHRENHEIT, RENETTA FLORIAN AWARE OF THE FEVER, TRANSFUSE WHEN TEMPERATURE WNL. CONTINUE TO MONITOR.
[2022-08-02 05:02] LABS: CALCIUM, SERUM 8.6 mg/dL (8.5-10.1); CREATININE 0.7 mg/dL (0.6-1.3)
--- NOTE | 2022-08-02 05:15 | NUR ---
RN NOTES TEMPERATURE RECHECKED AND OBTAINED 101.2, CONTINUE COOLING BLANKET, CONTINUE TO MONITOR.
[2022-08-02 06:25] LABS: BAND % (MANUAL) 2 % (0.0-5.0); EOSINOPHILS % (MANUAL) 1 % (0-4); LYMPHOCYTES % (MANUAL) 10 % (16-48); MONOCYTES % (MANUAL) 4 % (0-11.0); NEUTROPHILS % (MANUAL) 83 (42-76)
--- NOTE | 2022-08-02 07:26 | NUR ---
WOUND CARE CONSULT: PT NOTED WITH COOLING BLANKET, CACHEXIA, MULTIPLE STAGE 4 PRESSURE ULCERS, PRESENT ON ADMISSION INCLUDING SACRUM, BUTTOCKS, HIPS, LEFT ANKLE, LEFT KNEE WITH SCAR NOTED TO RT ELBOW. DR HINOJOSA AND DR ROSENBERG TO BE CALLED THIS AM FOR SURGICAL AND DPM CONSULTS. PT IS ON FIRST STEP CIRRUS LOW AIRLOSS MATTRESS. DISCUSSED SKIN PROTECTION WITH NURSING STAFF. PT NOTED TO HAVE VERY LARGE TRACH OPENING WITH SECRETIONS. DIETARY CONSULT IN PLACE. MD IN AGREEMENT WITH PLAN OF CARE.
--- NOTE | 2022-08-02 07:40 | NUR ---
ICU/RN PT IS CHRONIC TRACH ON THE VENT AC MODE. HAS CHRONIC ENCEPHALOPATHY ,OPEN EYES .NOT FOLLOWS COMMAND,NOT RESPONSIVE ON PAIN STIMULATION.CONTRACTED WITH MULTIPLY WOUNDS ALL OVER THE BODY.G-TUBE FEEDING INFUSING ORDERED.F/C IN PLACE DRAINS WITH YELLOW URINE. T-102.6.TYLENOL WAS GIVEN ORDERED.LABS REVIEW. AWARE.REPOSITION FOR COMFORT.
[2022-08-02] MEDS: PROSOURCE / PROSTAT (PYXIS) 30 ML UDC GT SCH ×3 (08:51→16:57)
[2022-08-02] MEDS: PANTOPRAZOLE 40 MG/PACK PACK GT SCH (08:51)
[2022-08-02] MEDS: Z GUARD REMEDY 4 OZ OINT TP SCH ×2 (08:51→21:09)
[2022-08-02] MEDS: MEROPENEM 1 G in IV NS 0.9% 100 ML IV SCH ×2 (08:51→21:08)
--- NOTE | 2022-08-02 09:28 | NUR ---
SS consult requested over the weekend. SS will follow up at a later time.
--- NOTE | 2022-08-02 12:40 | NUR ---
Glass Checker Note CRYSTAL received a consult request for a pt. with multiple wounds. Pt. is a 52 year-old white male who came from [facility]. CRYSTAL called [facility] to speak with the wound nurse on the kind of tx the pt. receives for his wounds. CRYSTAL spoke to nurse Eduardo who reported that pt. has been in and out of the facility since November of 2021. Nurse Clark, reported that they turn him daily, and his wounds are being cleaned with saline, and foam dressings. Per nurse report, the pt. has no bed on hold.
--- NOTE | 2022-08-02 14:00 | NUR ---
ICU/RN T-102. OK PER MD GIVE BLOOD.H/H 5.2. BLOOD TRANSFUSION STARTED ORDERED.CONTINUE MONITORING.
--- NOTE | 2022-08-02 16:20 | NUR ---
ICU/RN 1 UNIT PRBC GIVEN ORDERED.NO S/S OF REACTION NOTED. T-101,1. OK TRANSFER PT TO [facility].
[2022-08-02] MEDS: VITAL AF 1.2 1,000 ML BOTTLE GT PRN (16:57)
--- NOTE | 2022-08-02 17:03 | NUR ---
PATIENT TRANSFERRED TO [facility]. HAND OFF REPORT GIVEN TO ANA ESPINO
[2022-08-02] MEDS: DAKINS QUARTER STRENGTH (0.125%) 480 ML BOTTLE TOP SCH (17:13)
--- NOTE | 2022-08-02 17:20 | NUR ---
RN NOTE RECEIVED PATIENT FROM ICU . PATIENT IS OBTUND , ON MECHANICAL VENTILATION , PATIENT HAS IV ACCESS OF THE LF TLC , NS RUNNING AT 75 ML/HR , PATIENT IS ALSO ON G TUBE FEEDING VITAL 56 ML/HR , CAME WITH ELEVATED TEMP 101 , AND COOLING BLANKET , PATIENT HAS BUE AND BLE CONTRACTED , MULTIPLE WOUNDS . TONIGHT HEMOGLOBIN WAS 5.[address] BECERRIL AWARE , ONE UNIT OF BLOOD WAS TRANSFUSED IN ICU . BED IS AT LOWE POSITION , BED SIDE RAILS ARE UP . WILL CONTINUE TO MONITOR.
--- NOTE | 2022-08-02 18:25 | NUR ---
RN CLOSING NOTE RN NOTE RECEIVED PATIENT FROM ICU . PATIENT IS OBTUND , ON MECHANICAL VENTILATION , PATIENT HAS IV ACCESS OF THE LF TLC , NS RUNNING AT 75 ML/HR , PATIENT IS ALSO ON G TUBE FEEDING VITAL 56 ML/HR , CAME WITH ELEVATED TEMP 101 , AND COOLING BLANKET , PATIENT HAS BUE AND BLE CONTRACTED , MULTIPLE WOUNDS . TONIGHT HEMOGLOBIN WAS 5.[address] BECERRIL AWARE , ONE UNIT OF BLOOD WAS TRANSFUSED IN ICU . BED IS AT LOWE POSITION , BED SIDE RAILS ARE UP . WILL ENDORSE NIGHT SBHIFT NURSE TO FALLOW POC
--- NOTE | 2022-08-02 21:53 | NUR ---
IAN RN OPENING NOTE PT RECEIVED IN BED, OBTUNDED, NON-VERBAL. PT ON SHILEY #6, AC 20, TV 500, FIO2 30%, PEEP 5; CURRENT O2SAT OF 97%; NO S/S OF RESP DISTRESS, NO SOB OR COUGH, NON-LABORED AND EQUAL BREATHING; APPERS COMFORTABLE OVERALL. PT ATTACHED TO EXTERNAL MONITOR, SR WITH HR OF 96. LINDSAY INTACT AND PATENT, DRAINING CLOUDY AND YELLOW URINE. GTD C/D/I WITH VITAL AF AT 56 ML/HR; NO RESIDUAL NOTED. LEFT FEMORAL TLC INTACT AND PATENT, FLUSHES EASILY WITH NO RESISTANCE; NS AT 75 ML/HR. BED IN LOWEST POSITION, CALL LIGHT WITHIN REACH, SIDE RAILS UP X3. WILL CONTINUE TO MONITOR THROUGHOUT THE NIGHT.
[2022-08-03] VITALS (13 sets, daily range): BP systolic 98–138; BP diastolic 55–72
[2022-08-03] MEDS: VANCOMYCIN 0.75 GM in IV D5W 250 ML IV SCH ×2 (02:58→13:53)
[2022-08-03] MEDS: ACETAMINOPHEN 325 MG TABLET PO PRN ×2 (06:05→17:18)
--- NOTE | 2022-08-03 06:05 | NUR ---
RN NOTE PT NOTED TO HAVE TEMPERATURE OF 101.2. PT ADMINISTERED TYLENOL 650 MG.
--- NOTE | 2022-08-03 07:28 | NUR ---
IAN RN CLOSING NOTE PT REMAINS IN BED, OBTUNDED, NON-VERBAL; NO CHANGES TO NEURO STATUS. REMAINS ON SAME VENT SETTINGS WITH O2SAT IN THE 90S; NO S/S OF RESP DISTRESS, NO SOB OR COUGH, NON-LABORED AND EQUAL BREATHING. PT ATTACHED TO EXTERNAL MONITOR, SR. LINDSAY INTACT AND PATENT, DRAINING CLOUDY AND YELLOW URINE. GTD C/D/I WITH VITAL AF AT 56 ML/HR. LEFT FEMORAL TLC INTACT AND PATENT, FLUSHES EASILY WITH NO RESISTANCE; NS AT 75 ML/HR. ALL DUE MEDS ADMINISTERED DURING THE NIGHT. BED IN LOWEST POSITION, CALL LIGHT WITHIN REACH, SIDE RAILS UP X3. WILL ENDORSE TO DAYSHIFT NURSE TO CONTINUE CARE.
--- NOTE | 2022-08-03 07:28 | NUR ---
IAN RN OPENING NOTE RECEIVED PATIENT IN BED, OBTUNDED, ON MECHANICAL VENT OF SHILEY # 6 WITH VENT SETTING FOLLOWS: AC 20, TV 500, FI02 30 5, PEEP 5 WITH OXYGEN SATURATION OF 99%. NO RESPIRATORY DISTRESS NOTED. ON ST ON TELE MONITOR WITH HR OF 107. PATIENT IS NON VERBAL. IV ACCESS ON LEFT FEMORAL TRIPLE LUMEN WITH IV FLUID OF NS RUNNING @ 75 ML.HR, IV SITE WITH NO S/S INFILTRATION NOTED. LINDSAY CATHETER IN PLACE, DRAINING WITH YELLOW CLOUDY COLORED URINE, NO HEMATURIA AND NO SEDIMENTATION NOTED. G-TUBE IN PLACE, NO RESIDUAL AND FLUSHES WELL. BED LOCKED AND IN LOWEST POSITION, CALL LIGHT WITHIN REACH. ALL SAFETY MEASURES IN PLACE. HOB KEPT ELEVATED TO PREVENT ASPIRATION. WILL CONTINUE TO MONITOR PATIENT THROUGHOUT THE NIGHT.
[2022-08-03 07:52] LABS: BASOPHILS # (AUTO) 0.1 K/uL (0.0-0.2); BASOPHILS % (AUTO) 0.6 % (0.0-2.0); EOSINOPHILS % (AUTO) 1.9 % (0.0-6.0); HEMATOCRIT 21 % (39-51); LYMPHOCYTES # (AUTO) 1.1 K/uL (0.8-4.8); LYMPHOCYTES % (AUTO) 10.2 % (20.0-44.0); MEAN CORPUSCULAR HGB CONC 30 g/dl (31.0-36.0); MEAN CORPUSCULAR VOLUME 89 fL (80-96); MONOCYTES # (AUTO) 0.7 K/uL (0.1-1.30); MONOCYTES % (AUTO) 6.3 % (2.0-12.0); NEUTROPHILS # (AUTO) 8.9 K/uL (1.8-8.9); PLATELET COUNT (AUTO) 386 K/uL (150-450)
[2022-08-03 07:56] LABS: BILIRUBIN,TOTAL 0.3 mg/dL (0.2-1.0); CALCIUM, SERUM 8.5 mg/dL (8.5-10.1); CREATININE 0.5 mg/dL (0.6-1.3); MAGNESIUM 1.7 mg/dL (1.8-2.4); PHOSPHORUS 2.3 mg/dL (2.5-4.9); POTASSIUM 3.5 mmol/L (3.5-5.1); TOTAL PROTEIN, SERUM 6.7 g/dL (6.4-8.2)
[2022-08-03 08:06] LABS: ALBUMIN 0.8 g/dL (3.4-5.0); HEMOGLOBIN 6.4 g/dL (13.5-17.5)
[2022-08-03] MEDS: PANTOPRAZOLE 40 MG/PACK PACK GT SCH (08:45)
[2022-08-03] MEDS: PROSOURCE / PROSTAT (PYXIS) 30 ML UDC GT SCH ×3 (08:45→16:09)
[2022-08-03] MEDS: MEROPENEM 1 G in IV NS 0.9% 100 ML IV SCH ×2 (08:46→21:13)
[2022-08-03] MEDS: Z GUARD REMEDY 4 OZ OINT TP SCH ×2 (08:48→21:14)
[2022-08-03] MEDS: DAKINS QUARTER STRENGTH (0.125%) 480 ML BOTTLE TOP SCH (08:48)
[2022-08-03] MEDS: IV NS 0.9% 1,000 ML IV PRN (09:00)
[2022-08-03] MEDS: Magnesium 1GM/D5W 100ML PREMIX 100 ML IV SCH ×2 (10:39→11:44)
[2022-08-03] MEDS ORDERED: NEUTRA PHOS 1 POWD.PACKET GT ONE (11:00)
[2022-08-03] MEDS: ALBUMIN 25% 25 GM in PREMIX 1 EA IV SCH ×2 (12:29→23:08)
[2022-08-03] MEDS: VITAL AF 1.2 1,000 ML BOTTLE GT PRN (15:32)
[2022-08-03 17:13] LABS: BAND % (MANUAL) 4 % (0.0-5.0); BASOPHILS % (MANUAL) 0 % (0.0-2.0); EOSINOPHILS % (MANUAL) 1 % (0-4); LYMPHOCYTES % (MANUAL) 14 % (16-48); MONOCYTES % (MANUAL) 5 % (0-11.0); NEUTROPHILS % (MANUAL) 76 (42-76)
--- NOTE | 2022-08-03 17:22 | NUR ---
PATIENT WAS NOTED TO HAVE REACTAL TEMP OF 102, COOLING MEASURES AND TYLENOL GIVEN ORDERED. DR. CONTI NOTIFIED LETTING HIM KNOW THAT THE BLOOD IS READY BUT THE PATIENT IS HAVING FEVER RIGHT NOW AND ORDERED TO START THE BLOOD IF THE TEMP BECOMES NORMAL.
[2022-08-03 17:49] LABS: HEMOGLOBIN 5.3 g/dL (13.5-17.5)
--- NOTE | 2022-08-03 18:01 | NUR ---
SPOKE WT DR. PATEL AND INFORMED OF REPEAT HEMOGLOBIN OF 5.3 AND HCT OF 17 ANS ORDERED TO START BLOOD SLOWLY AND ORDERED 2ND UNIT OF PRBC, CALL THE DOCTOR IF TEMP IS OVER 104, H&H ONE HOUR AFTER 2 BLOOD TRANSFUSIONS
--- NOTE | 2022-08-03 18:31 | NUR ---
STARTED PATIENT'S BLOOD TRANSFUSION OF PRBC, VERIFIED WITH CHARGE NURSE SRINIVAS HARRIS AND STARTED BLOOD TRANSFUSION SLOW PER MD'S ORDER. V/S RECORDED ON TRANSFUSION LOG. WILL CONTINUE TO MONITOR PATIENT
--- NOTE | 2022-08-03 18:45 | NUR ---
NO IMMEDIATE REACTION NOTED ON THE PATIENT DURING THE FIRST 15 MINUTES OF TRANSFUSION. TEMP IS 102 RECTALLY. WILL CONTINUE TO MONITOR PATIENT.
--- NOTE | 2022-08-03 19:30 | NUR ---
BOXING INSTRUCTOR CLOSING NOTES: PATIENT IN BED, OBTUNDED, WITH MECHANICAL VENT ORDERED. BLOOD TRANSFUSION BEING ADMINISTERED VIA TLC ON LEFT FEMORAL, NO IMMEDIATE REACTION NOTED. VS FOLLOWS: BP 131/68, PULSE 97, RR 37, TEMP 101.8 VIA RECTAL PROBE, OXYGEN SATURATION OF 100%. WILL ENDORSE TO NEXT SHIFT NURSE FOR CONTINUITY OF CARE. ALL SAFETY MEASURES IN PLACE.
--- NOTE | 2022-08-03 19:40 | NUR ---
RN OPENING NOTES RECEIVED PATIENT IN BED, OBTUNDED, ON TRACH TO [facility] VENT SETTING: S#6, AC 20, TV 500, FI02 30 5, PEEP 5. PT TOLERATED WELL. NON VERBAL. IV ACCESS ON LEFT FEMORAL TRIPLE LUMEN INTACT AND PATENT. NS RUNNING @ 75 ML/HR, ON GOING BLOOD TRANSFUSION. G-TUBE FEEDING WELL TOLERATED. RUNNING VITAL AF@56CC/HR. NO RESIDUAL NOTED. LINDSAY CATHETER IN PLACE, DRAINING WITH YELLOWISH/CLOUDY URINE. ALL SAFETY MEASURES IN PLACE. BED IN LOWEST POSITION AND LOCKED, PLACE CALL LIGHT WITHIN REACH. WILL CONTINUE TO MONITOR
--- NOTE | 2022-08-03 22:20 | NUR ---
RN NOTES: 1 UNITS OF PRBC TRANSFUSION COMPLETED. NO ADVERSE REACTIONS NOTED. PT AFEBRILE. VITAL SIGN STABLE. CALLED BLOOD BANK TWICE FOR ANOTHER UNIT OF BLOOD AND TALKED TO INDY. MENTIONED, BLOOD IS NOT READY, HAVE TO CALL BACK AFTER 1 HOUR. WILL CONTINUE TO MONITOR
[2022-08-04] VITALS (12 sets, daily range): BP systolic 91–134; BP diastolic 56–75
--- NOTE | 2022-08-04 00:30 | NUR ---
0030 called blood bank to follow up on PRBC order, not ready yet.
[2022-08-04] MEDS: VANCOMYCIN 0.75 GM in IV D5W 250 ML IV SCH ×2 (01:05→14:54)
--- NOTE | 2022-08-04 04:01 | NUR ---
RN NOTES: BLOOD BANK CALLED AND TALKED TO DORINA. MENTIONED STILL NEED TIME TO PREPARE BLOOD. WILL CALL WHEN BLOOD IS READY.
[2022-08-04] MEDS: ACETAMINOPHEN 325 MG TABLET PO PRN (04:58)
--- NOTE | 2022-08-04 05:06 | NUR ---
RN NOTES: PT'S TEMP INCREASED TO 102.1. TYLENOL 325 MG 2 TABS GIVEN, APPLIED COOLING MEASURES. WILL CONTINUE TO MONITOR
[2022-08-04 05:41] LABS: BASOPHILS % (AUTO) 0.2 % (0.0-2.0); EOSINOPHILS % (AUTO) 2.6 % (0.0-6.0); LYMPHOCYTES # (AUTO) 1.3 K/uL (0.8-4.8); LYMPHOCYTES % (AUTO) 9.4 % (20.0-44.0); MEAN CORPUSCULAR HGB CONC 31 g/dl (31.0-36.0); MEAN CORPUSCULAR VOLUME 87 fL (80-96); MONOCYTES # (AUTO) 0.5 K/uL (0.1-1.30); MONOCYTES % (AUTO) 3.4 % (2.0-12.0); NEUTROPHILS # (AUTO) 11.3 K/uL (1.8-8.9); NEUTROPHILS % (AUTO) 84.4 % (43.0-81.0); PLATELET COUNT (AUTO) 372 K/uL (150-450); RED BLOOD CELL COUNT(AUTO) 2.32 MIL/uL (4.5-6.0); WHITE BLOOD COUNT (AUTO) 13.4 K/uL (4.3-11.0)
[2022-08-04 06:07] LABS: HEMATOCRIT 20 % (39-51); HEMOGLOBIN 6.2 g/dL (13.5-17.5)
[2022-08-04 06:08] LABS: CALCIUM, SERUM 8.3 mg/dL (8.5-10.1); CREATININE 0.6 mg/dL (0.6-1.3); MAGNESIUM 1.9 mg/dL (1.8-2.4); PHOSPHORUS 1.8 mg/dL (2.5-4.9); POTASSIUM 3.3 mmol/L (3.5-5.1)
--- NOTE | 2022-08-04 06:19 | NUR ---
RN NOTES: RECEIVED PT'S BLOOD CULTURE- AEROBIC GRAM POSITIVE COCCI. NOTIFIED LUIS F JOHNSON. RECEIVED PT'S HGB-7.0 AND HCT-24.
--- NOTE | 2022-08-04 06:37 | NUR ---
RN NOTES: BLOOD BANK CALLED, BLOOD IS READY. ENDORSE TO MORNING SHIFT RN
[2022-08-04 06:42] LABS: BILIRUBIN,DIRECT 0.2 mg/dL (0.0-0.2); BILIRUBIN,TOTAL 0.5 mg/dL (0.2-1.0); TOTAL PROTEIN, SERUM 6.7 g/dL (6.4-8.2)
[2022-08-04 06:48] LABS: ALBUMIN 1.4 g/dL (3.4-5.0)
--- NOTE | 2022-08-04 07:54 | NUR ---
RN OPEN NOTE RECEIVED PATIENT IN BED, OBTUNDED, ON TRACH TO [facility] VENT SETTING: S#6, AC 20, TV 500, FI02 30 5, PEEP 5. PT TOLERATED WELL. NON VERBAL.O2 SAT 100%, IV ACCESS ON LEFT FEMORAL TRIPLE LUMEN INTACT AND PATENT. NS RUNNING @ 75 ML/HR, -TUBE FEEDING WELL TOLERATED. RUNNING VITAL AF@56CC/HR. NO RESIDUAL NOTED. LINDSAY CATHETER IN PLACE, DRAINING WITH YELLOWISH/CLOUDY URINE.ORDER FOR BLOOD TRANSFUSION RECEIVED , WAITING FOR DR FINNEY TO CONFIRM BECAUSE PATIENT HAS TEMP 101.6 ALL SAFETY MEASURES IN PLACE. BED IN LOWEST POSITION AND LOCKED, PLACE CALL LIGHT WITHIN REACH. WILL CONTINUE TO MONITOR
[2022-08-04] MEDS: PANTOPRAZOLE 40 MG/PACK PACK GT SCH (08:08)
[2022-08-04] MEDS: DAKINS QUARTER STRENGTH (0.125%) 480 ML BOTTLE TOP SCH (08:08)
[2022-08-04] MEDS: Z GUARD REMEDY 4 OZ OINT TP SCH ×2 (08:08→21:00)
[2022-08-04] MEDS: PROSOURCE / PROSTAT (PYXIS) 30 ML UDC GT SCH ×3 (08:09→18:45)
[2022-08-04] MEDS: MEROPENEM 1 G in IV NS 0.9% 100 ML IV SCH ×3 (08:09→23:09)
[2022-08-04] MEDS: ALBUMIN 25% 25 GM in PREMIX 1 EA IV SCH ×2 (11:06→22:26)
[2022-08-04] MEDS: IV NS 0.9% 1,000 ML IV PRN (11:25)
[2022-08-04] MEDS ORDERED: POTASSIUM CHLORIDE 20 MEQ POWDER PACKET GT ONE (12:00)
[2022-08-04] MEDS ORDERED: NEUTRA PHOS 1 POWD.PACKET GT ONE (12:00)
--- NOTE | 2022-08-04 16:00 | NUR ---
RN NOTE KATT WASENT UNFUSED DUE TO PATIENT STARTED BLOOD TRANSFUSION
--- NOTE | 2022-08-04 16:41 | NUR ---
PATIENT STILL WAITING FOR MIDLINE,BLOOD AVAILABLE NOW,LOW H/H ,TRIPLE LUMEN CENTRAL LINE GROIN CLEANED AND CHANGED CAPPED,WILL GIVE BLOOD ORDERED,PT. PALE,HR SR 90 [id number].WILL GIVE BLOOD ORDERED.
[2022-08-04 17:03] LABS: HEMOGLOBIN 6.7 g/dL (13.5-17.5)
--- NOTE | 2022-08-04 17:58 | NUR ---
PER LUCRECIA RUSHING OK TO KEEP PT. IAN AND DC PRESSOR .
--- NOTE | 2022-08-04 18:54 | NUR ---
RN CLOSE NOTE PATIENT IN BED, OBTUNDED, ON TRACH TO [facility] VENT SETTING: S#6, AC 20, TV 500, FI02 30 5, PEEP 5. PT TOLERATED WELL. NON VERBAL.O2 SAT 95%, IV ACCESS ON ALICE MIDLINE ,BLOOD TRANSFUSION ONE UNIT STARTED AT 1602 AT 80 ML/HR SINCE 1700 RUNNING AT 100 ML/HR STILL RUNNING . GTUBE VITAL AF@56CC/HR. NO RESIDUAL NOTED. LINDSAY CATHETER IN PLACE, DRAINING WITH YELLOWISH/CLOUDY URINE. SAFETY MEASURES IN PLACE. BED IN LOWEST POSITION AND LOCKED, PLACE CALL LIGHT WITHIN REACH. WILL ENDORSE ACCOUNTING PROFESSOR NURSE TO MONITOR AND TO FALLOW POC
--- NOTE | 2022-08-04 19:45 | NUR ---
IAN RN OPENING NOTE RECEIVED PATIENT IN BED, OBTUNDED, ON TRACH TO [facility] VENT SETTING: S#6, AC 20, TV 500, FI02 30 5, PEEP 5. PT TOLERATED WELL. NON VERBAL. O2 SAT 95%, IV ACCESS ON ALICE MIDLINE, WITH BLOOD TRANSFUSION RUNNING AT 100 ML/HR. WITH GTUBE VITAL AF @56CC/HR. NO RESIDUAL NOTED. LINDSAY CATHETER IN PLACE, DRAINING WITH YELLOWISH/CLOUDY URINE. SAFETY MEASURES IN PLACE. BED IN LOWEST POSITION AND LOCKED, PLACE CALL LIGHT WITHIN REACH. WILL CONTINUE TO MONITOR THROUGHOUT THE SHIFT.
--- NOTE | 2022-08-04 21:00 | NUR ---
RN NOTE BLOOD TRANSFUSION ENDED AT THIS TIME, V/S TAKEN AND RECORDED, PT TOLERATED WELL WITH NO S/SX OF ADVERSE REACTION NOTED. WILL CONT TO MONITOR.
[2022-08-04 21:39] LABS: EOSINOPHILS % (MANUAL) 2 % (0-4); LYMPHOCYTES % (MANUAL) 12 % (16-48); NEUTROPHILS % (MANUAL) 86 (42-76)
[2022-08-04] MEDS: VITAL AF 1.2 1,000 ML BOTTLE GT PRN (23:12)
[2022-08-05] VITALS: BP 114/69
[2022-08-05] MEDS: VANCOMYCIN 0.75 GM in IV D5W 250 ML IV SCH (01:24)
[2022-08-05 04:00] VITALS: BP 106/45
[2022-08-05 04:26] LABS: CALCIUM, SERUM 8.7 mg/dL (8.5-10.1); CREATININE 0.5 mg/dL (0.6-1.3); PHOSPHORUS 2.2 mg/dL (2.5-4.9); POTASSIUM 3.4 mmol/L (3.5-5.1)
[2022-08-05 04:29] LABS: ALBUMIN 1.8 g/dL (3.4-5.0); BILIRUBIN,DIRECT 0.3 mg/dL (0.0-0.2); BILIRUBIN,TOTAL 0.8 mg/dL (0.2-1.0); TOTAL PROTEIN, SERUM 6.7 g/dL (6.4-8.2)
--- NOTE | 2022-08-05 05:40 | NUR ---
RN NOTE CRITICAL LAB VALUE HGB AT 7.0 AFTER 1 PRBC. WARRANT CLERK LUIS F MADE AWARE AWAITING FOR RESPONSE.
--- NOTE | 2022-08-05 06:48 | NUR ---
IAN RN CLOSING NOTE PATIENT IN BED, OBTUNDED, ON TRACH TO [facility] VENT SETTING: S#6, AC 20, TV 500, FI02 30 5, PEEP 5. PT TOLERATED WELL. NON VERBAL. O2 SAT 99%, IV ACCESS ON ALICE MIDLINE WITH NS RUNNING AT 75 ML/HR. WITH GTUBE VITAL AF @ 56CC/HR. NO RESIDUAL NOTED. STILL WITH COOLING BLANKET IN PLACE TO MAINTAIN TEMPERATURE WNL. LINDSAY CATHETER IN PLACE, DRAINING WITH YELLOWISH/CLOUDY URINE. ALL DUE MEDS GIVEN, KPT DRY AND CLEAN, SAFETY MEASURES IN PLACE. BED IN LOWEST POSITION AND LOCKED, PLACE CALL LIGHT WITHIN REACH. WILL ENDORSE TO AM SHIFT NURSE FOR CONTINUITY OF CARE.
[2022-08-05] MEDS: MEROPENEM 1 G in IV NS 0.9% 100 ML IV SCH (07:17)
--- NOTE | 2022-08-05 07:46 | NUR ---
RN OPENING NOTE PATIENT IN BED, OBTUNDED, ON TRACH TO [facility] VENT SETTING: S#6, AC 20, TV 500, FI02 30 5, PEEP 5. PT TOLERATED WELL. NON VERBAL. O2 SAT 99%, IV ACCESS ON ALICE MIDLINE WITH NS RUNNING AT 75 ML/HR. WITH GTUBE VITAL AF @ 56CC/HR. NO RESIDUAL NOTED. STILL WITH COOLING BLANKET IN PLACE TO MAINTAIN TEMPERATURE WNL. LINDSAY CATHETER IN PLACE, DRAINING WITH YELLOWISH/CLOUDY URINE. SAFETY MEASURES IN PLACE. BED IN LOWEST POSITION AND LOCKED, PLACE CALL LIGHT WITHIN REACH. WILL CONT. TO MONITOR THROUGHOUT SHIFT.
[2022-08-05 08:00] VITALS: BP 112/52
[2022-08-05] MEDS: PANTOPRAZOLE 40 MG/PACK PACK GT SCH (08:13)
[2022-08-05] MEDS: DAKINS QUARTER STRENGTH (0.125%) 480 ML BOTTLE TOP SCH (08:13)
[2022-08-05] MEDS: Z GUARD REMEDY 4 OZ OINT TP SCH ×2 (08:13→21:25)
[2022-08-05] MEDS: PROSOURCE / PROSTAT (PYXIS) 30 ML UDC GT SCH ×3 (08:13→16:06)
[2022-08-05] MEDS ORDERED: POTASSIUM CHLORIDE 20 MEQ POWDER PACKET GT SCH (11:00)
[2022-08-05] MEDS ORDERED: NEUTRA PHOS 1 POWD.PACKET GT ONE (11:00)
[2022-08-05 11:29] LABS: NEUTROPHILS # (AUTO) 5.4 K/uL (1.8-8.9); WHITE BLOOD COUNT (AUTO) 7.4 K/uL (4.3-11.0)
[2022-08-05] MEDS ORDERED: LOPERAMIDE HCL (2 MG CAP) 2 MG CAPSULE GT PRN (11:30)
[2022-08-05 11:36] LABS: BASOPHILS % (AUTO) 0.4 % (0.0-2.0); EOSINOPHILS % (AUTO) 9.1 % (0.0-6.0); HEMATOCRIT 24 % (39-51); HEMOGLOBIN 7.3 g/dL (13.5-17.5); LYMPHOCYTES % (AUTO) 12.9 % (20.0-44.0); MEAN CORPUSCULAR HGB CONC 31 g/dl (31.0-36.0); MEAN CORPUSCULAR VOLUME 88 fL (80-96); MONOCYTES # (AUTO) 0.3 K/uL (0.1-1.30); MONOCYTES % (AUTO) 4.7 % (2.0-12.0); NEUTROPHILS % (AUTO) 72.9 % (43.0-81.0); PLATELET COUNT (AUTO) 347 K/uL (150-450)
[2022-08-05 11:58] LABS: CALCIUM, SERUM 8.6 mg/dL (8.5-10.1); CREATININE 0.5 mg/dL (0.6-1.3); POTASSIUM 3.5 mmol/L (3.5-5.1)
[2022-08-05 12:00] VITALS: BP 113/57
[2022-08-05] MEDS ORDERED: LOPERAMIDE HCL UDC 2 MG/15 ML LIQUID GT PRN (12:00)
[2022-08-05 12:04] LABS: ALBUMIN 1.6 g/dL (3.4-5.0); BILIRUBIN,TOTAL 0.6 mg/dL (0.2-1.0); TOTAL PROTEIN, SERUM 6.6 g/dL (6.4-8.2)
[2022-08-05] MEDS: BACLOFEN (10 MG) 10 MG TABLET GT SCH ×2 (12:30→16:05)
[2022-08-05] MEDS: VALPROIC ACID 250 MG/5 ML UDC GT SCH ×2 (12:30→21:21)
[2022-08-05] MEDS: ALBUTEROL FS 2.5 MG/3 ML VIAL.NEB NEB SCH ×2 (14:19→20:58)
[2022-08-05 16:00] VITALS: BP 113/57
[2022-08-05] MEDS: CHLORHEXIDINE GLUCONATE 15 ML UDC MM SCH (16:05)
[2022-08-05] MEDS: IV NS 0.9% 1,000 ML IV PRN (16:14)
[2022-08-05] MEDS: ACETAMINOPHEN 325 MG TABLET PO PRN (16:20)
[2022-08-05 16:33] LABS: HEMOGLOBIN 7.6 g/dL (13.5-17.5)
--- NOTE | 2022-08-05 18:35 | NUR ---
RN CLOSING NOTE PATIENT IN BED, RESTLESS, OBTUNDED, ON ORDERED TRACH TO [facility] VENT SETTINGS. NON VERBAL. O2 SAT 99%, IV ACCESS ON ALICE MIDLINE WITH NS RUNNING AT 75 ML/HR. WITH GTUBE VITAL AF @ 56CC/HR. NO RESIDUAL NOTED. STILL WITH COOLING BLANKET IN PLACE TO MAINTAIN TEMPERATURE WNL. LATEST TEMP 99.9. LINDSYA CATHETER IN PLACE, DRAINING WITH YELLOWISH/CLOUDY URINE. SAFETY MEASURES IN PLACE. BED IN LOWEST POSITION AND LOCKED, PLACE CALL LIGHT WITHIN REACH. WILL ENDORSE TO MASTER CONTROL TECHNICIAN RN FOR JELANI.
[2022-08-05 20:00] VITALS: BP 125/62
[2022-08-05 21:18] LABS: EOSINOPHILS % (MANUAL) 5 % (0-4); LYMPHOCYTES % (MANUAL) 10 % (16-48); MONOCYTES % (MANUAL) 7 % (0-11.0); NEUTROPHILS % (MANUAL) 78 (42-76)
[2022-08-05] MEDS: COLISTIMETHATE SODIUM 75 MG in IV NS 0.9% 50 ML IV SCH (21:20)
[2022-08-05] MEDS: LEVETIRACETAM SOL (5 ML) 100 MG/ML UDC GT SCH (21:21)
[2022-08-05] MEDS: METRONIDAZOLE 500MG/ NS 100ML 500 MG in PREMIX 1 EA IV SCH (22:00)
[2022-08-05] MEDS: LINEZOLID RTU BAG 600 MG in PREMIX 1 EA IV SCH (22:14)
--- NOTE | 2022-08-05 22:45 | NUR ---
RN NOTE UNABLE TO ASSES PT'S ORIENTATION DUE TO OBTUNDED AND NONVERBAL. RESPIRATIONS EVEN AND UNLABORED ON VENT. PT'S TEMP OF 99.1. SKIN IS PALE. COOLING MEASURES AND SAFETY PRECAUTIONS IN PLACE.
[2022-08-06] VITALS: BP 120/77
[2022-08-06] MEDS: ACETAMINOPHEN 325 MG TABLET PO PRN (00:44)
[2022-08-06] MEDS: ALBUTEROL FS 2.5 MG/3 ML VIAL.NEB NEB SCH ×4 (02:03→20:25)
[2022-08-06 04:00] VITALS: BP 117/61
--- NOTE | 2022-08-06 04:31 | NUR ---
RT pt received on current vent settings. vent plugged in to red outlet. alarms on and audible. trach secure and patent. ambu bag at bedside. spare trach at bedside. shift uneventful.
[2022-08-06] MEDS: METRONIDAZOLE 500MG/ NS 100ML 500 MG in PREMIX 1 EA IV SCH ×3 (05:44→21:47)
[2022-08-06] MEDS: VALPROIC ACID 250 MG/5 ML UDC GT SCH ×3 (05:44→21:37)
[2022-08-06] MEDS: VITAL AF 1.2 1,000 ML BOTTLE GT PRN (05:51)
[2022-08-06] MEDS: DIAZEPAM 5 MG TABLET GT PRN (06:06)
--- NOTE | 2022-08-06 07:10 | NUR ---
RN NOTE RECEIVED PT ON BED, OBTUNDED, ON TRACH TO [facility] VENT SETTING: S#6, AC 20, TV 500, FI02 %30 PEEP 5. PT TOLERATING VENT SETTING WELL. NON VERBAL. ON TELE SR HR IN 80'S , O2 SAT WNL, IV ACCESS ON ALICE MIDLINE WITH NS RUNNING AT 75 ML/HR. WITH GTUBE VITAL AF @ 56CC/HR. NO RESIDUAL NOTED. LINDSAY CATHETER IN PLACE, DRAINING WITH YELLOWISH/CLOUDY URINE. SAFETY MEASURES IN PLACE. BED IN LOWEST POSITION AND LOCKED, PLACE CALL LIGHT WITHIN REACH. WILL CONTINUE TO MONITOR
[2022-08-06 07:41] LABS: BASOPHILS % (AUTO) 0.5 % (0.0-2.0); HEMATOCRIT 23 % (39-51); HEMOGLOBIN 7.4 g/dL (13.5-17.5); LYMPHOCYTES # (AUTO) 0.9 K/uL (0.8-4.8); LYMPHOCYTES % (AUTO) 11.5 % (20.0-44.0); MEAN CORPUSCULAR HGB CONC 31 g/dl (31.0-36.0); MEAN CORPUSCULAR VOLUME 87 fL (80-96); MONOCYTES # (AUTO) 0.4 K/uL (0.1-1.30); MONOCYTES % (AUTO) 4.5 % (2.0-12.0); NEUTROPHILS # (AUTO) 5.8 K/uL (1.8-8.9); NEUTROPHILS % (AUTO) 73.5 % (43.0-81.0); PLATELET COUNT (AUTO) 368 K/uL (150-450); RED BLOOD CELL COUNT(AUTO) 2.68 MIL/uL (4.5-6.0); WHITE BLOOD COUNT (AUTO) 7.9 K/uL (4.3-11.0)
[2022-08-06 08:00] VITALS: BP 118/63
[2022-08-06] MEDS: MULTIVIT W/MINERALS 1 TAB TABLET GT SCH (08:55)
[2022-08-06] MEDS: PANTOPRAZOLE 40 MG/PACK PACK GT SCH (08:55)
[2022-08-06] MEDS: CHLORHEXIDINE GLUCONATE 15 ML UDC MM SCH ×2 (08:55→16:19)
[2022-08-06] MEDS: LEVETIRACETAM SOL (5 ML) 100 MG/ML UDC GT SCH ×2 (08:55→21:37)
[2022-08-06] MEDS: ZINC SULFATE 220 MG CAPSULE GT SCH (08:55)
[2022-08-06] MEDS: COLISTIMETHATE SODIUM 75 MG in IV NS 0.9% 50 ML IV SCH ×2 (08:56→21:37)
[2022-08-06] MEDS: BACLOFEN (10 MG) 10 MG TABLET GT SCH ×3 (08:58→16:19)
[2022-08-06] MEDS: Z GUARD REMEDY 4 OZ OINT TP SCH ×2 (08:59→21:43)
[2022-08-06] MEDS: DAKINS QUARTER STRENGTH (0.125%) 480 ML BOTTLE TOP SCH (08:59)
[2022-08-06] MEDS: PROSOURCE / PROSTAT (PYXIS) 30 ML UDC GT SCH ×3 (08:59→16:19)
[2022-08-06 09:33] LABS: ALBUMIN 1.6 g/dL (3.4-5.0); BILIRUBIN,TOTAL 0.4 mg/dL (0.2-1.0); CALCIUM, SERUM 8.6 mg/dL (8.5-10.1); CREATININE 0.4 mg/dL (0.6-1.3); POTASSIUM 3.4 mmol/L (3.5-5.1); TOTAL PROTEIN, SERUM 6.9 g/dL (6.4-8.2)
[2022-08-06] MEDS: LINEZOLID RTU BAG 600 MG in PREMIX 1 EA IV SCH ×2 (09:35→22:07)
[2022-08-06] MEDS: IV NS 0.9% 1,000 ML IV PRN (11:02)
[2022-08-06 11:19] LABS: ALBUMIN 1.5 g/dL (3.4-5.0); BILIRUBIN,DIRECT 0.1 mg/dL (0.0-0.2); BILIRUBIN,TOTAL 0.4 mg/dL (0.2-1.0); TOTAL PROTEIN, SERUM 6.9 g/dL (6.4-8.2)
[2022-08-06 12:00] VITALS: BP 106/50
[2022-08-06] MEDS: EPOETIN ALFA-EPBX 4,000 UNIT/ML VIAL SQ SCH (14:14)
[2022-08-06 16:05] VITALS: BP 113/57
--- NOTE | 2022-08-06 18:24 | NUR ---
RN NOTE Patient rested well in bed, non-verbal and obtunded. On MV via trach S#6, AC 20, TV 500, FI02 %30 PEEP 5, SpO2 WNL throughout the shift. On Telemetry, SR, HR IN 80'S. NS running at 75mL/hr via ALICE midline. Continuous feeding via PEG vital AF @ 56mL/hr. Patient tolerated well without diarrhea noted. Richey catheter in place draining yellowish and clear urine. Safety measures were in place, bed placed in lowest position and locked. Placed call light within reach. Continue to monitor.
[2022-08-06 20:00] VITALS: BP 99/60
--- NOTE | 2022-08-06 20:00 | NUR ---
RN OPENING NOTE PT FOUND IN L LATERAL POSITION AND OBTUNDED. PT'S SKIN IS PALE AND WARM. RESPIRATIONS EVEN AND UNLABORED ON VENT. G TUBE FEEDING IN PROGRESS. NO ACUTE SIGNS OF DISTRESS. SAFETY PRECAUTIONS IN PLACE.
[2022-08-06] MEDS: Z GUARD REMEDY 4 OZ OINT TP PRN (21:41)
[2022-08-07] VITALS: BP 101/63
--- NOTE | 2022-08-07 00:30 | NUR ---
RN NOTE Patient having watery diarrhea since yesterday, Dr Landrum was notified, orders received for cdiff assay and to initiate rectal tube. Sample was collected and sent to lab.
[2022-08-07] MEDS: ALBUTEROL FS 2.5 MG/3 ML VIAL.NEB NEB SCH ×4 (01:42→20:01)
[2022-08-07 04:00] VITALS: BP 128/60
[2022-08-07] MEDS: METRONIDAZOLE 500MG/ NS 100ML 500 MG in PREMIX 1 EA IV SCH ×3 (04:44→21:28)
[2022-08-07] MEDS: VALPROIC ACID 250 MG/5 ML UDC GT SCH ×3 (04:44→21:27)
[2022-08-07 07:03] LABS: BASOPHILS % (AUTO) 0.3 % (0.0-2.0); EOSINOPHILS % (AUTO) 6.7 % (0.0-6.0); HEMATOCRIT 24 % (39-51); HEMOGLOBIN 7.4 g/dL (13.5-17.5); LYMPHOCYTES # (AUTO) 0.9 K/uL (0.8-4.8); LYMPHOCYTES % (AUTO) 10.4 % (20.0-44.0); MEAN CORPUSCULAR HGB CONC 32 g/dl (31.0-36.0); MEAN CORPUSCULAR VOLUME 88 fL (80-96); MONOCYTES # (AUTO) 0.2 K/uL (0.1-1.30); MONOCYTES % (AUTO) 2.7 % (2.0-12.0); NEUTROPHILS # (AUTO) 7.1 K/uL (1.8-8.9); NEUTROPHILS % (AUTO) 79.9 % (43.0-81.0); PLATELET COUNT (AUTO) 364 K/uL (150-450); RED BLOOD CELL COUNT(AUTO) 2.66 MIL/uL (4.5-6.0); WHITE BLOOD COUNT (AUTO) 8.9 K/uL (4.3-11.0)
--- NOTE | 2022-08-07 07:30 | NUR ---
RN OPENING NOTE RECEIVED PT ON BED, OBTUNDED, ON TRACH TO [facility] VENT SETTING: S#6, AC 20, TV 500, FI02 %30 PEEP 5. PT TOLERATING VENT SETTING WELL. NON VERBAL. ON TELE SR HR IN 80'S , O2 SAT 100%, IV ACCESS ON ALICE MIDLINE WITH NS RUNNING AT 75 ML/HR. WITH GTUBE VITAL AF @ 56CC/HR. NO RESIDUAL NOTED. LINDSAY CATHETER IN PLACE, DRAINING WITH YELLOW, CLEAR URINE. SAFETY MEASURES IN PLACE. BED IN LOWEST POSITION AND LOCKED, PLACE CALL LIGHT WITHIN REACH. WILL CONTINUE TO MONITOR
[2022-08-07 07:31] LABS: BILIRUBIN,DIRECT 0.1 mg/dL (0.0-0.2); BILIRUBIN,TOTAL 0.3 mg/dL (0.2-1.0); CALCIUM, SERUM 8.5 mg/dL (8.5-10.1); CREATININE 0.5 mg/dL (0.6-1.3); TOTAL PROTEIN, SERUM 6.7 g/dL (6.4-8.2)
[2022-08-07 07:40] LABS: ALBUMIN 1.4 g/dL (3.4-5.0)
[2022-08-07 08:00] VITALS: BP 99/55
[2022-08-07] MEDS: IV NS 0.9% 1,000 ML IV PRN (08:10)
[2022-08-07] MEDS: VITAL AF 1.2 1,000 ML BOTTLE GT PRN (08:53)
[2022-08-07] MEDS: CHLORHEXIDINE GLUCONATE 15 ML UDC MM SCH ×2 (08:54→16:30)
[2022-08-07] MEDS: ZINC SULFATE 220 MG CAPSULE GT SCH (08:54)
[2022-08-07] MEDS: LEVETIRACETAM SOL (5 ML) 100 MG/ML UDC GT SCH ×2 (08:54→21:28)
[2022-08-07] MEDS: BACLOFEN (10 MG) 10 MG TABLET GT SCH ×3 (08:55→16:30)
[2022-08-07] MEDS: PANTOPRAZOLE 40 MG/PACK PACK GT SCH (08:55)
[2022-08-07] MEDS: PROSOURCE / PROSTAT (PYXIS) 30 ML UDC GT SCH ×3 (08:55→16:30)
[2022-08-07] MEDS: MULTIVIT W/MINERALS 1 TAB TABLET GT SCH (08:55)
[2022-08-07] MEDS: LINEZOLID RTU BAG 600 MG in PREMIX 1 EA IV SCH ×2 (09:01→22:25)
[2022-08-07] MEDS: POTASSIUM CL. PREMIX PERIPHER. 50 ML IV SCH ×8 (09:08→16:30)
[2022-08-07] MEDS: Z GUARD REMEDY 4 OZ OINT TP SCH ×2 (09:09→21:57)
[2022-08-07] MEDS: DAKINS QUARTER STRENGTH (0.125%) 480 ML BOTTLE TOP SCH (09:09)
--- NOTE | 2022-08-07 09:30 | NUR ---
RN NOTES DUE MEDS GIVEN
[2022-08-07] MEDS: COLISTIMETHATE SODIUM 75 MG in IV NS 0.9% 50 ML IV SCH ×2 (10:10→21:28)
[2022-08-07 12:00] VITALS: BP 104/66
[2022-08-07 16:00] VITALS: BP 105/55
--- NOTE | 2022-08-07 18:30 | NUR ---
GLASS CARRIER CLOSING NOTE PT IN BED, OBTUNDED, ON TRACH TO [facility] VENT SETTING: S#6, AC 20, TV 500, FI02 %30 PEEP 5. PT TOLERATING VENT SETTING WELL. NON VERBAL. ON TELE SR HR IN 80'S , O2 SAT 100%, IV ACCESS ON ALICE MIDLINE WITH NS RUNNING AT 75 ML/HR. LEFT FA G22 NS KVO, SITE CLEAR. WITH GTUBE VITAL AF @ 56CC/HR. NO RESIDUAL NOTED. LINDSAY CATHETER IN PLACE, DRAINING WITH YELLOW, CLEAR URINE. WITH 900 ML OUTPUT. FLEXISEAL IN PLACE WITH 500 ML OUTPUT. PM CARE AND PRESCRIBED WOUND TREATMENT DONE EALIER. TURNED AND REPOSITIONED Q [address]RS[address] SAFETY MEASURES IN PLACE. BED IN LOWEST POSITION AND LOCKED, PLACE CALL LIGHT WITHIN REACH. ALL NEEDS MET AT THIS TIME. WILL ENDORSE TO NEXT SHIFT FOR JELANI.
--- NOTE | 2022-08-07 19:30 | NUR ---
RN NOTE PATIENT IN BED, OBTUNDED, ON SHILEY#6 TO MECHANICAL VENT WITH PRESCRIBED SETTINGS, SATURATION AT 93%, SR ON THE MONITOR, HR IS 95. ALICE MIDLINE AND LFA 22G PATENT AND FLUSHING WELL, WITH NS INFUSING AT 75 ML/HR. GTUBE IN PLACE, POSITIVE PLACEMENT NOTED, NO RESIDUAL, WITH TUBE FEEDING OF VITAL AF AT 56 ML/HR. LINDSAY CATHETER DRAINING TO A CLEAR, YELLOW OUTPUT. FLEXISEAL DRAINING TO GRAVITY. SAFETY MEASURES IN PLACE, HOB KEPT ELEVATED. WILL CONT TO MONITOR AND REASSESS.
[2022-08-07 20:00] VITALS: BP 91/43
[2022-08-07] MEDS: Z GUARD REMEDY 4 OZ OINT TP PRN (21:29)
[2022-08-07] MEDS: ACETAMINOPHEN 325 MG TABLET PO PRN (23:35)
[2022-08-08] VITALS: BP 120/67
[2022-08-08] MEDS: ALBUTEROL FS 2.5 MG/3 ML VIAL.NEB NEB SCH ×4 (02:13→20:12)
[2022-08-08 04:00] VITALS: BP 130/73
[2022-08-08] MEDS: METRONIDAZOLE 500MG/ NS 100ML 500 MG in PREMIX 1 EA IV SCH ×3 (05:48→20:23)
[2022-08-08] MEDS: VALPROIC ACID 250 MG/5 ML UDC GT SCH ×3 (05:48→20:23)
[2022-08-08] MEDS: IV NS 0.9% 1,000 ML IV PRN ×2 (05:52→16:37)
[2022-08-08 07:03] LABS: BILIRUBIN,DIRECT 0.1 mg/dL (0.0-0.2); BILIRUBIN,TOTAL 0.3 mg/dL (0.2-1.0); CALCIUM, SERUM 8.6 mg/dL (8.5-10.1); CREATININE 0.5 mg/dL (0.6-1.3); POTASSIUM 3.9 mmol/L (3.5-5.1); TOTAL PROTEIN, SERUM 6.9 g/dL (6.4-8.2)
[2022-08-08 07:08] LABS: ALBUMIN 1.4 g/dL (3.4-5.0)
[2022-08-08 08:00] VITALS: BP 99/44
--- NOTE | 2022-08-08 08:00 | NUR ---
MD ALLERGY IMMUNOLOGY NOTE RECEIVED PATIENT IN BED, OBTUNDED. ON VENT TO TRACH SETTING ORDER VIA TRACHEOSTOMY #6, AC 20, TV 500ML, FIO2 30% AND PEEP 5 MMHG. SPO2 %. TELEMETRY SHOWED SR WITH HR 85. LINDSAY TO GRAVITY , DRAINING YELLOWISH AND CLEAR FLUID. FLEXISEAL WAS IN PLACE, DRAINING BROWN LIQUID. FLUSHED FLEXISEAL AND WAS PATENT. NO RESIDUE IN GT AND CONTINUE VITAL AF @56Ml/HR. ALICE MIDLINE WAS DRY AND INTACT WITH NS RUNNING 75ML/HR. LFA #22, DRY AND INTACT. ALL NEEDS ATTENDED AT THE MOMENT. SIDE RAIL X3. CALL LIGHT WAS PLACED WITHIN REACH. BED WAS LOCKED AND PLACED IN LOWEST POSITION. SAFETY MEASURES WERE IMPLEMENTED. WILL CONTINUE TO MONITOR.
[2022-08-08 08:54] LABS: BASOPHILS % (AUTO) 0.3 % (0.0-2.0); EOSINOPHILS % (AUTO) 5.9 % (0.0-6.0); HEMATOCRIT 24 % (39-51); HEMOGLOBIN 7.5 g/dL (13.5-17.5); LYMPHOCYTES # (AUTO) 1.1 K/uL (0.8-4.8); LYMPHOCYTES % (AUTO) 10.9 % (20.0-44.0); MEAN CORPUSCULAR HGB CONC 31 g/dl (31.0-36.0); MEAN CORPUSCULAR VOLUME 87 fL (80-96); MONOCYTES # (AUTO) 0.4 K/uL (0.1-1.30); MONOCYTES % (AUTO) 3.9 % (2.0-12.0); NEUTROPHILS # (AUTO) 7.9 K/uL (1.8-8.9); PLATELET COUNT (AUTO) 377 K/uL (150-450); RED BLOOD CELL COUNT(AUTO) 2.79 MIL/uL (4.5-6.0)
[2022-08-08] MEDS: CHLORHEXIDINE GLUCONATE 15 ML UDC MM SCH ×2 (09:17→16:58)
[2022-08-08] MEDS: MULTIVIT W/MINERALS 1 TAB TABLET GT SCH (09:17)
[2022-08-08] MEDS: PANTOPRAZOLE 40 MG/PACK PACK GT SCH (09:17)
[2022-08-08] MEDS: LEVETIRACETAM SOL (5 ML) 100 MG/ML UDC GT SCH ×2 (09:17→20:23)
[2022-08-08] MEDS: BACLOFEN (10 MG) 10 MG TABLET GT SCH ×3 (09:17→16:58)
[2022-08-08] MEDS: COLISTIMETHATE SODIUM 75 MG in IV NS 0.9% 50 ML IV SCH ×2 (09:17→20:23)
[2022-08-08] MEDS: VITAL AF 1.2 1,000 ML BOTTLE GT PRN (09:18)
[2022-08-08] MEDS: ZINC SULFATE 220 MG CAPSULE GT SCH (09:18)
[2022-08-08] MEDS: PROSOURCE / PROSTAT (PYXIS) 30 ML UDC GT SCH ×3 (09:18→16:57)
[2022-08-08] MEDS: DAKINS QUARTER STRENGTH (0.125%) 480 ML BOTTLE TOP SCH (09:21)
[2022-08-08] MEDS: Z GUARD REMEDY 4 OZ OINT TP PRN ×2 (09:21→09:40)
[2022-08-08] MEDS: Z GUARD REMEDY 4 OZ OINT TP SCH ×2 (09:40→21:19)
[2022-08-08] MEDS: LINEZOLID RTU BAG 600 MG in PREMIX 1 EA IV SCH ×2 (09:41→20:23)
--- NOTE | 2022-08-08 09:50 | NUR ---
LIEUTENANT COLONEL NOTE RECEIVED A CRITICAL RESULT FROM LAB, WHERE THEY FOUND A CLUSTER OF GRAM +VE COCCI IN BLOOD CULTURE. AWAIT C/ST RESULT. INFORMED DR. MACIEL ABOUT THE CRITICAL RESULT. Addendum: 08/08/22 at 1023 by ERICH GRAF RN DR CARRILLO AWARE THAT RR WAS 32 NO NEW ORDER GIVEN AT THIS TIME
--- NOTE | 2022-08-08 10:24 | NUR ---
APPELLATE COURT CLERK NOTES NOTIFIED DR. VOGEL ABOUT THE PRELIMINARY REPORT OF BLOOD CULTURE, WHICH SHOWED GRAM +VE COCCI (CLUSTERED). NO ORDER GIVEN AT THIS TIME.
[2022-08-08 12:00] VITALS: BP 105/44
--- NOTE | 2022-08-08 15:00 | NUR ---
SNOW RANGER NOTE ROUNDS MADE .ALL NEEDS ATTENDED , TURN REPOSITION .CONT ON IVF ORDERED .KEEP HOB ELEVATED ALL TIME
[2022-08-08 16:00] VITALS: BP 104/47
--- NOTE | 2022-08-08 18:32 | NUR ---
manager semiconductor notes Patient was resting in bed, opening eyes spontaneously but obtunded. Telemetry showed SR HR 88/min. On ventilatory support, AC 20, TV 500mL, Peep 5mmhg with SpO2 99%. Afebrile this shift with stable vital signs. Tolerated Gtube feeding well. LRight UA midline and IV cannula #22 over left forearm is dry and intact, with NS running at 75ml/hr. All needs were attended. Call light was placed. Bed was locked and placed in lowest position. Safety measures were implemented. Will endorse PM nurse to continue care and monitoring.
[2022-08-08 20:00] VITALS: BP 97/45
--- NOTE | 2022-08-08 21:52 | NUR ---
SHEAR OPERATOR HELPER OPENING NOTE PT RECEIVED IN BED, OBTUNDED, NON-VERBAL. PT ON S#6, AC 20, TV 500, FIO2 30%, PEEP 5 WITH CURRENT O2SAT OF 97%; NO S/S OF RESP DISTRESS, NO SOB OR COUGH, NON-LABORED AND EQUAL BREATHING. PT ATTACHED TO EXTERNAL MONITOR, SR WITH HR OF 94. FLEXISEAL INTACT AND PATENT, DRAINING STOOL THAT IS BROWN IN COLOR. LINDSAY INTACT AND PATENT, DRAINING CLOUDY AND YELLOW URINE. GTD C/D/I WITH VITAL AF AT 56 ML/HR; NOTED TO HAVE 60 ML RESIDUAL. ALICE MIDLINE INTACT AND PATENT, FLUSHES EASILY WITH NO RESISTANCE; NS AT 75 ML/HR. BED IN LOWEST POSITION, CALL LIGHT WITHIN REACH, SIDE RAILS UP X3. WILL CONTINUE TO MONITOR THROUGHOUT THE NIGHT.
[2022-08-09] VITALS: BP 106/57
[2022-08-09] MEDS: ALBUTEROL FS 2.5 MG/3 ML VIAL.NEB NEB SCH ×4 (01:48→20:33)
[2022-08-09 04:00] VITALS: BP 101/45
[2022-08-09] MEDS: VITAL AF 1.2 1,000 ML BOTTLE GT PRN (04:27)
[2022-08-09] MEDS: IV NS 0.9% 1,000 ML IV PRN ×2 (04:28→23:04)
[2022-08-09] MEDS: METRONIDAZOLE 500MG/ NS 100ML 500 MG in PREMIX 1 EA IV SCH (04:29)
[2022-08-09] MEDS: VALPROIC ACID 250 MG/5 ML UDC GT SCH ×3 (04:29→21:54)
--- NOTE | 2022-08-09 06:59 | NUR ---
CONTINUUM OF CARE MANAGER CLOSING NOTE PT REMAINS IN BED, OBTUNDED, NON-VERBAL. CONTINUES TO BE ON SAME VENT SETTINGS; TOLERATED VENT SETTINGS WELL; O2SAT RANGED FROM 97%-100%; NO S/S OF RESP DISTRESS, NO SOB OR COUGH, NON-LABORED AND EQUAL BREATHING. ATTACHED TO EXTERNAL MONITOR, SR WITH HR RANGING FROM 78-94. FLEXISEAL INTACT AND PATENT, DRAINING STOOL THAT IS BROWN IN COLOR AND SOFT IN CONSISTENCY. LINDSAY INTACT AND PATENT, DRAINING CLOUDY AND YELLOW URINE. GTD C/D/I WITH VITAL AF AT 56 ML/HR; TOLERATED GTF OVERALL. ALICE MIDLINE INTACT AND PATENT, FLUSHES EASILY WITH NO RESISTANCE; NS AT 75 ML/HR. WOUNDS CLEANSED AND NEW DRESSINGSG APPLIED. ALL DUE MEDS ADMINISTERED DURING THE NIGHT. BED IN LOWEST POSITION, CALL LIGHT WITHIN REACH, SIDE RAILS UP X3. WILL ENDORSE TO DAYSHIFT NURSE TO CONTINUE CARE.
[2022-08-09 07:47] LABS: BASOPHILS % (AUTO) 0.5 % (0.0-2.0); EOSINOPHILS % (AUTO) 6.8 % (0.0-6.0); HEMATOCRIT 25 % (39-51); HEMOGLOBIN 7.8 g/dL (13.5-17.5); LYMPHOCYTES # (AUTO) 0.9 K/uL (0.8-4.8); LYMPHOCYTES % (AUTO) 12.7 % (20.0-44.0); MEAN CORPUSCULAR HGB CONC 31 g/dl (31.0-36.0); MEAN CORPUSCULAR VOLUME 87 fL (80-96); MONOCYTES # (AUTO) 0.3 K/uL (0.1-1.30); MONOCYTES % (AUTO) 3.6 % (2.0-12.0); NEUTROPHILS # (AUTO) 5.6 K/uL (1.8-8.9); NEUTROPHILS % (AUTO) 76.4 % (43.0-81.0); PLATELET COUNT (AUTO) 371 K/uL (150-450); RED BLOOD CELL COUNT(AUTO) 2.87 MIL/uL (4.5-6.0); WHITE BLOOD COUNT (AUTO) 7.4 K/uL (4.3-11.0)
--- NOTE | 2022-08-09 07:47 | NUR ---
RN NOTE RECEIVED PT IN BED, OBTUNDED. TRACH IN PLACE WITH VENT SETTINGS TOLERATED WELL. LINDSAY CATH AND FLEXISEAL IN PLACE DRAINING WELL. PT WITH GT FEEDING VITAL AF @ 56CC/HR. ASPIRATION PREC MAINTAINED. WITH IV ACCESS ON ALICE MIDLINE IN PLACE WITH IVF NS@75/HR. SAFETY MEASURES FOLLOWED. WILL CONTINUE TO MONITOR.
[2022-08-09 08:00] VITALS: BP 100/58
[2022-08-09] MEDS: BACLOFEN (10 MG) 10 MG TABLET GT SCH ×3 (08:08→17:52)
[2022-08-09] MEDS: PANTOPRAZOLE 40 MG/PACK PACK GT SCH (08:08)
[2022-08-09] MEDS: LEVETIRACETAM SOL (5 ML) 100 MG/ML UDC GT SCH ×2 (08:08→21:54)
[2022-08-09] MEDS: MULTIVIT W/MINERALS 1 TAB TABLET GT SCH (08:08)
[2022-08-09] MEDS: ZINC SULFATE 220 MG CAPSULE GT SCH (08:08)
[2022-08-09] MEDS: LINEZOLID RTU BAG 600 MG in PREMIX 1 EA IV SCH (08:09)
[2022-08-09] MEDS: CHLORHEXIDINE GLUCONATE 15 ML UDC MM SCH ×2 (08:09→17:48)
[2022-08-09] MEDS: PROSOURCE / PROSTAT (PYXIS) 30 ML UDC GT SCH ×3 (08:11→17:53)
[2022-08-09 08:17] LABS: BILIRUBIN,TOTAL 0.2 mg/dL (0.2-1.0); CALCIUM, SERUM 8.7 mg/dL (8.5-10.1); CREATININE 0.6 mg/dL (0.6-1.3); POTASSIUM 3.5 mmol/L (3.5-5.1)
[2022-08-09 08:46] LABS: TOTAL PROTEIN, SERUM 6.8 g/dL (6.4-8.2)
[2022-08-09 08:56] LABS: ALBUMIN 1.4 g/dL (3.4-5.0)
[2022-08-09] MEDS: COLISTIMETHATE SODIUM 75 MG in IV NS 0.9% 50 ML IV SCH ×2 (09:31→21:54)
[2022-08-09 09:56] LABS: BILIRUBIN,DIRECT 0.1 mg/dL (0.0-0.2); BILIRUBIN,TOTAL 0.2 mg/dL (0.2-1.0); TOTAL PROTEIN, SERUM 6.9 g/dL (6.4-8.2)
[2022-08-09] MEDS: DAKINS QUARTER STRENGTH (0.125%) 480 ML BOTTLE TOP SCH (10:03)
[2022-08-09] MEDS: Z GUARD REMEDY 4 OZ OINT TP SCH ×2 (10:03→21:55)
[2022-08-09 10:31] LABS: ALBUMIN 1.4 g/dL (3.4-5.0)
[2022-08-09 12:00] VITALS: BP 103/50
[2022-08-09] MEDS: METRONIDAZOLE 500 MG TABLET GT SCH ×2 (13:10→21:54)
[2022-08-09 16:00] VITALS: BP 103/50
[2022-08-09] MEDS: EPOETIN ALFA-EPBX 4,000 UNIT/ML VIAL SQ SCH (17:48)
--- NOTE | 2022-08-09 19:27 | NUR ---
RN NOTE PT LYING IN BED, OBTUNDED. TRACH IN PLACE WITH VENT SETTINGS TOLERATED WELL. LINDSAY CATH AND FLEXISEAL IN PLACE DRAINING WELL. PT WITH GT FEEDING VITAL AF @ 56CC/HR. ASPIRATION PREC MAINTAINED. WITH IV ACCESS ON ALICE MIDLINE IN PLACE WITH IVF NS@75/HR. SAFETY MEASURES FOLLOWED. DUE MEDICATIONS GIVEN, AM/PM CARE RENDERED. WILL CONTINUE TO MONITOR.
[2022-08-09 20:00] VITALS: BP 95/55
[2022-08-09] MEDS: LINEZOLID 600 MG TABLET GT SCH (21:54)
--- NOTE | 2022-08-09 23:05 | NUR ---
WORLD RENOWNED CHEF AND RESTAURANT OWNER OPENING NOTE PT RECEIVED IN BED, OBTUNDED, NON-VERBAL. PT ON S#6, AC 20, TV 500, FIO2 30%, PEEP 5 WITH CURRENT O2SAT OF 100%; NO S/S OF RESP DISTRESS, NO SOB OR COUGH, NON-LABORED AND EQUAL BREATHING. PT ATTACHED TO EXTERNAL MONITOR, SR WITH HR OF 92. FLEXISEAL NOTED TO HAVE SOME LEAKING; DRAINING BROWN AND LOOSE STOOL. LINDSAY INTACT AND PATENT, DRAINING CLOUDY AND YELLOW URINE. GTD C/D/I WITH VITAL AF AT 56 ML/HR; NO RESIDUAL NOTED. ALICE MIDLINE INTACT AND PATENT, FLUSHES EASILY WITH NO RESISTANCE; NS AT 75 ML/HR. BED IN LOWEST POSITION, CALL LIGHT WITHIN REACH, SIDE RAILS UP X3. WILL CONTINUE TO MONITOR THROUGHOUT THE NIGHT.
[2022-08-10] VITALS: BP 106/42
[2022-08-10] MEDS: ALBUTEROL FS 2.5 MG/3 ML VIAL.NEB NEB SCH ×4 (02:11→20:37)
[2022-08-10 04:00] VITALS: BP 108/52
[2022-08-10] MEDS: VITAL AF 1.2 1,000 ML BOTTLE GT PRN (04:00)
[2022-08-10] MEDS: VALPROIC ACID 250 MG/5 ML UDC GT SCH ×3 (04:23→22:38)
[2022-08-10] MEDS: METRONIDAZOLE 500 MG TABLET GT SCH ×3 (04:23→22:38)
--- NOTE | 2022-08-10 06:21 | NUR ---
STATEMENT PROCESSOR CLOSING NOTE PT REMAINS IN BED, OBTUNDED, NON-VERBAL. ON SAME VENT SETTINGS; TOLERATED VENT SETTINGS WELL; O2SAT STABLE AT 100% THROUGHOUT THE NIGHT; NO S/S OF RESP DISTRESS, NO SOB OR COUGH, NON-LABORED AND EQUAL BREATHING. ATTACHED TO EXTERNAL MONITOR, SR WITH HR RANGING FROM 88-96. FLEXISEAL NOTED TO BE LEAKING; NEW FLEXISEAL INSERTED. LINDSAY INTACT AND PATENT, DRAINING CLOUDY AND YELLOW URINE. GTD C/D/I WITH VITAL AF AT 56 ML/HR. ALICE MIDLINE INTACT AND PATENT, FLUSHES EASILY WITH NO RESISTANCE; NS AT 75 ML/HR. WOUNDS CLEANSED AND NEW DRESSINGS APPLIED. ALL DUE MEDS ADMINISTERED DURING THE NIGHT. BED IN LOWEST POSITION, CALL LIGHT WITHIN REACH, SIDE RAILS UP X3. WILL ENDORSE TO DAYSHIFT NURSE TO CONTINUE CARE.
[2022-08-10 08:00] VITALS: BP 111/56
[2022-08-10] MEDS: ZINC SULFATE 220 MG CAPSULE GT SCH (08:10)
[2022-08-10] MEDS: CHLORHEXIDINE GLUCONATE 15 ML UDC MM SCH ×2 (08:10→16:19)
[2022-08-10] MEDS: BACLOFEN (10 MG) 10 MG TABLET GT SCH ×3 (08:10→16:19)
[2022-08-10] MEDS: PANTOPRAZOLE 40 MG/PACK PACK GT SCH (08:10)
[2022-08-10] MEDS: LEVETIRACETAM SOL (5 ML) 100 MG/ML UDC GT SCH ×2 (08:10→22:38)
[2022-08-10] MEDS: LINEZOLID 600 MG TABLET GT SCH ×2 (08:10→22:38)
[2022-08-10] MEDS: MULTIVIT W/MINERALS 1 TAB TABLET GT SCH (08:10)
[2022-08-10] MEDS: PROSOURCE / PROSTAT (PYXIS) 30 ML UDC GT SCH ×3 (08:13→16:19)
[2022-08-10] MEDS: COLISTIMETHATE SODIUM 75 MG in IV NS 0.9% 50 ML IV SCH ×2 (09:05→22:37)
[2022-08-10] MEDS: DAKINS QUARTER STRENGTH (0.125%) 480 ML BOTTLE TOP SCH (09:41)
[2022-08-10] MEDS: Z GUARD REMEDY 4 OZ OINT TP SCH ×2 (09:41→21:00)
[2022-08-10 12:00] VITALS: BP 113/61
[2022-08-10] MEDS: IV NS 0.9% 1,000 ML IV PRN (14:42)
[2022-08-10 14:54] LABS: BASOPHILS % (AUTO) 0.5 % (0.0-2.0); EOSINOPHILS % (AUTO) 8.9 % (0.0-6.0); HEMATOCRIT 26 % (39-51); LYMPHOCYTES % (AUTO) 19.1 % (20.0-44.0); MEAN CORPUSCULAR HGB CONC 31 g/dl (31.0-36.0); MEAN CORPUSCULAR VOLUME 87 fL (80-96); MONOCYTES # (AUTO) 0.2 K/uL (0.1-1.30); MONOCYTES % (AUTO) 4.5 % (2.0-12.0); NEUTROPHILS # (AUTO) 3.5 K/uL (1.8-8.9); PLATELET COUNT (AUTO) 415 K/uL (150-450); RED BLOOD CELL COUNT(AUTO) 2.97 MIL/uL (4.5-6.0); WHITE BLOOD COUNT (AUTO) 5.2 K/uL (4.3-11.0)
[2022-08-10 15:22] LABS: BILIRUBIN,DIRECT 0.1 mg/dL (0.0-0.2); BILIRUBIN,TOTAL 0.2 mg/dL (0.2-1.0); CALCIUM, SERUM 8.8 mg/dL (8.5-10.1); CREATININE 0.6 mg/dL (0.6-1.3); POTASSIUM 3.3 mmol/L (3.5-5.1); TOTAL PROTEIN, SERUM 7.1 g/dL (6.4-8.2)
[2022-08-10 15:28] LABS: ALBUMIN 1.3 g/dL (3.4-5.0)
[2022-08-10 16:00] VITALS: BP 108/64
--- NOTE | 2022-08-10 17:58 | NUR ---
RN NOTE PT IN BED, OBTUNDED. TRACH IN PLACE WITH VENT SETTINGS TOLERATED WELL. LINDSAY CATH AND FLEXISEAL IN PLACE DRAINING WELL. PT WITH GT FEEDING VITAL AF @ 56CC/HR. ASPIRATION PREC MAINTAINED. WITH IV ACCESS ON ALICE MIDLINE IN PLACE WITH IVF NS@75/HR. SAFETY MEASURES FOLLOWED. DUE MEDICATIONS GIVEN, AM PM CARE DONE. WILL CONTINUE TO MONITOR.
[2022-08-10] MEDS ORDERED: POTASSIUM CHLORIDE 20 MEQ POWDER PACKET GT ONE (18:30)
[2022-08-10 20:00] VITALS: BP 106/57
--- NOTE | 2022-08-10 23:05 | NUR ---
ASSURANCE SPECIALIST OPENING NOTE PT RECEIVED IN BED, OBTUNDED, NON-VERBAL. PT ON S#6, AC 20, TV 500, FIO2 30%, PEEP 5 WITH CURRENT O2SAT OF 100%; NO S/S OF RESP DISTRESS, NO SOB OR COUGH, NON-LABORED AND EQUAL BREATHING; APPEARS COMFORTABLE OVERALL. PT ATTACHED TO EXTERNAL MONITOR, ST WITH HR OF 105. FLEXISEAL INTACT AND PATENT; DRAINING BROWN AND LOOSE STOOL. LINDSAY INTACT AND PATENT, DRAINING CLOUDY AND YELLOW URINE. GTD C/D/I WITH VITAL AF AT 56 ML/HR; NO RESIDUAL NOTED. ALICE MIDLINE INTACT AND PATENT, FLUSHES EASILY WITH NO RESISTANCE; NS AT 75 ML/HR. BED IN LOWEST POSITION, CALL LIGHT WITHIN REACH, SIDE RAILS UP X3. WILL CONTINUE TO MONITOR THROUGHOUT THE NIGHT.
[2022-08-11] VITALS: BP 97/64
[2022-08-11] MEDS: ALBUTEROL FS 2.5 MG/3 ML VIAL.NEB NEB SCH ×4 (01:56→20:15)
[2022-08-11 04:00] VITALS: BP 107/63
[2022-08-11] MEDS: VALPROIC ACID 250 MG/5 ML UDC GT SCH ×3 (04:46→21:31)
[2022-08-11] MEDS: METRONIDAZOLE 500 MG TABLET GT SCH ×3 (04:47→21:32)
[2022-08-11] MEDS: IV NS 0.9% 1,000 ML IV PRN ×2 (05:05→18:26)
[2022-08-11] MEDS: VITAL AF 1.2 1,000 ML BOTTLE GT PRN (05:05)
--- NOTE | 2022-08-11 06:24 | NUR ---
CARBONATION EQUIPMENT OPERATOR CLOSING NOTE PT REMAINS IN BED, OBTUNDED, NON-VERBAL. ON SAME VENT SETTINGS; TOLERATED VENT SETTINGS WELL; O2SAT RANGED FROM 99%-100%; NO S/S OF RESP DISTRESS, NO SOB OR COUGH, NON-LABORED AND EQUAL BREATHING. ATTACHED TO EXTERNAL MONITOR, ST-SR WITH HR RANGING FROM 95-105. FLEXISEAL INTACT AND PATENT WITH NO SIGNS OF LEAKING, DRAINING BROWN AND LOOSE STOOL. LINDSAY INTACT AND PATENT, DRAINING CLOUDY AND YELLOW URINE. GTD C/D/I WITH VITAL AF AT 56 ML/HR. ALICE MIDLINE INTACT AND PATENT, FLUSHES EASILY WITH NO RESISTANCE; NS AT 75 ML/HR. WOUNDS CLEANSED AND NEW DRESSINGS APPLIED. ALL DUE MEDS ADMINISTERED DURING THE NIGHT. BED IN LOWEST POSITION, CALL LIGHT WITHIN REACH, SIDE RAILS UP X3. WILL ENDORSE TO DAYSHIFT NURSE TO CONTINUE CARE.
--- NOTE | 2022-08-11 07:20 | NUR ---
RN NOTE RECEIVED PATIENT IN BED RESTING,OBTUNDED,CONTRACTED,ON MECHANICAL VENT,SETTING PRESCRIBED,OPEN EYES,IV SITE IS ON RIGHT UPPER ARM MIDLINE INTACT PATENT ON NS IV HYDRATION 75CC/HR,ON G-TUBE VITAL AF AT 56 ML/HR,CHECKED PLACEMENT,IN PLACE NO RESIDUAL NOTED,LINDSAY CATH IN PLACE URINE DRAINING YELLOW CLEAR BY GRAVITY,RECTAL TUBE IN PLACE,SAFETY MEASURE IMPLEMENT BED IN LOW POSITION AND LOCKED,HEAD OF THE BED ELEVATED,CONTINUE TO MONITOR.
[2022-08-11 08:00] VITALS: BP 119/54
[2022-08-11] MEDS: MULTIVIT W/MINERALS 1 TAB TABLET GT SCH (08:16)
[2022-08-11] MEDS: PANTOPRAZOLE 40 MG/PACK PACK GT SCH (08:16)
[2022-08-11] MEDS: LEVETIRACETAM SOL (5 ML) 100 MG/ML UDC GT SCH ×2 (08:16→21:31)
[2022-08-11] MEDS: BACLOFEN (10 MG) 10 MG TABLET GT SCH ×3 (08:16→16:48)
[2022-08-11] MEDS: CHLORHEXIDINE GLUCONATE 15 ML UDC MM SCH ×2 (08:16→16:48)
[2022-08-11] MEDS: DAKINS QUARTER STRENGTH (0.125%) 480 ML BOTTLE TOP SCH (08:17)
[2022-08-11] MEDS: PROSOURCE / PROSTAT (PYXIS) 30 ML UDC GT SCH ×3 (08:17→16:48)
[2022-08-11] MEDS: ZINC SULFATE 220 MG CAPSULE GT SCH (08:17)
[2022-08-11] MEDS: Z GUARD REMEDY 4 OZ OINT TP PRN (08:17)
[2022-08-11] MEDS: Z GUARD REMEDY 4 OZ OINT TP SCH ×2 (08:18→21:32)
[2022-08-11] MEDS: LINEZOLID 600 MG TABLET GT SCH ×2 (08:21→21:39)
[2022-08-11] MEDS: COLISTIMETHATE SODIUM 75 MG in IV NS 0.9% 50 ML IV SCH ×2 (08:47→21:31)
[2022-08-11 12:00] VITALS: BP 110/53
--- NOTE | 2022-08-11 12:15 | NUR ---
RN NOTE RECEIVED CRITICAL LAB RESULTS ALBUMIN 1.[address] CLAU FLORIAN WITH NO NEW ORDER,CONTINUE TO MONITOR.
[2022-08-11 12:41] LABS: BILIRUBIN,DIRECT 0.1 mg/dL (0.0-0.2); BILIRUBIN,TOTAL 0.2 mg/dL (0.2-1.0); CALCIUM, SERUM 8.6 mg/dL (8.5-10.1); CREATININE 0.5 mg/dL (0.6-1.3); POTASSIUM 3.3 mmol/L (3.5-5.1); TOTAL PROTEIN, SERUM 6.8 g/dL (6.4-8.2)
[2022-08-11 12:55] LABS: ALBUMIN 1.1 g/dL (3.4-5.0)
--- NOTE | 2022-08-11 12:57 | NUR ---
RN NOTE RECEIVED PHONE CONSENT FROM CONNIE OLVERA BROTHER OF JESUSITA OLVERA FOR SERIAL DEBRIDEMENT OF LEFT HIP,SACRUM,RIGHT BACK, AND LEFT ISCHIUMI AND LEFT KNEE WITH 2 RN WITNESS,CONTINUE TO MONITOR.
[2022-08-11 14:42] LABS: BASOPHILS # (AUTO) 0.1 K/uL (0.0-0.2); BASOPHILS % (AUTO) 1.1 % (0.0-2.0); EOSINOPHILS % (AUTO) 10.4 % (0.0-6.0); HEMATOCRIT 21 % (39-51); LYMPHOCYTES # (AUTO) 1.1 K/uL (0.8-4.8); LYMPHOCYTES % (AUTO) 17.2 % (20.0-44.0); MEAN CORPUSCULAR HGB CONC 31 g/dl (31.0-36.0); MEAN CORPUSCULAR VOLUME 87 fL (80-96); MONOCYTES # (AUTO) 0.2 K/uL (0.1-1.30); MONOCYTES % (AUTO) 3.2 % (2.0-12.0); NEUTROPHILS # (AUTO) 4.5 K/uL (1.8-8.9); NEUTROPHILS % (AUTO) 68.1 % (43.0-81.0); PLATELET COUNT (AUTO) 399 K/uL (150-450); RED BLOOD CELL COUNT(AUTO) 2.47 MIL/uL (4.5-6.0); WHITE BLOOD COUNT (AUTO) 6.6 K/uL (4.3-11.0)
[2022-08-11 14:56] LABS: HEMOGLOBIN 6.7 g/dL (13.5-17.5)
--- NOTE | 2022-08-11 15:12 | NUR ---
RN NOTE RECEIVED CRITICAL LAB RESULTS HEMOGLOBIN 6.7 NOTIFIED CLAU JACOB HE ORDERED PRBC ONE UNIT NOTED AND CARRIED OUT.CALLED BLOOD BANK FOR FOLLOWING UP.
[2022-08-11 16:00] VITALS: BP 111/58
[2022-08-11] MEDS: EPOETIN ALFA-EPBX 4,000 UNIT/ML VIAL SQ SCH (16:24)
[2022-08-11] MEDS: ACETAMINOPHEN 325 MG TABLET PO PRN (16:52)
[2022-08-11 17:26] LABS: BAND % (MANUAL) 4 % (0.0-5.0); BASOPHILS % (MANUAL) 0 % (0.0-2.0); EOSINOPHILS % (MANUAL) 8 % (0-4); LYMPHOCYTES % (MANUAL) 13 % (16-48); MONOCYTES % (MANUAL) 4 % (0-11.0); NEUTROPHILS % (MANUAL) 71 (42-76)
--- NOTE | 2022-08-11 18:20 | NUR ---
RN NOTE CALLED BLOOD BANK FOR FOLLOW UP ONE UNIT PRBC THEY SAID NOT READY YET WHEN IS READY THEY CALL RN SHIFT FOR TRANSFUSION CONTINUE TO MONITOR.
--- NOTE | 2022-08-11 18:37 | NUR ---
RN NOTE PATIENT REMAINS OBTUNDED,CONTRACTED,ON MECHANICAL VENT SETTING PRESCRIBED,IV SITE IS ON RIGHT UPPER ARM MIDLINE AND LEFT FOREARM INTACT PATENT,ON IV HYDRATION NS 75CC/HR,LINDSAY CATH IN PLACE,RECTAL TUBE IN PLACE,TURNED AND REPOSITIONED EVERY 2 HOURS BY STAFF,TREATMENT FOR WOUNDS DONE,ALL DUE MEDS GIVEN MD ORDERED,HEAD OF THE BED ELEVATED ALL THE TIME,KEPT CLEAN AND DRY WILL ENDORSE NEXT COMING SHIFT FOR CONTINUATION OF CARE.
--- NOTE | 2022-08-11 19:30 | NUR ---
RECEIVED PATIENT IN BED RESTING,OBTUNDED,CONTRACTED,ON MECHANICAL VENT,SETTING PRESCRIBED,OPEN EYES,IV SITE IS ON RIGHT UPPER ARM MIDLINE INFUSING NS AT 75CC/HR,ON G-TUBE VITAL AF AT 45 ML/HR, LINDSAY CATH IN PLACE URINE DRAINING YELLOW CLEAR BY GRAVITY,RECTAL TUBE IN PLACE,SAFETY MEASURE IMPLEMENT BED IN LOW POSITION AND LOCKED,HEAD OF THE BED ELEVATED,WILL CONTINUE TPLAN OF CARE.
[2022-08-11 20:00] VITALS: BP 100/61
--- NOTE | 2022-08-11 20:10 | NUR ---
2010 Received a call from blood bank c/o Antonio he said [facility] and might not be ready tonight.
[2022-08-12] VITALS: BP 97/46
[2022-08-12] MEDS: VITAL AF 1.2 1,000 ML BOTTLE GT PRN (02:38)
[2022-08-12] MEDS: ALBUTEROL FS 2.5 MG/3 ML VIAL.NEB NEB SCH ×4 (02:50→19:55)
[2022-08-12 04:00] VITALS: BP 94/54
[2022-08-12] MEDS: METRONIDAZOLE 500 MG TABLET GT SCH ×3 (05:05→21:17)
[2022-08-12] MEDS: VALPROIC ACID 250 MG/5 ML UDC GT SCH ×3 (05:05→21:20)
--- NOTE | 2022-08-12 06:59 | NUR ---
PATIENT REMAINS OBTUNDED,CONTRACTED,ON MECHANICAL VENT SETTING PRESCRIBED,IV SITE IS ON RIGHT UPPER ARM MIDLINE AND LEFT FOREARM INTACT PATENT,ON IV HYDRATION NS 75CC/HR,LINDSAY CATH IN PLACE, FLEXISEAL IN PLACE,TURNED AND REPOSITIONED PER PROTOCOL,TREATMENT FOR WOUNDS DONE, ALL DUE MEDS GIVEN MD ORDERED,HEAD OF THE BED ELEVATED ALL THE TIME,KEPT CLEAN AND DRY WILL ENDORSE NEXT SHIFT NURSE FOR CONTINUITY OF CARE.
--- NOTE | 2022-08-12 07:25 | NUR ---
rn opening note PT REMAINS OBTUNDED, CONTRACTED BILATERAL UPPER EXTREMITIES. MECHANICAL VENT SETTINGS TOLERATED. IV SITE ON R UA MIDLINE, L FOREARM INTACT, PATENT FLUSHING WELL. LINDSAY CATH YELLOW/SARAH COLOR OUTPUT DRAINING TO GRAVITY. PT IS SINUS RHYTM/SINUS TACHYCARDIA ON TELE MONITOR ALL SAFETY MEASURES IN PLACE. CALL LIGHT WITHIN REACH. BED LOCKED AT LOWEST POSITION. SIDE RAILS UP X2.
[2022-08-12 08:00] VITALS: BP 128/62
[2022-08-12] MEDS: PANTOPRAZOLE 40 MG/PACK PACK GT SCH (09:03)
[2022-08-12] MEDS: ZINC SULFATE 220 MG CAPSULE GT SCH (09:03)
[2022-08-12] MEDS: MULTIVIT W/MINERALS 1 TAB TABLET GT SCH (09:03)
[2022-08-12] MEDS: BACLOFEN (10 MG) 10 MG TABLET GT SCH ×3 (09:03→16:16)
[2022-08-12] MEDS: CHLORHEXIDINE GLUCONATE 15 ML UDC MM SCH ×2 (09:03→16:17)
[2022-08-12] MEDS: LEVETIRACETAM SOL (5 ML) 100 MG/ML UDC GT SCH ×2 (09:03→21:17)
[2022-08-12] MEDS: LINEZOLID 600 MG TABLET GT SCH ×2 (09:03→21:20)
[2022-08-12 09:04] LABS: BILIRUBIN,DIRECT 0.1 mg/dL (0.0-0.2); BILIRUBIN,TOTAL 0.2 mg/dL (0.2-1.0); CALCIUM, SERUM 8.8 mg/dL (8.5-10.1); CREATININE 0.5 mg/dL (0.6-1.3); POTASSIUM 2.9 mmol/L (3.5-5.1); TOTAL PROTEIN, SERUM 7.1 g/dL (6.4-8.2)
[2022-08-12] MEDS: Z GUARD REMEDY 4 OZ OINT TP SCH ×2 (09:04→21:20)
[2022-08-12 09:18] LABS: ALBUMIN 1.3 g/dL (3.4-5.0)
[2022-08-12 09:59] LABS: BASOPHILS % (AUTO) 0.7 % (0.0-2.0); EOSINOPHILS % (AUTO) 9.3 % (0.0-6.0); HEMATOCRIT 23 % (39-51); LYMPHOCYTES % (AUTO) 15.5 % (20.0-44.0); MEAN CORPUSCULAR HGB CONC 30 g/dl (31.0-36.0); MEAN CORPUSCULAR VOLUME 88 fL (80-96); MONOCYTES # (AUTO) 0.2 K/uL (0.1-1.30); NEUTROPHILS # (AUTO) 4.4 K/uL (1.8-8.9); NEUTROPHILS % (AUTO) 70.5 % (43.0-81.0); PLATELET COUNT (AUTO) 391 K/uL (150-450); RED BLOOD CELL COUNT(AUTO) 2.59 MIL/uL (4.5-6.0); WHITE BLOOD COUNT (AUTO) 6.3 K/uL (4.3-11.0)
--- NOTE | 2022-08-12 10:00 | NUR ---
rn note NOTIFIED NURSING CENTERLESS GRINDER SET UP OPERATOR THAT PT IS HARD STICK AND IF NEW MIDLINE CAN BE PLACE. NEW MIDLINE ON LEFT UPPER ARM.
--- NOTE | 2022-08-12 10:00 | NUR ---
NOTIFIED CLAU FLORIAN THAT POTASSIUM 2.9 ORDERS NOTED AND CARRIED OUT.
[2022-08-12] MEDS: DAKINS QUARTER STRENGTH (0.125%) 480 ML BOTTLE TOP SCH (10:09)
[2022-08-12] MEDS: COLISTIMETHATE SODIUM 75 MG in IV NS 0.9% 50 ML IV SCH ×2 (10:09→21:17)
[2022-08-12 12:00] VITALS: BP 114/55
[2022-08-12] MEDS ORDERED: POTASSIUM CHLORIDE 20 MEQ POWDER PACKET GT ONE ×2 (12:00→16:00)
[2022-08-12] MEDS: PROSOURCE / PROSTAT (PYXIS) 30 ML UDC GT SCH ×3 (12:01→16:17)
--- NOTE | 2022-08-12 14:20 | NUR ---
RT NOTE PATIENT RECEIVED TRACH'D ON [facility] VENT WITH SETTINGS PER MD ORDER. HEAD OF ENGLISH DONE. ALARMS ON AND WORKING PROPERLY. VENT PLUGGED INTO RED OUTLET. SPARE TRACH AND AMBU BAG AT HEAD OF BED. BREATHING TX GIVEN ORDERED, NO ADVERSE REACTIONS. SUCTIONED AND MONITORED PRN. NO SOB NOTED AT THIS TIME. WILL CONTINUE TO MONITOR FOR ANY CHANGES. Addendum: 08/12/22 at 1823 by EDER FALLON RT Amended: Links added.
[2022-08-12 16:00] VITALS: BP 102/56
[2022-08-12] MEDS: Potassium Chloride 20 MEQ in IV NS 0.9% 1,000 ML IV SCH (17:27)
--- NOTE | 2022-08-12 18:40 | NUR ---
rn note pt noted to have uncontrolled afib on tele monitor. stat ekg done. notified paxton griffin. endorsed to manufacturing shift supervisor rn
--- NOTE | 2022-08-12 19:15 | NUR ---
RN NOTES RECEIVED PT FOR CONTINUITY OF CARE. PATIENT OBTUNDED IN NO S/SX OF ACUTE DISTRESS AT THIS TIME; CURRENTLY ON MECHANICAL VENT; SETTING PRESCRIBED, WITH 02 SAT >95% AT THIS TIME. WITH IV ACCESS ON L UA MIDLINE#18 PATENT, INTACT AND FLUSHING WELL. WITH RUNNING FLUIDS ORDERED AND GTUBE FEEDING RUNNING PRESCRIBED. WILL ENSURE SAFETY MEASURES WITHIN THE SHIFT. PATIENT BED ALARM IS ON. HEAD OF BED ELEVATED. BED IS LOCKED, IN LOWEST POSITION AND SIDE RAILS UP. CALL LIGHT WITHIN REACH OF THE PATIENT. APPLICABLE ISOLATION PRECAUTIONS IN PLACE. WILL CONTINUE TO MONITOR AND REASSESS FOR ANY CHANGES AND WILL CARRY OUT ANY ONGOING AND ACTIVE MD ORDER.
[2022-08-12 20:00] VITALS: BP 104/66
--- NOTE | 2022-08-12 20:29 | NUR ---
rn closing note PT REMAINS OBTUNDED, CONTRACTED BILATERAL UPPER EXTREMITIES. MECHANICAL VENT SETTINGS TOLERATED. IV SITE ON L UA MIDLINE, L FOREARM INTACT, PATENT FLUSHING WELL. LINDSAY CATH YELLOW/SARAH COLOR OUTPUT DRAINING TO GRAVITY. flexi seal in place. gtube in place, intact and flushing well. PT IS SINUS RHYTM/SINUS TACHYCARDIA/ afib ON TELE MONITOR. endorsed to pediatric physical therapist rn.ALL SAFETY MEASURES IN PLACE. CALL LIGHT WITHIN REACH. BED LOCKED AT LOWEST POSITION. SIDE RAILS UP X2.
--- NOTE | 2022-08-12 22:20 | NUR ---
RN NOTES NOTIFIED ZACHARY VARGAS (DR. 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 AWARE AND VERIFIED IF NEEDED TO TRANSFUSE RIGHT NOW. DR JACOBSON ORDERED STAT H&H. ONCE RESUTL IS OUT WILL FOLLOW THROUGH. Addendum: 08/13/22 at 0039 by MANSI JAIN RN H&H RESULT CAME OUT: 7.6 AND 25L ; AWARE. NO NEED TO TRANSFUSE RIGHT NOW. TOWER CLEANER MADE AWARE.
[2022-08-13] VITALS (14 sets, daily range): BP systolic 98–153; BP diastolic 51–84
[2022-08-13 00:08] LABS: HEMOGLOBIN 7.6 g/dL (13.5-17.5)
[2022-08-13] MEDS: ALBUTEROL FS 2.5 MG/3 ML VIAL.NEB NEB SCH ×4 (00:49→20:05)
[2022-08-13 02:00] LABS: EOSINOPHILS % (MANUAL) 8 % (0-4); LYMPHOCYTES % (MANUAL) 12 % (16-48); MONOCYTES % (MANUAL) 5 % (0-11.0); NEUTROPHILS % (MANUAL) 75 (42-76)
--- NOTE | 2022-08-13 04:00 | NUR ---
RN NOTES PATIENT REMAINED TO BE IN NO SIGNS OF ACUTE RESPIRATORY DISTRESS , VITAL SIGNS STABLE AT THIS TIME. REGULAR TURNING AND REPOSITIONING DONE Q2H AND SUCTIONING RENDERED. AM PATIENT CARE DONE. WILL CONTINUE TO MONITOR AND REASSESS FOR ANY CHANGES THROUGHOUT THE SHIFT.
[2022-08-13] MEDS: VALPROIC ACID 250 MG/5 ML UDC GT SCH ×3 (05:26→21:07)
[2022-08-13] MEDS: METRONIDAZOLE 500 MG TABLET GT SCH ×3 (05:26→21:08)
[2022-08-13] MEDS: Potassium Chloride 20 MEQ in IV NS 0.9% 1,000 ML IV SCH ×2 (06:31→20:01)
--- NOTE | 2022-08-13 06:39 | NUR ---
RN CLOSING NOTE: PATIENT REMAINS IN ROOM IN NO SIGNS OF RESPIRATORY DISTRESS, PATIENT STILL ON MECH VENT; SETTINGS PRESCRIBED;TOLERATING WELL SATURATING @ >95% SP02. SAFETY MEASURES IMPLEMENTED, BED IN LOWEST POSITION, LOCKED, SIDE RAILS UP, CALL LIGHT WITHIN REACH. ALL NEEDS AND ORDERS ADDRESSED DURING THE SHIFT. IV ACCESS MAINTAINED INTACT, SECURED AND FLUSHING WELL. ALL DUE MEDS GIVEN ORDERED & SCHEDULED ; PATIENT TOLERATED WELL. PATIENT KEPT CLEAN AND COMFORTABLE WITHIN THE SHIFT. PATIENT ENDORSED TO INCOMING SHIFT RN WITH STABLE VITAL SIGN AND FOR CONTINUITY OF CARE.
--- NOTE | 2022-08-13 07:20 | NUR ---
rn opening note PT OBTUNDED, CONTRACTED BILATERAL UPPER EXTREMITIES. MECHANICAL VENT SETTINGS TOLERATED. IV SITE ON L UA MIDLINE, L FOREARM INTACT, PATENT FLUSHING WELL. LINDSAY CATH YELLOW/SARAH COLOR OUTPUT DRAINING TO GRAVITY. flexi seal in place. gtube in place, intact and flushing well. PT IS SINUS RHYTHM/SINUS TACHYCARDIA/ afib ON TELE MONITOR. ALL SAFETY MEASURES IN PLACE. CALL LIGHT WITHIN REACH. BED LOCKED AT LOWEST POSITION. SIDE RAILS UP X2.
[2022-08-13 07:23] LABS: BILIRUBIN,TOTAL 0.2 mg/dL (0.2-1.0); CALCIUM, SERUM 9.4 mg/dL (8.5-10.1); CREATININE 0.5 mg/dL (0.6-1.3); POTASSIUM 3.4 mmol/L (3.5-5.1); TOTAL PROTEIN, SERUM 7.1 g/dL (6.4-8.2)
[2022-08-13 07:44] LABS: BILIRUBIN,DIRECT 0.1 mg/dL (0.0-0.2); BILIRUBIN,TOTAL 0.2 mg/dL (0.2-1.0); TOTAL PROTEIN, SERUM 7.2 g/dL (6.4-8.2)
[2022-08-13 08:10] LABS: ALBUMIN 1.3 g/dL (3.4-5.0)
[2022-08-13] MEDS: PANTOPRAZOLE 40 MG/PACK PACK GT SCH (08:30)
[2022-08-13] MEDS: ZINC SULFATE 220 MG CAPSULE GT SCH (08:30)
[2022-08-13] MEDS: MULTIVIT W/MINERALS 1 TAB TABLET GT SCH (08:31)
[2022-08-13] MEDS: BACLOFEN (10 MG) 10 MG TABLET GT SCH ×3 (08:31→17:13)
[2022-08-13] MEDS: LEVETIRACETAM SOL (5 ML) 100 MG/ML UDC GT SCH ×2 (08:31→21:08)
[2022-08-13] MEDS: CHLORHEXIDINE GLUCONATE 15 ML UDC MM SCH ×2 (08:31→17:13)
[2022-08-13] MEDS: Z GUARD REMEDY 4 OZ OINT TP SCH ×2 (08:32→21:09)
[2022-08-13] MEDS: LINEZOLID 600 MG TABLET GT SCH ×2 (08:32→21:08)
[2022-08-13] MEDS: DAKINS QUARTER STRENGTH (0.125%) 480 ML BOTTLE TOP SCH (08:33)
[2022-08-13] MEDS: PROSOURCE / PROSTAT (PYXIS) 30 ML UDC GT SCH ×3 (08:35→17:13)
[2022-08-13 08:43] LABS: BASOPHILS # (AUTO) 0.1 K/uL (0.0-0.2); EOSINOPHILS % (AUTO) 10.9 % (0.0-6.0); HEMATOCRIT 23 % (39-51); LYMPHOCYTES # (AUTO) 1.3 K/uL (0.8-4.8); LYMPHOCYTES % (AUTO) 20.5 % (20.0-44.0); MEAN CORPUSCULAR HGB CONC 30 g/dl (31.0-36.0); MEAN CORPUSCULAR VOLUME 89 fL (80-96); MONOCYTES # (AUTO) 0.3 K/uL (0.1-1.30); MONOCYTES % (AUTO) 4.1 % (2.0-12.0); NEUTROPHILS % (AUTO) 63.5 % (43.0-81.0); PLATELET COUNT (AUTO) 402 K/uL (150-450); RED BLOOD CELL COUNT(AUTO) 2.53 MIL/uL (4.5-6.0); WHITE BLOOD COUNT (AUTO) 6.3 K/uL (4.3-11.0)
[2022-08-13] MEDS: COLISTIMETHATE SODIUM 75 MG in IV NS 0.9% 50 ML IV SCH ×2 (08:49→21:08)
[2022-08-13 09:06] LABS: HEMOGLOBIN 6.8 g/dL (13.5-17.5)
[2022-08-13] MEDS ORDERED: POTASSIUM CHLORIDE 20 MEQ POWDER PACKET GT ONE (10:30)
[2022-08-13] MEDS: EPOETIN ALFA-EPBX 4,000 UNIT/ML VIAL SQ SCH (14:58)
[2022-08-13 18:03] LABS: HEMOGLOBIN 8.5 g/dL (13.5-17.5)
[2022-08-13] MEDS ORDERED: DAKINS HALF STRENGTH (0.25%) 480 ML BOTTLE ONE (18:17)
[2022-08-13 18:48] LABS: EOSINOPHILS % (MANUAL) 10 % (0-4); LYMPHOCYTES % (MANUAL) 21 % (16-48); MONOCYTES % (MANUAL) 3 % (0-11.0); NEUTROPHILS % (MANUAL) 66 (42-76)
--- NOTE | 2022-08-13 19:00 | NUR ---
ASSISTANT PROFESSOR NURSE EDUCATION CLOSING NOTES PATIENT GIVEN 1 UNIT PRBC TODAY PER MD ORDER DUE TO HGB 6.8. PATIENT TOLERATED TRANSFUSION WELL. FOLLOW-UP HGB NOW 8.6.
[2022-08-14] VITALS: BP 130/67
[2022-08-14] MEDS: ALBUTEROL FS 2.5 MG/3 ML VIAL.NEB NEB SCH ×4 (01:25→19:48)
[2022-08-14 04:00] VITALS: BP 130/65
[2022-08-14] MEDS: METRONIDAZOLE 500 MG TABLET GT SCH ×3 (05:06→21:09)
[2022-08-14] MEDS: VALPROIC ACID 250 MG/5 ML UDC GT SCH ×3 (05:07→21:09)
[2022-08-14] MEDS: HYDROCODONE/APAP 5/325MG TABLET PO PRN (05:22)
--- NOTE | 2022-08-14 06:38 | NUR ---
RN CLOSING NOTE: PATIENT REMAINS IN ROOM IN NO SIGNS OF RESPIRATORY DISTRESS, PATIENT STILL ON MECH VENT; SETTINGS PRESCRIBED;TOLERATING WELL SATURATING @ >95% SP02. SAFETY MEASURES IMPLEMENTED, BED IN LOWEST POSITION, LOCKED, SIDE RAILS UP, CALL LIGHT WITHIN REACH. ALL NEEDS AND ORDERS ADDRESSED DURING THE SHIFT. IV ACCESS MAINTAINED INTACT, SECURED AND FLUSHING WELL. TUBE FEEDING STILL RUNNING ORDERED. ALL DUE MEDS GIVEN ORDERED & SCHEDULED ; PATIENT TOLERATED WELL. PATIENT KEPT CLEAN AND COMFORTABLE WITHIN THE SHIFT. PATIENT ENDORSED TO INCOMING SHIFT RN WITH STABLE VITAL SIGN AND FOR CONTINUITY OF CARE.
[2022-08-14 07:43] LABS: CREATININE 0.5 mg/dL (0.6-1.3); POTASSIUM 3.3 mmol/L (3.5-5.1)
[2022-08-14 08:00] VITALS: BP 139/57
[2022-08-14] MEDS: MULTIVIT W/MINERALS 1 TAB TABLET GT SCH (08:50)
[2022-08-14] MEDS: ZINC SULFATE 220 MG CAPSULE GT SCH (08:50)
[2022-08-14] MEDS: PANTOPRAZOLE 40 MG/PACK PACK GT SCH (08:50)
[2022-08-14] MEDS: CHLORHEXIDINE GLUCONATE 15 ML UDC MM SCH ×2 (08:50→17:29)
[2022-08-14] MEDS: LEVETIRACETAM SOL (5 ML) 100 MG/ML UDC GT SCH ×2 (08:50→21:09)
[2022-08-14] MEDS: LINEZOLID 600 MG TABLET GT SCH ×2 (08:51→21:09)
[2022-08-14] MEDS: Z GUARD REMEDY 4 OZ OINT TP SCH ×2 (08:51→21:10)
[2022-08-14] MEDS: PROSOURCE / PROSTAT (PYXIS) 30 ML UDC GT SCH ×3 (08:51→17:30)
[2022-08-14] MEDS: BACLOFEN (10 MG) 10 MG TABLET GT SCH ×3 (08:51→17:29)
[2022-08-14] MEDS: DAKINS QUARTER STRENGTH (0.125%) 480 ML BOTTLE TOP SCH (08:52)
[2022-08-14] MEDS: Potassium Chloride 20 MEQ in IV NS 0.9% 1,000 ML IV SCH ×2 (09:00→22:51)
[2022-08-14] MEDS: COLISTIMETHATE SODIUM 75 MG in IV NS 0.9% 50 ML IV SCH ×2 (09:38→23:10)
[2022-08-14 12:00] VITALS: BP 136/61
[2022-08-14 16:00] VITALS: BP 101/61
--- NOTE | 2022-08-14 18:50 | NUR ---
RN CLOSING NOTE: PATIENT REMAINS IN ROOM WITHOUT S/S OF RESPIRATORY DISTRESS, PATIENT STILL ON MECH VENT; SETTINGS PRESCRIBED;TOLERATING WELL SATURATING @>95-100% SP02. SAFETY MEASURES IMPLEMENTED, BED IN LOWEST POSITION, LOCKED, SIDE RAILS UP, CALL LIGHT WITHIN REACH. ALL NEEDS AND ORDERS ADDRESSED DURING THE SHIFT. IV ACCESS MAINTAINED INTACT, SECURED AND FLUSHING WELL. TUBE FEEDING STILL RUNNING ORDERED. ALL DUE MEDS GIVEN ORDERED & SCHEDULED ; PATIENT TOLERATED WELL. PATIENT KEPT CLEAN AND COMFORTABLE WITHIN THE SHIFT, WOUND CARE DONE. PATIENT ENDORSED TO PHYSICS PROFESSOR RN WITH STABLE VITAL SIGN AND FOR JELANI.
--- NOTE | 2022-08-14 19:20 | NUR ---
RN NOTES RECEIVED PT FOR CONTINUITY OF CARE. PATIENT OBTUNDED IN NO S/SX OF ACUTE DISTRESS AT THIS TIME; CURRENTLY ON MECHANICAL VENT; SETTING PRESCRIBED, WITH 02 SAT >95% AT THIS TIME. WITH IV ACCESS ON L UA MIDLINE#18 PATENT, INTACT AND FLUSHING WELL. WITH RUNNING FLUIDS ORDERED AND TUBE FEEDING RUNNING PRESCRIBED. WILL ENSURE SAFETY MEASURES WITHIN THE SHIFT. PATIENT BED ALARM IS ON. HEAD OF BED ELEVATED. BED IS LOCKED, IN LOWEST POSITION AND SIDE RAILS UP. CALL LIGHT WITHIN REACH OF THE PATIENT. APPLICABLE ISOLATION PRECAUTIONS IN PLACE. WILL CONTINUE TO MONITOR AND REASSESS FOR ANY CHANGES AND WILL CARRY OUT ANY ONGOING AND ACTIVE MD ORDER.
[2022-08-14 20:00] VITALS: BP 123/61
[2022-08-14] MEDS ORDERED: COLISTIMETHATE SODIUM 150 MG CBA VIAL ONE (22:58)
[2022-08-15] VITALS: BP 125/72
[2022-08-15] MEDS: HYDROCODONE/APAP 5/325MG TABLET PO PRN (00:58)
[2022-08-15] MEDS: DIAZEPAM 5 MG TABLET GT PRN (02:24)
[2022-08-15] MEDS: ALBUTEROL FS 2.5 MG/3 ML VIAL.NEB NEB SCH ×4 (02:36→19:59)
[2022-08-15 04:00] VITALS: BP 132/65
[2022-08-15] MEDS: VALPROIC ACID 250 MG/5 ML UDC GT SCH ×3 (04:32→20:46)
[2022-08-15] MEDS: METRONIDAZOLE 500 MG TABLET GT SCH ×3 (04:32→20:46)
--- NOTE | 2022-08-15 06:40 | NUR ---
RN CLOSING NOTE: PATIENT REMAINS IN ROOM IN NO SIGNS OF RESPIRATORY DISTRESS, PATIENT STILL ON MECH VENT; SETTINGS PRESCRIBED;TOLERATING WELL SATURATING @ >95% SP02. ST ON MONITOR. SAFETY MEASURES IMPLEMENTED, BED IN LOWEST POSITION, LOCKED, SIDE RAILS UP, CALL LIGHT WITHIN REACH. ALL NEEDS AND ORDERS ADDRESSED DURING THE SHIFT. IV ACCESS MAINTAINED INTACT, SECURED AND FLUSHING WELL. TUBE FEEDING STILL RUNNING ORDERED. ALL DUE MEDS GIVEN ORDERED & SCHEDULED; ALSO GIVEN PRN MEDS DURING THE SHIFT; PATIENT TOLERATED WELL. PATIENT KEPT CLEAN AND COMFORTABLE WITHIN THE SHIFT. PATIENT ENDORSED TO INCOMING SHIFT RN WITH STABLE VITAL SIGN AND FOR CONTINUITY OF CARE.
--- NOTE | 2022-08-15 07:20 | NUR ---
RN NOTE RECEIVED PATIENT IN BED OBTUNDED,CONTRACTED,ON MECHANICAL VENT,SETTING PRESCIBED,OPEN EYES,ON G-TUBE FEEDING VITAL 45CC/HR FOR 20 HOURS,CHECKED PLACEMENT IN PLACE NO RESIDUAL NOTED, IV SITE IS ON LEFT UPPER ARM MIDLINE,AND RIGHT FOREARM INTACT PATIENT ON NS PLUS 20MEQ POTASSIUM AT 75CC/HR,LINDSAY CATH IN PLACE URINE DRAINING YELLOW BY GRAVITY RECTAL TUBE IN PLACE,SAFETY MEASURE IMPLEMENT BED IN LOW POSITION AND LOCKED,CONTINUE TO MONITOR.
[2022-08-15 08:00] VITALS: BP 116/67
[2022-08-15] MEDS: MULTIVIT W/MINERALS 1 TAB TABLET GT SCH (08:02)
[2022-08-15] MEDS: CHLORHEXIDINE GLUCONATE 15 ML UDC MM SCH ×2 (08:02→16:11)
[2022-08-15] MEDS: ZINC SULFATE 220 MG CAPSULE GT SCH (08:03)
[2022-08-15] MEDS: PROSOURCE / PROSTAT (PYXIS) 30 ML UDC GT SCH ×3 (08:03→16:11)
[2022-08-15] MEDS: BACLOFEN (10 MG) 10 MG TABLET GT SCH ×3 (08:03→16:11)
[2022-08-15] MEDS: LINEZOLID 600 MG TABLET GT SCH ×2 (08:03→20:46)
[2022-08-15] MEDS: PANTOPRAZOLE 40 MG/PACK PACK GT SCH (08:03)
[2022-08-15] MEDS: LEVETIRACETAM SOL (5 ML) 100 MG/ML UDC GT SCH ×2 (08:05→20:46)
[2022-08-15] MEDS: Z GUARD REMEDY 4 OZ OINT TP PRN ×3 (08:08→20:56)
[2022-08-15] MEDS: Z GUARD REMEDY 4 OZ OINT TP SCH ×2 (08:09→20:57)
[2022-08-15] MEDS: COLISTIMETHATE SODIUM 75 MG in IV NS 0.9% 50 ML IV SCH ×2 (08:58→20:46)
[2022-08-15] MEDS: DAKINS QUARTER STRENGTH (0.125%) 480 ML BOTTLE TOP SCH (08:58)
[2022-08-15 12:00] VITALS: BP 114/63
[2022-08-15] MEDS: Potassium Chloride 20 MEQ in IV NS 0.9% 1,000 ML IV SCH (12:23)
[2022-08-15] MEDS: VITAL AF 1.2 1,000 ML BOTTLE GT PRN (13:07)
[2022-08-15 16:00] VITALS: BP 109/50
--- NOTE | 2022-08-15 19:31 | NUR ---
RN NOTE PATIENT REMAINS OBTUNDED,CONTRACTED ON MECHANICAL VENT SETTING PRESCRIBED,NO SOB NOT ACUTE DISTRESS NOTED,ON G-TUBE FEEDING ALL DUE MEDS GIVEN MD ORDERED,LINDSAY CATH IN PLACE,RECTAL TUBE IN PLACE,KEPT CLEAN AND DRY ALL THE TIME,TURNED AND REPOSITIONED EVERY 2 HOURS,KEPT HEAD OF THE BED ELEVATED,ENDORSE NEXT COMING SHIFT FOR CONTINUATION OF CARE.
[2022-08-15 20:00] VITALS: BP 124/68
--- NOTE | 2022-08-15 20:00 | NUR ---
ACCREDITATION COORDINATOR NOTE PT IN BED OBTUNDED. ON VENT/TRACH TOLERATING THE SETTINGS WELL. NO SOB, NO DISTRESS OR DISCOMFORT NOTED. NO S/S OF PAIN NOTED. ON TELE SR HR 72. FLEXISEAL INTACT AND PATENT DRAINING LIQUIDY STOOL. ALSO F/C DRAINING WELL, YELLOWISH COLOR URINE. PT IS WITH MULTIPLE WOUND DRESSINGS INTACT AND CLEAN. GT FEEDING VITAL 4 INFUSING AT 45 ML/HR, 0 ML RESIDUAL NOTED. IVF NS WITH 20 MEQ KCL INFUSING AT 75 ML/HR, NO S/S OF INFILTRATION NOTED. KEPT HIM DRY AND CLEAN. REPOSITION HIM FOR SKIN MANAGEMENT AND WILL DO EVERY 2 HRS. VSS. SIDE RAILS UP X 3 AND CALL LIGHT WITHIN REACH. CONTINUE TO MONITOR HIM.
[2022-08-16] VITALS: BP 97/60
[2022-08-16] MEDS: ALBUTEROL FS 2.5 MG/3 ML VIAL.NEB NEB SCH ×4 (01:52→19:47)
[2022-08-16] MEDS: Potassium Chloride 20 MEQ in IV NS 0.9% 1,000 ML IV SCH ×2 (02:41→15:47)
[2022-08-16 04:00] VITALS: BP 124/69
[2022-08-16] MEDS: VALPROIC ACID 250 MG/5 ML UDC GT SCH ×3 (05:43→21:39)
[2022-08-16] MEDS: METRONIDAZOLE 500 MG TABLET GT SCH ×3 (05:43→21:39)
--- NOTE | 2022-08-16 06:53 | NUR ---
TRY OUT PERSON NOTE PT IN BED ASLEEP, NO DISTRESS OR DISCOMFORT NOTED. NO S/S OF PAIN NOTED. SIDE RAILS UP X 3 AND CALL LIGHT WITHIN REACH. SR ON TELE. WILL ENDORSE TO DAY SHIFT NURSE FOR CONTINUE TO CARE.
[2022-08-16 08:00] VITALS: BP 133/69
[2022-08-16] MEDS: CHLORHEXIDINE GLUCONATE 15 ML UDC MM SCH ×2 (09:00→17:08)
[2022-08-16] MEDS: PANTOPRAZOLE 40 MG/PACK PACK GT SCH (09:01)
[2022-08-16] MEDS: BACLOFEN (10 MG) 10 MG TABLET GT SCH ×3 (09:01→17:09)
[2022-08-16] MEDS: ZINC SULFATE 220 MG CAPSULE GT SCH (09:01)
[2022-08-16] MEDS: MULTIVIT W/MINERALS 1 TAB TABLET GT SCH (09:01)
[2022-08-16] MEDS: LEVETIRACETAM SOL (5 ML) 100 MG/ML UDC GT SCH ×2 (09:01→21:39)
[2022-08-16] MEDS: LINEZOLID 600 MG TABLET GT SCH ×2 (09:01→21:39)
[2022-08-16] MEDS: DAKINS QUARTER STRENGTH (0.125%) 480 ML BOTTLE TOP SCH (09:02)
[2022-08-16] MEDS: Z GUARD REMEDY 4 OZ OINT TP SCH ×2 (09:02→21:40)
[2022-08-16] MEDS: PROSOURCE / PROSTAT (PYXIS) 30 ML UDC GT SCH ×3 (09:02→16:57)
[2022-08-16] MEDS: VITAL AF 1.2 1,000 ML BOTTLE GT PRN (09:06)
[2022-08-16] MEDS: COLISTIMETHATE SODIUM 75 MG in IV NS 0.9% 50 ML IV SCH ×2 (10:54→21:39)
[2022-08-16 12:00] VITALS: BP 119/63
[2022-08-16 15:31] LABS: HEMOGLOBIN 8.4 g/dL (13.5-17.5)
[2022-08-16 16:00] VITALS: BP 107/57
[2022-08-16] MEDS: EPOETIN ALFA-EPBX 4,000 UNIT/ML VIAL SQ SCH (17:08)
--- NOTE | 2022-08-16 19:00 | NUR ---
RN CLOSING NOTE: PATIENT REMAINS IN ROOM WITHOUT S/S OF RESPIRATORY DISTRESS, PATIENT STILL ON MECH VENT; SETTINGS PRESCRIBED;TOLERATING WELL SATURATING @>95-100% SP02. SAFETY MEASURES IMPLEMENTED, BED IN LOWEST POSITION, LOCKED, SIDE RAILS UP, CALL LIGHT WITHIN REACH. ALL NEEDS AND ORDERS ADDRESSED DURING THE SHIFT. IV ACCESS MAINTAINED INTACT, SECURED AND FLUSHING WELL. TUBE FEEDING RUNNING ORDERED. ALL DUE MEDS GIVEN ORDERED & SCHEDULED; PATIENT TOLERATED WELL. PATIENT KEPT CLEAN AND COMFORTABLE WITHIN THE SHIFT, WOUND CARE DONE. PATIENT ENDORSED TO INVESTIGATOR RN WITH STABLE VITAL SIGN AND FOR JELANI.
--- NOTE | 2022-08-16 19:30 | NUR ---
RN OPENING NOTE RECEIVED PATIENT FOR JELANI. PT IN BED, OBTUNDED,CONTRACTED, ON MECHANICAL VENT, SETTINGS PRESCRIBED WITH NO S/S/X OF ACUTE RESPI DISTRESS NOTED AT THIS TIME. O2 SAT >95%. TELE MONITOR READS SR, HR 94. IV ACCESS NOTED ON LEFT UPPER ARM MIDLINE RUNNING NS PLUS 20MEQ POTASSIUM AT 75CC/HR, AND RIGHT FOREARM, SL. ON G-TUBE FEEDING RUNNING VITAL AF 1.2 @ 45 CC/HR, FLUSHES WELL, NO RESIDUAL NOTED. LINDSAY CATH IN PLACE DRAINING YELLOW URINE BY GRAVITY. RECTAL TUBE IN PLACE, PATENT AND INTACT. ALL SAFETY MEASURES IN PLACE: BED LOCKED IN LOW POSITION, SR UP X 2, BED ALARM ON. HOB ELEVATED. CALL LIGHT WITHIN REACH. WILL CONTINUE TO MONITOR.
[2022-08-16 20:00] VITALS: BP 118/61
[2022-08-17] VITALS: BP 113/65
[2022-08-17] MEDS: ALBUTEROL FS 2.5 MG/3 ML VIAL.NEB NEB SCH ×4 (02:01→20:11)
[2022-08-17] MEDS ORDERED: LORAZEPAM INJ 2 MG/ML VIAL IV PRN (03:00)
[2022-08-17] MEDS: ACETAMINOPHEN 325 MG TABLET PO PRN (03:09)
--- NOTE | 2022-08-17 03:10 | NUR ---
RN NOTE PT NOTED TO HAVE SOME TWITCHING ON THE FACE AND HIS BILATERAL ARMS. HR WENT UP TO HIGH 140s FOR 2 SEONDS MAX. INFORMED DERECK JACOBSON ABOUT IT AND HE ORDERED ATIVAN Q15 MINS PRN. CARRIED OUT ORDER. PT HAS ELEVATED TEMP TOO AT 100.9 TYLENOL GIVEN ORDERED. WILL CONTINUE TO MONITOR PT.
[2022-08-17 04:00] VITALS: BP 127/73
[2022-08-17] MEDS: METRONIDAZOLE 500 MG TABLET GT SCH ×3 (04:10→20:50)
[2022-08-17] MEDS: VALPROIC ACID 250 MG/5 ML UDC GT SCH ×3 (04:10→20:50)
[2022-08-17] MEDS: Potassium Chloride 20 MEQ in IV NS 0.9% 1,000 ML IV SCH ×2 (04:12→17:56)
--- NOTE | 2022-08-17 06:48 | NUR ---
RN NOTE PT AFEBRILE NOW. VS STABLE. ALL DUE MEDS GIVEN. AM CARE DONE. TURNED AND REPOSITIONED. WILL ENDORSE TO AM SHIFT NURSE FOR JELANI.
--- NOTE | 2022-08-17 07:05 | NUR ---
LINE OPERATOR OPENING NOTE: RECEIVED PT. IN BED. PT. NON-VERBAL, OBTUNDED, RESPONDS TO TACTILE AND PAINFUL STIMULI. NO S/S OF PAIN/DISCOMFORT AT THIS TIME. PY. ON TRACH/VENT: SHILEY #6; AC - 20; VT- 500; FIO2 - 30%; PEEP OF 5. NO S/S OF RESPIRATORY DISTRESS. HAIR OR BEAUTY SALON MANAGER READS NSR. ON LINDSAY CATH WITH CLEAR YELLOW URINE DRAINING BELOW THE BLADDER. HAS FLEXI-SEAL, DRAINING BROWN LIQUIDY STOOL BELOW THE BED. PT. HAS MULTIPLE SKIN ISSUES. WILL DO WOUND TREATMENT ORDERED. PT. HAS G-TUBE, NO RESIDUAL NOTED WITH VITAL AF RUNNING AT 45 ML/HR. IV ACCESS ON FELICIA MIDLINE, WITH KCL 20MEQ IN NS RUNNING AT 75 ML/HR; HAS L FA #20G, PATENT AND SALINE LOCKED. IV ACCESS HAS NO S/S OF INFILTRATION NOTED. SAFETY MEASURES IN PLACE: BED IN LOWEST & LOCKED POSITION, SIDE RAILS UP, HOB ELEVATED AT 30 DEGREES, BED ALARM ON, CALL LIGHT WITHIN REACH. WILL TURN AND REPOSITION IN BED AT LEAST Q2H. WILL CONTINUE TO MONITOR FOR ANY CHANGES.
[2022-08-17 08:00] VITALS: BP 124/69
[2022-08-17] MEDS: DAKINS QUARTER STRENGTH (0.125%) 480 ML BOTTLE TOP SCH (08:51)
[2022-08-17] MEDS: Z GUARD REMEDY 4 OZ OINT TP SCH ×2 (08:52→20:51)
[2022-08-17] MEDS: BACLOFEN (10 MG) 10 MG TABLET GT SCH ×3 (08:57→17:56)
[2022-08-17] MEDS: CHLORHEXIDINE GLUCONATE 15 ML UDC MM SCH ×2 (08:58→17:56)
[2022-08-17] MEDS: LINEZOLID 600 MG TABLET GT SCH ×2 (08:58→20:49)
[2022-08-17] MEDS: COLISTIMETHATE SODIUM 75 MG in IV NS 0.9% 50 ML IV SCH ×2 (08:58→20:49)
[2022-08-17] MEDS: PANTOPRAZOLE 40 MG/PACK PACK GT SCH (08:58)
[2022-08-17] MEDS: PROSOURCE / PROSTAT (PYXIS) 30 ML UDC GT SCH ×3 (08:58→17:56)
[2022-08-17] MEDS: LEVETIRACETAM SOL (5 ML) 100 MG/ML UDC GT SCH ×2 (08:58→20:50)
[2022-08-17] MEDS: MULTIVIT W/MINERALS 1 TAB TABLET GT SCH (08:58)
[2022-08-17] MEDS: ZINC SULFATE 220 MG CAPSULE GT SCH (08:58)
[2022-08-17 11:38] LABS: BASOPHILS # (AUTO) 0.1 K/uL (0.0-0.2); BASOPHILS % (AUTO) 1.1 % (0.0-2.0); EOSINOPHILS % (AUTO) 15.1 % (0.0-6.0); HEMATOCRIT 29 % (39-51); HEMOGLOBIN 8.5 g/dL (13.5-17.5); LYMPHOCYTES # (AUTO) 1.2 K/uL (0.8-4.8); LYMPHOCYTES % (AUTO) 23.8 % (20.0-44.0); MEAN CORPUSCULAR HGB CONC 30 g/dl (31.0-36.0); MEAN CORPUSCULAR VOLUME 91 fL (80-96); MONOCYTES # (AUTO) 0.3 K/uL (0.1-1.30); NEUTROPHILS # (AUTO) 2.8 K/uL (1.8-8.9); PLATELET COUNT (AUTO) 347 K/uL (150-450); RED BLOOD CELL COUNT(AUTO) 3.13 MIL/uL (4.5-6.0); WHITE BLOOD COUNT (AUTO) 5.2 K/uL (4.3-11.0)
[2022-08-17 11:42] LABS: BILIRUBIN,TOTAL 0.2 mg/dL (0.2-1.0); CALCIUM, SERUM 9.8 mg/dL (8.5-10.1); CREATININE 0.9 mg/dL (0.6-1.3); POTASSIUM 3.2 mmol/L (3.5-5.1); TOTAL PROTEIN, SERUM 7.1 g/dL (6.4-8.2)
[2022-08-17 11:54] LABS: ALBUMIN 1.2 g/dL (3.4-5.0)
[2022-08-17 12:00] VITALS: BP 108/52
--- NOTE | 2022-08-17 12:05 | NUR ---
PEST CONTROL SERVICE TECHNICIAN NOTE: LAB CALLED TO REPORT CRITICAL LAB VALUE AT 1154 - ALBUMIN @ 1.2. DR. OCNTI NOTIFIED AT 1203 AND SAID "NO NEW ORDERS". WILL CONTINUE TO MONITOR PT. FOR ANY CHANGES. Addendum: 08/17/22 at 1601 by CAROLE HEALY RN CORRECTION: IT SHOULD BE "SENIOR OFFICE SUPPORT ASSISTANT SOSA NOTE:" NOT "PEST CONTROL SERVICE TECHNICIAN NOTE".
[2022-08-17 16:00] VITALS: BP 110/66
[2022-08-17] MEDS: VITAL AF 1.2 1,000 ML BOTTLE GT PRN (17:57)
--- NOTE | 2022-08-17 19:10 | NUR ---
RELAY ENGINEER CLOSING NOTE: PT. REMAINS IN BED. PT. NON-VERBAL, OBTUNDED, RESPONDS TO TACTILE AND PAINFUL STIMULI. NO S/S OF PAIN/DISCOMFORT AT THIS TIME. PY. ON TRACH/VENT: SHILEY #6; AC - 20; VT- 500; FIO2 - 30%; PEEP OF 5. NO S/S OF RESPIRATORY DISTRESS. CERTIFIED DIALYSIS TECHNICIAN READS NSR/ST. LINDSAY CATH DRAINED 800 ML CLEAR YELLOW URINE THIS SHIFT. FLEXI-SEAL, DRAINED 20 ML BROWN LIQUIDY STOOL. WOUND TREATMENT DONE ORDERED. PT. HAS G-TUBE, NO RESIDUAL NOTED WITH VITAL AF RUNNING AT 45 ML/HR, TOLERATING WELL. IV ACCESS ON FELICIA MIDLINE, WITH KCL 20MEQ IN NS RUNNING AT 75 ML/HR; HAS L FA #20G, PATENT AND SALINE LOCKED. IV ACCESS HAS NO S/S OF INFILTRATION NOTED. SAFETY MEASURES MAINTAINED: BED IN LOWEST & LOCKED POSITION, SIDE RAILS UP, HOB ELEVATED AT 30 DEGREES, BED ALARM ON, CALL LIGHT WITHIN REACH. TURNED AND REPOSITIONED IN BED AT LEAST Q2H. ENDORSED CONTINUITY OF CARE TO ARTIST'S REPRESENTATIVE RN.
--- NOTE | 2022-08-17 19:30 | NUR ---
RN OPENING NOTE RECEIVED PT IN BED, OBTUNDED, ON MECHANICAL VENT,TOLERATING WELL, NO S/S/X OF ACUTE DISTRESS, TELE MONITOR READING SR, HR 96. IV ACCESS FELICIA ML NS PLUS 20MEQ POTASSIUM AT 75CC/HR, AND RFA SL. G-TUBE FEEDING RUNNING VITAL AF 1.2 @ 45 CC/HR, FLUSHES WELL, NO RESIDUAL NOTED. LINDSAY CATH IN PLACE DRAINING YELLOW URINE,FLEXISEAL DRAINING BROWN STOOL, PATENT AND INTACT. PT HAS MULTIPLE WOUNDS, PICS IN THE CHART. ALL SAFETY MEASURES IN PLACE: BED LOCKED IN LOW POSITION, SR UP X 2, BED ALARM ON. HOB ELEVATED. CALL LIGHT WITHIN REACH. WILL CONTINUE TO MONITOR.
[2022-08-17 20:00] VITALS: BP 144/66
[2022-08-18] VITALS: BP 144/65
[2022-08-18] MEDS: ALBUTEROL FS 2.5 MG/3 ML VIAL.NEB NEB SCH ×4 (01:43→20:22)
[2022-08-18 04:00] VITALS: BP 99/55
[2022-08-18] MEDS: METRONIDAZOLE 500 MG TABLET GT SCH ×3 (05:29→21:24)
[2022-08-18] MEDS: VALPROIC ACID 250 MG/5 ML UDC GT SCH ×3 (05:29→21:24)
--- NOTE | 2022-08-18 06:48 | NUR ---
RN CLOSING NOTE PT IN BED, OBTUNDED, ON MECHANICAL VENT,TOLERATING WELL, NO S/S/X OF ACUTE DISTRESS, TELE MONITOR READING SR, HR 96. IV ACCESS FELICIA ML NS PLUS 20MEQ POTASSIUM AT 75CC/HR, AND RFA SL. G-TUBE FEEDING RUNNING VITAL AF 1.2 @ 45 CC/HR, FLUSHES WELL, NO RESIDUAL NOTED. LINDSAY CATH DRAINED 1700ML OF YELLOW CLEAR URINE,FLEXISEAL DRAINED 50ML BROWN STOOL, PATENT AND INTACT. PT HAS MULTIPLE WOUNDS, PICS IN THE CHART. ALL DUE MEDS GIVEN. ALL SAFETY MEASURES IN PLACE: BED LOCKED IN LOW POSITION, SR UP X 2, BED ALARM ON. HOB ELEVATED. CALL LIGHT WITHIN REACH. WILL ENDORSE TO MORNING SHIFT FOR JELANI.
--- NOTE | 2022-08-18 07:10 | NUR ---
RN OPENING NOTE PT IN BED, OBTUNDED, ON MECHANICAL VENT WITH ORDERED SETTINGS TOLERATING WELL, NO S/S/X OF ACUTE DISTRESS, TELE MONITOR READING SR.. IV ACCESS FELICIA ML. L FOREARM. IV PATENT AND FLUSHING WELL. PT HAS GTUBE, INTACT. NO RESIDUAL VOLUME NOTED AT THIS TIME. PT HAS LINDSAY CATHEHTHER YELLOW COLOR DRAINING TO GRAVITY. PT HAS FLEXISEAL. INTACT. ALL SAFETY MEASURES IN PLACE. CALL LIGHT WITHIN REACH. BED LOCKED AT LOWEST POSITION. HOB ELEVATED. SIDE RAILS UP X2.
[2022-08-18 07:33] LABS: BILIRUBIN,TOTAL 0.2 mg/dL (0.2-1.0); CALCIUM, SERUM 9.9 mg/dL (8.5-10.1); CREATININE 0.8 mg/dL (0.6-1.3); POTASSIUM 3.3 mmol/L (3.5-5.1); TOTAL PROTEIN, SERUM 7.1 g/dL (6.4-8.2)
[2022-08-18 08:00] VITALS: BP 89/54
[2022-08-18 08:01] LABS: ALBUMIN 1.1 g/dL (3.4-5.0)
[2022-08-18 08:18] LABS: BASOPHILS % (AUTO) 0.5 % (0.0-2.0); EOSINOPHILS % (AUTO) 11.6 % (0.0-6.0); HEMATOCRIT 30 % (39-51); HEMOGLOBIN 9.2 g/dL (13.5-17.5); LYMPHOCYTES # (AUTO) 1.2 K/uL (0.8-4.8); LYMPHOCYTES % (AUTO) 19.8 % (20.0-44.0); MEAN CORPUSCULAR HGB CONC 30 g/dl (31.0-36.0); MEAN CORPUSCULAR VOLUME 90 fL (80-96); MONOCYTES # (AUTO) 0.5 K/uL (0.1-1.30); MONOCYTES % (AUTO) 7.6 % (2.0-12.0); NEUTROPHILS # (AUTO) 3.8 K/uL (1.8-8.9); NEUTROPHILS % (AUTO) 60.5 % (43.0-81.0); PLATELET COUNT (AUTO) 326 K/uL (150-450); RED BLOOD CELL COUNT(AUTO) 3.36 MIL/uL (4.5-6.0); WHITE BLOOD COUNT (AUTO) 6.2 K/uL (4.3-11.0)
[2022-08-18] MEDS: Potassium Chloride 20 MEQ in IV NS 0.9% 1,000 ML IV SCH (08:33)
[2022-08-18] MEDS: PANTOPRAZOLE 40 MG/PACK PACK GT SCH (09:14)
[2022-08-18] MEDS: MULTIVIT W/MINERALS 1 TAB TABLET GT SCH (09:14)
[2022-08-18] MEDS: COLISTIMETHATE SODIUM 75 MG in IV NS 0.9% 50 ML IV SCH ×2 (09:15→21:34)
[2022-08-18] MEDS: PROSOURCE / PROSTAT (PYXIS) 30 ML UDC GT SCH ×3 (09:15→16:03)
[2022-08-18] MEDS: BACLOFEN (10 MG) 10 MG TABLET GT SCH ×3 (09:15→16:03)
[2022-08-18] MEDS: ZINC SULFATE 220 MG CAPSULE GT SCH (09:15)
[2022-08-18] MEDS: CHLORHEXIDINE GLUCONATE 15 ML UDC MM SCH ×2 (09:18→16:03)
[2022-08-18] MEDS: LEVETIRACETAM SOL (5 ML) 100 MG/ML UDC GT SCH ×2 (09:20→21:24)
[2022-08-18] MEDS: LINEZOLID 600 MG TABLET GT SCH ×2 (09:20→21:34)
--- NOTE | 2022-08-18 11:22 | NUR ---
rn note notified dr.berj pulido that bp is 89/54 and after re check 95/53. ordered albumin 25% 25 gm x 2 doses.orders noted and carried out
--- NOTE | 2022-08-18 11:52 | NUR ---
RN NOTE notified that potassium is 3.3 and pt is currently getting potassium chloride 20 meq @ 75 ml/hr. asked if okay to continue giving potassium iv and potassium powder packet or stop potassium iv. said to just give potassium powder packet
[2022-08-18] MEDS: Z GUARD REMEDY 4 OZ OINT TP SCH ×2 (11:53→21:34)
[2022-08-18] MEDS: DAKINS QUARTER STRENGTH (0.125%) 480 ML BOTTLE TOP SCH (11:54)
[2022-08-18 12:00] VITALS: BP 95/60
[2022-08-18] MEDS ORDERED: POTASSIUM CHLORIDE 20 MEQ POWDER PACKET GT SCH (12:00)
[2022-08-18] MEDS: ALBUMIN 25% 25 GM in PREMIX 1 EA IV SCH (12:47)
[2022-08-18] MEDS: EPOETIN ALFA-EPBX 4,000 UNIT/ML VIAL SQ SCH (15:10)
[2022-08-18 16:00] VITALS: BP 101/62
--- NOTE | 2022-08-18 18:53 | NUR ---
RN CLOSING NOTE PT IN BED, OBTUNDED, ON MECHANICAL VENT WITH ORDERED SETTINGS TOLERATING WELL, NO S/S/X OF ACUTE DISTRESS, TELE MONITOR READING SR.. IV ACCESS FELICIA ML. L FOREARM. IV PATENT AND FLUSHING WELL. PT HAS GTUBE, INTACT. NO RESIDUAL VOLUME NOTED AT THIS TIME. PT HAS LINDSAY CATHEHTHER YELLOW COLOR DRAINING TO GRAVITY. PT HAS FLEXISEAL. INTACT. ALL SAFETY MEASURES IN PLACE. WOUND CARE DONE. ORAL CARE DONE. CALL LIGHT WITHIN REACH. BED LOCKED AT LOWEST POSITION. HOB ELEVATED. SIDE RAILS UP X2.
--- NOTE | 2022-08-18 19:10 | NUR ---
RN OPENING NOTE RECEIVED PT IN BED, OBTUNDED, ON MECHANICAL VENT,TOLERATING WELL, NO S/S/X OF ACUTE DISTRESS, TELE MONITOR READING SR, HR 98. IV ACCESS FELICIA ML NS PLUS 20MEQ POTASSIUM AT 75CC/HR, AND RFA SL. G-TUBE FEEDING RUNNING VITAL AF 1.2 @ 45 CC/HR, FLUSHES WELL, NO RESIDUAL NOTED. LINDSAY CATH IN PLACE DRAINING YELLOW URINE,FLEXISEAL DRAINING BROWN STOOL, PATENT AND INTACT. PT HAS MULTIPLE WOUNDS, PICS IN THE CHART. ALL SAFETY MEASURES IN PLACE: BED LOCKED IN LOW POSITION, SR UP X 2, BED ALARM ON. HOB ELEVATED. CALL LIGHT WITHIN REACH. WILL CONTINUE TO MONITOR.
[2022-08-18 20:00] VITALS: BP 126/54
[2022-08-19] VITALS: BP 124/62
[2022-08-19] MEDS: ALBUMIN 25% 25 GM in PREMIX 1 EA IV SCH (00:43)
[2022-08-19] MEDS: ALBUTEROL FS 2.5 MG/3 ML VIAL.NEB NEB SCH ×3 (01:22→13:49)
[2022-08-19 04:00] VITALS: BP 112/49
[2022-08-19] MEDS: VALPROIC ACID 250 MG/5 ML UDC GT SCH ×2 (06:18→13:30)
[2022-08-19] MEDS: METRONIDAZOLE 500 MG TABLET GT SCH ×2 (06:18→13:30)
[2022-08-19 06:42] LABS: BASOPHILS % (AUTO) 0.8 % (0.0-2.0); HEMATOCRIT 25 % (39-51); HEMOGLOBIN 7.8 g/dL (13.5-17.5); LYMPHOCYTES # (AUTO) 0.8 K/uL (0.8-4.8); LYMPHOCYTES % (AUTO) 17.5 % (20.0-44.0); MEAN CORPUSCULAR HGB CONC 31 g/dl (31.0-36.0); MEAN CORPUSCULAR VOLUME 88 fL (80-96); MONOCYTES # (AUTO) 0.3 K/uL (0.1-1.30); MONOCYTES % (AUTO) 6.1 % (2.0-12.0); NEUTROPHILS # (AUTO) 2.9 K/uL (1.8-8.9); NEUTROPHILS % (AUTO) 61.6 % (43.0-81.0); PLATELET COUNT (AUTO) 268 K/uL (150-450); RED BLOOD CELL COUNT(AUTO) 2.87 MIL/uL (4.5-6.0); WHITE BLOOD COUNT (AUTO) 4.8 K/uL (4.3-11.0)
--- NOTE | 2022-08-19 07:10 | NUR ---
RN CLOSING NOTE PT IN BED, OBTUNDED, ON MECHANICAL VENT,TOLERATING WELL, NO S/S/X OF ACUTE DISTRESS, TELE MONITOR READING SR, HR 98. IV ACCESS FELICIA ML NS PLUS 20MEQ POTASSIUM AT 75CC/HR, AND RFA SL. G-TUBE FEEDING RUNNING VITAL AF 1.2 @ 45 CC/HR, FLUSHES WELL, NO RESIDUAL NOTED. LINDSAY CATH IN PLACE DRAINING YELLOW URINE,FLEXISEAL DRAINING BROWN STOOL, PATENT AND INTACT. PT HAS MULTIPLE WOUNDS, PICS IN THE CHART. ALL DUE MEDS GIVEN. ALL SAFETY MEASURES IN PLACE: BED LOCKED IN LOW POSITION, SR UP X 2, BED ALARM ON. HOB ELEVATED. CALL LIGHT WITHIN REACH. WILL ENDORSE TO MORNING SHIFT FOR JELANI.
--- NOTE | 2022-08-19 07:28 | NUR ---
RN OPEN NOTE PT IN BED, OBTUNDED, ON MECHANICAL VENT WITH ORDERED SETTINGS TOLERATING WELL, NO S/S/X OF ACUTE DISTRESS, TELE MONITOR READING SR.. IV ACCESS FELICIA ML. L FOREARM M20 g. IV PATENT AND FLUSHING WELL. PT HAS GTUBE, INTACT. NO RESIDUAL VOLUME NOTED AT THIS TIME. PT HAS LINDSAY CATHEHTHER YELLOW COLOR DRAINING TO GRAVITY. PT HAS FLEXISEAL. INTACT. ALL SAFETY MEASURES IN PLACE. CALL LIGHT WITHIN REACH. BED LOCKED AT LOWEST POSITION. HOB ELEVATED. SIDE RAILS UP X2.
[2022-08-19 07:37] LABS: CREATININE 0.8 mg/dL (0.6-1.3); POTASSIUM 3.3 mmol/L (3.5-5.1)
[2022-08-19 08:00] VITALS: BP 107/60
[2022-08-19] MEDS: LINEZOLID 600 MG TABLET GT SCH (08:08)
[2022-08-19] MEDS: PANTOPRAZOLE 40 MG/PACK PACK GT SCH (08:08)
[2022-08-19] MEDS: CHLORHEXIDINE GLUCONATE 15 ML UDC MM SCH ×2 (08:08→16:03)
[2022-08-19] MEDS: MULTIVIT W/MINERALS 1 TAB TABLET GT SCH (08:08)
[2022-08-19] MEDS: PROSOURCE / PROSTAT (PYXIS) 30 ML UDC GT SCH ×3 (08:08→16:03)
[2022-08-19] MEDS: LEVETIRACETAM SOL (5 ML) 100 MG/ML UDC GT SCH (08:08)
[2022-08-19] MEDS: BACLOFEN (10 MG) 10 MG TABLET GT SCH ×3 (08:08→16:03)
[2022-08-19] MEDS: ZINC SULFATE 220 MG CAPSULE GT SCH (08:08)
[2022-08-19] MEDS: Z GUARD REMEDY 4 OZ OINT TP SCH (08:21)
[2022-08-19] MEDS: DAKINS QUARTER STRENGTH (0.125%) 480 ML BOTTLE TOP SCH (08:21)
[2022-08-19] MEDS ORDERED: Linezolid GT (08:52)
[2022-08-19] MEDS ORDERED: COLI150V12 IJ (08:52)
[2022-08-19] MEDS: COLISTIMETHATE SODIUM 75 MG in IV NS 0.9% 50 ML IV SCH (09:10)
[2022-08-19 12:00] VITALS: BP 106/56
[2022-08-19 16:14] VITALS: BP 101/55
--- NOTE | 2022-08-19 18:24 | NUR ---
RN NOTE PATIENT IS AT STABLE CONDITION , RECEIVED ORDER TO DISCHARGE PATIENT [facility] THE [facility] , REPORT WAS GIVEN TO THE RN SRINIVAS GRAYSON . WRITTEN DISCHARGE INSTRUCTIONS PROVIDED TO THE EMT . PATIENT IS DISCHARGED FROM [facility]
== END 2022-08-19 18:51 | DRG 853 ==
LOC: ER 12:05 → ICU 14:35 → TELE-TD 08-02 15:46 → TELE1 08-06 11:18
PROVIDERS: ATTEND Internal Medicine
PROC: 5A1955Z Respiratory Ventilation, Greater than 96 Consecutive Hours (ICD-10-PCS; principal; 2022-07-30)
PROC: 06HY33Z Insertion of Infusion Device into Lower Vein, Percutaneous Approach (ICD-10-PCS; 2022-07-30)
PROC: 30233N1 Transfusion of Nonautologous Red Blood Cells into Peripheral Vein, Percutaneous Approach (ICD-10-PCS; 2022-07-31)
PROC: 05H933Z Insertion of Infusion Device into Right Brachial Vein, Percutaneous Approach (ICD-10-PCS; 2022-08-04)
PROC: 05HA33Z Insertion of Infusion Device into Left Brachial Vein, Percutaneous Approach (ICD-10-PCS; 2022-08-12)
PROC: 0KBP0ZZ Excision of Left Hip Muscle, Open Approach (ICD-10-PCS; 2022-08-17)
PROC: 0QB10ZZ Excision of Sacrum, Open Approach (ICD-10-PCS; 2022-08-17)
PROC: 0QB30ZZ Excision of Left Pelvic Bone, Open Approach (ICD-10-PCS; 2022-08-17)
PROC: 0QB00ZZ Excision of Lumbar Vertebra, Open Approach (ICD-10-PCS; 2022-08-17)
DX: A41.9 Sepsis, unspecified organism (principal); E43 Unspecified severe protein-calorie malnutrition; J96.20 Acute and chronic respiratory failure, unspecified whether with hypoxia or hypercapnia; L89.524 Pressure ulcer of left ankle, stage 4; L89.224 Pressure ulcer of left hip, stage 4; L89.154 Pressure ulcer of sacral region, stage 4; L89.104 Pressure ulcer of unspecified part of back, stage 4; L89.44 Pressure ulcer of contiguous site of back, buttock and hip, stage 4; L89.314 Pressure ulcer of right buttock, stage 4; L89.894 Pressure ulcer of other site, stage 4; R65.21 Severe sepsis with septic shock; J96.21 Acute and chronic respiratory failure with hypoxia; R53.2 Functional quadriplegia; J95.851 Ventilator associated pneumonia; N39.0 Urinary tract infection, site not specified; G93.1 Anoxic brain damage, not elsewhere classified; M86.9 Osteomyelitis, unspecified; Z99.11 Dependence on respirator [ventilator] status; Z68.1 Body mass index [BMI] 19.9 or less, adult; R64 Cachexia; I48.20 Chronic atrial fibrillation, unspecified; E87.0 Hyperosmolality and hypernatremia; E87.20 Acidosis, unspecified; Y92.9 Unspecified place or not applicable; E11.69 Type 2 diabetes mellitus with other specified complication; G40.909 Epilepsy, unspecified, not intractable, without status epilepticus; I10 Essential (primary) hypertension; R13.10 Dysphagia, unspecified; Z93.1 Gastrostomy status; Z93.0 Tracheostomy status; Z20.822 Contact with and (suspected) exposure to COVID-19; Y84.8 Other medical procedures as the cause of abnormal reaction of the patient, or of later complication, without mention of misadventure at the time of the procedure; M24.561 Contracture, right knee; M24.562 Contracture, left knee; Y95 Nosocomial condition; Z79.51 Long term (current) use of inhaled steroids; Z79.899 Other long term (current) drug therapy; Z86.19 Personal history of other infectious and parasitic diseases; Z87.440 Personal history of urinary (tract) infections; Z74.01 Bed confinement status; E88.09 Other disorders of plasma-protein metabolism, not elsewhere classified; Z87.891 Personal history of nicotine dependence; D64.9 Anemia, unspecified; E78.5 Hyperlipidemia, unspecified; D75.838 Other thrombocytosis; E87.6 Hypokalemia; N31.9 Neuromuscular dysfunction of bladder, unspecified; L89.896 Pressure-induced deep tissue damage of other site; L98.9 Disorder of the skin and subcutaneous tissue, unspecified; B96.4 Proteus (mirabilis) (morganii) as the cause of diseases classified elsewhere; M62.50 Muscle wasting and atrophy, not elsewhere classified, unspecified site
CPT/HCPCS: 31720; 36410; 36415; 36600; 71045-TC; 80048-TC; 80053-TC; 80076-TC; 80164-TC; 80202-TC; 81001; 82248-TC; 82803-TC; 82962-TC; 83605-TC; 83735-TC; 84100-TC; 84484-TC; 85025-TC; 85027-TC; 85730-TC; 86850-TC; 87040-TC; 87070-TC; 87081-TC; 87086-TC; 87186-TC; 94002-TC; 94003-TC; 94760-TC; 94762-TC; 94799-TC; 99082-TC; A4216; A4217; A4623; A4629; A6253; A6403; A7526; C9803; G0378; J0770; J0885; J1650; J1953; J2020; J2060; J2185; J2543; J3370; J3475; J3480; J3490; J7030; J7040; J7050; J7060; P9016; P9047